=== PATIENT | female | born 1960 | race African-American/Black ===

== ENCOUNTER 2017-07-10 19:41 | Emergency (ER) | payer MEDICARE, BC | END 2017-07-10 20:05 | disposition home or self-care (01) | LOC: ER 19:41 | DX: S80.862A Insect bite (nonvenomous), left lower leg, initial encounter (principal); S80.861A Insect bite (nonvenomous), right lower leg, initial encounter; E78.00 Pure hypercholesterolemia, unspecified; I13.2 Hypertensive heart and chronic kidney disease with heart failure and with stage 5 chronic kidney disease, or end stage renal disease; E11.22 Type 2 diabetes mellitus with diabetic chronic kidney disease; N18.6 End stage renal disease; I50.9 Heart failure, unspecified; Z99.2 Dependence on renal dialysis; W57.XXXA Bitten or stung by nonvenomous insect and other nonvenomous arthropods, initial encounter; Y93.89 Activity, other specified; Y99.8 Other external cause status; Y92.89 Other specified places as the place of occurrence of the external cause | CPT/HCPCS: 99283 ==

== ENCOUNTER → 2017-08-10 | Outpatient (CLI) | payer MEDICARE ==
[2017-08-10 12:00] LABS: FERRITIN 1771 ng/mL (8-252)
[2017-08-10 23:12] LABS: HEP B SURFACE AG Negative (Negative)
[2017-08-12 14:14] LABS: HCV ULTRA QUANT PCR HCV Not Detected IU/mL (.)
== END | disposition home or self-care (01) ==
LOC: LAB 10:23
DX: L13.9 Bullous disorder, unspecified (principal); L98.8 Other specified disorders of the skin and subcutaneous tissue; R79.89 Other specified abnormal findings of blood chemistry
CPT/HCPCS: 36415; 82728; 86704; 87340; 87521

== ENCOUNTER → 2018-05-24 | Outpatient (CLI) | payer MEDICARE ==
[2017-07-10 19:47] VITALS: BP 181/81
[~2018-05-24] MED LIST: ASPI325T8 PO; CARV12.511 PO; CARV25TA2 PO; CARV6.2511 PO; FERR325T58 PO; FURO80TA3 PO; HYDR-2765 PO; HYDR-2867 PO; INSU100I17 SQ; ISOS10TA2 PO; LOSA100T14 PO; MAGN400T3 PO; MULT1TAB52 PO; SEVE800T9 PO; SULF1TAB24 PO
--- NOTE | 2018-05-24 11:37 | KCIC ---
Right upper quadrant ultrasound 05/24/2018 INDICATION: Elevated alkaline phosphatase. COMPARISON STUDY: None. FINDINGS: The visualized pancreas is unremarkable. The gallbladder wall is non thickened. No cholelithiasis is seen. Common bile duct is normal diameter 2.4 mm. The liver is unremarkable in appearance. No focal hepatic lesions are identified. The portal venous flows in the normal direction. Right kidney measures 11.4 cm in length but appears to be atrophic with significant renal cortical thinning. No gross hydronephrosis or nephrolithiasis is identified. IMPRESSION: 1. Atrophic appearance of the right kidney 2. No acute sonographic abnormality of the right upper quadrant Electronically signed by: Adonis Ervin MD (05/24/2018 11:34 AM) [id number]
== END | disposition home or self-care (01) ==
LOC: KCIC US 09:36
PROVIDERS: ATTEND Family Medicine
DX: N26.1 Atrophy of kidney (terminal) (principal)
CPT/HCPCS: 76705

== ENCOUNTER 2018-05-30 09:48 | Inpatient (IN) | payer MEDICARE ==
[~2018-05-30] VITALS: Ht 175.3 cm; Wt 88.9 kg
[~2018-05-30 09:48] MED LIST changes: -CARV25TA2 PO; -HYDR-2867 PO; -ISOS10TA2 PO; -LOSA100T14 PO
[2018-05-30 10:39] LABS: BASO % 0 % (0-3); EOS # 0.1 x10^3/uL (0.0-0.7); EOS % 1 % (0-3); HEMATOCRIT 29.4 % (36.0-47.0); HEMOGLOBIN 9.7 g/dL (12.0-15.5); LYMPH # 0.4 x10^3/uL (1.0-4.8); LYMPH % 4 % (24-48); MEAN CORPUSCULAR HEMOGLOBIN 34 pg (25-35); MEAN CORPUSCULAR HGB CONC 33 g/dL (31-37); MEAN CORPUSCULAR VOLUME 103 fL (79-100); MONO % 9 % (0-9); NEUT # 9.1 x10^3uL (1.8-7.7); NEUT % 86 % (31-73); PLATELET COUNT 101 x10^3/uL (140-400); RED BLOOD COUNT 2.85 x10^6/uL (3.50-5.40); RED CELL DISTRIBUTION WIDTH 14.8 % (11.5-14.5); WHITE BLOOD COUNT 10.6 x10^3/uL (4.0-11.0)
--- NOTE | 2018-05-30 10:50 | RAD ---
EXAM: CHEST 1 VIEW History: Cough COMPARISON: 05/02/2012 TECHNIQUE: Single portable radiograph of the chest FINDINGS: Mild cardiomegaly. Median sternotomy wires identified. There is airspace opacity identified in the right upper lobe of the lung likely infiltrates or atelectasis. Vascular stent is identified. IMPRESSION: Mild airspace opacity identified in the right upper lobe lung likely atelectasis or infiltrate. Follow-up to resolution Electronically signed by: Radu Mancera MD (05/30/2018 10:47 AM) [place] [id number]
[2018-05-30 11:44] LABS: INFLUENZA A PATIENT NEGATIVE (NEGATIVE); INFLUENZA B PATIENT NEGATIVE (NEGATIVE)
[2018-05-30 11:46] LABS: % BANDS 1 % (0-9); % LYMPHS 3 % (24-48); % MONOS 11 % (0-10); % SEGS 85 % (35-66); PLT ESTIMATE DECREASED (ADEQUATE)
--- NOTE | 2018-05-30 11:47 | PHYS DOC ---
Past Medical History Past Medical History: Arthritis, CHF, Diabetes-Type II, High Cholesterol, Hypertension, Renal Failure Additional Past Medical Histor: TRIPLE BYPASS Past Surgical History: Coronary Bypass Surgery, Tubal ligation Additional Past Surgical Histo: FISTULA, HERNIA, HEART BYPASS Alcohol Use: Occasionally Drug Use: None Adult General Chief Complaint Chief Complaint: FATIGUE HPI HPI Patient is a 57-year-old female who presents with report of being very fatigued and having generalized weakness. Patient recently had been admitted to [facility] and ultimately had been in the intensive care unit with IV pressors due to hypotension. Patient is on dialysis and states that her last full treatment was last Monday. Daughter indicates that [facility] had attempted to dialyze patient twice during her admission but patient had gone into atrial fibrillation. Patient denies any chest pain, abdominal pain, nausea, vomiting, diarrhea or other pain. Patient states that she did have fever a few days ago but does not feel febrile at this time. She does admit to a productive cough and some shortness of breath with exertion. Review of Systems Review of Systems Constitutional: Positive recent history of fever and chills [] Respiratory: Complains of cough and shortness of breath [] Cardiovascular: No additional information not addressed in HPI [] GI: Denies abdominal pain, nausea, vomiting or diarrhea [] Musculoskeletal: Denies back pain or joint pain [] Integument: Denies rash or skin lesions [] Neurologic: Denies headache, focal weakness or sensory changes [] All other systems were reviewed and found to be within normal limits, except as documented in this note. Allergies Allergies Allergies Coded Allergies Type Severity Reaction Last Updated Verified No Known Drug Allergies 06/26/14 No Physical Exam Physical Exam Constitutional: Well developed, well nourished, no acute distress, non-toxic appearance. [] HENT: Normocephalic, atraumatic, bilateral external ears normal, oropharynx dry , no oral exudates, nose normal. [] Eyes: PERRLA, EOMI, conjunctiva normal, no discharge. [] Neck: Normal range of motion, no tenderness, supple, no stridor. [] Cardiovascular: Regular rate and rhythm [] Lungs & Thorax: There are fine rhonchi noted in the lung bases to auscultation [ ] Abdomen: Bowel sounds normal, soft, no tenderness. [] Skin: Warm, dry, no erythema, no rash. [] Extremities: No tenderness, no cyanosis, no clubbing, ROM intact. [] Neurologic: Alert and oriented X 3, no focal deficits noted. [] Current Patient Data Vital Signs Vital Signs Date Time Temp Pulse Resp B/P (MAP) Pulse Ox O2 Delivery O2 Flow Rate FiO2 05/30/18 12:00 72 114/62 (79) 100 Nasal Cannula 2.0 05/30/18 09:50 98.3 18 98.3 Lab Values Laboratory Tests Test 05/30/18 10:04 05/30/18 10:45 05/30/18 11:50 05/30/18 13:10 White Blood Count 10.6 x10^3/uL (4.0-11.0) Red Blood Count 2.85 x10^6/uL (3.50-5.40) L Hemoglobin 9.7 g/dL (12.0-15.5) L Hematocrit 29.4 % (36.0-47.0) L Mean Corpuscular Volume 103 fL (79-100) H Mean Corpuscular Hemoglobin 34 pg (25-35) Mean Corpuscular Hemoglobin Concent 33 g/dL (31-37) Red Cell Distribution Width 14.8 % (11.5-14.5) H Platelet Count 101 x10^3/uL (140-400) L Neutrophils (%) (Auto) 86 % (31-73) H Lymphocytes (%) (Auto) 4 % (24-48) L Monocytes (%) (Auto) 9 % (0-9) Eosinophils (%) (Auto) 1 % (0-3) Basophils (%) (Auto) 0 % (0-3) Neutrophils # (Auto) 9.1 x10^3uL (1.8-7.7) H Lymphocytes # (Auto) 0.4 x10^3/uL (1.0-4.8) L Monocytes # (Auto) 1.0 x10^3/uL (0.0-1.1) Eosinophils # (Auto) 0.1 x10^3/uL (0.0-0.7) Basophils # (Auto) 0.0 x10^3/uL (0.0-0.2) Segmented Neutrophils % 85 % (35-66) H Band Neutrophils % 1 % (0-9) Lymphocytes % 3 % (24-48) L Monocytes % 11 % (0-10) H Platelet Estimate Decreased (ADEQUATE) Influenza Type A Antigen Negative (NEGATIVE) Influenza Type B Antigen Negative (NEGATIVE) Sodium Level 131 mmol/L (136-145) L Potassium Level 4.8 mmol/L (3.5-5.1) Chloride Level 87 mmol/L (98-107) L Carbon Dioxide Level 27 mmol/L (21-32) Anion Gap 17 (6-14) H Blood Urea Nitrogen 65 mg/dL (7-20) H Creatinine 8.5 mg/dL (0.6-1.0) H Estimated GFR (Cockcroft-Gault) 5.9 BUN/Creatinine Ratio 8 (6-20) Glucose Level 161 mg/dL (70-99) H Lactic Acid Level 1.2 mmol/L (0.4-2.0) Calcium Level 9.3 mg/dL (8.5-10.1) Total Bilirubin 0.7 mg/dL (0.2-1.0) Aspartate Amino Transferase (AST) 14 U/L (15-37) L Alanine Aminotransferase (ALT) 17 U/L (14-59) Alkaline Phosphatase 171 U/L (46-116) H Troponin I Quantitative 0.062 ng/mL (0.000-0.055) RC-Sbb-Y-Type Natriuretic Peptide > 76794 pg/mL (0-124) H Total Protein 5.8 g/dL (6.4-8.2) L Albumin 2.0 g/dL (3.4-5.0) L Albumin/Globulin Ratio 0.5 (1.0-1.7) L Urine Collection Type U cath Urine Color Maddie Urine Clarity Turbid Urine pH Urine Specific [place] Urine Protein mg/dL (NEG-TRACE) Urine Glucose (UA) mg/dL (NEG) Urine Ketones (Stick) mg/dL (NEG) Urine Blood (NEG) Urine Nitrite (NEG) Urine Bilirubin (NEG) Urine Urobilinogen Dipstick mg/dL (0.2 mg/dL) Urine Leukocyte Esterase (NEG) Urine RBC Tntc /HPF (0-2) Urine WBC >40 /HPF (0-4) Urine Squamous Epithelial Cells Mod /LPF Urine Transitional Epithelial Cells Few /LPF Urine Bacteria Few /HPF (0-FEW) Laboratory Tests 05/30/18 10:04 Laboratory Tests 05/30/18 11:50 EKG EKG [] Interpretation Time: EKG demonstrates normal sinus rhythm with rate of 77. Radiology/Procedures Radiology/Procedures [] Impressions: EXAM: CHEST 1 VIEW History: Cough COMPARISON: 05/02/2012 TECHNIQUE: Single portable radiograph of the chest FINDINGS: Mild cardiomegaly. Median sternotomy wires identified. There is airspace opacity identified in the right upper lobe of the lung likely infiltrates or atelectasis. Vascular stent is identified. IMPRESSION: Mild airspace opacity identified in the right upper lobe lung likely atelectasis or infiltrate. Follow-up to resolution Electronically signed by: Radu Mancera MD (05/30/2018 10:47 AM) [place] [id number] Course & Med Decision Making Course & Med Decision Making Pertinent Labs and Imaging studies reviewed. (See chart for details) [] Dragon Disclaimer Dragon Disclaimer This electronic medical record was generated, in whole or in part, using a voice recognition dictation system. Departure Departure Impression: Primary Impression: Right upper lobe pneumonia Additional Impression: ESRD (end stage renal disease) on dialysis Disposition: 09 ADMITTED INPATIENT Admitting Physician: Other Condition: IMPROVED Referrals: FRAN MORENO MD (PCP) Problem Qualifiers Primary Impression: Right upper lobe pneumonia Pneumonia type: due to unspecified organism Qualified Codes: J18.1 - Lobar pneumonia, unspecified organism ABBIE ARAGON Jr. DO May 30, 2018 11:47
--- NOTE | 2018-05-30 12:24 | EKG ---
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
[2018-05-30 12:38] LABS: CALCIUM 9.3 mg/dL (8.5-10.1); CREATININE 8.5 mg/dL (0.6-1.0); GFR 5.9; POTASSIUM 4.8 mmol/L (3.5-5.1)
[2018-05-30 12:52] LABS: ALBUMIN/GLOBULIN RATIO 0.5 (1.0-1.7); TOTAL BILIRUBIN 0.7 mg/dL (0.2-1.0); TOTAL PROTEIN 5.8 g/dL (6.4-8.2)
[2018-05-30 13:47] LABS: CLARITY,URINE TURBID; COLOR,URINE AMBER
[2018-05-30 13:48] LABS: SQUAMOUS EPITHELIAL CELL,UR MOD /LPF
[2018-05-30 13:49] LABS: BACTERIA,URINE FEW /HPF (0-FEW); RBC,URINE TNTC /HPF (0-2); WBC,URINE >40 /HPF (0-4)
--- NOTE | 2018-05-30 13:54 | PDOC1 ---
History and Physical Date of Admission Date of Admission DATE: 05/30/18 TIME: 13:53 Identification/Chief Complaint Chief Complaint Fatigued Source Source: Caregiver, Chart review, Patient History of Present Illness History of Present Illness 57-year-old female w/ PMHx HTN and secondary ESRD on HD at least 5 years duration who presents with report of being very fatigued and having generalized weakness. Patient recently had been admitted to [facility] and ultimately had been in the intensive care unit with IV pressors due to hypotension (on further review and call to ICU at [facility], her children took her from ICU AMA earlier today ). Patient is on dialysis and states that her last full outpatient treatment was last Monday. Daughter indicates that [facility] had attempted to dialyze patient twice during her admission but patient had gone into atrial fibrillation and became hypotensive, was transferred to ICU after on pressors, they were upset about her treatment plan, apparently, and are very demanding of ED staff and nursing floor staff after admission. Patient denies any chest pain, abdominal pain, nausea, vomiting, diarrhea or other pain. Patient states that she did have fever a few days ago but does not feel febrile at this time. She does admit to a productive cough and some shortness of breath with exertion. Negative flu test, but positive for RUL infiltrate on CXR in ED. On the floor she appears hypotensive 78/49 on the electronic blood pressure cuff. However, I took manual BP on LUE and right thigh cuff, found 110/68 and 105/62 by manual auscultation. Past Medical History Cardiovascular: HTN Pulmonary: No pertinent hx GI: No pertinent hx Heme/Onc: No pertinent hx Hepatobiliary: No pertinent hx Psych: No pertinent hx Rheumatologic: No pertinent hx Infectious disease: No pertinent hx ENT: No pertinent hx Renal/: Chronic renal failure Endocrine: No pertinent hx Dermatology: No pertinent hx Past Surgical History Past Surgical History: Other (RUE AV fistula) Family History Family History: Hypertension Family History: Parent (HTN, CAD) Social History Smoke: No ALCOHOL: none Drugs: None Current Medications Current Medications Active Scripts Active Bactrim Ds Tablet (Sulfamethoxazole/Trimethoprim) 1 Each Tablet 1 Tab PO BID Reported Novolog Flexpen (Insulin Aspart) 100 Unit/1 Ml Insuln.pen 1 Unit SQ Carvedilol 12.5 Mg Tablet 1 Tab PO BID Carvedilol 6.25 Mg Tablet 1 Tab PO BID Hydrocodone-Apap 7.5-325 (Hydrocodone Bit/Acetaminophen) 1 Each Tablet 1 Tab PO QID Renvela (Sevelamer Carbonate) 800 Mg Tablet 2 Tab PO TID Iron Supplement (Ferrous Sulfate) 325 Mg Tablet 1 Tab PO DAILY Aspirin 325 Mg Tablet 1 Tab PO DAILY Multivitamins (Multivitamin) 1 Each Tablet 1 Tab PO DAILY Furosemide 80 Mg Tablet 1 Tab PO DAILY Magnesium Oxide 400 Mg Tablet 1 Tab PO DAILY Allergies Allergies: Coded Allergies: No Known Drug Allergies (Unverified , 06/26/14) ROS General: YES: Fatigue, Malaise; No: Chills, Night Sweats, Appetite, Other PSYCHOLOGICAL ROS: No: Anxiety, Behavioral Disorder, Concentration difficultie , Decreased libido, Depression, Disorientation, Hallucinations, Hostility, Irritablity, Memory difficulties, Mood Swings, Obsessive thoughts, Physical abuse, Sexual abuse, Sleep disturbances, Suicidal ideation, Other Eyes: No Blurry vision, No Decreased vision, No Double vision, No Dry eyes, No Excessive tearing, No Eye Pain, No Itchy Eyes, No Loss of vision, No Photophobia , No Scotomata, No Uses contacts, No Uses glasses, No Other HEENT: No: Heacaches, Visual Changes, Hearing change, Nasal congestion, Nasal discharge, Oral lesions, Sinus pain, Sore Throat, Epistaxis, Sneezing, Snoring, Tinnitus, Vertigo, Vocal changes, Other ALLERGY AND IMMUNOLOGY: No: Hives, Insect Bite Sensitivity, Itchy/Watery Eyes, Nasal Congestion, Post Nasal Drip, Seasonal Allergies, Other Hematological and Lymphatic: No: Bleeding Problems, Blood Clots, Blood Transfusions, Brusing, Night Sweats, Pallor, Swollen Lymph Nodes, Other ENDOCRINE: No: Breast Changes, Galactorrhea, Hair Pattern Changes, Hot Flashes , Malaise/lethargy, Mood Swings, Palpitations, Polydipsia/polyuria, Skin Changes , Temperature Intolerance, Unexpected Weight Changes, Other Breast: No New/Changing Breast Lumps, No Nipple changes, No Nipple discharge, No Other Respiratory: YES: Cough, Shortness of breath; No: Hemoptysis, Orthopnea, Pleuritic Pain, SOB with excertion, Sputum Changes , Stridor, Tachypnea, Wheezing, Other Cardiovascular: No Chest Pain, No Palpitations, No Orthopnea, No Paroxysmal Noc. Dyspnea, No Edema, No Lt Headedness, No Other Gastrointestinal: Yes Nausea; No Vomiting, No Abdominal Pain, No Diarrhea, No Constipation, No Melena, No Hematochezia, No Other Genitourinary: No Dysuria, No Frequency, No Incontinence, No Hematuria, No Retention, No Discharge, No Urgency, No Pain, No Flank Pain, No Other, No , No , No , No , No , No , No Musculoskeletal: No Gait Disturbance, No Joint Pain, No Joint Stiffness, No Joint Swelling, No Muscle Pain, No Muscular Weakness, No Pain In:, No Swelling In:, No Other Neurological: No Behavorial Changes, No Bowel/Bladder ControlChng, No Confusion , No Dizziness, No Gait Disturbance, No Headaches, No Impaired Coord/balance, No Memory Loss, No Numbness/Tingling, No Seizures, No Speech Problems, No Tremors, No Visual Changes, No Weakness, No Other Skin: Yes Dry Skin; No Eczema, No Hair Changes, No Lumps, No Mole Changes, No Mottling, No Nail Changes, No Pruritus, No Rash, No Skin Lesion Changes, No Other, No Acne Physical Exam General: Alert, Oriented X3, Cooperative, No acute distress HEENT: Atraumatic, PERRLA, EOMI, Mucous membr. moist/pink Lungs: Other (Right sided crackles, decreased bibasilar sounds) Abdomen: Normal bowel sounds, Soft, No tenderness, No hepatosplenomegaly, No masses Rectal Exam: not examined Extremities: No clubbing, No cyanosis, No edema, Normal pulses, No tenderness/ swelling, Other (Scarring and RUE fistula with good bruit) Skin: Other (Very dry skin) Neuro: Normal gait, Normal speech, Strength at 5/5 X4 ext, Normal tone, Sensation intact, Cranial nerves 3-12 NL, Reflexes 2+ Psych/Mental Status: Mental status NL, Mood NL Vitals Vitals Vital Signs Date Time Temp Pulse Resp B/P (MAP) Pulse Ox O2 Delivery O2 Flow Rate FiO2 05/30/18 12:00 72 114/62 (79) 100 Nasal Cannula 2.0 05/30/18 09:50 98.3 18 98.3 Labs Labs Laboratory Tests Test 05/30/18 10:04 05/30/18 10:45 05/30/18 11:50 05/30/18 13:10 White Blood Count 10.6 x10^3/uL (4.0-11.0) Red Blood Count 2.85 x10^6/uL (3.50-5.40) Hemoglobin 9.7 g/dL (12.0-15.5) Hematocrit 29.4 % (36.0-47.0) Mean Corpuscular Volume 103 fL (79-100) Mean Corpuscular Hemoglobin 34 pg (25-35) Mean Corpuscular Hemoglobin Concent 33 g/dL (31-37) Red Cell Distribution Width 14.8 % (11.5-14.5) Platelet Count 101 x10^3/uL (140-400) Neutrophils (%) (Auto) 86 % (31-73) Lymphocytes (%) (Auto) 4 % (24-48) Monocytes (%) (Auto) 9 % (0-9) Eosinophils (%) (Auto) 1 % (0-3) Basophils (%) (Auto) 0 % (0-3) Neutrophils # (Auto) 9.1 x10^3uL (1.8-7.7) Lymphocytes # (Auto) 0.4 x10^3/uL (1.0-4.8) Monocytes # (Auto) 1.0 x10^3/uL (0.0-1.1) Eosinophils # (Auto) 0.1 x10^3/uL (0.0-0.7) Basophils # (Auto) 0.0 x10^3/uL (0.0-0.2) Segmented Neutrophils % 85 % (35-66) Band Neutrophils % 1 % (0-9) Lymphocytes % 3 % (24-48) Monocytes % 11 % (0-10) Platelet Estimate Decreased (ADEQUATE) Influenza Type A Antigen Negative (NEGATIVE) Influenza Type B Antigen Negative (NEGATIVE) Sodium Level 131 mmol/L (136-145) Potassium Level 4.8 mmol/L (3.5-5.1) Chloride Level 87 mmol/L (98-107) Carbon Dioxide Level 27 mmol/L (21-32) Anion Gap 17 (6-14) Blood Urea Nitrogen 65 mg/dL (7-20) Creatinine 8.5 mg/dL (0.6-1.0) Estimated GFR (Cockcroft-Gault) 5.9 BUN/Creatinine Ratio 8 (6-20) Glucose Level 161 mg/dL (70-99) Lactic Acid Level 1.2 mmol/L (0.4-2.0) Calcium Level 9.3 mg/dL (8.5-10.1) Total Bilirubin 0.7 mg/dL (0.2-1.0) Aspartate Amino Transf (AST/SGOT) 14 U/L (15-37) Alanine Aminotransferase (ALT/SGPT) 17 U/L (14-59) Alkaline Phosphatase 171 U/L (46-116) Troponin I Quantitative 0.062 ng/mL (0.000-0.055) QW-Voh-N-Type Natriuretic Peptide > 04066 pg/mL (0-124) Total Protein 5.8 g/dL (6.4-8.2) Albumin 2.0 g/dL (3.4-5.0) Albumin/Globulin Ratio 0.5 (1.0-1.7) Urine Collection Type U cath Urine Color Maddie Urine Clarity Turbid Urine pH Urine Specific [place] Urine Protein mg/dL (NEG-TRACE) Urine Glucose (UA) mg/dL (NEG) Urine Ketones (Stick) mg/dL (NEG) Urine Blood (NEG) Urine Nitrite (NEG) Urine Bilirubin (NEG) Urine Urobilinogen Dipstick mg/dL (0.2 mg/dL) Urine Leukocyte Esterase (NEG) Urine RBC Tntc /HPF (0-2) Urine WBC >40 /HPF (0-4) Urine Squamous Epithelial Cells Mod /LPF Urine Transitional Epithelial Cells Few /LPF Urine Bacteria Few /HPF (0-FEW) Laboratory Tests Test 05/30/18 10:04 05/30/18 10:45 05/30/18 11:50 05/30/18 13:10 White Blood Count 10.6 x10^3/uL (4.0-11.0) Red Blood Count 2.85 x10^6/uL (3.50-5.40) Hemoglobin 9.7 g/dL (12.0-15.5) Hematocrit 29.4 % (36.0-47.0) Mean Corpuscular Volume 103 fL (79-100) Mean Corpuscular Hemoglobin 34 pg (25-35) Mean Corpuscular Hemoglobin Concent 33 g/dL (31-37) Red Cell Distribution Width 14.8 % (11.5-14.5) Platelet Count 101 x10^3/uL (140-400) Neutrophils (%) (Auto) 86 % (31-73) Lymphocytes (%) (Auto) 4 % (24-48) Monocytes (%) (Auto) 9 % (0-9) Eosinophils (%) (Auto) 1 % (0-3) Basophils (%) (Auto) 0 % (0-3) Neutrophils # (Auto) 9.1 x10^3uL (1.8-7.7) Lymphocytes # (Auto) 0.4 x10^3/uL (1.0-4.8) Monocytes # (Auto) 1.0 x10^3/uL (0.0-1.1) Eosinophils # (Auto) 0.1 x10^3/uL (0.0-0.7) Basophils # (Auto) 0.0 x10^3/uL (0.0-0.2) Segmented Neutrophils % 85 % (35-66) Band Neutrophils % 1 % (0-9) Lymphocytes % 3 % (24-48) Monocytes % 11 % (0-10) Platelet Estimate Decreased (ADEQUATE) Influenza Type A Antigen Negative (NEGATIVE) Influenza Type B Antigen Negative (NEGATIVE) Sodium Level 131 mmol/L (136-145) Potassium Level 4.8 mmol/L (3.5-5.1) Chloride Level 87 mmol/L (98-107) Carbon Dioxide Level 27 mmol/L (21-32) Anion Gap 17 (6-14) Blood Urea Nitrogen 65 mg/dL (7-20) Creatinine 8.5 mg/dL (0.6-1.0) Estimated GFR (Cockcroft-Gault) 5.9 BUN/Creatinine Ratio 8 (6-20) Glucose Level 161 mg/dL (70-99) Lactic Acid Level 1.2 mmol/L (0.4-2.0) Calcium Level 9.3 mg/dL (8.5-10.1) Total Bilirubin 0.7 mg/dL (0.2-1.0) Aspartate Amino Transf (AST/SGOT) 14 U/L (15-37) Alanine Aminotransferase (ALT/SGPT) 17 U/L (14-59) Alkaline Phosphatase 171 U/L (46-116) Troponin I Quantitative 0.062 ng/mL (0.000-0.055) JM-Axz-U-Type Natriuretic Peptide > 39162 pg/mL (0-124) Total Protein 5.8 g/dL (6.4-8.2) Albumin 2.0 g/dL (3.4-5.0) Albumin/Globulin Ratio 0.5 (1.0-1.7) Urine Collection Type U cath Urine Color Maddie Urine Clarity Turbid Urine pH Urine Specific [place] Urine Protein mg/dL (NEG-TRACE) Urine Glucose (UA) mg/dL (NEG) Urine Ketones (Stick) mg/dL (NEG) Urine Blood (NEG) Urine Nitrite (NEG) Urine Bilirubin (NEG) Urine Urobilinogen Dipstick mg/dL (0.2 mg/dL) Urine Leukocyte Esterase (NEG) Urine RBC Tntc /HPF (0-2) Urine WBC >40 /HPF (0-4) Urine Squamous Epithelial Cells Mod /LPF Urine Transitional Epithelial Cells Few /LPF Urine Bacteria Few /HPF (0-FEW) Images Images CXR - Mild airspace opacity identified in the right upper lobe lung likely atelectasis or infiltrate. Follow-up to resolution VTE Prophylaxis Ordered VTE Prophylaxis Devices: No VTE Pharmacological Prophylaxi: Yes Assessment/Plan Assessment/Plan A/P: Cough - with RUL infiltrate, left shift, highly elevated procalcitonin and recent hospital stay will treat this as HCAP - cefepime + vanco. I will consult pulm/airport operations manager as she was literally in ICU at [facility] just hours prior to my evaluation Hypoxia - likely combination of HCAP and possible fluid overload Hypotension - On the floor she appears hypotensive 78/49 on the electronic blood pressure cuff. However, I took manual BP on LUE and right thigh cuff, found 110/68 and 105/62 by manual auscultation. I recommended manual BP to overnight nursing staff ESRD on HD - 5 year history, will consult nephrology with caveat that she had 2 poor runs, apparently, at [facility] Anemia - likely of chronic renal insufficiency. Monitor, consider transfusion if Hb < 7 HTN - will hold her meds as she is rather hypotensive Afib history - she is sinus on monitor for me. Will consult cardiology. FEN - Renal diet PPX - heparin FULL CODE Inpatient for HCAP at least 2 midnights. She may have a lower threshold for ICU transfer, but has been stable for hours with me thus far. TIANA LINDSAY MD May 30, 2018 13:54
[2018-05-30] MEDS ORDERED: VANCOMYCIN 1GM IVPB FOR OMNI 250 ML IV ONE (14:15)
[2018-05-30] MEDS ORDERED: ACETAMINOPHEN 325 MG TABLET. PO PRN ×2 (14:15→17:00)
[2018-05-30] MEDS ORDERED: PIPERACILLIN/TAZOBACTAM 2.25 GM in IV NORMAL SALINE 50ML 50 ML IV ONE (14:15)
[2018-05-30] MEDS ORDERED: VANCOMYCIN 1.5 GM in IV NORMAL SALINE 500ML BAG 500 ML IV ONE (14:30)
[2018-05-30 15:00] VITALS: BP 99/56
[2018-05-30] MEDS ORDERED: ISOS10TA2 PO (15:59)
[2018-05-30] MEDS ORDERED: LOSA100T14 PO (15:59)
[2018-05-30] MEDS ORDERED: CARV25TA2 PO (15:59)
[2018-05-30] MEDS ORDERED: HYDR-2867 PO (15:59)
[2018-05-30] MEDS ORDERED: ONDANSETRON PF 4 MG/2 ML VIAL. IV PRN (17:00)
[2018-05-30] MEDS ORDERED: LACTULOSE 20 GM/30 ML SOLUTION. PO PRN (17:00)
[2018-05-30] MEDS ORDERED: BISACODYL 10 MG SUPP.RECT. PR PRN (17:00)
[2018-05-30] MEDS: IPRATRPIUM/ALBUTEROL 0.5/2.5MG 3 ML NEBU. NEB SCH ×2 (17:08→20:32)
[2018-05-30 19:00] VITALS: BP 73/38
[2018-05-30] MEDS ORDERED: IV NORMAL SALINE 250ML 250 ML IV ONE ×2 (20:00→20:30)
[2018-05-30] MEDS: CEFEPIME HCL IV Push 1 GM VIAL. IVP SCH (20:02)
[2018-05-30] MEDS: VANCOMYCIN PER PHARMACY MC PRN (20:23)
[2018-05-30 20:28] VITALS: BP 88/49
--- NOTE | 2018-05-30 20:31 | NUR ---
Pharmacy Vancomycin Dosing Note S:Consulted to monitor and dose vancomycin started 05/30/18. O:ERIC ZAIDI is a 57 year old F with HCAP . Height: 5 feet, 9 inches Weight: 82.344720 kg [place] Body Weight: 66.20 Adjusted Body Weight: 72.52 Dosing Weight: Actual Other Antibiotics: CEFEPIME 05/30 - LABS: Last BUN: 65 Last Creatinine: 8.5 Creatinine Clearance: ESRD HD mL/min Last WBC: 10.6 Last Procalcitonin: - Tmax (past 24 hours): 98.3 Microbiology: 05/30 PENDING I/O: - Drug Levels: Last level: on at Last dose given 05/30/18 at 1546 Vancomycin Dosing: Loading Dose: x1 Dosing Weight: Actual Target Trough: 15-20 A: Based on: HD status, P: 1. Give Vancomycin 1500 mg IV One Time 2. Follow up Random level on 05/31/18 at 0600 3. Pharmacy will continue to monitor, follow and adjust therapy as needed. SEBASTIAN JERRY [facility], 05/30/182030
[2018-05-30 20:46] VITALS: BP 88/50
[2018-05-30] MEDS: SENNOSIDES/DOCUSATE 8.6/50MG TABLET. PO SCH (21:00)
[2018-05-30] MEDS: HEPARIN for SUB-Q USE 5,000 UNIT/ML VIAL. SQ SCH (21:05)
[2018-05-30] MEDS ORDERED: DEXTROSE 50% 25 GM / 50ML DISP.SYRIN. IV PRN (22:15)
[2018-05-30] MEDS: INSULIN GLARGINE 300 UNITS/3 ML INSULN.PEN. SQ SCH (22:37)
[2018-05-30 23:00] VITALS: BP 110/68
[2018-05-31 03:04] VITALS: BP 104/60
[2018-05-31] MEDS ORDERED: VANCOMYCIN RANDOM LEVEL. MC ONE (06:00)
[2018-05-31] MEDS: IPRATRPIUM/ALBUTEROL 0.5/2.5MG 3 ML NEBU. NEB SCH ×3 (07:10→19:23)
[2018-05-31 07:43] LABS: BASO # 0.1 x10^3/uL (0.0-0.2); BASO % 1 % (0-3); EOS # 0.1 x10^3/uL (0.0-0.7); EOS % 1 % (0-3); HEMATOCRIT 25.4 % (36.0-47.0); HEMOGLOBIN 8.5 g/dL (12.0-15.5); LYMPH # 0.4 x10^3/uL (1.0-4.8); LYMPH % 5 % (24-48); MEAN CORPUSCULAR HEMOGLOBIN 34 pg (25-35); MEAN CORPUSCULAR HGB CONC 34 g/dL (31-37); MEAN CORPUSCULAR VOLUME 102 fL (79-100); MONO # 0.9 x10^3/uL (0.0-1.1); MONO % 10 % (0-9); NEUT # 7.8 x10^3uL (1.8-7.7); NEUT % 84 % (31-73); PLATELET COUNT 88 x10^3/uL (140-400); RED BLOOD COUNT 2.49 x10^6/uL (3.50-5.40); RED CELL DISTRIBUTION WIDTH 14.4 % (11.5-14.5); WHITE BLOOD COUNT 9.3 x10^3/uL (4.0-11.0)
[2018-05-31] MEDS ORDERED: CARVEDILOL 12.5 MG TABLET. PO SCH (08:00)
[2018-05-31] MEDS: hydrALAZINE 10 MG TABLET PO SCH (08:01)
[2018-05-31 08:05] LABS: ALBUMIN 1.7 g/dL (3.4-5.0); CALCIUM 9.3 mg/dL (8.5-10.1); CREATININE 8.9 mg/dL (0.6-1.0); GFR 5.6; PHOSPHORUS 7.3 mg/dL (2.6-4.7); POTASSIUM 5.1 mmol/L (3.5-5.1)
[2018-05-31] MEDS: SENNOSIDES/DOCUSATE 8.6/50MG TABLET. PO SCH ×2 (08:58→20:13)
[2018-05-31] MEDS: MAGNESIUM OXIDE 400 MG TABLET PO SCH (08:58)
[2018-05-31] MEDS ORDERED: ISOSORBIDE DINITRATE 10 MG TABLET. PO SCH (09:00)
[2018-05-31] MEDS ORDERED: LOSARTAN POTASSIUM 50 MG TABLET. PO SCH (09:00)
[2018-05-31] MEDS: HEPARIN for SUB-Q USE 5,000 UNIT/ML VIAL. SQ SCH ×2 (09:10→21:05)
[2018-05-31] MEDS: INSULIN LISPRO 300 UNITS/3 ML INSULN.PEN. SQ SCH ×3 (09:10→17:00)
[2018-05-31] MEDS: VANCOMYCIN PER PHARMACY MC PRN ×2 (10:16→14:00)
[2018-05-31] MEDS ORDERED: IV NORMAL SALINE 1000ML BAG 1,000 ML IV PRN ×2 (10:36)
[2018-05-31] MEDS ORDERED: ACETAMINOPHEN 500 MG TABLET PO PRN (10:45)
[2018-05-31] MEDS ORDERED: ALBUMIN HUMAN 25% 200 ML IV PRN (10:45)
[2018-05-31] MEDS ORDERED: DIALYSIS PATIENT. MC PRN (10:45)
[2018-05-31] MEDS ORDERED: diphenhydrAMINE 50 MG/ML VIAL IV PRN ×2 (10:45)
--- NOTE | 2018-05-31 12:07 | CONS ---
DATE OF CONSULTATION: ATTENDING PHYSICIAN: Dr. Bustos. REASON FOR CONSULTATION: Pneumonia. HISTORY OF PRESENT ILLNESS: The patient is a 57-year-old who has a history of tobacco use for 25 some years. She has history of end-stage renal disease, on hemodialysis. She was brought into the hospital with complaint of shortness of breath. She said she has a cough. She has some mild colt brown sputum as well. She was apparently at [facility] and was in the ICU for hypotension. However, her son took her from ICU AMA. The patient states she has missed dialysis session as well. No headaches, no nausea, vomiting, no diarrhea. Chest x-ray was reviewed and is consistent with infiltrate involving the right upper lobe. The patient has been started on antibiotics cefepime and vancomycin. I have been asked to see her for further evaluation. PAST MEDICAL HISTORY: Significant for hypertension, history of end-stage renal disease, on hemodialysis. PAST SURGICAL HISTORY: Right upper extremity AV fistula. FAMILY HISTORY: Hypertension. SOCIAL HISTORY: Smoked for about 25 years before quitting. REVIEW OF SYSTEMS: Twelve-point system obtained. Pertinent positives discussed in my history of present illness, otherwise noncontributory. All systems that were negative were reviewed as well. MEDICATIONS: Reviewed including antibiotics. PHYSICAL EXAMINATION: VITAL SIGNS: Reviewed. She is afebrile, pulse ox is 98% on room air. HEENT: Sclerae nonicteric. NECK: Supple. LUNGS: With diminished breath sounds. CARDIOVASCULAR: Regular rate and rhythm. ABDOMEN: Soft, nontender. EXTREMITIES: With some trace edema and venous stasis. LABORATORY DATA: Reviewed. White cell count 9.3, hemoglobin 8.5 and platelets are 88. Influenza screen negative. IMPRESSION: 1. Dyspnea with acute hypoxic respiratory failure requiring oxygen on admission secondary to pneumonia and underlying chronic obstructive pulmonary disease. 2. Abnormal chest x-ray consistent with right upper lobe pneumonia. 3. End-stage renal disease, on hemodialysis. 4. 25 years of tobacco use, suspect underlying chronic obstructive pulmonary disease. RECOMMENDATIONS: 1. Continue with present antibiotics. 2. We will repeat a chest x-ray in 48-72 hours. 3. Follow clinical course. 4. Hemodialysis per Renal. 5. We will follow along with you. TITUS PEGUERO MD DR: RICARDO/ron JOB#: [id number] / [id number]
--- NOTE | 2018-05-31 12:10 | PDOC ---
PROGRESS NOTES Chief Complaint Chief Complaint sepsis, pneumonia, Cough - with RUL infiltrate, le cefepime + vanco. acute Hypoxia - HCAP and possible fluid overload, ESRD Hypotension - sepsis, dry, ESRD ESRD on HD, need UF at least, fluid balance improving Anemia - likely of chronic renal insufficiency. Monitor, consider transfusion if Hb < 7 HTN - Afib history - she is sinus on monitor for me. Will consult cardiology. 7 beat run of vtach today, consult CV History of Present Illness History of Present Illness PO intake bettter vitals improved she is more active and alert today Vitals Vitals Vital Signs Date Time Temp Pulse Resp B/P (MAP) Pulse Ox O2 Delivery O2 Flow Rate FiO2 05/31/18 11:00 97.9 74 18 94 Room Air 97.9 05/31/18 08:01 110/72 05/31/18 08:00 1.0 Physical Exam General: Alert, Oriented X3, Cooperative, No acute distress Heart: No murmurs Lungs: Other (rales, poor voulme, RUL coarse) Abdomen: Normal bowel sounds, Soft, No tenderness, No hepatosplenomegaly, No masses Extremities: No clubbing, No cyanosis, No edema, Normal pulses, No tenderness/ swelling, Other (Scarring and RUE fistula with good bruit) Skin: Other (Very dry skin) Labs LABS Laboratory Tests Test 05/30/18 13:10 05/30/18 17:18 05/30/18 20:41 05/31/18 06:25 Urine Collection Type U cath Urine Color Maddie Urine Clarity Turbid Urine pH Urine Specific [place] Urine Protein mg/dL (NEG-TRACE) Urine Glucose (UA) mg/dL (NEG) Urine Ketones (Stick) mg/dL (NEG) Urine Blood (NEG) Urine Nitrite (NEG) Urine Bilirubin (NEG) Urine Urobilinogen Dipstick mg/dL (0.2 mg/dL) Urine Leukocyte Esterase (NEG) Urine RBC Tntc /HPF (0-2) Urine WBC >40 /HPF (0-4) Urine Squamous Epithelial Cells Mod /LPF Urine Transitional Epithelial Cells Few /LPF Urine Bacteria Few /HPF (0-FEW) Glucose (Fingerstick) 188 mg/dL (70-99) 252 mg/dL (70-99) White Blood Count 9.3 x10^3/uL (4.0-11.0) Red Blood Count 2.49 x10^6/uL (3.50-5.40) Hemoglobin 8.5 g/dL (12.0-15.5) Hematocrit 25.4 % (36.0-47.0) Mean Corpuscular Volume 102 fL (79-100) Mean Corpuscular Hemoglobin 34 pg (25-35) Mean Corpuscular Hemoglobin Concent 34 g/dL (31-37) Red Cell Distribution Width 14.4 % (11.5-14.5) Platelet Count 88 x10^3/uL (140-400) Neutrophils (%) (Auto) 84 % (31-73) Lymphocytes (%) (Auto) 5 % (24-48) Monocytes (%) (Auto) 10 % (0-9) Eosinophils (%) (Auto) 1 % (0-3) Basophils (%) (Auto) 1 % (0-3) Neutrophils # (Auto) 7.8 x10^3uL (1.8-7.7) Lymphocytes # (Auto) 0.4 x10^3/uL (1.0-4.8) Monocytes # (Auto) 0.9 x10^3/uL (0.0-1.1) Eosinophils # (Auto) 0.1 x10^3/uL (0.0-0.7) Basophils # (Auto) 0.1 x10^3/uL (0.0-0.2) Sodium Level 128 mmol/L (136-145) Potassium Level 5.1 mmol/L (3.5-5.1) Chloride Level 86 mmol/L (98-107) Carbon Dioxide Level 25 mmol/L (21-32) Anion Gap 17 (6-14) Blood Urea Nitrogen 77 mg/dL (7-20) Creatinine 8.9 mg/dL (0.6-1.0) Estimated GFR (Cockcroft-Gault) 5.6 Glucose Level 220 mg/dL (70-99) Calcium Level 9.3 mg/dL (8.5-10.1) Phosphorus Level 7.3 mg/dL (2.6-4.7) Albumin 1.7 g/dL (3.4-5.0) Random Vancomycin Level 27.2 mcg/mL Test 05/31/18 08:01 05/31/18 11:36 Glucose (Fingerstick) 202 mg/dL (70-99) 232 mg/dL (70-99) Assessment and Plan Assessmemt and Plan Problems Medical Problems: (1) ESRD (end stage renal disease) on dialysis Status: Acute (2) Right upper lobe pneumonia Status: Acute Comment Review of Relevant I have reviewed the following items alivia (where applicable) has been applied. Labs Laboratory Tests Test 05/30/18 10:04 05/30/18 10:45 05/30/18 11:50 05/30/18 13:10 White Blood Count 10.6 x10^3/uL (4.0-11.0) Red Blood Count 2.85 x10^6/uL (3.50-5.40) Hemoglobin 9.7 g/dL (12.0-15.5) Hematocrit 29.4 % (36.0-47.0) Mean Corpuscular Volume 103 fL (79-100) Mean Corpuscular Hemoglobin 34 pg (25-35) Mean Corpuscular Hemoglobin Concent 33 g/dL (31-37) Red Cell Distribution Width 14.8 % (11.5-14.5) Platelet Count 101 x10^3/uL (140-400) Neutrophils (%) (Auto) 86 % (31-73) Lymphocytes (%) (Auto) 4 % (24-48) Monocytes (%) (Auto) 9 % (0-9) Eosinophils (%) (Auto) 1 % (0-3) Basophils (%) (Auto) 0 % (0-3) Neutrophils # (Auto) 9.1 x10^3uL (1.8-7.7) Lymphocytes # (Auto) 0.4 x10^3/uL (1.0-4.8) Monocytes # (Auto) 1.0 x10^3/uL (0.0-1.1) Eosinophils # (Auto) 0.1 x10^3/uL (0.0-0.7) Basophils # (Auto) 0.0 x10^3/uL (0.0-0.2) Segmented Neutrophils % 85 % (35-66) Band Neutrophils % 1 % (0-9) Lymphocytes % 3 % (24-48) Monocytes % 11 % (0-10) Platelet Estimate Decreased (ADEQUATE) Influenza Type A Antigen Negative (NEGATIVE) Influenza Type B Antigen Negative (NEGATIVE) Sodium Level 131 mmol/L (136-145) Potassium Level 4.8 mmol/L (3.5-5.1) Chloride Level 87 mmol/L (98-107) Carbon Dioxide Level 27 mmol/L (21-32) Anion Gap 17 (6-14) Blood Urea Nitrogen 65 mg/dL (7-20) Creatinine 8.5 mg/dL (0.6-1.0) Estimated GFR (Cockcroft-Gault) 5.9 BUN/Creatinine Ratio 8 (6-20) Glucose Level 161 mg/dL (70-99) Lactic Acid Level 1.2 mmol/L (0.4-2.0) Calcium Level 9.3 mg/dL (8.5-10.1) Total Bilirubin 0.7 mg/dL (0.2-1.0) Aspartate Amino Transf (AST/SGOT) 14 U/L (15-37) Alanine Aminotransferase (ALT/SGPT) 17 U/L (14-59) Alkaline Phosphatase 171 U/L (46-116) Troponin I Quantitative 0.062 ng/mL (0.000-0.055) JV-Gdy-Q-Type Natriuretic Peptide > 61137 pg/mL (0-124) Total Protein 5.8 g/dL (6.4-8.2) Albumin 2.0 g/dL (3.4-5.0) Albumin/Globulin Ratio 0.5 (1.0-1.7) Procalcitonin 121.96 ng/mL (0.00-0.10) Urine Collection Type U cath Urine Color Maddie Urine Clarity Turbid Urine pH Urine Specific [place] Urine Protein mg/dL (NEG-TRACE) Urine Glucose (UA) mg/dL (NEG) Urine Ketones (Stick) mg/dL (NEG) Urine Blood (NEG) Urine Nitrite (NEG) Urine Bilirubin (NEG) Urine Urobilinogen Dipstick mg/dL (0.2 mg/dL) Urine Leukocyte Esterase (NEG) Urine RBC Tntc /HPF (0-2) Urine WBC >40 /HPF (0-4) Urine Squamous Epithelial Cells Mod /LPF Urine Transitional Epithelial Cells Few /LPF Urine Bacteria Few /HPF (0-FEW) Test 05/30/18 17:18 05/30/18 20:41 05/31/18 06:25 05/31/18 08:01 Glucose (Fingerstick) 188 mg/dL (70-99) 252 mg/dL (70-99) 202 mg/dL (70-99) White Blood Count 9.3 x10^3/uL (4.0-11.0) Red Blood Count 2.49 x10^6/uL (3.50-5.40) Hemoglobin 8.5 g/dL (12.0-15.5) Hematocrit 25.4 % (36.0-47.0) Mean Corpuscular Volume 102 fL (79-100) Mean Corpuscular Hemoglobin 34 pg (25-35) Mean Corpuscular Hemoglobin Concent 34 g/dL (31-37) Red Cell Distribution Width 14.4 % (11.5-14.5) Platelet Count 88 x10^3/uL (140-400) Neutrophils (%) (Auto) 84 % (31-73) Lymphocytes (%) (Auto) 5 % (24-48) Monocytes (%) (Auto) 10 % (0-9) Eosinophils (%) (Auto) 1 % (0-3) Basophils (%) (Auto) 1 % (0-3) Neutrophils # (Auto) 7.8 x10^3uL (1.8-7.7) Lymphocytes # (Auto) 0.4 x10^3/uL (1.0-4.8) Monocytes # (Auto) 0.9 x10^3/uL (0.0-1.1) Eosinophils # (Auto) 0.1 x10^3/uL (0.0-0.7) Basophils # (Auto) 0.1 x10^3/uL (0.0-0.2) Sodium Level 128 mmol/L (136-145) Potassium Level 5.1 mmol/L (3.5-5.1) Chloride Level 86 mmol/L (98-107) Carbon Dioxide Level 25 mmol/L (21-32) Anion Gap 17 (6-14) Blood Urea Nitrogen 77 mg/dL (7-20) Creatinine 8.9 mg/dL (0.6-1.0) Estimated GFR (Cockcroft-Gault) 5.6 Glucose Level 220 mg/dL (70-99) Calcium Level 9.3 mg/dL (8.5-10.1) Phosphorus Level 7.3 mg/dL (2.6-4.7) Albumin 1.7 g/dL (3.4-5.0) Random Vancomycin Level 27.2 mcg/mL Test 05/31/18 11:36 Glucose (Fingerstick) 232 mg/dL (70-99) Laboratory Tests Test 05/30/18 13:10 05/30/18 17:18 05/30/18 20:41 05/31/18 06:25 Urine Collection Type U cath Urine Color Maddie Urine Clarity Turbid Urine pH Urine Specific [place] Urine Protein mg/dL (NEG-TRACE) Urine Glucose (UA) mg/dL (NEG) Urine Ketones (Stick) mg/dL (NEG) Urine Blood (NEG) Urine Nitrite (NEG) Urine Bilirubin (NEG) Urine Urobilinogen Dipstick mg/dL (0.2 mg/dL) Urine Leukocyte Esterase (NEG) Urine RBC Tntc /HPF (0-2) Urine WBC >40 /HPF (0-4) Urine Squamous Epithelial Cells Mod /LPF Urine Transitional Epithelial Cells Few /LPF Urine Bacteria Few /HPF (0-FEW) Glucose (Fingerstick) 188 mg/dL (70-99) 252 mg/dL (70-99) White Blood Count 9.3 x10^3/uL (4.0-11.0) Red Blood Count 2.49 x10^6/uL (3.50-5.40) Hemoglobin 8.5 g/dL (12.0-15.5) Hematocrit 25.4 % (36.0-47.0) Mean Corpuscular Volume 102 fL (79-100) Mean Corpuscular Hemoglobin 34 pg (25-35) Mean Corpuscular Hemoglobin Concent 34 g/dL (31-37) Red Cell Distribution Width 14.4 % (11.5-14.5) Platelet Count 88 x10^3/uL (140-400) Neutrophils (%) (Auto) 84 % (31-73) Lymphocytes (%) (Auto) 5 % (24-48) Monocytes (%) (Auto) 10 % (0-9) Eosinophils (%) (Auto) 1 % (0-3) Basophils (%) (Auto) 1 % (0-3) Neutrophils # (Auto) 7.8 x10^3uL (1.8-7.7) Lymphocytes # (Auto) 0.4 x10^3/uL (1.0-4.8) Monocytes # (Auto) 0.9 x10^3/uL (0.0-1.1) Eosinophils # (Auto) 0.1 x10^3/uL (0.0-0.7) Basophils # (Auto) 0.1 x10^3/uL (0.0-0.2) Sodium Level 128 mmol/L (136-145) Potassium Level 5.1 mmol/L (3.5-5.1) Chloride Level 86 mmol/L (98-107) Carbon Dioxide Level 25 mmol/L (21-32) Anion Gap 17 (6-14) Blood Urea Nitrogen 77 mg/dL (7-20) Creatinine 8.9 mg/dL (0.6-1.0) Estimated GFR (Cockcroft-Gault) 5.6 Glucose Level 220 mg/dL (70-99) Calcium Level 9.3 mg/dL (8.5-10.1) Phosphorus Level 7.3 mg/dL (2.6-4.7) Albumin 1.7 g/dL (3.4-5.0) Random Vancomycin Level 27.2 mcg/mL Test 05/31/18 08:01 05/31/18 11:36 Glucose (Fingerstick) 202 mg/dL (70-99) 232 mg/dL (70-99) Microbiology 05/30/18 Blood Culture - Preliminary, Resulted NO GROWTH AFTER 1 DAY Medications Current Medications Vancomycin HCl 250 ml @ 250 mls/hr 1X ONCE IV ; Start 05/30/18 at 14:15; Stop 05/30/18 at 15:14; Status UNV Piperacillin Sod/ Tazobactam Sod 2.25 gm/Sodium Chloride 50 ml @ 100 mls/hr 1X ONCE IV Last administered on 05/30/18at 14:34; Start 05/30/18 at 14:15; Stop 05/30/18 at 14:44; Status DC Acetaminophen (Tylenol) 650 mg PRN Q4HRS PRN PO FEVER; Start 05/30/18 at 14:15 ; Stop 05/30/18 at 16:54; Status DC Albuterol/ Ipratropium (Duoneb) 3 ml RTQID NEB Last administered on 05/31/18at 10:52; Start 05/30/18 at 16:00; Stop 05/31/18 at 15:59 Vancomycin HCl 1.5 gm/Sodium Chloride 500 ml @ 250 mls/hr 1X ONCE IV Last administered on 05/30/18at 15:46; Start 05/30/18 at 14:30; Stop 05/30/18 at 16:29 ; Status DC Ondansetron HCl (Zofran) 4 mg PRN Q6HRS PRN IV NAUSEA/VOMITING; Start 05/30/18 at 17:00 Acetaminophen/ Hydrocodone Bitart (Lortab 5/325) 1 tab PRN Q4HRS PRN PO MILD PAIN, 2ND CHOICE; Start 05/30/18 at 17:00 Acetaminophen (Tylenol) 650 mg PRN Q6HRS PRN PO Headaches, Temp > 101.5F; Start 05/30/18 at 17:00 Senna/Docusate Sodium (Senna Plus) 1 tab BID PO Last administered on 05/31/18at 08:58; Start 05/30/18 at 21:00 Lactulose (Lactulose) 20 gm PRN Q12HR PRN PO CONSTIPATION 1ST CHOICE; Start at 17:00 Bisacodyl (Dulcolax Supp) 10 mg PRN DAILY PRN LA CONSTIPATION; Start 05/30/18 at 17:00 Heparin Sodium (Porcine) (Heparin Sodium) 5,000 unit Q12HR SQ Last administered on 05/31/18at 09:10; Start 05/30/18 at 21:00 Isosorbide Dinitrate (Isordil) 10 mg DAILY PO ; Start 05/31/18 at 09:00; Stop at 09:00; Status DC Sevelamer Carbonate (Renvela) 2,400 mg TIDWMEALS PO ; Start 05/31/18 at 18:00 Carvedilol (Coreg) 25 mg DAILY08 PO ; Start 05/31/18 at 08:00; Stop 05/31/18 at 08:00; Status DC Hydralazine HCl (Apresoline) 10 mg DAILY PO ; Start 05/31/18 at 09:00 Losartan Potassium (Cozaar) 100 mg DAILY PO ; Start 05/31/18 at 09:00; Stop at 09:00; Status DC Magnesium Oxide (Magnesium Oxide) 400 mg DAILY PO Last administered on at 08:58; Start 05/31/18 at 09:00 Cefepime HCl (Maxipime) 1 gm Q24H IVP Last administered on 05/30/18at 20:02; Start 05/30/18 at 20:00 Vancomycin HCl (Vanco Per Pharmacy) 1 each PRN DAILY PRN MC SEE COMMENTS Last administered on 05/31/18at 10:16; Start 05/30/18 at 17:00 Sodium Chloride 250 ml @ 250 mls/hr 1X ONCE IV Last administered on at 20:00; Start 05/30/18 at 20:00; Stop 05/30/18 at 20:59; Status DC Vancomycin HCl (Vancomycin Random Level) 1 each 1X ONCE MC Last administered on 05/31/18at 06:00; Start 05/31/18 at 06:00; Stop 05/31/18 at 06:01; Status DC Sodium Chloride 250 ml @ 250 mls/hr 1X ONCE IV Last administered on at 20:30; Start 05/30/18 at 20:30; Stop 05/30/18 at 21:29; Status DC Insulin Glargine (Lantus) 5 units QHS SQ Last administered on 05/30/18at 22:37; Start 05/30/18 at 22:30 Insulin Human Lispro (HumaLOG) 0-5 UNITS TIDWMEALS SQ Last administered on 05/31at 09:10; Start 05/31/18 at 08:00 Dextrose (Dextrose 50%-Water Syringe) 12.5 gm PRN Q15MIN PRN IV SEE COMMENTS; Start 05/30/18 at 22:15 Lactobacillus Rhamnosus (Culturelle) 1 cap BID PO ; Start 05/31/18 at 21:00 Sodium Chloride 1,000 ml @ 1,000 mls/hr Q1H PRN IV hypotension; Start 05/31/18 at 10:36; Stop 05/31/18 at 16:35 Albumin Human 200 ml @ 200 mls/hr 1X PRN PRN IV Hypotension; Start 05/31/18 at 10:45; Stop 05/31/18 at 16:44 Acetaminophen (Tylenol) 500 mg 1X PRN PRN PO MILD PAIN / TEMP; Start 05/31/18 at 10:45; Stop 06/01/18 at 10:44 Diphenhydramine HCl (Benadryl) 25 mg 1X PRN PRN IV ITCHING; Start 05/31/18 at 10:45; Stop 06/01/18 at 10:44 Diphenhydramine HCl (Benadryl) 25 mg 1X PRN PRN IV ITCHING; Start 05/31/18 at 10:45; Stop 06/01/18 at 10:44 Sodium Chloride 1,000 ml @ 400 mls/hr Q2H30M PRN IV PATENCY; Start 05/31/18 at 10:36; Stop 05/31/18 at 22:35 Info (PHARMACY MONITORING -- do not chart) 1 each PRN DAILY PRN MC SEE COMMENTS ; Start 05/31/18 at 10:45 Active Scripts Active Reported Carvedilol 25 Mg Tablet 25 Mg PO DAILY Losartan Potassium 100 Mg Tablet 100 Mg PO DAILY Isosorbide Dinitrate 10 Mg Tablet 10 Mg PO DAILY Hydralazine Hcl 10 Mg Tablet 10 Mg PO DAILY Renvela (Sevelamer Carbonate) 800 Mg Tablet 3 Tab PO TID Furosemide 80 Mg Tablet 1 Tab PO DAILY Magnesium Oxide 400 Mg Tablet 1 Tab PO DAILY Vitals/I & O Vital Sign - Last 24 Hours 05/30/18 05/30/18 05/30/18 05/30/18 12:30 13:30 14:30 15:00 Temp 98.3 98.3 Pulse 72 72 70 73 Resp 18 B/P (MAP) 113/59 (77) 104/61 (75) 102/55 (71) 99/56 (70) Pulse Ox 100 100 100 97 O2 Delivery Nasal Cannula Nasal Cannula Nasal Cannula Nasal Cannula O2 Flow Rate 2.0 2.0 2.0 2.0 05/30/18 05/30/18 05/30/18 05/30/18 16:16 17:08 19:00 19:45 Temp 97.4 97.4 Pulse 71 B/P (MAP) 73/38 (50) Pulse Ox 98 98 O2 Delivery Nasal Cannula Nasal Cannula Nasal Cannula Nasal Cannula O2 Flow Rate 2.0 2.0 2.0 2.0 05/30/18 05/30/18 05/30/18 05/30/18 20:28 20:33 20:46 23:00 Pulse 71 70 72 B/P (MAP) 88/49 (62) 88/50 (63) 110/68 (82) Pulse Ox 98 90 O2 Delivery Nasal Cannula Nasal Cannula O2 Flow Rate 2.0 2.0 05/30/18 05/31/18 05/31/18 05/31/18 23:04 03:04 07:00 07:10 Temp 97.6 98.4 97.6 98.4 Pulse 20 73 72 Resp 20 16 B/P (MAP) 104/60 (75) Pulse Ox 98 99 97 99 O2 Delivery Nasal Cannula Nasal Cannula Nasal Cannula Nasal Cannula O2 Flow Rate 2.0 2.0 05/31/18 05/31/18 05/31/18 05/31/18 08:00 08:01 10:52 11:00 Temp 97.9 97.9 Pulse 74 Resp 18 B/P (MAP) 110/72 Pulse Ox 97 94 O2 Delivery Nasal Cannula Room Air Room Air O2 Flow Rate 1.0 Intake and Output 05/30/18 05/30/18 05/31/18 15:00 23:00 07:00 Output Total 0 ml Balance 0 ml FADI FRANCO MD May 31, 2018 12:10
--- NOTE | 2018-05-31 13:00 | NUR ---
Patient had a 8 run of V-tach. MD Ricky notified. New orders for cardiology consult. Will continue to monitor.
--- NOTE | 2018-05-31 13:09 | PDOC2 ---
CONSULT Date of Consult Date of Consult DATE: 05/31/18 TIME: 13:00 Reason for Consult Reason for Consult: ESRD Source Source: Caregiver, Chart review History of Present Illness Reason for Visit: 57-year-old AA female w/ HTN and secondary ESRD on HD at least 5 years duration who presents with report of being very fatigued and having generalized weakness. Patient recently had been admitted to [facility] and ultimately had been in the intensive care unit with IV pressors due to hypotension , her children took her from ICU AMA Patient is on dialysis and her last full outpatient treatment was last Monday. Daughter indicates that [facility] had attempted to dialyze patient twice during her admission but patient had gone into atrial fibrillation and became hypotensive, was transferred to ICU after on pressors, they were upset about her treatment plan, Patient denies any chest pain, abdominal pain, nausea, vomiting, diarrhea or other pain. Patient states that she did have fever a few days ago but does not feel febrile at this time. She does admit to a productive cough and some shortness of breath with exertion. Negative flu test, but positive for RUL infiltrate on CXR in ED. Past Medical History Cardiovascular: HTN Pulmonary: No pertinent hx GI: No pertinent hx Heme/Onc: No pertinent hx Hepatobiliary: No pertinent hx Psych: No pertinent hx Rheumatologic: No pertinent hx Infectious disease: No pertinent hx ENT: No pertinent hx Renal/: Chronic renal failure Endocrine: No pertinent hx Dermatology: No pertinent hx Past Surgical History Past Surgical History: Other (RUE AV fistula) Family History Family History: Hypertension Social History Social History: Parent (HTN, CAD) No ALCOHOL: none Drugs: None Current Problem List Problem List Problems Medical Problems: (1) ESRD (end stage renal disease) on dialysis Status: Acute (2) Right upper lobe pneumonia Status: Acute Current Medications Current Medications Current Medications Vancomycin HCl 250 ml @ 250 mls/hr 1X ONCE IV ; Start 05/30/18 at 14:15; Stop 05/30/18 at 15:14; Status UNV Piperacillin Sod/ Tazobactam Sod 2.25 gm/Sodium Chloride 50 ml @ 100 mls/hr 1X ONCE IV Last administered on 05/30/18at 14:34; Start 05/30/18 at 14:15; Stop 05/30/18 at 14:44; Status DC Acetaminophen (Tylenol) 650 mg PRN Q4HRS PRN PO FEVER; Start 05/30/18 at 14:15 ; Stop 05/30/18 at 16:54; Status DC Albuterol/ Ipratropium (Duoneb) 3 ml RTQID NEB Last administered on 05/31/18at 10:52; Start 05/30/18 at 16:00; Stop 05/31/18 at 15:59 Vancomycin HCl 1.5 gm/Sodium Chloride 500 ml @ 250 mls/hr 1X ONCE IV Last administered on 05/30/18at 15:46; Start 05/30/18 at 14:30; Stop 05/30/18 at 16:29 ; Status DC Ondansetron HCl (Zofran) 4 mg PRN Q6HRS PRN IV NAUSEA/VOMITING; Start 05/30/18 at 17:00 Acetaminophen/ Hydrocodone Bitart (Lortab 5/325) 1 tab PRN Q4HRS PRN PO MILD PAIN, 2ND CHOICE; Start 05/30/18 at 17:00 Acetaminophen (Tylenol) 650 mg PRN Q6HRS PRN PO Headaches, Temp > 101.5F; Start 05/30/18 at 17:00 Senna/Docusate Sodium (Senna Plus) 1 tab BID PO Last administered on 05/31/18at 08:58; Start 05/30/18 at 21:00 Lactulose (Lactulose) 20 gm PRN Q12HR PRN PO CONSTIPATION 1ST CHOICE; Start at 17:00 Bisacodyl (Dulcolax Supp) 10 mg PRN DAILY PRN [place] CONSTIPATION; Start 05/30/18 at 17:00 Heparin Sodium (Porcine) (Heparin Sodium) 5,000 unit Q12HR SQ Last administered on 05/31/18at 09:10; Start 05/30/18 at 21:00 Isosorbide Dinitrate (Isordil) 10 mg DAILY PO ; Start 05/31/18 at 09:00; Stop at 09:00; Status DC Sevelamer Carbonate (Renvela) 2,400 mg TIDWMEALS PO ; Start 05/31/18 at 18:00 Carvedilol (Coreg) 25 mg DAILY08 PO ; Start 05/31/18 at 08:00; Stop 05/31/18 at 08:00; Status DC Hydralazine HCl (Apresoline) 10 mg DAILY PO ; Start 05/31/18 at 09:00 Losartan Potassium (Cozaar) 100 mg DAILY PO ; Start 05/31/18 at 09:00; Stop at 09:00; Status DC Magnesium Oxide (Magnesium Oxide) 400 mg DAILY PO Last administered on at 08:58; Start 05/31/18 at 09:00 Cefepime HCl (Maxipime) 1 gm Q24H IVP Last administered on 05/30/18at 20:02; Start 05/30/18 at 20:00 Vancomycin HCl (Vanco Per Pharmacy) 1 each PRN DAILY PRN MC SEE COMMENTS Last administered on 05/31/18at 10:16; Start 05/30/18 at 17:00 Sodium Chloride 250 ml @ 250 mls/hr 1X ONCE IV Last administered on at 20:00; Start 05/30/18 at 20:00; Stop 05/30/18 at 20:59; Status DC Vancomycin HCl (Vancomycin Random Level) 1 each 1X ONCE MC Last administered on 05/31/18at 06:00; Start 05/31/18 at 06:00; Stop 05/31/18 at 06:01; Status DC Sodium Chloride 250 ml @ 250 mls/hr 1X ONCE IV Last administered on at 20:30; Start 05/30/18 at 20:30; Stop 05/30/18 at 21:29; Status DC Insulin Glargine (Lantus) 5 units QHS SQ Last administered on 05/30/18at 22:37; Start 05/30/18 at 22:30 Insulin Human Lispro (HumaLOG) 0-5 UNITS TIDWMEALS SQ Last administered on 05/31at 09:10; Start 05/31/18 at 08:00 Dextrose (Dextrose 50%-Water Syringe) 12.5 gm PRN Q15MIN PRN IV SEE COMMENTS; Start 05/30/18 at 22:15 Lactobacillus Rhamnosus (Culturelle) 1 cap BID PO ; Start 05/31/18 at 21:00 Sodium Chloride 1,000 ml @ 1,000 mls/hr Q1H PRN IV hypotension; Start 05/31/18 at 10:36; Stop 05/31/18 at 16:35 Albumin Human 200 ml @ 200 mls/hr 1X PRN PRN IV Hypotension; Start 05/31/18 at 10:45; Stop 05/31/18 at 16:44 Acetaminophen (Tylenol) 500 mg 1X PRN PRN PO MILD PAIN / TEMP; Start 05/31/18 at 10:45; Stop 06/01/18 at 10:44 Diphenhydramine HCl (Benadryl) 25 mg 1X PRN PRN IV ITCHING; Start 05/31/18 at 10:45; Stop 06/01/18 at 10:44 Diphenhydramine HCl (Benadryl) 25 mg 1X PRN PRN IV ITCHING; Start 05/31/18 at 10:45; Stop 06/01/18 at 10:44 Sodium Chloride 1,000 ml @ 400 mls/hr Q2H30M PRN IV PATENCY; Start 05/31/18 at 10:36; Stop 05/31/18 at 22:35 Info (PHARMACY MONITORING -- do not chart) 1 each PRN DAILY PRN MC SEE COMMENTS ; Start 05/31/18 at 10:45 Active Scripts Active Reported Carvedilol 25 Mg Tablet 25 Mg PO DAILY Losartan Potassium 100 Mg Tablet 100 Mg PO DAILY Isosorbide Dinitrate 10 Mg Tablet 10 Mg PO DAILY Hydralazine Hcl 10 Mg Tablet 10 Mg PO DAILY Renvela (Sevelamer Carbonate) 800 Mg Tablet 3 Tab PO TID Furosemide 80 Mg Tablet 1 Tab PO DAILY Magnesium Oxide 400 Mg Tablet 1 Tab PO DAILY Allergies Allergies: Coded Allergies: No Known Drug Allergies (Unverified , 06/26/14) ROS Review of System As per HPi Physical Exam Physical Exam General: No acute distress HEENT: OM moist neck Supple Lungs: Right sided crackles, decreased bibasilar sounds, Non Labored Heart- RRR Abdomen: Soft, No tenderness Skin: No rash Neuro: Grossly normal - No yun Ext- No Edema Vital Signs Vital Signs Date Time Temp Pulse Resp B/P (MAP) Pulse Ox O2 Delivery O2 Flow Rate FiO2 05/31/18 11:00 97.9 74 18 94 Room Air 97.9 05/31/18 08:01 110/72 05/31/18 08:00 1.0 Assessment & Plan ESRD - MWF As per pt and family last full Tx Last Wed Pt left AMA (with family) from [facility] ICU HD today as Ordered , 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(Home med) Labs Labs Laboratory Tests Test 05/30/18 10:04 05/30/18 10:45 05/30/18 11:50 05/30/18 13:10 White Blood Count 10.6 x10^3/uL (4.0-11.0) Red Blood Count 2.85 x10^6/uL (3.50-5.40) Hemoglobin 9.7 g/dL (12.0-15.5) Hematocrit 29.4 % (36.0-47.0) Mean Corpuscular Volume 103 fL (79-100) Mean Corpuscular Hemoglobin 34 pg (25-35) Mean Corpuscular Hemoglobin Concent 33 g/dL (31-37) Red Cell Distribution Width 14.8 % (11.5-14.5) Platelet Count 101 x10^3/uL (140-400) Neutrophils (%) (Auto) 86 % (31-73) Lymphocytes (%) (Auto) 4 % (24-48) Monocytes (%) (Auto) 9 % (0-9) Eosinophils (%) (Auto) 1 % (0-3) Basophils (%) (Auto) 0 % (0-3) Neutrophils # (Auto) 9.1 x10^3uL (1.8-7.7) Lymphocytes # (Auto) 0.4 x10^3/uL (1.0-4.8) Monocytes # (Auto) 1.0 x10^3/uL (0.0-1.1) Eosinophils # (Auto) 0.1 x10^3/uL (0.0-0.7) Basophils # (Auto) 0.0 x10^3/uL (0.0-0.2) Segmented Neutrophils % 85 % (35-66) Band Neutrophils % 1 % (0-9) Lymphocytes % 3 % (24-48) Monocytes % 11 % (0-10) Platelet Estimate Decreased (ADEQUATE) Influenza Type A Antigen Negative (NEGATIVE) Influenza Type B Antigen Negative (NEGATIVE) Sodium Level 131 mmol/L (136-145) Potassium Level 4.8 mmol/L (3.5-5.1) Chloride Level 87 mmol/L (98-107) Carbon Dioxide Level 27 mmol/L (21-32) Anion Gap 17 (6-14) Blood Urea Nitrogen 65 mg/dL (7-20) Creatinine 8.5 mg/dL (0.6-1.0) Estimated GFR (Cockcroft-Gault) 5.9 BUN/Creatinine Ratio 8 (6-20) Glucose Level 161 mg/dL (70-99) Lactic Acid Level 1.2 mmol/L (0.4-2.0) Calcium Level 9.3 mg/dL (8.5-10.1) Total Bilirubin 0.7 mg/dL (0.2-1.0) Aspartate Amino Transf (AST/SGOT) 14 U/L (15-37) Alanine Aminotransferase (ALT/SGPT) 17 U/L (14-59) Alkaline Phosphatase 171 U/L (46-116) Troponin I Quantitative 0.062 ng/mL (0.000-0.055) SL-Vos-M-Type Natriuretic Peptide > 15061 pg/mL (0-124) Total Protein 5.8 g/dL (6.4-8.2) Albumin 2.0 g/dL (3.4-5.0) Albumin/Globulin Ratio 0.5 (1.0-1.7) Procalcitonin 121.96 ng/mL (0.00-0.10) Urine Collection Type U cath Urine Color Maddie Urine Clarity Turbid Urine pH Urine Specific Blythe Urine Protein mg/dL (NEG-TRACE) Urine Glucose (UA) mg/dL (NEG) Urine Ketones (Stick) mg/dL (NEG) Urine Blood (NEG) Urine Nitrite (NEG) Urine Bilirubin (NEG) Urine Urobilinogen Dipstick mg/dL (0.2 mg/dL) Urine Leukocyte Esterase (NEG) Urine RBC Tntc /HPF (0-2) Urine WBC >40 /HPF (0-4) Urine Squamous Epithelial Cells Mod /LPF Urine Transitional Epithelial Cells Few /LPF Urine Bacteria Few /HPF (0-FEW) Test 05/30/18 17:18 05/30/18 20:41 05/31/18 06:25 05/31/18 08:01 Glucose (Fingerstick) 188 mg/dL (70-99) 252 mg/dL (70-99) 202 mg/dL (70-99) White Blood Count 9.3 x10^3/uL (4.0-11.0) Red Blood Count 2.49 x10^6/uL (3.50-5.40) Hemoglobin 8.5 g/dL (12.0-15.5) Hematocrit 25.4 % (36.0-47.0) Mean Corpuscular Volume 102 fL (79-100) Mean Corpuscular Hemoglobin 34 pg (25-35) Mean Corpuscular Hemoglobin Concent 34 g/dL (31-37) Red Cell Distribution Width 14.4 % (11.5-14.5) Platelet Count 88 x10^3/uL (140-400) Neutrophils (%) (Auto) 84 % (31-73) Lymphocytes (%) (Auto) 5 % (24-48) Monocytes (%) (Auto) 10 % (0-9) Eosinophils (%) (Auto) 1 % (0-3) Basophils (%) (Auto) 1 % (0-3) Neutrophils # (Auto) 7.8 x10^3uL (1.8-7.7) Lymphocytes # (Auto) 0.4 x10^3/uL (1.0-4.8) Monocytes # (Auto) 0.9 x10^3/uL (0.0-1.1) Eosinophils # (Auto) 0.1 x10^3/uL (0.0-0.7) Basophils # (Auto) 0.1 x10^3/uL (0.0-0.2) Sodium Level 128 mmol/L (136-145) Potassium Level 5.1 mmol/L (3.5-5.1) Chloride Level 86 mmol/L (98-107) Carbon Dioxide Level 25 mmol/L (21-32) Anion Gap 17 (6-14) Blood Urea Nitrogen 77 mg/dL (7-20) Creatinine 8.9 mg/dL (0.6-1.0) Estimated GFR (Cockcroft-Gault) 5.6 Glucose Level 220 mg/dL (70-99) Calcium Level 9.3 mg/dL (8.5-10.1) Phosphorus Level 7.3 mg/dL (2.6-4.7) Albumin 1.7 g/dL (3.4-5.0) Random Vancomycin Level 27.2 mcg/mL Test 05/31/18 11:36 Glucose (Fingerstick) 232 mg/dL (70-99) Laboratory Tests Test 05/30/18 13:10 05/30/18 17:18 05/30/18 20:41 05/31/18 06:25 Urine Collection Type U cath Urine Color Maddie Urine Clarity Turbid Urine pH Urine Specific [place]the Urine Protein mg/dL (NEG-TRACE) Urine Glucose (UA) mg/dL (NEG) Urine Ketones (Stick) mg/dL (NEG) Urine Blood (NEG) Urine Nitrite (NEG) Urine Bilirubin (NEG) Urine Urobilinogen Dipstick mg/dL (0.2 mg/dL) Urine Leukocyte Esterase (NEG) Urine RBC Tntc /HPF (0-2) Urine WBC >40 /HPF (0-4) Urine Squamous Epithelial Cells Mod /LPF Urine Transitional Epithelial Cells Few /LPF Urine Bacteria Few /HPF (0-FEW) Glucose (Fingerstick) 188 mg/dL (70-99) 252 mg/dL (70-99) White Blood Count 9.3 x10^3/uL (4.0-11.0) Red Blood Count 2.49 x10^6/uL (3.50-5.40) Hemoglobin 8.5 g/dL (12.0-15.5) Hematocrit 25.4 % (36.0-47.0) Mean Corpuscular Volume 102 fL (79-100) Mean Corpuscular Hemoglobin 34 pg (25-35) Mean Corpuscular Hemoglobin Concent 34 g/dL (31-37) Red Cell Distribution Width 14.4 % (11.5-14.5) Platelet Count 88 x10^3/uL (140-400) Neutrophils (%) (Auto) 84 % (31-73) Lymphocytes (%) (Auto) 5 % (24-48) Monocytes (%) (Auto) 10 % (0-9) Eosinophils (%) (Auto) 1 % (0-3) Basophils (%) (Auto) 1 % (0-3) Neutrophils # (Auto) 7.8 x10^3uL (1.8-7.7) Lymphocytes # (Auto) 0.4 x10^3/uL (1.0-4.8) Monocytes # (Auto) 0.9 x10^3/uL (0.0-1.1) Eosinophils # (Auto) 0.1 x10^3/uL (0.0-0.7) Basophils # (Auto) 0.1 x10^3/uL (0.0-0.2) Sodium Level 128 mmol/L (136-145) Potassium Level 5.1 mmol/L (3.5-5.1) Chloride Level 86 mmol/L (98-107) Carbon Dioxide Level 25 mmol/L (21-32) Anion Gap 17 (6-14) Blood Urea Nitrogen 77 mg/dL (7-20) Creatinine 8.9 mg/dL (0.6-1.0) Estimated GFR (Cockcroft-Gault) 5.6 Glucose Level 220 mg/dL (70-99) Calcium Level 9.3 mg/dL (8.5-10.1) Phosphorus Level 7.3 mg/dL (2.6-4.7) Albumin 1.7 g/dL (3.4-5.0) Random Vancomycin Level 27.2 mcg/mL Test 05/31/18 08:01 05/31/18 11:36 Glucose (Fingerstick) 202 mg/dL (70-99) 232 mg/dL (70-99) Review All relevant outside records, renal labs, imaging studies, telemetry/EKG's were reviewed. Images Images CxR-- FINDINGS: Mild cardiomegaly. Median sternotomy wires identified. There is airspace opacity identified in the right upper lobe of the lung likely infiltrates or atelectasis. Vascular stent is identified. IMPRESSION: Mild airspace opacity identified in the right upper lobe lung likely atelectasis or infiltrate. Follow-up to resolution DIAMOND FANG MD May 31, 2018 13:09
--- NOTE | 2018-05-31 13:31 | PDOC2 ---
CARDIAC CONSULT DATE OF CONSULT Date of Consult DATE: 05/31/18 TIME: 13:24 REASON FOR CONSULT Reason for Consult: Fun of v-tach AFIB REFERRING PHYSICIAN Referring Physician: Dr. García SOURCE Source: Chart review, Patient HISTORY OF PRESENT ILLNESS HISTORY OF PRESENT ILLNESS This is a 57 yo female, with a history of CAD s/p CABG and ESRD on HD, who initially presented at the end of last week due to generalized weakness and fatigue. Patient was diagnosed and treated for PNA and UTI. During HD, patient went into AFIB. Was treated with Amiodarone and converted back to SR. Went back into AFIB during the next hemodialysis session. Daughter felt as if they were being too aggressive with HD, causing patient to go into AFIB. Daughter felt as if they were not received appropriated care at [facility], so they left AMA yesterday and presented to our ED for further treatment. Daughter declines to be treated with Amiodarone as she felt AFIB was induced. Patient seen on HD and is presently SR. Had an episode of NSVT on tele, which prompted this consult. Patient has a history of CAD, s/p CABG about 5 years ago at [facility], and chronic systolic HF. Follows very closely with Dr. Garcia at [facility]. Echo about 6 months ago was conducted at [facility]. PAST MEDICAL HISTORY Cardiovascular: AFIB (paroysxmal (episode x2 at [facility] while on HD)), CAD, HTN, Hyperlipidemia Pulmonary: No pertinent hx CENTRAL NERVOUS SYSTEM: Periperal neuropathy GI: No pertinent hx Heme/Onc: No pertinent hx Hepatobiliary: No pertinent hx Psych: No pertinent hx Musculoskeletal: Osteoarthritis Rheumatologic: No pertinent hx Infectious disease: No pertinent hx ENT: No pertinent hx Renal/: Chronic renal failure (ESRD on HD) Endocrine: Diabetes Dermatology: No pertinent hx PAST SURGICAL HISTORY Past Surgical History: CABG, Tubal Ligation FAMILY HISTORY Family History: Diabetes, Hypertension SOCIAL HISTORY Smoke: No ALCOHOL: none Drugs: None Lives: with Family CURRENT MEDICATIONS CURRENT MEDICATIONS Current Medications Medications (Trade) Dose Ordered Sig/Rosie Route PRN Reason Start Time Stop Time Status Last Admin Dose Admin Piperacillin Sod/ Tazobactam Sod 2.25 gm/Sodium Chloride 50 ml @ 100 mls/hr 1X ONCE IV 05/30/18 14:15 05/30/18 14:44 DC 05/30/18 14:34 Albuterol/ Ipratropium (Duoneb) 3 ml RTQID NEB 05/30/18 16:00 05/31/18 15:59 05/31/18 10:52 Vancomycin HCl 1.5 gm/Sodium Chloride 500 ml @ 250 mls/hr 1X ONCE IV 05/30/18 14:30 05/30/18 16:29 DC 05/30/18 15:46 Senna/Docusate Sodium (Senna Plus) 1 tab BID PO 05/30/18 21:00 05/31/18 08:58 Heparin Sodium (Porcine) (Heparin Sodium) 5,000 unit Q12HR SQ 05/30/18 21:00 05/31/18 09:10 Magnesium Oxide (Magnesium Oxide) 400 mg DAILY PO 05/31/18 09:00 05/31/18 08:58 Cefepime HCl (Maxipime) 1 gm Q24H IVP 05/30/18 20:00 05/30/18 20:02 Vancomycin HCl (Vanco Per Pharmacy) 1 each PRN DAILY PRN MC SEE COMMENTS 05/30/18 17:00 05/31/18 10:16 Sodium Chloride 250 ml @ 250 mls/hr 1X ONCE IV 05/30/18 20:00 05/30/18 20:59 DC 05/30/18 20:00 Vancomycin HCl (Vancomycin Random Level) 1 each 1X ONCE MC 05/31/18 06:00 05/31/18 06:01 DC 05/31/18 06:00 Sodium Chloride 250 ml @ 250 mls/hr 1X ONCE IV 05/30/18 20:30 05/30/18 21:29 DC 05/30/18 20:30 Insulin Glargine (Lantus) 5 units QHS SQ 05/30/18 22:30 05/30/18 22:37 Insulin Human Lispro (HumaLOG) 0-5 UNITS TIDWMEALS SQ 05/31/18 08:00 05/31/18 09:10 ALLERGIES ALLERGIES: Coded Allergies: No Known Drug Allergies (Unverified , 06/26/14) ROS Review of System 14 point ROS conducted with pertinent positives noted above in HPI. PHYSICAL EXAM General: Alert, Oriented X3, Cooperative, No acute distress HEENT: Atraumatic, Mucous membr. moist/pink Lungs: Clear to auscultation, Normal air movement Heart: Regular rate, Normal S1, Normal S2, Other (2/6 systolic murmur ) Abdomen: Soft, Other (obese ) Extremities: No edema Skin: No significant lesion Neuro: Normal speech, Sensation intact Psych/Mental Status: Mental status NL, Mood NL MUSCULOSKELETAL: Osteoarthritic changes both hands VITALS VITALS Vital Signs Date Time Temp Pulse Resp B/P (MAP) Pulse Ox O2 Delivery O2 Flow Rate FiO2 05/31/18 11:00 97.9 74 18 94 Room Air 97.9 05/31/18 08:01 110/72 05/31/18 08:00 1.0 LABS Lab: Laboratory Tests Test 05/30/18 17:18 05/30/18 20:41 05/31/18 06:25 05/31/18 08:01 Glucose (Fingerstick) 188 mg/dL (70-99) 252 mg/dL (70-99) 202 mg/dL (70-99) White Blood Count 9.3 x10^3/uL (4.0-11.0) Red Blood Count 2.49 x10^6/uL (3.50-5.40) Hemoglobin 8.5 g/dL (12.0-15.5) Hematocrit 25.4 % (36.0-47.0) Mean Corpuscular Volume 102 fL (79-100) Mean Corpuscular Hemoglobin 34 pg (25-35) Mean Corpuscular Hemoglobin Concent 34 g/dL (31-37) Red Cell Distribution Width 14.4 % (11.5-14.5) Platelet Count 88 x10^3/uL (140-400) Neutrophils (%) (Auto) 84 % (31-73) Lymphocytes (%) (Auto) 5 % (24-48) Monocytes (%) (Auto) 10 % (0-9) Eosinophils (%) (Auto) 1 % (0-3) Basophils (%) (Auto) 1 % (0-3) Neutrophils # (Auto) 7.8 x10^3uL (1.8-7.7) Lymphocytes # (Auto) 0.4 x10^3/uL (1.0-4.8) Monocytes # (Auto) 0.9 x10^3/uL (0.0-1.1) Eosinophils # (Auto) 0.1 x10^3/uL (0.0-0.7) Basophils # (Auto) 0.1 x10^3/uL (0.0-0.2) Sodium Level 128 mmol/L (136-145) Potassium Level 5.1 mmol/L (3.5-5.1) Chloride Level 86 mmol/L (98-107) Carbon Dioxide Level 25 mmol/L (21-32) Anion Gap 17 (6-14) Blood Urea Nitrogen 77 mg/dL (7-20) Creatinine 8.9 mg/dL (0.6-1.0) Estimated GFR (Cockcroft-Gault) 5.6 Glucose Level 220 mg/dL (70-99) Calcium Level 9.3 mg/dL (8.5-10.1) Phosphorus Level 7.3 mg/dL (2.6-4.7) Albumin 1.7 g/dL (3.4-5.0) Random Vancomycin Level 27.2 mcg/mL Test 05/31/18 11:36 Glucose (Fingerstick) 232 mg/dL (70-99) ASSESSMENT/PLAN ASSESSMENT/PLAN 1. NSVT; patient had one 8-beat run of NSVT on tele 2. Acute respiratory failure secondary to PNA and AECOPD 3. ESRD on HD 4. PAFIB; had AFIB while on HD. Initially treated with Amiodarone, but daughter declined as she felt this was induced with HD. Presently maintaining SR 5. Anemia of chronic disease 6. CAD s/p CABG. Stable. CP free. Follows with Dr. Garcia 7. Chronic systolic HF; clinically compensated 7. Hypertension; low-normotensive 8. Hyperlipidemia 9. Diabetes,II Recommendations Check mg- replace as warranted Check echo to assess LV systolic function Obtain records from [facility] Add ASA for stroke prevention- monitor platelets. Monitor tele for AFIB Consider event monitor upon discharge to note arrhythmia burden- will defer to primary cardiology as per daughter's request Hold Coreg, Losartan, and Imdur for now with marginal pressures. Ongoing treatment on PNA as per PCP and pulm PANCHITO DILL APRN May 31, 2018 13:31
--- NOTE | 2018-05-31 13:43 | NUR ---
Pharmacy Vancomycin Dosing Note S:Consulted to monitor and dose vancomycin started 05/30/18. O:ERIC ZAIDI is a 57 year old F with concerns for HCAP as she left AMA from ICU as [facility] 05/30/18. Height: 5 feet, 9 inches Weight: 90.533664 kg [place] Body Weight: 66.20 Adjusted Body Weight: 76.08 Dosing Weight: Actual Other Antibiotics: CEFEPIME 05/30 - LABS: Last BUN: 77 Last Creatinine: 8.9 Creatinine Clearance: ESRD HD mL/min Last WBC: 9.3 Last Procalcitonin: - Tmax (past 24 hours): 98.4 Microbiology: 05/30 PENDING I/O: - Drug Levels: Last Random level: 27.2 on 05/31/18 at 0625 Last dose given 05/30/18 at 1546 Vancomycin Dosing: Loading Dose: x1 Dosing Weight: Actual Target Trough: 15-20 A: Based on: Random level, unknown HD schedule, renal function and severity of suspected infection P: 1. Random pre-HD level = 27.2 this AM. Post HD level estimated to be about 19-20. 2. HD completed today. Recommend to start vancomycin 500 mg IV after patient completes 1 more additional HD session. Unsure of HD schedule at this time originally [facility]. 3. Pharmacy will continue to monitor, follow and adjust therapy as needed. SAUL ARAUJO [facility], 05/31/18 [id number]
[2018-05-31 15:56] VITALS: BP 100/55
[2018-05-31] MEDS: SEVELAMER CARBONATE 800 MG TABLET. PO SCH (17:15)
[2018-05-31 19:00] VITALS: BP 108/68
[2018-05-31] MEDS: LACTOBACILLUS RHAMNOSUS GG 1 CAPSULE. PO SCH (20:13)
[2018-05-31] MEDS: CEFEPIME HCL IV Push 1 GM VIAL. IVP SCH (20:14)
[2018-05-31] MEDS ORDERED: DARBEPOETIN ALFA 60 MCG/0.3 ML DISP.SYRIN. SQ SCH (21:00)
[2018-05-31] MEDS: INSULIN GLARGINE 300 UNITS/3 ML INSULN.PEN. SQ SCH (21:05)
[2018-05-31 23:00] VITALS: BP 102/64
[2018-06-01 03:02] VITALS: BP 112/66
[2018-06-01 05:43] LABS: ALBUMIN 1.9 g/dL (3.4-5.0); CALCIUM 9.2 mg/dL (8.5-10.1); CREATININE 5.7 mg/dL (0.6-1.0); GFR 9.3; PHOSPHORUS 4.2 mg/dL (2.6-4.7); POTASSIUM 3.9 mmol/L (3.5-5.1)
[2018-06-01] MEDS: IPRATRPIUM/ALBUTEROL 0.5/2.5MG 3 ML NEBU. NEB SCH ×4 (07:06→19:22)
[2018-06-01 08:00] VITALS: BP 110/70
[2018-06-01] MEDS: INSULIN LISPRO 300 UNITS/3 ML INSULN.PEN. SQ SCH ×3 (08:43→18:04)
[2018-06-01] MEDS: ASPIRIN ENTERIC COATED 81 MG TABLET.DR. PO SCH (08:54)
[2018-06-01] MEDS: SEVELAMER CARBONATE 800 MG TABLET. PO SCH ×3 (08:54→18:07)
[2018-06-01] MEDS: LACTOBACILLUS RHAMNOSUS GG 1 CAPSULE. PO SCH ×2 (08:55→20:35)
[2018-06-01] MEDS: hydrALAZINE 10 MG TABLET PO SCH (08:55)
[2018-06-01] MEDS: SENNOSIDES/DOCUSATE 8.6/50MG TABLET. PO SCH ×2 (08:56→20:35)
[2018-06-01] MEDS: MAGNESIUM OXIDE 400 MG TABLET PO SCH (08:56)
[2018-06-01] MEDS: HEPARIN for SUB-Q USE 5,000 UNIT/ML VIAL. SQ SCH ×2 (09:25→20:41)
[2018-06-01 11:00] VITALS: BP 102/67
[2018-06-01] MEDS: POLYVINYL ALCOHOL 1.4% OPHTH SOLUTION 15ML BOTTLE. OD PRN ×2 (11:16→18:07)
[2018-06-01 11:35] VITALS: BP 120/70
--- NOTE | 2018-06-01 11:38 | PDOC ---
PULMONARY PROGRESS NOTES Subjective NO SOA, NO COUGH Vitals Vital Signs Date Time Temp Pulse Resp B/P (MAP) Pulse Ox O2 Delivery O2 Flow Rate FiO2 06/01/18 11:19 98 Room Air 06/01/18 08:00 110/70 (83) 06/01/18 07:00 99.0 79 20 99.0 05/31/18 08:00 1.0 General: Alert, No acute distress Lungs: Clear Cardiovascular: S1 Abdomen: Soft Neuro Exam: Alert Extremities: No Edema Skin: Warm Labs Laboratory Tests Test 05/30/18 11:50 05/30/18 13:10 05/30/18 17:18 05/30/18 20:41 Sodium Level 131 mmol/L (136-145) Potassium Level 4.8 mmol/L (3.5-5.1) Chloride Level 87 mmol/L (98-107) Carbon Dioxide Level 27 mmol/L (21-32) Anion Gap 17 (6-14) Blood Urea Nitrogen 65 mg/dL (7-20) Creatinine 8.5 mg/dL (0.6-1.0) Estimated GFR (Cockcroft-Gault) 5.9 BUN/Creatinine Ratio 8 (6-20) Glucose Level 161 mg/dL (70-99) Lactic Acid Level 1.2 mmol/L (0.4-2.0) Calcium Level 9.3 mg/dL (8.5-10.1) Total Bilirubin 0.7 mg/dL (0.2-1.0) Aspartate Amino Transf (AST/SGOT) 14 U/L (15-37) Alanine Aminotransferase (ALT/SGPT) 17 U/L (14-59) Alkaline Phosphatase 171 U/L (46-116) Troponin I Quantitative 0.062 ng/mL (0.000-0.055) JU-Nvi-P-Type Natriuretic Peptide > 06995 pg/mL (0-124) Total Protein 5.8 g/dL (6.4-8.2) Albumin 2.0 g/dL (3.4-5.0) Albumin/Globulin Ratio 0.5 (1.0-1.7) Procalcitonin 121.96 ng/mL (0.00-0.10) Urine Collection Type U cath Urine Color Maddie Urine Clarity Turbid Urine pH Urine Specific [place] Urine Protein mg/dL (NEG-TRACE) Urine Glucose (UA) mg/dL (NEG) Urine Ketones (Stick) mg/dL (NEG) Urine Blood (NEG) Urine Nitrite (NEG) Urine Bilirubin (NEG) Urine Urobilinogen Dipstick mg/dL (0.2 mg/dL) Urine Leukocyte Esterase (NEG) Urine RBC Tntc /HPF (0-2) Urine WBC >40 /HPF (0-4) Urine Squamous Epithelial Cells Mod /LPF Urine Transitional Epithelial Cells Few /LPF Urine Bacteria Few /HPF (0-FEW) Glucose (Fingerstick) 188 mg/dL (70-99) 252 mg/dL (70-99) Test 05/31/18 06:25 05/31/18 08:01 05/31/18 11:36 05/31/18 17:01 White Blood Count 9.3 x10^3/uL (4.0-11.0) Red Blood Count 2.49 x10^6/uL (3.50-5.40) Hemoglobin 8.5 g/dL (12.0-15.5) Hematocrit 25.4 % (36.0-47.0) Mean Corpuscular Volume 102 fL (79-100) Mean Corpuscular Hemoglobin 34 pg (25-35) Mean Corpuscular Hemoglobin Concent 34 g/dL (31-37) Red Cell Distribution Width 14.4 % (11.5-14.5) Platelet Count 88 x10^3/uL (140-400) Neutrophils (%) (Auto) 84 % (31-73) Lymphocytes (%) (Auto) 5 % (24-48) Monocytes (%) (Auto) 10 % (0-9) Eosinophils (%) (Auto) 1 % (0-3) Basophils (%) (Auto) 1 % (0-3) Neutrophils # (Auto) 7.8 x10^3uL (1.8-7.7) Lymphocytes # (Auto) 0.4 x10^3/uL (1.0-4.8) Monocytes # (Auto) 0.9 x10^3/uL (0.0-1.1) Eosinophils # (Auto) 0.1 x10^3/uL (0.0-0.7) Basophils # (Auto) 0.1 x10^3/uL (0.0-0.2) Sodium Level 128 mmol/L (136-145) Potassium Level 5.1 mmol/L (3.5-5.1) Chloride Level 86 mmol/L (98-107) Carbon Dioxide Level 25 mmol/L (21-32) Anion Gap 17 (6-14) Blood Urea Nitrogen 77 mg/dL (7-20) Creatinine 8.9 mg/dL (0.6-1.0) Estimated GFR (Cockcroft-Gault) 5.6 Glucose Level 220 mg/dL (70-99) Calcium Level 9.3 mg/dL (8.5-10.1) Phosphorus Level 7.3 mg/dL (2.6-4.7) Magnesium Level 3.1 mg/dL (1.8-2.4) Albumin 1.7 g/dL (3.4-5.0) Random Vancomycin Level 27.2 mcg/mL Glucose (Fingerstick) 202 mg/dL (70-99) 232 mg/dL (70-99) 127 mg/dL (70-99) Test 05/31/18 20:51 06/01/18 03:20 06/01/18 07:51 Glucose (Fingerstick) 242 mg/dL (70-99) 149 mg/dL (70-99) Platelet Count 110 x10^3/uL (140-400) Sodium Level 132 mmol/L (136-145) Potassium Level 3.9 mmol/L (3.5-5.1) Chloride Level 92 mmol/L (98-107) Carbon Dioxide Level 29 mmol/L (21-32) Anion Gap 11 (6-14) Blood Urea Nitrogen 40 mg/dL (7-20) Creatinine 5.7 mg/dL (0.6-1.0) Estimated GFR (Cockcroft-Gault) 9.3 Glucose Level 193 mg/dL (70-99) Calcium Level 9.2 mg/dL (8.5-10.1) Phosphorus Level 4.2 mg/dL (2.6-4.7) Albumin 1.9 g/dL (3.4-5.0) Laboratory Tests Test 05/31/18 17:01 05/31/18 20:51 06/01/18 03:20 06/01/18 07:51 Glucose (Fingerstick) 127 mg/dL (70-99) 242 mg/dL (70-99) 149 mg/dL (70-99) Platelet Count 110 x10^3/uL (140-400) Sodium Level 132 mmol/L (136-145) Potassium Level 3.9 mmol/L (3.5-5.1) Chloride Level 92 mmol/L (98-107) Carbon Dioxide Level 29 mmol/L (21-32) Anion Gap 11 (6-14) Blood Urea Nitrogen 40 mg/dL (7-20) Creatinine 5.7 mg/dL (0.6-1.0) Estimated GFR (Cockcroft-Gault) 9.3 Glucose Level 193 mg/dL (70-99) Calcium Level 9.2 mg/dL (8.5-10.1) Phosphorus Level 4.2 mg/dL (2.6-4.7) Albumin 1.9 g/dL (3.4-5.0) Medications Active Scripts Medications Dose Route/Sig Max Daily Dose Days Date Category Carvedilol 25 Mg Tablet 25 Mg PO DAILY 05/30/18 Reported Losartan Potassium 100 Mg Tablet 100 Mg PO DAILY 05/30/18 Reported Isosorbide Dinitrate 10 Mg Tablet 10 Mg PO DAILY 05/30/18 Reported Hydralazine Hcl 10 Mg Tablet 10 Mg PO DAILY 05/30/18 Reported Renvela (Sevelamer Carbonate) 800 Mg Tablet 3 Tab PO TID 06/27/14 Reported Furosemide 80 Mg Tablet 1 Tab PO DAILY 06/27/14 Reported Magnesium Oxide 400 Mg Tablet 1 Tab PO DAILY 06/27/14 Reported Impression . 1. Dyspnea with acute hypoxic respiratory failure requiring oxygen on admission secondary to pneumonia and underlying chronic obstructive pulmonary disease. 2. Abnormal chest x-ray consistent with right upper lobe pneumonia. 3. End-stage renal disease, on hemodialysis. 4. 25 years of tobacco use, suspect underlying chronic obstructive pulmonary disease. Plan . 1. Continue with present antibiotics. 2. We will repeat a chest x-ray in 48 hours. 3. Follow clinical course. 4. Hemodialysis per Renal. 5. We will follow along with you. TITUS PEGUERO MD Jun 01, 2018 11:38
[2018-06-01] MEDS ORDERED: ACETAMINOPHEN 500 MG TABLET PO PRN (14:00)
[2018-06-01] MEDS ORDERED: ALBUMIN HUMAN 25% 200 ML IV PRN (14:00)
[2018-06-01] MEDS ORDERED: IV NORMAL SALINE 1000ML BAG 1,000 ML IV PRN ×2 (14:00)
[2018-06-01] MEDS ORDERED: diphenhydrAMINE 50 MG/ML VIAL IV PRN ×2 (14:00)
[2018-06-01] MEDS ORDERED: DIALYSIS PATIENT. MC PRN (14:00)
--- NOTE | 2018-06-01 14:14 | PDOC ---
SUBJECTIVE ROS Seen on HD, No complaints OBJECTIVE Vital Signs Vital Signs Date Time Temp Pulse Resp B/P (MAP) Pulse Ox O2 Delivery O2 Flow Rate FiO2 06/01/18 11:35 120/70 (87) 06/01/18 11:19 98 Room Air 06/01/18 11:00 98.1 81 20 98.1 05/31/18 08:00 1.0 I & 0 Intake and Output 06/01/18 06:59 Intake Total 350 ml Balance 350 ml Intake Oral 350 ml # Voids 1 PHYSICAL EXAM Physical Exam General: No acute distress HEENT: OM moist neck Supple Lungs: Right sided crackles, decreased bibasilar sounds, Non Labored Heart- RRR Abdomen: Soft, No tenderness Skin: No rash Neuro: Grossly normal - No yun Ext- No Edema DIAGNOSIS/ASSESSMENT Assessment & Plan ESRD - MWF Pt left AMA (with family) from [facility] ICU seen on Dialysis, tolerating well Continue as Ordered, DW rn clinical resource Dyspnea with acute hypoxic respiratory failure requiring oxygen on admission secondary to pneumonia and underlying chronic obstructive pulmonary disease. 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) COMMENT/RELEVANT DATA Meds Current Medications Medications (Trade) Dose Ordered Sig/Rosie Start Time Stop Time Status Last Admin Dose Admin Acetaminophen (Tylenol) 500 mg 1X PRN PRN 06/01/18 14:00 06/02/18 13:59 Acetaminophen/ Hydrocodone Bitart (Lortab 5/325) 1 tab PRN Q4HRS PRN 05/30/18 17:00 Albumin Human 200 ml @ 200 mls/hr 1X PRN PRN 06/01/18 14:00 06/01/18 19:59 Albuterol/ Ipratropium (Duoneb) 3 ml RTQID 06/01/18 08:00 06/01/18 11:19 3 ML Artificial Tears (Artificial Tears) 1 drop PRN Q15MIN PRN 05/31/18 13:15 06/01/18 11:16 1 DROP Aspirin (Ecotrin) 81 mg DAILYWBKFT 06/01/18 08:00 06/01/18 08:54 81 MG Bisacodyl (Dulcolax Supp) 10 mg PRN DAILY PRN 05/30/18 17:00 Carvedilol (Coreg) 25 mg DAILY08 05/31/18 08:00 05/31/18 08:00 DC Cefepime HCl (Maxipime) 1 gm Q24H 05/30/18 20:00 05/31/18 20:14 1 GM Darbepoetin Noel (Aranesp) 60 mcg WEEKLYHS 05/31/18 21:00 05/31/18 20:14 60 MCG Dextrose (Dextrose 50%-Water Syringe) 12.5 gm PRN Q15MIN PRN 05/30/18 22:15 Diphenhydramine HCl (Benadryl) 25 mg 1X PRN PRN 06/01/18 14:00 06/02/18 13:59 Heparin Sodium (Porcine) (Heparin Sodium) 5,000 unit Q12HR 05/30/18 21:00 06/01/18 09:25 5,000 UNIT Hydralazine HCl (Apresoline) 10 mg DAILY 05/31/18 09:00 Info (PHARMACY MONITORING -- do not chart) 1 each PRN DAILY PRN 06/01/18 14:00 UNV Insulin Glargine (Lantus) 5 units QHS 05/30/18 22:30 05/31/18 21:05 5 UNITS Insulin Human Lispro (HumaLOG) 0-5 UNITS TIDWMEALS 05/31/18 08:00 06/01/18 12:09 4 UNITS Isosorbide Dinitrate (Isordil) 10 mg DAILY 05/31/18 09:00 05/31/18 09:00 DC Lactobacillus Rhamnosus (Culturelle) 1 cap BID 05/31/18 21:00 06/01/18 08:55 1 CAP Lactulose (Lactulose) 20 gm PRN Q12HR PRN 05/30/18 17:00 Losartan Potassium (Cozaar) 100 mg DAILY 05/31/18 09:00 05/31/18 09:00 DC Magnesium Oxide (Magnesium Oxide) 400 mg DAILY 05/31/18 09:00 06/01/18 08:56 400 MG Ondansetron HCl (Zofran) 4 mg PRN Q6HRS PRN 05/30/18 17:00 Piperacillin Sod/ Tazobactam Sod 2.25 gm/Sodium Chloride 50 ml @ 100 mls/hr 1X ONCE 05/30/18 14:15 05/30/18 14:44 DC 2/20/19 14:34 100 MLS/HR Senna/Docusate Sodium (Senna Plus) 1 tab BID 05/30/18 21:00 06/01/18 08:56 1 TAB Sevelamer Carbonate (Renvela) 2,400 mg TIDWMEALS 05/31/18 18:00 06/01/18 12:03 2,400 MG Sodium Chloride 1,000 ml @ 400 mls/hr Q2H30M PRN 06/01/18 14:00 06/02/18 01:59 Vancomycin HCl (Vanco Per Pharmacy) 1 each PRN DAILY PRN 05/30/18 17:00 05/31/18 14:00 1 EACH Vancomycin HCl (Vancomycin Random Level) 1 each 1X ONCE 05/31/18 06:00 05/31/18 06:01 DC 05/31/18 06:00 1 EACH Vancomycin HCl 1.5 gm/Sodium Chloride 500 ml @ 250 mls/hr 1X ONCE 05/30/18 14:30 05/30/18 16:29 DC 05/30/18 15:46 250 MLS/HR Lab Laboratory Tests Test 05/31/18 17:01 05/31/18 20:51 06/01/18 03:20 06/01/18 07:51 Glucose (Fingerstick) 127 mg/dL (70-99) 242 mg/dL (70-99) 149 mg/dL (70-99) Platelet Count 110 x10^3/uL (140-400) Sodium Level 132 mmol/L (136-145) Potassium Level 3.9 mmol/L (3.5-5.1) Chloride Level 92 mmol/L (98-107) Carbon Dioxide Level 29 mmol/L (21-32) Anion Gap 11 (6-14) Blood Urea Nitrogen 40 mg/dL (7-20) Creatinine 5.7 mg/dL (0.6-1.0) Estimated GFR (Cockcroft-Gault) 9.3 Glucose Level 193 mg/dL (70-99) Calcium Level 9.2 mg/dL (8.5-10.1) Phosphorus Level 4.2 mg/dL (2.6-4.7) Albumin 1.9 g/dL (3.4-5.0) Test 06/01/18 11:30 Glucose (Fingerstick) 256 mg/dL (70-99) Results All relevant outside records, renal labs, imaging studies, telemetry/EKG's were reviewed. DIAMOND FANG MD Jun 01, 2018 14:14
[2018-06-01] MEDS: VANCOMYCIN PER PHARMACY MC PRN (15:24)
--- NOTE | 2018-06-01 15:51 | CARD ---
MR#: [id number] Date of Study: 06/01/2018 Ordering Physician: PANCHITO DILL, Referring Physician: TIANA LINDSAY, Tech: Erika De La Vega APPROVED REPORT EXAM: Two-dimensional and M-mode echocardiogram with Doppler and color Doppler. Other Information Quality : FairHR: 81bpm INDICATION Atrial Fibrillation Super Ventricular Tachycardia RISK FACTORS Hypertension Diabetes 2D DIMENSIONS Left Atrium(2D)5.2 (1.6-4.0cm)IVSd0.9 (0.7-1.1cm) Aortic Root(2D)2.6 (2.0-3.7cm)LVDd5.2 (3.9-5.9cm) LVOT Diameter2.0 (1.8-2.4cm)PWd1.1 (0.7-1.1cm) LVDs5.2 (2.5-4.0cm)FS (%) 1.2 % SV3.6 ml Aortic Valve AoV Peak Minesh.180.2cm/sAoV VTI30.4cm AO Peak GR.13.0mmHgLVOT VTI 23.00cm AO Mean GR.9mmHg Mitral Valve MV E Pqggvjwc781.4cm/sMV E Peak Gr.82mmHg MV DECEL [id number] A Evxleoyn51.7cm/s E/A Ratio1.2 TDI Lateral E' P. V8.75cm/sMedial E' P. V6.89cm/s E/Lateral E'12.5E/Medial E'15.9 Tricuspid Valve TR P. Uoyvcips255xt/sRAP [id number] TR Peak Gr.[id number] Pulmonary Vein S1 Bwduvjfq15.7cm/sS2 Uuowwcpq20.47cm/s D2 Iabhgpta17.5cm/sPVa [id number] LEFT VENTRICLE The left ventricle is normal size. There is normal left ventricular wall thickness. Severe hypokinesi s of anteroseptal wall. The Ejection Fraction is 40-45%. Transmitral Doppler flow pattern is Grade II -pseudonormal filling dynamics. RIGHT VENTRICLE The right ventricle is normal size. There is normal right ventricular wall thickness. The right ventr icular systolic function is normal. ATRIA The left atrium is mildly dilated. The right atrium is mildly dilated. The interatrial septum is inta ct with no evidence for an atrial septal defect or patent foramen ovale as noted on 2-D or Doppler im aging. AORTIC VALVE The aortic valve is not well visualized. Doppler and Color Flow revealed no significant aortic regurg itation. There is no significant aortic valvular stenosis. MITRAL VALVE The mitral valve is calcified and displays decreased opening. There is no evidence of mitral valve pr olapse. Doppler and Color-flow revealed trace to mild mitral regurgitation. TRICUSPID VALVE The tricuspid valve is not well visualized. Doppler and Color Flow revealed mild to moderate tricuspi d regurgitation with an estimated PAP of 51 mmHg. There is no tricuspid valve stenosis. PULMONIC VALVE The pulmonic valve is not well visualized. Doppler and Color Flow revealed no pulmonic valvular regur gitation. GREAT VESSELS The aortic root is normal in size. The IVC is dilated and collapses >50% with inspiration. PERICARDIAL EFFUSION There is moderate left pleural effusion. There is no evidence of significant pericardial effusion. Critical Notification Critical Value: No <Conclusion> Severe hypokinesis of anteroseptal wall. The Ejection Fraction is 40-45%. Transmitral Doppler flow pattern is Grade II-pseudonormal filling dynamics. Trace to mild mitral regurgitation. Mild to moderate tricuspid regurgitation with an estimated PAP of 51 mmHg. There is no evidence of significant pericardial effusion. Signed by : Mir Lerma, Electronically Approved : 06/01/2018 15:50:51
--- NOTE | 2018-06-01 16:07 | PDOC ---
PROGRESS NOTES Chief Complaint Chief Complaint sepsis, pneumonia, Cough - with RUL infiltrate, le cefepime + vanco. acute Hypoxia - HCAP and possible fluid overload, ESRD Hypotension - sepsis, dry, ESRD ESRD on HD, need UF at least, fluid balance improving Anemia - likely of chronic renal insufficiency. Monitor, consider transfusion if Hb < 7 HTN - Afib history - chronic diastolic CHF History of Present Illness History of Present Illness PO intake bettter vitals improved she is more active and alert today Vitals Vitals Vital Signs Date Time Temp Pulse Resp B/P (MAP) Pulse Ox O2 Delivery O2 Flow Rate FiO2 06/01/18 11:35 120/70 (87) 06/01/18 11:19 98 Room Air 06/01/18 11:00 98.1 81 20 98.1 05/31/18 08:00 1.0 Physical Exam General: Alert, Oriented X3, Cooperative, No acute distress Heart: Regular rate, Normal S1, Normal S2, Other (2/6 systolic murmur ) Lungs: Clear Abdomen: Soft, Other (obese ) Extremities: No edema Skin: No significant lesion Labs LABS Laboratory Tests Test 05/31/18 17:01 05/31/18 20:51 06/01/18 03:20 06/01/18 07:51 Glucose (Fingerstick) 127 mg/dL (70-99) 242 mg/dL (70-99) 149 mg/dL (70-99) Platelet Count 110 x10^3/uL (140-400) Sodium Level 132 mmol/L (136-145) Potassium Level 3.9 mmol/L (3.5-5.1) Chloride Level 92 mmol/L (98-107) Carbon Dioxide Level 29 mmol/L (21-32) Anion Gap 11 (6-14) Blood Urea Nitrogen 40 mg/dL (7-20) Creatinine 5.7 mg/dL (0.6-1.0) Estimated GFR (Cockcroft-Gault) 9.3 Glucose Level 193 mg/dL (70-99) Calcium Level 9.2 mg/dL (8.5-10.1) Phosphorus Level 4.2 mg/dL (2.6-4.7) Albumin 1.9 g/dL (3.4-5.0) Test 06/01/18 11:30 Glucose (Fingerstick) 256 mg/dL (70-99) Assessment and Plan Assessmemt and Plan Problems Medical Problems: (1) ESRD (end stage renal disease) on dialysis Status: Acute (2) Right upper lobe pneumonia Status: Acute Comment Review of Relevant I have reviewed the following items alivia (where applicable) has been applied. Labs Laboratory Tests Test 05/30/18 17:18 05/30/18 20:41 05/31/18 06:25 05/31/18 08:01 Glucose (Fingerstick) 188 mg/dL (70-99) 252 mg/dL (70-99) 202 mg/dL (70-99) White Blood Count 9.3 x10^3/uL (4.0-11.0) Red Blood Count 2.49 x10^6/uL (3.50-5.40) Hemoglobin 8.5 g/dL (12.0-15.5) Hematocrit 25.4 % (36.0-47.0) Mean Corpuscular Volume 102 fL (79-100) Mean Corpuscular Hemoglobin 34 pg (25-35) Mean Corpuscular Hemoglobin Concent 34 g/dL (31-37) Red Cell Distribution Width 14.4 % (11.5-14.5) Platelet Count 88 x10^3/uL (140-400) Neutrophils (%) (Auto) 84 % (31-73) Lymphocytes (%) (Auto) 5 % (24-48) Monocytes (%) (Auto) 10 % (0-9) Eosinophils (%) (Auto) 1 % (0-3) Basophils (%) (Auto) 1 % (0-3) Neutrophils # (Auto) 7.8 x10^3uL (1.8-7.7) Lymphocytes # (Auto) 0.4 x10^3/uL (1.0-4.8) Monocytes # (Auto) 0.9 x10^3/uL (0.0-1.1) Eosinophils # (Auto) 0.1 x10^3/uL (0.0-0.7) Basophils # (Auto) 0.1 x10^3/uL (0.0-0.2) Sodium Level 128 mmol/L (136-145) Potassium Level 5.1 mmol/L (3.5-5.1) Chloride Level 86 mmol/L (98-107) Carbon Dioxide Level 25 mmol/L (21-32) Anion Gap 17 (6-14) Blood Urea Nitrogen 77 mg/dL (7-20) Creatinine 8.9 mg/dL (0.6-1.0) Estimated GFR (Cockcroft-Gault) 5.6 Glucose Level 220 mg/dL (70-99) Calcium Level 9.3 mg/dL (8.5-10.1) Phosphorus Level 7.3 mg/dL (2.6-4.7) Magnesium Level 3.1 mg/dL (1.8-2.4) Albumin 1.7 g/dL (3.4-5.0) Random Vancomycin Level 27.2 mcg/mL Test 05/31/18 11:36 05/31/18 17:01 05/31/18 20:51 06/01/18 03:20 Glucose (Fingerstick) 232 mg/dL (70-99) 127 mg/dL (70-99) 242 mg/dL (70-99) Platelet Count 110 x10^3/uL (140-400) Sodium Level 132 mmol/L (136-145) Potassium Level 3.9 mmol/L (3.5-5.1) Chloride Level 92 mmol/L (98-107) Carbon Dioxide Level 29 mmol/L (21-32) Anion Gap 11 (6-14) Blood Urea Nitrogen 40 mg/dL (7-20) Creatinine 5.7 mg/dL (0.6-1.0) Estimated GFR (Cockcroft-Gault) 9.3 Glucose Level 193 mg/dL (70-99) Calcium Level 9.2 mg/dL (8.5-10.1) Phosphorus Level 4.2 mg/dL (2.6-4.7) Albumin 1.9 g/dL (3.4-5.0) Test 06/01/18 07:51 06/01/18 11:30 Glucose (Fingerstick) 149 mg/dL (70-99) 256 mg/dL (70-99) Laboratory Tests Test 05/31/18 17:01 05/31/18 20:51 06/01/18 03:20 06/01/18 07:51 Glucose (Fingerstick) 127 mg/dL (70-99) 242 mg/dL (70-99) 149 mg/dL (70-99) Platelet Count 110 x10^3/uL (140-400) Sodium Level 132 mmol/L (136-145) Potassium Level 3.9 mmol/L (3.5-5.1) Chloride Level 92 mmol/L (98-107) Carbon Dioxide Level 29 mmol/L (21-32) Anion Gap 11 (6-14) Blood Urea Nitrogen 40 mg/dL (7-20) Creatinine 5.7 mg/dL (0.6-1.0) Estimated GFR (Cockcroft-Gault) 9.3 Glucose Level 193 mg/dL (70-99) Calcium Level 9.2 mg/dL (8.5-10.1) Phosphorus Level 4.2 mg/dL (2.6-4.7) Albumin 1.9 g/dL (3.4-5.0) Test 06/01/18 11:30 Glucose (Fingerstick) 256 mg/dL (70-99) Microbiology 05/30/18 Blood Culture - Preliminary, Resulted NO GROWTH AFTER 2 DAYS 05/30/18 - Final, Resulted 05/30/18 - Final, Resulted 05/30/18 - Final, Resulted 05/30/18 - Final, Resulted 05/30/18 Gram Stain Evaluation - Final, Resulted 05/30/18 Sputum Culture - Preliminary, Resulted 05/30/18 Sputum Result 1 - Final, Resulted 05/30/18 Sputum Result 2 - Final, Resulted Medications Current Medications Vancomycin HCl 250 ml @ 250 mls/hr 1X ONCE IV ; Start 05/30/18 at 14:15; Stop 05/30/18 at 15:14; Status UNV Piperacillin Sod/ Tazobactam Sod 2.25 gm/Sodium Chloride 50 ml @ 100 mls/hr 1X ONCE IV Last administered on 05/30/18at 14:34; Start 05/30/18 at 14:15; Stop 05/30/18 at 14:44; Status DC Acetaminophen (Tylenol) 650 mg PRN Q4HRS PRN PO FEVER; Start 05/30/18 at 14:15 ; Stop 05/30/18 at 16:54; Status DC Albuterol/ Ipratropium (Duoneb) 3 ml RTQID NEB Last administered on 05/31/18at 19:23; Start 05/30/18 at 16:00; Stop 05/31/18 at 15:59; Status DC Vancomycin HCl 1.5 gm/Sodium Chloride 500 ml @ 250 mls/hr 1X ONCE IV Last administered on 05/30/18at 15:46; Start 05/30/18 at 14:30; Stop 05/30/18 at 16:29 ; Status DC Ondansetron HCl (Zofran) 4 mg PRN Q6HRS PRN IV NAUSEA/VOMITING; Start 05/30/18 at 17:00 Acetaminophen/ Hydrocodone Bitart (Lortab 5/325) 1 tab PRN Q4HRS PRN PO MILD PAIN, 2ND CHOICE; Start 05/30/18 at 17:00 Acetaminophen (Tylenol) 650 mg PRN Q6HRS PRN PO Headaches, Temp > 101.5F; Start 05/30/18 at 17:00 Senna/Docusate Sodium (Senna Plus) 1 tab BID PO Last administered on 06/01/18at 08:56; Start 05/30/18 at 21:00 Lactulose (Lactulose) 20 gm PRN Q12HR PRN PO CONSTIPATION 1ST CHOICE; Start at 17:00 Bisacodyl (Dulcolax Supp) 10 mg PRN DAILY PRN [place] CONSTIPATION; Start 05/30/18 at 17:00 Heparin Sodium (Porcine) (Heparin Sodium) 5,000 unit Q12HR SQ Last administered on 06/01/18at 09:25; Start 05/30/18 at 21:00 Isosorbide Dinitrate (Isordil) 10 mg DAILY PO ; Start 05/31/18 at 09:00; Stop at 09:00; Status DC Sevelamer Carbonate (Renvela) 2,400 mg TIDWMEALS PO Last administered on at 12:03; Start 05/31/18 at 18:00 Carvedilol (Coreg) 25 mg DAILY08 PO ; Start 05/31/18 at 08:00; Stop 05/31/18 at 08:00; Status DC Hydralazine HCl (Apresoline) 10 mg DAILY PO ; Start 05/31/18 at 09:00 Losartan Potassium (Cozaar) 100 mg DAILY PO ; Start 05/31/18 at 09:00; Stop at 09:00; Status DC Magnesium Oxide (Magnesium Oxide) 400 mg DAILY PO Last administered on at 08:56; Start 05/31/18 at 09:00 Cefepime HCl (Maxipime) 1 gm Q24H IVP Last administered on 05/31/18at 20:14; Start 05/30/18 at 20:00 Vancomycin HCl (Vanco Per Pharmacy) 1 each PRN DAILY PRN MC SEE COMMENTS Last administered on 06/01/18at 15:24; Start 05/30/18 at 17:00 Sodium Chloride 250 ml @ 250 mls/hr 1X ONCE IV Last administered on at 20:00; Start 05/30/18 at 20:00; Stop 05/30/18 at 20:59; Status DC Vancomycin HCl (Vancomycin Random Level) 1 each 1X ONCE MC Last administered on 05/31/18at 06:00; Start 05/31/18 at 06:00; Stop 05/31/18 at 06:01; Status DC Sodium Chloride 250 ml @ 250 mls/hr 1X ONCE IV Last administered on at 20:30; Start 05/30/18 at 20:30; Stop 05/30/18 at 21:29; Status DC Insulin Glargine (Lantus) 5 units QHS SQ Last administered on 05/31/18at 21:05; Start 05/30/18 at 22:30 Insulin Human Lispro (HumaLOG) 0-5 UNITS TIDWMEALS SQ Last administered on 06/01at 12:09; Start 05/31/18 at 08:00 Dextrose (Dextrose 50%-Water Syringe) 12.5 gm PRN Q15MIN PRN IV SEE COMMENTS; Start 05/30/18 at 22:15 Lactobacillus Rhamnosus (Culturelle) 1 cap BID PO Last administered on at 08:55; Start 05/31/18 at 21:00 Sodium Chloride 1,000 ml @ 1,000 mls/hr Q1H PRN IV hypotension; Start 05/31/18 at 10:36; Stop 05/31/18 at 16:35; Status DC Albumin Human 200 ml @ 200 mls/hr 1X PRN PRN IV Hypotension; Start 05/31/18 at 10:45; Stop 05/31/18 at 16:44; Status DC Acetaminophen (Tylenol) 500 mg 1X PRN PRN PO MILD PAIN / TEMP; Start 05/31/18 at 10:45; Stop 06/01/18 at 10:44; Status DC Diphenhydramine HCl (Benadryl) 25 mg 1X PRN PRN IV ITCHING; Start 05/31/18 at 10:45; Stop 06/01/18 at 10:44; Status DC Diphenhydramine HCl (Benadryl) 25 mg 1X PRN PRN IV ITCHING; Start 05/31/18 at 10:45; Stop 06/01/18 at 10:44; Status DC Sodium Chloride 1,000 ml @ 400 mls/hr Q2H30M PRN IV PATENCY; Start 05/31/18 at 10:36; Stop 05/31/18 at 22:35; Status DC Info (PHARMACY MONITORING -- do not chart) 1 each PRN DAILY PRN MC SEE COMMENTS ; Start 05/31/18 at 10:45 Darbepoetin Noel (Aranesp) 60 mcg WEEKLYHS SQ Last administered on 05/31/18at 20 :14; Start 05/31/18 at 21:00 Artificial Tears (Artificial Tears) 1 drop PRN Q15MIN PRN OD DRY EYE Last administered on 06/01/18at 11:16; Start 05/31/18 at 13:15 Aspirin (Ecotrin) 81 mg DAILYWBKFT PO Last administered on 06/01/18at 08:54; Start 06/01/18 at 08:00 Albuterol/ Ipratropium (Duoneb) 3 ml RTQID NEB Last administered on 06/01/18at 11:19; Start 06/01/18 at 08:00 Sodium Chloride 1,000 ml @ 1,000 mls/hr Q1H PRN IV hypotension; Start 06/01/18 at 14:00; Stop 06/01/18 at 19:59 Albumin Human 200 ml @ 200 mls/hr 1X PRN PRN IV Hypotension; Start 06/01/18 at 14:00; Stop 06/01/18 at 19:59 Acetaminophen (Tylenol) 500 mg 1X PRN PRN PO MILD PAIN / TEMP; Start 06/01/18 at 14:00; Stop 06/02/18 at 13:59 Diphenhydramine HCl (Benadryl) 25 mg 1X PRN PRN IV ITCHING; Start 06/01/18 at 14:00; Stop 06/02/18 at 13:59 Diphenhydramine HCl (Benadryl) 25 mg 1X PRN PRN IV ITCHING; Start 06/01/18 at 14:00; Stop 06/02/18 at 13:59 Sodium Chloride 1,000 ml @ 400 mls/hr Q2H30M PRN IV PATENCY; Start 06/01/18 at 14:00; Stop 06/02/18 at 01:59 Info (PHARMACY MONITORING -- do not chart) 1 each PRN DAILY PRN MC SEE COMMENTS ; Start 06/01/18 at 14:00; Status UNV Vancomycin HCl 500 mg/Sodium Chloride 100 ml @ 100 mls/hr QMWF IV ; Start 06/01 at 16:00 Active Scripts Active Reported Carvedilol 25 Mg Tablet 25 Mg PO DAILY Losartan Potassium 100 Mg Tablet 100 Mg PO DAILY Isosorbide Dinitrate 10 Mg Tablet 10 Mg PO DAILY Hydralazine Hcl 10 Mg Tablet 10 Mg PO DAILY Renvela (Sevelamer Carbonate) 800 Mg Tablet 3 Tab PO TID Furosemide 80 Mg Tablet 1 Tab PO DAILY Magnesium Oxide 400 Mg Tablet 1 Tab PO DAILY Vitals/I & O Vital Sign - Last 24 Hours 05/31/18 05/31/18 05/31/18 05/31/18 16:20 19:00 19:24 19:45 B/P (MAP) 108/68 (81) O2 Delivery Room Air Room Air Room Air 05/31/18 05/31/18 06/01/18 06/01/18 23:00 23:00 03:02 07:00 Temp 98.3 98.4 99.0 98.3 98.4 99.0 Pulse 83 79 Resp 18 20 B/P (MAP) 102/64 (77) 112/66 (81) Pulse Ox 96 96 93 O2 Delivery Room Air Room Air 06/01/18 06/01/18 06/01/18 06/01/18 07:06 08:00 08:00 11:00 Temp 98.1 98.1 Pulse 81 Resp 20 B/P (MAP) 110/70 (83) 102/67 (79) Pulse Ox 96 98 O2 Delivery Room Air Room Air Room Air 06/01/18 06/01/18 11:19 11:35 B/P (MAP) 120/70 (87) Pulse Ox 98 O2 Delivery Room Air Intake and Output 05/31/18 05/31/18 06/01/18 15:00 23:00 07:00 Intake Total 250 ml 100 ml Balance 250 ml 100 ml FADI FRANCO MD Jun 01, 2018 16:07
--- NOTE | 2018-06-01 16:23 | PDOC ---
PROGRESS NOTES Subjective Subjective Patient seen and examined Objective Objective Vital Signs Date Time Temp Pulse Resp B/P (MAP) Pulse Ox O2 Delivery O2 Flow Rate FiO2 06/01/18 11:35 120/70 (87) 06/01/18 11:19 98 Room Air 06/01/18 11:00 98.1 81 20 98.1 05/31/18 08:00 1.0 Intake and Output 06/01/18 07:00 Intake Total 350 ml Balance 350 ml Intake Oral 350 ml # Voids 1 Physical Exam Abdomen: Normal bowel sounds Heart: Regular rate General: No acute distress Lungs: Other (mildly decreased breath sounds) Assessment Assessment Problems Medical Problems: (1) ESRD (end stage renal disease) on dialysis Status: Acute (2) Right upper lobe pneumonia Status: Acute 1. NSVT; patient had one 8-beat run of NSVT on tele. Stable overnight. Continue present treatment. 2. Acute respiratory failure secondary to PNA and AECOPD. Continue treatment as per the pulmonary service. 3. ESRD on HD 4. PAFIB; had AFIB while on HD. Initially treated with Amiodarone, but daughter declined as she felt this was induced with HD. Presently maintaining SR 5. Anemia of chronic disease 6. CAD s/p CABG. Stable. CP free. Follows with Dr. Garcia 7. Chronic systolic HF; clinically compensated. Continue present treatment. 7. Hypertension; controlled. 8. Hyperlipidemia 9. Diabetes,II Comment Review of Relevant I have reviewed the following items alivia (where applicable) has been applied. Labs Laboratory Tests Test 05/30/18 17:18 05/30/18 20:41 05/31/18 06:25 05/31/18 08:01 Glucose (Fingerstick) 188 mg/dL (70-99) 252 mg/dL (70-99) 202 mg/dL (70-99) White Blood Count 9.3 x10^3/uL (4.0-11.0) Red Blood Count 2.49 x10^6/uL (3.50-5.40) Hemoglobin 8.5 g/dL (12.0-15.5) Hematocrit 25.4 % (36.0-47.0) Mean Corpuscular Volume 102 fL (79-100) Mean Corpuscular Hemoglobin 34 pg (25-35) Mean Corpuscular Hemoglobin Concent 34 g/dL (31-37) Red Cell Distribution Width 14.4 % (11.5-14.5) Platelet Count 88 x10^3/uL (140-400) Neutrophils (%) (Auto) 84 % (31-73) Lymphocytes (%) (Auto) 5 % (24-48) Monocytes (%) (Auto) 10 % (0-9) Eosinophils (%) (Auto) 1 % (0-3) Basophils (%) (Auto) 1 % (0-3) Neutrophils # (Auto) 7.8 x10^3uL (1.8-7.7) Lymphocytes # (Auto) 0.4 x10^3/uL (1.0-4.8) Monocytes # (Auto) 0.9 x10^3/uL (0.0-1.1) Eosinophils # (Auto) 0.1 x10^3/uL (0.0-0.7) Basophils # (Auto) 0.1 x10^3/uL (0.0-0.2) Sodium Level 128 mmol/L (136-145) Potassium Level 5.1 mmol/L (3.5-5.1) Chloride Level 86 mmol/L (98-107) Carbon Dioxide Level 25 mmol/L (21-32) Anion Gap 17 (6-14) Blood Urea Nitrogen 77 mg/dL (7-20) Creatinine 8.9 mg/dL (0.6-1.0) Estimated GFR (Cockcroft-Gault) 5.6 Glucose Level 220 mg/dL (70-99) Calcium Level 9.3 mg/dL (8.5-10.1) Phosphorus Level 7.3 mg/dL (2.6-4.7) Magnesium Level 3.1 mg/dL (1.8-2.4) Albumin 1.7 g/dL (3.4-5.0) Random Vancomycin Level 27.2 mcg/mL Test 05/31/18 11:36 05/31/18 17:01 05/31/18 20:51 06/01/18 03:20 Glucose (Fingerstick) 232 mg/dL (70-99) 127 mg/dL (70-99) 242 mg/dL (70-99) Platelet Count 110 x10^3/uL (140-400) Sodium Level 132 mmol/L (136-145) Potassium Level 3.9 mmol/L (3.5-5.1) Chloride Level 92 mmol/L (98-107) Carbon Dioxide Level 29 mmol/L (21-32) Anion Gap 11 (6-14) Blood Urea Nitrogen 40 mg/dL (7-20) Creatinine 5.7 mg/dL (0.6-1.0) Estimated GFR (Cockcroft-Gault) 9.3 Glucose Level 193 mg/dL (70-99) Calcium Level 9.2 mg/dL (8.5-10.1) Phosphorus Level 4.2 mg/dL (2.6-4.7) Albumin 1.9 g/dL (3.4-5.0) Test 06/01/18 07:51 06/01/18 11:30 Glucose (Fingerstick) 149 mg/dL (70-99) 256 mg/dL (70-99) Laboratory Tests Test 05/31/18 17:01 05/31/18 20:51 06/01/18 03:20 06/01/18 07:51 Glucose (Fingerstick) 127 mg/dL (70-99) 242 mg/dL (70-99) 149 mg/dL (70-99) Platelet Count 110 x10^3/uL (140-400) Sodium Level 132 mmol/L (136-145) Potassium Level 3.9 mmol/L (3.5-5.1) Chloride Level 92 mmol/L (98-107) Carbon Dioxide Level 29 mmol/L (21-32) Anion Gap 11 (6-14) Blood Urea Nitrogen 40 mg/dL (7-20) Creatinine 5.7 mg/dL (0.6-1.0) Estimated GFR (Cockcroft-Gault) 9.3 Glucose Level 193 mg/dL (70-99) Calcium Level 9.2 mg/dL (8.5-10.1) Phosphorus Level 4.2 mg/dL (2.6-4.7) Albumin 1.9 g/dL (3.4-5.0) Test 06/01/18 11:30 Glucose (Fingerstick) 256 mg/dL (70-99) Microbiology 05/30/18 Blood Culture - Preliminary, Resulted NO GROWTH AFTER 2 DAYS 05/30/18 - Final, Resulted 05/30/18 - Final, Resulted 05/30/18 - Final, Resulted 05/30/18 - Final, Resulted 05/30/18 Gram Stain Evaluation - Final, Resulted 05/30/18 Sputum Culture - Preliminary, Resulted 05/30/18 Sputum Result 1 - Final, Resulted 05/30/18 Sputum Result 2 - Final, Resulted Medications Current Medications Vancomycin HCl 250 ml @ 250 mls/hr 1X ONCE IV ; Start 05/30/18 at 14:15; Stop 05/30/18 at 15:14; Status UNV Piperacillin Sod/ Tazobactam Sod 2.25 gm/Sodium Chloride 50 ml @ 100 mls/hr 1X ONCE IV Last administered on 05/30/18at 14:34; Start 05/30/18 at 14:15; Stop 05/30/18 at 14:44; Status DC Acetaminophen (Tylenol) 650 mg PRN Q4HRS PRN PO FEVER; Start 05/30/18 at 14:15 ; Stop 05/30/18 at 16:54; Status DC Albuterol/ Ipratropium (Duoneb) 3 ml RTQID NEB Last administered on 05/31/18at 19:23; Start 05/30/18 at 16:00; Stop 05/31/18 at 15:59; Status DC Vancomycin HCl 1.5 gm/Sodium Chloride 500 ml @ 250 mls/hr 1X ONCE IV Last administered on 05/30/18at 15:46; Start 05/30/18 at 14:30; Stop 05/30/18 at 16:29 ; Status DC Ondansetron HCl (Zofran) 4 mg PRN Q6HRS PRN IV NAUSEA/VOMITING; Start 05/30/18 at 17:00 Acetaminophen/ Hydrocodone Bitart (Lortab 5/325) 1 tab PRN Q4HRS PRN PO MILD PAIN, 2ND CHOICE; Start 05/30/18 at 17:00 Acetaminophen (Tylenol) 650 mg PRN Q6HRS PRN PO Headaches, Temp > 101.5F; Start 05/30/18 at 17:00 Senna/Docusate Sodium (Senna Plus) 1 tab BID PO Last administered on 06/01/18at 08:56; Start 05/30/18 at 21:00 Lactulose (Lactulose) 20 gm PRN Q12HR PRN PO CONSTIPATION 1ST CHOICE; Start at 17:00 Bisacodyl (Dulcolax Supp) 10 mg PRN DAILY PRN [place] CONSTIPATION; Start 05/30/18 at 17:00 Heparin Sodium (Porcine) (Heparin Sodium) 5,000 unit Q12HR SQ Last administered on 06/01/18at 09:25; Start 05/30/18 at 21:00 Isosorbide Dinitrate (Isordil) 10 mg DAILY PO ; Start 05/31/18 at 09:00; Stop at 09:00; Status DC Sevelamer Carbonate (Renvela) 2,400 mg TIDWMEALS PO Last administered on at 12:03; Start 05/31/18 at 18:00 Carvedilol (Coreg) 25 mg DAILY08 PO ; Start 05/31/18 at 08:00; Stop 05/31/18 at 08:00; Status DC Hydralazine HCl (Apresoline) 10 mg DAILY PO ; Start 05/31/18 at 09:00 Losartan Potassium (Cozaar) 100 mg DAILY PO ; Start 05/31/18 at 09:00; Stop at 09:00; Status DC Magnesium Oxide (Magnesium Oxide) 400 mg DAILY PO Last administered on at 08:56; Start 05/31/18 at 09:00 Cefepime HCl (Maxipime) 1 gm Q24H IVP Last administered on 05/31/18at 20:14; Start 05/30/18 at 20:00 Vancomycin HCl (Vanco Per Pharmacy) 1 each PRN DAILY PRN MC SEE COMMENTS Last administered on 06/01/18at 15:24; Start 05/30/18 at 17:00 Sodium Chloride 250 ml @ 250 mls/hr 1X ONCE IV Last administered on at 20:00; Start 05/30/18 at 20:00; Stop 05/30/18 at 20:59; Status DC Vancomycin HCl (Vancomycin Random Level) 1 each 1X ONCE MC Last administered on 05/31/18at 06:00; Start 05/31/18 at 06:00; Stop 05/31/18 at 06:01; Status DC Sodium Chloride 250 ml @ 250 mls/hr 1X ONCE IV Last administered on at 20:30; Start 05/30/18 at 20:30; Stop 05/30/18 at 21:29; Status DC Insulin Glargine (Lantus) 5 units QHS SQ Last administered on 05/31/18at 21:05; Start 05/30/18 at 22:30 Insulin Human Lispro (HumaLOG) 0-5 UNITS TIDWMEALS SQ Last administered on 06/01at 12:09; Start 05/31/18 at 08:00 Dextrose (Dextrose 50%-Water Syringe) 12.5 gm PRN Q15MIN PRN IV SEE COMMENTS; Start 05/30/18 at 22:15 Lactobacillus Rhamnosus (Culturelle) 1 cap BID PO Last administered on at 08:55; Start 05/31/18 at 21:00 Sodium Chloride 1,000 ml @ 1,000 mls/hr Q1H PRN IV hypotension; Start 05/31/18 at 10:36; Stop 05/31/18 at 16:35; Status DC Albumin Human 200 ml @ 200 mls/hr 1X PRN PRN IV Hypotension; Start 05/31/18 at 10:45; Stop 05/31/18 at 16:44; Status DC Acetaminophen (Tylenol) 500 mg 1X PRN PRN PO MILD PAIN / TEMP; Start 05/31/18 at 10:45; Stop 06/01/18 at 10:44; Status DC Diphenhydramine HCl (Benadryl) 25 mg 1X PRN PRN IV ITCHING; Start 05/31/18 at 10:45; Stop 06/01/18 at 10:44; Status DC Diphenhydramine HCl (Benadryl) 25 mg 1X PRN PRN IV ITCHING; Start 05/31/18 at 10:45; Stop 06/01/18 at 10:44; Status DC Sodium Chloride 1,000 ml @ 400 mls/hr Q2H30M PRN IV PATENCY; Start 05/31/18 at 10:36; Stop 05/31/18 at 22:35; Status DC Info (PHARMACY MONITORING -- do not chart) 1 each PRN DAILY PRN MC SEE COMMENTS ; Start 05/31/18 at 10:45 Darbepoetin Noel (Aranesp) 60 mcg WEEKLYHS SQ Last administered on 05/31/18at 20 :14; Start 05/31/18 at 21:00 Artificial Tears (Artificial Tears) 1 drop PRN Q15MIN PRN OD DRY EYE Last administered on 06/01/18at 11:16; Start 05/31/18 at 13:15 Aspirin (Ecotrin) 81 mg DAILYWBKFT PO Last administered on 06/01/18at 08:54; Start 06/01/18 at 08:00 Albuterol/ Ipratropium (Duoneb) 3 ml RTQID NEB Last administered on 06/01/18at 11:19; Start 06/01/18 at 08:00 Sodium Chloride 1,000 ml @ 1,000 mls/hr Q1H PRN IV hypotension; Start 06/01/18 at 14:00; Stop 06/01/18 at 19:59 Albumin Human 200 ml @ 200 mls/hr 1X PRN PRN IV Hypotension; Start 06/01/18 at 14:00; Stop 06/01/18 at 19:59 Acetaminophen (Tylenol) 500 mg 1X PRN PRN PO MILD PAIN / TEMP; Start 06/01/18 at 14:00; Stop 06/02/18 at 13:59 Diphenhydramine HCl (Benadryl) 25 mg 1X PRN PRN IV ITCHING; Start 06/01/18 at 14:00; Stop 06/02/18 at 13:59 Diphenhydramine HCl (Benadryl) 25 mg 1X PRN PRN IV ITCHING; Start 06/01/18 at 14:00; Stop 06/02/18 at 13:59 Sodium Chloride 1,000 ml @ 400 mls/hr Q2H30M PRN IV PATENCY; Start 06/01/18 at 14:00; Stop 06/02/18 at 01:59 Info (PHARMACY MONITORING -- do not chart) 1 each PRN DAILY PRN MC SEE COMMENTS ; Start 06/01/18 at 14:00; Status UNV Vancomycin HCl 500 mg/Sodium Chloride 100 ml @ 100 mls/hr QMWF IV ; Start 06/01 at 16:00 Active Scripts Active Reported Carvedilol 25 Mg Tablet 25 Mg PO DAILY Losartan Potassium 100 Mg Tablet 100 Mg PO DAILY Isosorbide Dinitrate 10 Mg Tablet 10 Mg PO DAILY Hydralazine Hcl 10 Mg Tablet 10 Mg PO DAILY Renvela (Sevelamer Carbonate) 800 Mg Tablet 3 Tab PO TID Furosemide 80 Mg Tablet 1 Tab PO DAILY Magnesium Oxide 400 Mg Tablet 1 Tab PO DAILY Vitals/I & O Vital Sign - Last 24 Hours 05/31/18 05/31/18 05/31/18 05/31/18 19:00 19:24 19:45 23:00 Temp 98.3 98.3 B/P (MAP) 108/68 (81) Pulse Ox 96 O2 Delivery Room Air Room Air 05/31/18 06/01/18 06/01/18 06/01/18 23:00 03:02 07:00 07:06 Temp 98.4 99.0 98.4 99.0 Pulse 83 79 Resp 18 20 B/P (MAP) 102/64 (77) 112/66 (81) Pulse Ox 96 93 96 O2 Delivery Room Air Room Air Room Air 06/01/18 06/01/18 06/01/18 06/01/18 08:00 08:00 11:00 11:19 Temp 98.1 98.1 Pulse 81 Resp 20 B/P (MAP) 110/70 (83) 102/67 (79) Pulse Ox 98 98 O2 Delivery Room Air Room Air Room Air 06/01/18 11:35 B/P (MAP) 120/70 (87) Intake and Output 05/31/18 05/31/18 06/01/18 15:00 23:00 07:00 Intake Total 250 ml 100 ml Balance 250 ml 100 ml LOREN VICENTE MD Jun 01, 2018 16:23
[2018-06-01] MEDS: VANCOMYCIN 500 MG in IV NORMAL SALINE 100ML 100 ML IV SCH (18:07)
[2018-06-01 19:00] VITALS: BP 137/68
[2018-06-01] MEDS: CEFEPIME HCL IV Push 1 GM VIAL. IVP SCH (20:36)
[2018-06-01] MEDS: INSULIN GLARGINE 300 UNITS/3 ML INSULN.PEN. SQ SCH (20:42)
[2018-06-01 23:00] VITALS: BP 114/59
[2018-06-02 03:04] VITALS: BP 103/64
[2018-06-02 04:16] LABS: ALBUMIN 1.9 g/dL (3.4-5.0); CALCIUM 9.3 mg/dL (8.5-10.1); GFR 14.1; PHOSPHORUS 3.1 mg/dL (2.6-4.7); POTASSIUM 4.1 mmol/L (3.5-5.1)
[2018-06-02 07:00] VITALS: BP 119/61
--- NOTE | 2018-06-02 07:42 | PDOC ---
PULMONARY PROGRESS NOTES Subjective sob better, has occ cough, no pain Vitals Vital Signs Date Time Temp Pulse Resp B/P (MAP) Pulse Ox O2 Delivery O2 Flow Rate FiO2 06/02/18 03:04 97.6 85 20 103/64 (77) 93 Room Air 97.6 ROS: No Nausea, No Chest Pain General: Alert, No acute distress HEENT: Other (nc at perrl ) Lungs: Crackles Cardiovascular: S1, S2 Abdomen: Soft, Non-tender Neuro Exam: Alert Extremities: No Edema Skin: Warm Labs Laboratory Tests Test 05/31/18 08:01 05/31/18 11:36 05/31/18 17:01 05/31/18 20:51 Glucose (Fingerstick) 202 mg/dL (70-99) 232 mg/dL (70-99) 127 mg/dL (70-99) 242 mg/dL (70-99) Test 06/01/18 03:20 06/01/18 07:51 06/01/18 11:30 06/01/18 18:03 Platelet Count 110 x10^3/uL (140-400) Sodium Level 132 mmol/L (136-145) Potassium Level 3.9 mmol/L (3.5-5.1) Chloride Level 92 mmol/L (98-107) Carbon Dioxide Level 29 mmol/L (21-32) Anion Gap 11 (6-14) Blood Urea Nitrogen 40 mg/dL (7-20) Creatinine 5.7 mg/dL (0.6-1.0) Estimated GFR (Cockcroft-Gault) 9.3 Glucose Level 193 mg/dL (70-99) Calcium Level 9.2 mg/dL (8.5-10.1) Phosphorus Level 4.2 mg/dL (2.6-4.7) Albumin 1.9 g/dL (3.4-5.0) Glucose (Fingerstick) 149 mg/dL (70-99) 256 mg/dL (70-99) 108 mg/dL (70-99) Test 06/01/18 20:20 06/02/18 03:25 Glucose (Fingerstick) 177 mg/dL (70-99) Sodium Level 137 mmol/L (136-145) Potassium Level 4.1 mmol/L (3.5-5.1) Chloride Level 97 mmol/L (98-107) Carbon Dioxide Level 30 mmol/L (21-32) Anion Gap 10 (6-14) Blood Urea Nitrogen 23 mg/dL (7-20) Creatinine 4.0 mg/dL (0.6-1.0) Estimated GFR (Cockcroft-Gault) 14.1 Glucose Level 199 mg/dL (70-99) Calcium Level 9.3 mg/dL (8.5-10.1) Phosphorus Level 3.1 mg/dL (2.6-4.7) Albumin 1.9 g/dL (3.4-5.0) Laboratory Tests Test 06/01/18 07:51 06/01/18 11:30 06/01/18 18:03 06/01/18 20:20 Glucose (Fingerstick) 149 mg/dL (70-99) 256 mg/dL (70-99) 108 mg/dL (70-99) 177 mg/dL (70-99) Test 06/02/18 03:25 Sodium Level 137 mmol/L (136-145) Potassium Level 4.1 mmol/L (3.5-5.1) Chloride Level 97 mmol/L (98-107) Carbon Dioxide Level 30 mmol/L (21-32) Anion Gap 10 (6-14) Blood Urea Nitrogen 23 mg/dL (7-20) Creatinine 4.0 mg/dL (0.6-1.0) Estimated GFR (Cockcroft-Gault) 14.1 Glucose Level 199 mg/dL (70-99) Calcium Level 9.3 mg/dL (8.5-10.1) Phosphorus Level 3.1 mg/dL (2.6-4.7) Albumin 1.9 g/dL (3.4-5.0) Medications Active Scripts Medications Dose Route/Sig Max Daily Dose Days Date Category Carvedilol 25 Mg Tablet 25 Mg PO DAILY 05/30/18 Reported Losartan Potassium 100 Mg Tablet 100 Mg PO DAILY 05/30/18 Reported Isosorbide Dinitrate 10 Mg Tablet 10 Mg PO DAILY 05/30/18 Reported Hydralazine Hcl 10 Mg Tablet 10 Mg PO DAILY 05/30/18 Reported Renvela (Sevelamer Carbonate) 800 Mg Tablet 3 Tab PO TID 06/27/14 Reported Furosemide 80 Mg Tablet 1 Tab PO DAILY 06/27/14 Reported Magnesium Oxide 400 Mg Tablet 1 Tab PO DAILY 06/27/14 Reported Impression . 1. Dyspnea with acute hypoxic respiratory failure requiring oxygen on admission secondary to pneumonia and underlying chronic obstructive pulmonary disease. 2. Abnormal chest x-ray consistent with right upper lobe pneumonia. 3. End-stage renal disease, on hemodialysis. 4. 25 years of tobacco use, suspect underlying chronic obstructive pulmonary disease. Plan . 1. Continue antibiotics. cont BD 2. fu chest x-ray in 48 hours. 3. Follow clinical course. 4. Hemodialysis per Renal. 5. We will follow along with you. gabby w pt DESMOND HENRY MD Jun 02, 2018 07:42
[2018-06-02] MEDS: IPRATRPIUM/ALBUTEROL 0.5/2.5MG 3 ML NEBU. NEB SCH ×4 (07:48→19:39)
[2018-06-02] MEDS: LACTOBACILLUS RHAMNOSUS GG 1 CAPSULE. PO SCH ×2 (08:27→20:54)
[2018-06-02] MEDS: MAGNESIUM OXIDE 400 MG TABLET PO SCH (08:27)
[2018-06-02] MEDS: SEVELAMER CARBONATE 800 MG TABLET. PO SCH ×3 (08:27→17:10)
[2018-06-02] MEDS: ASPIRIN ENTERIC COATED 81 MG TABLET.DR. PO SCH (08:27)
[2018-06-02] MEDS: SENNOSIDES/DOCUSATE 8.6/50MG TABLET. PO SCH ×2 (08:28→20:54)
[2018-06-02] MEDS: hydrALAZINE 10 MG TABLET PO SCH (08:29)
[2018-06-02] MEDS: POLYVINYL ALCOHOL 1.4% OPHTH SOLUTION 15ML BOTTLE. OD PRN ×3 (08:29→17:13)
[2018-06-02] MEDS: HEPARIN for SUB-Q USE 5,000 UNIT/ML VIAL. SQ SCH ×2 (08:37→20:58)
[2018-06-02] MEDS: INSULIN LISPRO 300 UNITS/3 ML INSULN.PEN. SQ SCH ×3 (08:38→17:13)
[2018-06-02 11:00] VITALS: BP 123/62
[2018-06-02] MEDS: VITAMIN B12,B9,B6 COMPLEX 1 TABLET. PO SCH (11:45)
[2018-06-02] MEDS: IRON POLYSACCHARIDE COMPLEX 150 MG CAPSULE PO SCH (11:45)
[2018-06-02 15:00] VITALS: BP 127/67
[2018-06-02] MEDS: CYCLOBENZAPRINE 10 MG TABLET. PO PRN (15:27)
--- NOTE | 2018-06-02 15:54 | PDOC ---
PROGRESS NOTES Chief Complaint Chief Complaint sepsis, pneumonia, Cough - with RUL infiltrate, le cefepime + vanco. acute Hypoxia - HCAP and possible fluid overload, ESRD Hypotension - sepsis, dry, ESRD ESRD on HD, need UF at least, fluid balance improving Anemia - likely of chronic renal insufficiency. Monitor, consider transfusion if Hb < 7 HTN - Afib history - chronic diastolic CHF History of Present Illness History of Present Illness left eye conjuctivitis, start Os cipro, cont visene str. better, cont abx PO intake bettter vitals improved she is more active and alert today Vitals Vitals Vital Signs Date Time Temp Pulse Resp B/P (MAP) Pulse Ox O2 Delivery O2 Flow Rate FiO2 06/02/18 15:22 98 Room Air 06/02/18 11:00 98.1 81 20 123/62 (82) 98.1 Physical Exam General: Alert, Cooperative, No acute distress Heart: Regular rate Lungs: Crackles Abdomen: Normal bowel sounds Extremities: No clubbing, No cyanosis, No edema Skin: No significant lesion Labs LABS Laboratory Tests Test 06/01/18 18:03 06/01/18 20:20 06/02/18 03:25 06/02/18 08:07 Glucose (Fingerstick) 108 mg/dL (70-99) 177 mg/dL (70-99) 190 mg/dL (70-99) Sodium Level 137 mmol/L (136-145) Potassium Level 4.1 mmol/L (3.5-5.1) Chloride Level 97 mmol/L (98-107) Carbon Dioxide Level 30 mmol/L (21-32) Anion Gap 10 (6-14) Blood Urea Nitrogen 23 mg/dL (7-20) Creatinine 4.0 mg/dL (0.6-1.0) Estimated GFR (Cockcroft-Gault) 14.1 Glucose Level 199 mg/dL (70-99) Calcium Level 9.3 mg/dL (8.5-10.1) Phosphorus Level 3.1 mg/dL (2.6-4.7) Albumin 1.9 g/dL (3.4-5.0) Test 06/02/18 11:38 Glucose (Fingerstick) 200 mg/dL (70-99) Assessment and Plan Assessmemt and Plan Problems Medical Problems: (1) ESRD (end stage renal disease) on dialysis Status: Acute (2) Right upper lobe pneumonia Status: Acute Comment Review of Relevant I have reviewed the following items alivia (where applicable) has been applied. Labs Laboratory Tests Test 05/31/18 17:01 05/31/18 20:51 06/01/18 03:20 06/01/18 07:51 Glucose (Fingerstick) 127 mg/dL (70-99) 242 mg/dL (70-99) 149 mg/dL (70-99) Platelet Count 110 x10^3/uL (140-400) Sodium Level 132 mmol/L (136-145) Potassium Level 3.9 mmol/L (3.5-5.1) Chloride Level 92 mmol/L (98-107) Carbon Dioxide Level 29 mmol/L (21-32) Anion Gap 11 (6-14) Blood Urea Nitrogen 40 mg/dL (7-20) Creatinine 5.7 mg/dL (0.6-1.0) Estimated GFR (Cockcroft-Gault) 9.3 Glucose Level 193 mg/dL (70-99) Calcium Level 9.2 mg/dL (8.5-10.1) Phosphorus Level 4.2 mg/dL (2.6-4.7) Albumin 1.9 g/dL (3.4-5.0) Test 06/01/18 11:30 06/01/18 18:03 06/01/18 20:20 06/02/18 03:25 Glucose (Fingerstick) 256 mg/dL (70-99) 108 mg/dL (70-99) 177 mg/dL (70-99) Sodium Level 137 mmol/L (136-145) Potassium Level 4.1 mmol/L (3.5-5.1) Chloride Level 97 mmol/L (98-107) Carbon Dioxide Level 30 mmol/L (21-32) Anion Gap 10 (6-14) Blood Urea Nitrogen 23 mg/dL (7-20) Creatinine 4.0 mg/dL (0.6-1.0) Estimated GFR (Cockcroft-Gault) 14.1 Glucose Level 199 mg/dL (70-99) Calcium Level 9.3 mg/dL (8.5-10.1) Phosphorus Level 3.1 mg/dL (2.6-4.7) Albumin 1.9 g/dL (3.4-5.0) Test 06/02/18 08:07 06/02/18 11:38 Glucose (Fingerstick) 190 mg/dL (70-99) 200 mg/dL (70-99) Laboratory Tests Test 06/01/18 18:03 06/01/18 20:20 06/02/18 03:25 06/02/18 08:07 Glucose (Fingerstick) 108 mg/dL (70-99) 177 mg/dL (70-99) 190 mg/dL (70-99) Sodium Level 137 mmol/L (136-145) Potassium Level 4.1 mmol/L (3.5-5.1) Chloride Level 97 mmol/L (98-107) Carbon Dioxide Level 30 mmol/L (21-32) Anion Gap 10 (6-14) Blood Urea Nitrogen 23 mg/dL (7-20) Creatinine 4.0 mg/dL (0.6-1.0) Estimated GFR (Cockcroft-Gault) 14.1 Glucose Level 199 mg/dL (70-99) Calcium Level 9.3 mg/dL (8.5-10.1) Phosphorus Level 3.1 mg/dL (2.6-4.7) Albumin 1.9 g/dL (3.4-5.0) Test 06/02/18 11:38 Glucose (Fingerstick) 200 mg/dL (70-99) Microbiology 05/30/18 Blood Culture - Preliminary, Resulted NO GROWTH AFTER 3 DAYS 05/30/18 - Final, Complete 05/30/18 - Final, Complete 05/30/18 - Final, Complete 05/30/18 - Final, Complete 05/30/18 Gram Stain Evaluation - Final, Complete 05/30/18 Sputum Culture - Final, Complete 05/30/18 Sputum Result 1 - Final, Complete 05/30/18 Sputum Result 2 - Final, Complete 05/30/18 Antimicrobic Susceptibility - Final, Complete Medications Current Medications Vancomycin HCl 250 ml @ 250 mls/hr 1X ONCE IV ; Start 05/30/18 at 14:15; Stop 05/30/18 at 15:14; Status UNV Piperacillin Sod/ Tazobactam Sod 2.25 gm/Sodium Chloride 50 ml @ 100 mls/hr 1X ONCE IV Last administered on 05/30/18at 14:34; Start 05/30/18 at 14:15; Stop 05/30/18 at 14:44; Status DC Acetaminophen (Tylenol) 650 mg PRN Q4HRS PRN PO FEVER; Start 05/30/18 at 14:15 ; Stop 05/30/18 at 16:54; Status DC Albuterol/ Ipratropium (Duoneb) 3 ml RTQID NEB Last administered on 05/31/18at 19:23; Start 05/30/18 at 16:00; Stop 05/31/18 at 15:59; Status DC Vancomycin HCl 1.5 gm/Sodium Chloride 500 ml @ 250 mls/hr 1X ONCE IV Last administered on 05/30/18at 15:46; Start 05/30/18 at 14:30; Stop 05/30/18 at 16:29 ; Status DC Ondansetron HCl (Zofran) 4 mg PRN Q6HRS PRN IV NAUSEA/VOMITING; Start 05/30/18 at 17:00 Acetaminophen/ Hydrocodone Bitart (Lortab 5/325) 1 tab PRN Q4HRS PRN PO MILD PAIN, 2ND CHOICE; Start 05/30/18 at 17:00 Acetaminophen (Tylenol) 650 mg PRN Q6HRS PRN PO Headaches, Temp > 101.5F; Start 05/30/18 at 17:00 Senna/Docusate Sodium (Senna Plus) 1 tab BID PO Last administered on 06/02/18at 08:28; Start 05/30/18 at 21:00 Lactulose (Lactulose) 20 gm PRN Q12HR PRN PO CONSTIPATION 1ST CHOICE; Start at 17:00 Bisacodyl (Dulcolax Supp) 10 mg PRN DAILY PRN MA CONSTIPATION; Start 05/30/18 at 17:00 Heparin Sodium (Porcine) (Heparin Sodium) 5,000 unit Q12HR SQ Last administered on 06/02/18at 08:37; Start 05/30/18 at 21:00 Isosorbide Dinitrate (Isordil) 10 mg DAILY PO ; Start 05/31/18 at 09:00; Stop at 09:00; Status DC Sevelamer Carbonate (Renvela) 2,400 mg TIDWMEALS PO Last administered on at 12:02; Start 05/31/18 at 18:00 Carvedilol (Coreg) 25 mg DAILY08 PO ; Start 05/31/18 at 08:00; Stop 05/31/18 at 08:00; Status DC Hydralazine HCl (Apresoline) 10 mg DAILY PO Last administered on 06/02/18at 08: 29; Start 05/31/18 at 09:00 Losartan Potassium (Cozaar) 100 mg DAILY PO ; Start 05/31/18 at 09:00; Stop at 09:00; Status DC Magnesium Oxide (Magnesium Oxide) 400 mg DAILY PO Last administered on at 08:27; Start 05/31/18 at 09:00 Cefepime HCl (Maxipime) 1 gm Q24H IVP Last administered on 06/01/18at 20:36; Start 05/30/18 at 20:00 Vancomycin HCl (Vanco Per Pharmacy) 1 each PRN DAILY PRN MC SEE COMMENTS Last administered on 06/01/18at 15:24; Start 05/30/18 at 17:00 Sodium Chloride 250 ml @ 250 mls/hr 1X ONCE IV Last administered on at 20:00; Start 05/30/18 at 20:00; Stop 05/30/18 at 20:59; Status DC Vancomycin HCl (Vancomycin Random Level) 1 each 1X ONCE MC Last administered on 05/31/18at 06:00; Start 05/31/18 at 06:00; Stop 05/31/18 at 06:01; Status DC Sodium Chloride 250 ml @ 250 mls/hr 1X ONCE IV Last administered on at 20:30; Start 05/30/18 at 20:30; Stop 05/30/18 at 21:29; Status DC Insulin Glargine (Lantus) 5 units QHS SQ Last administered on 06/01/18at 20:42; Start 05/30/18 at 22:30 Insulin Human Lispro (HumaLOG) 0-5 UNITS TIDWMEALS SQ Last administered on 06/02at 12:05; Start 05/31/18 at 08:00 Dextrose (Dextrose 50%-Water Syringe) 12.5 gm PRN Q15MIN PRN IV SEE COMMENTS; Start 05/30/18 at 22:15 Lactobacillus Rhamnosus (Culturelle) 1 cap BID PO Last administered on at 08:27; Start 05/31/18 at 21:00 Sodium Chloride 1,000 ml @ 1,000 mls/hr Q1H PRN IV hypotension; Start 05/31/18 at 10:36; Stop 05/31/18 at 16:35; Status DC Albumin Human 200 ml @ 200 mls/hr 1X PRN PRN IV Hypotension; Start 05/31/18 at 10:45; Stop 05/31/18 at 16:44; Status DC Acetaminophen (Tylenol) 500 mg 1X PRN PRN PO MILD PAIN / TEMP; Start 05/31/18 at 10:45; Stop 06/01/18 at 10:44; Status DC Diphenhydramine HCl (Benadryl) 25 mg 1X PRN PRN IV ITCHING; Start 05/31/18 at 10:45; Stop 06/01/18 at 10:44; Status DC Diphenhydramine HCl (Benadryl) 25 mg 1X PRN PRN IV ITCHING; Start 05/31/18 at 10:45; Stop 06/01/18 at 10:44; Status DC Sodium Chloride 1,000 ml @ 400 mls/hr Q2H30M PRN IV PATENCY; Start 05/31/18 at 10:36; Stop 05/31/18 at 22:35; Status DC Info (PHARMACY MONITORING -- do not chart) 1 each PRN DAILY PRN MC SEE COMMENTS ; Start 05/31/18 at 10:45 Darbepoetin Noel (Aranesp) 60 mcg WEEKLYHS SQ Last administered on 05/31/18at 20 :14; Start 05/31/18 at 21:00 Artificial Tears (Artificial Tears) 1 drop PRN Q15MIN PRN OD DRY EYE Last administered on 06/02/18at 11:45; Start 05/31/18 at 13:15 Aspirin (Ecotrin) 81 mg [id number] PO Last administered on 06/02/18at 08:27; Start 06/01/18 at 08:00 Albuterol/ Ipratropium (Duoneb) 3 ml RTQID NEB Last administered on 06/02/18at 15:21; Start 06/01/18 at 08:00 Sodium Chloride 1,000 ml @ 1,000 mls/hr Q1H PRN IV hypotension; Start 06/01/18 at 14:00; Stop 06/01/18 at 19:59; Status DC Albumin Human 200 ml @ 200 mls/hr 1X PRN PRN IV Hypotension; Start 06/01/18 at 14:00; Stop 06/01/18 at 19:59; Status DC Acetaminophen (Tylenol) 500 mg 1X PRN PRN PO MILD PAIN / TEMP; Start 06/01/18 at 14:00; Stop 06/02/18 at 13:59; Status DC Diphenhydramine HCl (Benadryl) 25 mg 1X PRN PRN IV ITCHING; Start 06/01/18 at 14:00; Stop 06/02/18 at 13:59; Status DC Diphenhydramine HCl (Benadryl) 25 mg 1X PRN PRN IV ITCHING; Start 06/01/18 at 14:00; Stop 06/02/18 at 13:59; Status DC Sodium Chloride 1,000 ml @ 400 mls/hr Q2H30M PRN IV PATENCY; Start 06/01/18 at 14:00; Stop 06/02/18 at 01:59; Status DC Info (PHARMACY MONITORING -- do not chart) 1 each PRN DAILY PRN MC SEE COMMENTS ; Start 06/01/18 at 14:00; Status UNV Vancomycin HCl 500 mg/Sodium Chloride 100 ml @ 100 mls/hr QMWF IV Last administered on 06/01/18at 18:07; Start 06/01/18 at 16:00 Vitamin B Complex (Folbic Tablet) 1 tab DAILY PO Last administered on at 11:45; Start 06/02/18 at 10:30 Polysaccharide Iron Complex (Niferex 150) 150 mg DAILY PO Last administered on 06/02/18at 11:45; Start 06/02/18 at 11:00 Ciprofloxacin (Ciloxan Ophth) 1 drop QID OS ; Start 06/02/18 at 16:00 Cyclobenzaprine HCl (Flexeril) 10 mg PRN Q6HRS PRN PO MUSCLE SPASMS Last administered on 06/02/18at 15:27; Start 06/02/18 at 15:15 Active Scripts Active Reported Carvedilol 25 Mg Tablet 25 Mg PO DAILY Losartan Potassium 100 Mg Tablet 100 Mg PO DAILY Isosorbide Dinitrate 10 Mg Tablet 10 Mg PO DAILY Hydralazine Hcl 10 Mg Tablet 10 Mg PO DAILY Renvela (Sevelamer Carbonate) 800 Mg Tablet 3 Tab PO TID Furosemide 80 Mg Tablet 1 Tab PO DAILY Magnesium Oxide 400 Mg Tablet 1 Tab PO DAILY Vitals/I & O Vital Sign - Last 24 Hours 06/01/18 06/01/18 06/01/18 06/01/18 19:00 19:22 20:00 23:00 Temp 97.6 98.7 97.6 98.7 Pulse 83 91 Resp 20 20 B/P (MAP) 137/68 (91) 114/59 (77) Pulse Ox 100 98 94 O2 Delivery Nasal Cannula Room Air Room Air Room Air 06/02/18 06/02/18 06/02/18 06/02/18 03:04 07:00 07:49 08:00 Temp 97.6 98.3 97.6 98.3 Pulse 85 83 Resp 20 20 B/P (MAP) 103/64 (77) 119/61 (80) Pulse Ox 93 94 93 O2 Delivery Room Air Room Air Room Air Room Air 06/02/18 06/02/18 06/02/18 06/02/18 08:29 11:00 12:47 15:22 Temp 98.1 98.1 Pulse 83 81 Resp 20 B/P (MAP) 119/61 123/62 (82) Pulse Ox 99 98 O2 Delivery Room Air Room Air Room Air Intake and Output 06/01/18 06/01/18 06/02/18 15:00 23:00 07:00 Output Total 0 ml Balance 0 ml FADI FRANCO MD Jun 02, 2018 15:54
[2018-06-02] MEDS: CIPROFLOXACIN 0.3% OPHTH SOLUTION 5ML BOTTLE. OS SCH ×2 (17:10→20:54)
[2018-06-02 19:00] VITALS: BP 131/86
[2018-06-02] MEDS: CEFEPIME HCL IV Push 1 GM VIAL. IVP SCH (19:53)
[2018-06-02] MEDS: INSULIN GLARGINE 300 UNITS/3 ML INSULN.PEN. SQ SCH (20:59)
[2018-06-02 23:00] VITALS: BP 123/73
[2018-06-03 03:00] VITALS: BP 113/57
[2018-06-03 04:52] LABS: BASO % 0 % (0-3); EOS # 0.1 x10^3/uL (0.0-0.7); EOS % 1 % (0-3); HEMATOCRIT 24.5 % (36.0-47.0); LYMPH # 0.9 x10^3/uL (1.0-4.8); LYMPH % 11 % (24-48); MEAN CORPUSCULAR HEMOGLOBIN 34 pg (25-35); MEAN CORPUSCULAR HGB CONC 33 g/dL (31-37); MEAN CORPUSCULAR VOLUME 105 fL (79-100); MONO # 0.8 x10^3/uL (0.0-1.1); MONO % 10 % (0-9); NEUT # 6.5 x10^3uL (1.8-7.7); NEUT % 78 % (31-73); PLATELET COUNT 147 x10^3/uL (140-400); RED BLOOD COUNT 2.32 x10^6/uL (3.50-5.40); WHITE BLOOD COUNT 8.3 x10^3/uL (4.0-11.0)
[2018-06-03 05:59] LABS: ALBUMIN 1.9 g/dL (3.4-5.0); ALBUMIN/GLOBULIN RATIO 0.4 (1.0-1.7); CALCIUM 9.5 mg/dL (8.5-10.1); CREATININE 5.8 mg/dL (0.6-1.0); GFR 9.2; POTASSIUM 3.7 mmol/L (3.5-5.1); TOTAL BILIRUBIN 0.5 mg/dL (0.2-1.0); TOTAL PROTEIN 6.6 g/dL (6.4-8.2)
[2018-06-03 07:00] VITALS: BP 107/86
[2018-06-03] MEDS: IPRATRPIUM/ALBUTEROL 0.5/2.5MG 3 ML NEBU. NEB SCH ×4 (07:43→19:02)
--- NOTE | 2018-06-03 07:45 | PDOC ---
PULMONARY PROGRESS NOTES Subjective sob better, has cough, has lower back pain Vitals Vital Signs Date Time Temp Pulse Resp B/P (MAP) Pulse Ox O2 Delivery O2 Flow Rate FiO2 06/03/18 03:00 98.8 85 18 113/57 (75) 92 Room Air 98.8 ROS: No Nausea, No Chest Pain General: Alert, No acute distress HEENT: Other Lungs: Other (a few end exp wheezing) Cardiovascular: S1, S2 Abdomen: Soft, Non-tender Neuro Exam: Alert Extremities: No Edema Skin: Warm Labs Laboratory Tests Test 06/01/18 07:51 06/01/18 11:30 06/01/18 18:03 06/01/18 20:20 Glucose (Fingerstick) 149 mg/dL (70-99) 256 mg/dL (70-99) 108 mg/dL (70-99) 177 mg/dL (70-99) Test 06/02/18 03:25 06/02/18 08:07 06/02/18 11:38 06/02/18 16:39 Sodium Level 137 mmol/L (136-145) Potassium Level 4.1 mmol/L (3.5-5.1) Chloride Level 97 mmol/L (98-107) Carbon Dioxide Level 30 mmol/L (21-32) Anion Gap 10 (6-14) Blood Urea Nitrogen 23 mg/dL (7-20) Creatinine 4.0 mg/dL (0.6-1.0) Estimated GFR (Cockcroft-Gault) 14.1 Glucose Level 199 mg/dL (70-99) Calcium Level 9.3 mg/dL (8.5-10.1) Phosphorus Level 3.1 mg/dL (2.6-4.7) Albumin 1.9 g/dL (3.4-5.0) Glucose (Fingerstick) 190 mg/dL (70-99) 200 mg/dL (70-99) 195 mg/dL (70-99) Test 06/02/18 20:07 06/03/18 04:10 Glucose (Fingerstick) 203 mg/dL (70-99) White Blood Count 8.3 x10^3/uL (4.0-11.0) Red Blood Count 2.32 x10^6/uL (3.50-5.40) Hemoglobin 8.0 g/dL (12.0-15.5) Hematocrit 24.5 % (36.0-47.0) Mean Corpuscular Volume 105 fL (79-100) Mean Corpuscular Hemoglobin 34 pg (25-35) Mean Corpuscular Hemoglobin Concent 33 g/dL (31-37) Red Cell Distribution Width 15.0 % (11.5-14.5) Platelet Count 147 x10^3/uL (140-400) Neutrophils (%) (Auto) 78 % (31-73) Lymphocytes (%) (Auto) 11 % (24-48) Monocytes (%) (Auto) 10 % (0-9) Eosinophils (%) (Auto) 1 % (0-3) Basophils (%) (Auto) 0 % (0-3) Neutrophils # (Auto) 6.5 x10^3uL (1.8-7.7) Lymphocytes # (Auto) 0.9 x10^3/uL (1.0-4.8) Monocytes # (Auto) 0.8 x10^3/uL (0.0-1.1) Eosinophils # (Auto) 0.1 x10^3/uL (0.0-0.7) Basophils # (Auto) 0.0 x10^3/uL (0.0-0.2) Sodium Level 136 mmol/L (136-145) Potassium Level 3.7 mmol/L (3.5-5.1) Chloride Level 96 mmol/L (98-107) Carbon Dioxide Level 29 mmol/L (21-32) Anion Gap 11 (6-14) Blood Urea Nitrogen 35 mg/dL (7-20) Creatinine 5.8 mg/dL (0.6-1.0) Estimated GFR (Cockcroft-Gault) 9.2 BUN/Creatinine Ratio 6 (6-20) Glucose Level 167 mg/dL (70-99) Calcium Level 9.5 mg/dL (8.5-10.1) Total Bilirubin 0.5 mg/dL (0.2-1.0) Aspartate Amino Transf (AST/SGOT) 12 U/L (15-37) Alanine Aminotransferase (ALT/SGPT) 16 U/L (14-59) Alkaline Phosphatase 192 U/L (46-116) Total Protein 6.6 g/dL (6.4-8.2) Albumin 1.9 g/dL (3.4-5.0) Albumin/Globulin Ratio 0.4 (1.0-1.7) Laboratory Tests Test 06/02/18 08:07 06/02/18 11:38 06/02/18 16:39 06/02/18 20:07 Glucose (Fingerstick) 190 mg/dL (70-99) 200 mg/dL (70-99) 195 mg/dL (70-99) 203 mg/dL (70-99) Test 06/03/18 04:10 White Blood Count 8.3 x10^3/uL (4.0-11.0) Red Blood Count 2.32 x10^6/uL (3.50-5.40) Hemoglobin 8.0 g/dL (12.0-15.5) Hematocrit 24.5 % (36.0-47.0) Mean Corpuscular Volume 105 fL (79-100) Mean Corpuscular Hemoglobin 34 pg (25-35) Mean Corpuscular Hemoglobin Concent 33 g/dL (31-37) Red Cell Distribution Width 15.0 % (11.5-14.5) Platelet Count 147 x10^3/uL (140-400) Neutrophils (%) (Auto) 78 % (31-73) Lymphocytes (%) (Auto) 11 % (24-48) Monocytes (%) (Auto) 10 % (0-9) Eosinophils (%) (Auto) 1 % (0-3) Basophils (%) (Auto) 0 % (0-3) Neutrophils # (Auto) 6.5 x10^3uL (1.8-7.7) Lymphocytes # (Auto) 0.9 x10^3/uL (1.0-4.8) Monocytes # (Auto) 0.8 x10^3/uL (0.0-1.1) Eosinophils # (Auto) 0.1 x10^3/uL (0.0-0.7) Basophils # (Auto) 0.0 x10^3/uL (0.0-0.2) Sodium Level 136 mmol/L (136-145) Potassium Level 3.7 mmol/L (3.5-5.1) Chloride Level 96 mmol/L (98-107) Carbon Dioxide Level 29 mmol/L (21-32) Anion Gap 11 (6-14) Blood Urea Nitrogen 35 mg/dL (7-20) Creatinine 5.8 mg/dL (0.6-1.0) Estimated GFR (Cockcroft-Gault) 9.2 BUN/Creatinine Ratio 6 (6-20) Glucose Level 167 mg/dL (70-99) Calcium Level 9.5 mg/dL (8.5-10.1) Total Bilirubin 0.5 mg/dL (0.2-1.0) Aspartate Amino Transf (AST/SGOT) 12 U/L (15-37) Alanine Aminotransferase (ALT/SGPT) 16 U/L (14-59) Alkaline Phosphatase 192 U/L (46-116) Total Protein 6.6 g/dL (6.4-8.2) Albumin 1.9 g/dL (3.4-5.0) Albumin/Globulin Ratio 0.4 (1.0-1.7) Medications Active Scripts Medications Dose Route/Sig Max Daily Dose Days Date Category Carvedilol 25 Mg Tablet 25 Mg PO DAILY 05/30/18 Reported Losartan Potassium 100 Mg Tablet 100 Mg PO DAILY 05/30/18 Reported Isosorbide Dinitrate 10 Mg Tablet 10 Mg PO DAILY 05/30/18 Reported Hydralazine Hcl 10 Mg Tablet 10 Mg PO DAILY 05/30/18 Reported Renvela (Sevelamer Carbonate) 800 Mg Tablet 3 Tab PO TID 06/27/14 Reported Furosemide 80 Mg Tablet 1 Tab PO DAILY 06/27/14 Reported Magnesium Oxide 400 Mg Tablet 1 Tab PO DAILY 06/27/14 Reported Impression . 1. Dyspnea with acute hypoxic respiratory failure requiring oxygen on admission secondary to pneumonia and underlying chronic obstructive pulmonary disease. 2. Abnormal chest x-ray consistent with right upper lobe pneumonia. 3. End-stage renal disease, on hemodialysis. 4. 25 years of tobacco use, suspect underlying chronic obstructive pulmonary disease w ae Plan . 1. Continue antibiotics. cont BD, has wheezing, will add ICS 2. fu chest x-ray today 3. Follow clinical course. 4. Hemodialysis per Renal. 5. We will follow along with you. discussed w pt DESMOND HENRY MD Jun 03, 2018 07:44
[2018-06-03] MEDS: VANCOMYCIN PER PHARMACY MC PRN (07:53)
[2018-06-03] MEDS: BUDESONIDE 0.5 MG/2 ML NEBU. NEB SCH ×2 (08:00→19:01)
[2018-06-03] MEDS: INSULIN LISPRO 300 UNITS/3 ML INSULN.PEN. SQ SCH ×3 (08:00→16:50)
[2018-06-03] MEDS: SEVELAMER CARBONATE 800 MG TABLET. PO SCH ×4 (08:00→16:47)
[2018-06-03] MEDS: IRON POLYSACCHARIDE COMPLEX 150 MG CAPSULE PO SCH (08:38)
[2018-06-03] MEDS: LACTOBACILLUS RHAMNOSUS GG 1 CAPSULE. PO SCH ×2 (08:38→20:42)
[2018-06-03] MEDS: HYDROcodone/APAP 5/325MG 1 TAB TABLET PO PRN ×2 (08:39→21:49)
[2018-06-03] MEDS: CYCLOBENZAPRINE 10 MG TABLET. PO PRN ×2 (08:39→19:18)
[2018-06-03] MEDS: CIPROFLOXACIN 0.3% OPHTH SOLUTION 5ML BOTTLE. OS SCH ×4 (08:40→20:50)
[2018-06-03] MEDS: ASPIRIN ENTERIC COATED 81 MG TABLET.DR. PO SCH (08:40)
[2018-06-03] MEDS: POLYVINYL ALCOHOL 1.4% OPHTH SOLUTION 15ML BOTTLE. OD PRN (08:40)
[2018-06-03] MEDS: MAGNESIUM OXIDE 400 MG TABLET PO SCH (08:40)
[2018-06-03] MEDS: SENNOSIDES/DOCUSATE 8.6/50MG TABLET. PO SCH ×2 (08:40→20:42)
[2018-06-03] MEDS: VITAMIN B12,B9,B6 COMPLEX 1 TABLET. PO SCH (08:44)
[2018-06-03] MEDS: HEPARIN for SUB-Q USE 5,000 UNIT/ML VIAL. SQ SCH ×2 (08:51→20:48)
[2018-06-03 11:00] VITALS: BP 133/67
[2018-06-03] MEDS: hydrALAZINE 10 MG TABLET PO SCH (12:00)
--- NOTE | 2018-06-03 14:22 | PDOC ---
PROGRESS NOTES Chief Complaint Chief Complaint sepsis, pneumonia, Cough - with RUL infiltrate, le cefepime + vanco. acute Hypoxia - HCAP and possible fluid overload, ESRD Hypotension - sepsis, dry, ESRD ESRD on HD, need UF at least, fluid balance improving Anemia - likely of chronic renal insufficiency. Monitor, consider transfusion if Hb < 7 HTN - Afib history - chronic diastolic CHF History of Present Illness History of Present Illness left eye conjuctivitis, start Os cipro, cont visene str. better, cont abx PO intake bettter vitals improved she is more active and alert today Vitals Vitals Vital Signs Date Time Temp Pulse Resp B/P (MAP) Pulse Ox O2 Delivery O2 Flow Rate FiO2 06/03/18 12:00 86 133/67 06/03/18 11:44 Room Air 06/03/18 11:00 97.9 20 97 97.9 Physical Exam General: Alert, Cooperative, No acute distress Heart: Regular rate Lungs: Other (a few end exp wheezing) Abdomen: Normal bowel sounds Extremities: No clubbing, No cyanosis, No edema Skin: No significant lesion Labs LABS Laboratory Tests Test 06/02/18 16:39 06/02/18 20:07 06/03/18 04:10 06/03/18 08:01 Glucose (Fingerstick) 195 mg/dL (70-99) 203 mg/dL (70-99) 134 mg/dL (70-99) White Blood Count 8.3 x10^3/uL (4.0-11.0) Red Blood Count 2.32 x10^6/uL (3.50-5.40) Hemoglobin 8.0 g/dL (12.0-15.5) Hematocrit 24.5 % (36.0-47.0) Mean Corpuscular Volume 105 fL (79-100) Mean Corpuscular Hemoglobin 34 pg (25-35) Mean Corpuscular Hemoglobin Concent 33 g/dL (31-37) Red Cell Distribution Width 15.0 % (11.5-14.5) Platelet Count 147 x10^3/uL (140-400) Neutrophils (%) (Auto) 78 % (31-73) Lymphocytes (%) (Auto) 11 % (24-48) Monocytes (%) (Auto) 10 % (0-9) Eosinophils (%) (Auto) 1 % (0-3) Basophils (%) (Auto) 0 % (0-3) Neutrophils # (Auto) 6.5 x10^3uL (1.8-7.7) Lymphocytes # (Auto) 0.9 x10^3/uL (1.0-4.8) Monocytes # (Auto) 0.8 x10^3/uL (0.0-1.1) Eosinophils # (Auto) 0.1 x10^3/uL (0.0-0.7) Basophils # (Auto) 0.0 x10^3/uL (0.0-0.2) Sodium Level 136 mmol/L (136-145) Potassium Level 3.7 mmol/L (3.5-5.1) Chloride Level 96 mmol/L (98-107) Carbon Dioxide Level 29 mmol/L (21-32) Anion Gap 11 (6-14) Blood Urea Nitrogen 35 mg/dL (7-20) Creatinine 5.8 mg/dL (0.6-1.0) Estimated GFR (Cockcroft-Gault) 9.2 BUN/Creatinine Ratio 6 (6-20) Glucose Level 167 mg/dL (70-99) Calcium Level 9.5 mg/dL (8.5-10.1) Total Bilirubin 0.5 mg/dL (0.2-1.0) Aspartate Amino Transf (AST/SGOT) 12 U/L (15-37) Alanine Aminotransferase (ALT/SGPT) 16 U/L (14-59) Alkaline Phosphatase 192 U/L (46-116) Total Protein 6.6 g/dL (6.4-8.2) Albumin 1.9 g/dL (3.4-5.0) Albumin/Globulin Ratio 0.4 (1.0-1.7) Test 06/03/18 11:56 Glucose (Fingerstick) 200 mg/dL (70-99) Assessment and Plan Assessmemt and Plan Problems Medical Problems: (1) ESRD (end stage renal disease) on dialysis Status: Acute (2) Right upper lobe pneumonia Status: Acute Comment Review of Relevant I have reviewed the following items alivia (where applicable) has been applied. Labs Laboratory Tests Test 06/01/18 18:03 06/01/18 20:20 06/02/18 03:25 06/02/18 08:07 Glucose (Fingerstick) 108 mg/dL (70-99) 177 mg/dL (70-99) 190 mg/dL (70-99) Sodium Level 137 mmol/L (136-145) Potassium Level 4.1 mmol/L (3.5-5.1) Chloride Level 97 mmol/L (98-107) Carbon Dioxide Level 30 mmol/L (21-32) Anion Gap 10 (6-14) Blood Urea Nitrogen 23 mg/dL (7-20) Creatinine 4.0 mg/dL (0.6-1.0) Estimated GFR (Cockcroft-Gault) 14.1 Glucose Level 199 mg/dL (70-99) Calcium Level 9.3 mg/dL (8.5-10.1) Phosphorus Level 3.1 mg/dL (2.6-4.7) Albumin 1.9 g/dL (3.4-5.0) Test 06/02/18 11:38 06/02/18 16:39 06/02/18 20:07 06/03/18 04:10 Glucose (Fingerstick) 200 mg/dL (70-99) 195 mg/dL (70-99) 203 mg/dL (70-99) White Blood Count 8.3 x10^3/uL (4.0-11.0) Red Blood Count 2.32 x10^6/uL (3.50-5.40) Hemoglobin 8.0 g/dL (12.0-15.5) Hematocrit 24.5 % (36.0-47.0) Mean Corpuscular Volume 105 fL (79-100) Mean Corpuscular Hemoglobin 34 pg (25-35) Mean Corpuscular Hemoglobin Concent 33 g/dL (31-37) Red Cell Distribution Width 15.0 % (11.5-14.5) Platelet Count 147 x10^3/uL (140-400) Neutrophils (%) (Auto) 78 % (31-73) Lymphocytes (%) (Auto) 11 % (24-48) Monocytes (%) (Auto) 10 % (0-9) Eosinophils (%) (Auto) 1 % (0-3) Basophils (%) (Auto) 0 % (0-3) Neutrophils # (Auto) 6.5 x10^3uL (1.8-7.7) Lymphocytes # (Auto) 0.9 x10^3/uL (1.0-4.8) Monocytes # (Auto) 0.8 x10^3/uL (0.0-1.1) Eosinophils # (Auto) 0.1 x10^3/uL (0.0-0.7) Basophils # (Auto) 0.0 x10^3/uL (0.0-0.2) Sodium Level 136 mmol/L (136-145) Potassium Level 3.7 mmol/L (3.5-5.1) Chloride Level 96 mmol/L (98-107) Carbon Dioxide Level 29 mmol/L (21-32) Anion Gap 11 (6-14) Blood Urea Nitrogen 35 mg/dL (7-20) Creatinine 5.8 mg/dL (0.6-1.0) Estimated GFR (Cockcroft-Gault) 9.2 BUN/Creatinine Ratio 6 (6-20) Glucose Level 167 mg/dL (70-99) Calcium Level 9.5 mg/dL (8.5-10.1) Total Bilirubin 0.5 mg/dL (0.2-1.0) Aspartate Amino Transf (AST/SGOT) 12 U/L (15-37) Alanine Aminotransferase (ALT/SGPT) 16 U/L (14-59) Alkaline Phosphatase 192 U/L (46-116) Total Protein 6.6 g/dL (6.4-8.2) Albumin 1.9 g/dL (3.4-5.0) Albumin/Globulin Ratio 0.4 (1.0-1.7) Test 06/03/18 08:01 06/03/18 11:56 Glucose (Fingerstick) 134 mg/dL (70-99) 200 mg/dL (70-99) Laboratory Tests Test 06/02/18 16:39 06/02/18 20:07 06/03/18 04:10 06/03/18 08:01 Glucose (Fingerstick) 195 mg/dL (70-99) 203 mg/dL (70-99) 134 mg/dL (70-99) White Blood Count 8.3 x10^3/uL (4.0-11.0) Red Blood Count 2.32 x10^6/uL (3.50-5.40) Hemoglobin 8.0 g/dL (12.0-15.5) Hematocrit 24.5 % (36.0-47.0) Mean Corpuscular Volume 105 fL (79-100) Mean Corpuscular Hemoglobin 34 pg (25-35) Mean Corpuscular Hemoglobin Concent 33 g/dL (31-37) Red Cell Distribution Width 15.0 % (11.5-14.5) Platelet Count 147 x10^3/uL (140-400) Neutrophils (%) (Auto) 78 % (31-73) Lymphocytes (%) (Auto) 11 % (24-48) Monocytes (%) (Auto) 10 % (0-9) Eosinophils (%) (Auto) 1 % (0-3) Basophils (%) (Auto) 0 % (0-3) Neutrophils # (Auto) 6.5 x10^3uL (1.8-7.7) Lymphocytes # (Auto) 0.9 x10^3/uL (1.0-4.8) Monocytes # (Auto) 0.8 x10^3/uL (0.0-1.1) Eosinophils # (Auto) 0.1 x10^3/uL (0.0-0.7) Basophils # (Auto) 0.0 x10^3/uL (0.0-0.2) Sodium Level 136 mmol/L (136-145) Potassium Level 3.7 mmol/L (3.5-5.1) Chloride Level 96 mmol/L (98-107) Carbon Dioxide Level 29 mmol/L (21-32) Anion Gap 11 (6-14) Blood Urea Nitrogen 35 mg/dL (7-20) Creatinine 5.8 mg/dL (0.6-1.0) Estimated GFR (Cockcroft-Gault) 9.2 BUN/Creatinine Ratio 6 (6-20) Glucose Level 167 mg/dL (70-99) Calcium Level 9.5 mg/dL (8.5-10.1) Total Bilirubin 0.5 mg/dL (0.2-1.0) Aspartate Amino Transf (AST/SGOT) 12 U/L (15-37) Alanine Aminotransferase (ALT/SGPT) 16 U/L (14-59) Alkaline Phosphatase 192 U/L (46-116) Total Protein 6.6 g/dL (6.4-8.2) Albumin 1.9 g/dL (3.4-5.0) Albumin/Globulin Ratio 0.4 (1.0-1.7) Test 06/03/18 11:56 Glucose (Fingerstick) 200 mg/dL (70-99) Microbiology 05/30/18 Blood Culture - Preliminary, Resulted NO GROWTH AFTER 4 DAYS 05/30/18 - Final, Complete 05/30/18 - Final, Complete 05/30/18 - Final, Complete 05/30/18 - Final, Complete 05/30/18 Gram Stain Evaluation - Final, Complete 05/30/18 Sputum Culture - Final, Complete 05/30/18 Sputum Result 1 - Final, Complete 05/30/18 Sputum Result 2 - Final, Complete 05/30/18 Antimicrobic Susceptibility - Final, Complete Medications Current Medications Vancomycin HCl 250 ml @ 250 mls/hr 1X ONCE IV ; Start 05/30/18 at 14:15; Stop 05/30/18 at 15:14; Status UNV Piperacillin Sod/ Tazobactam Sod 2.25 gm/Sodium Chloride 50 ml @ 100 mls/hr 1X ONCE IV Last administered on 05/30/18at 14:34; Start 05/30/18 at 14:15; Stop 05/30/18 at 14:44; Status DC Acetaminophen (Tylenol) 650 mg PRN Q4HRS PRN PO FEVER; Start 05/30/18 at 14:15 ; Stop 05/30/18 at 16:54; Status DC Albuterol/ Ipratropium (Duoneb) 3 ml RTQID NEB Last administered on 05/31/18at 19:23; Start 05/30/18 at 16:00; Stop 05/31/18 at 15:59; Status DC Vancomycin HCl 1.5 gm/Sodium Chloride 500 ml @ 250 mls/hr 1X ONCE IV Last administered on 05/30/18at 15:46; Start 05/30/18 at 14:30; Stop 05/30/18 at 16:29 ; Status DC Ondansetron HCl (Zofran) 4 mg PRN Q6HRS PRN IV NAUSEA/VOMITING; Start 05/30/18 at 17:00 Acetaminophen/ Hydrocodone Bitart (Lortab 5/325) 1 tab PRN Q4HRS PRN PO MILD PAIN, 2ND CHOICE Last administered on 06/03/18 08:39; Start 05/30/18 at 17:00 Acetaminophen (Tylenol) 650 mg PRN Q6HRS PRN PO Headaches, Temp > 101.5F; Start 05/30/18 at 17:00 Senna/Docusate Sodium (Senna Plus) 1 tab BID PO Last administered on 06/03/18 08:40; Start 05/30/18 at 21:00 Lactulose (Lactulose) 20 gm PRN Q12HR PRN PO CONSTIPATION 1ST CHOICE; Start at 17:00 Bisacodyl (Dulcolax Supp) 10 mg PRN DAILY PRN CO CONSTIPATION; Start 05/30/18 at 17:00 Heparin Sodium (Porcine) (Heparin Sodium) 5,000 unit Q12HR SQ Last administered on 06/03/18 08:51; Start 05/30/18 at 21:00 Isosorbide Dinitrate (Isordil) 10 mg DAILY PO ; Start 05/31/18 at 09:00; Stop at 09:00; Status DC Sevelamer Carbonate (Renvela) 2,400 mg TIDWMEALS PO Last administered on 11:56; Start 05/31/18 at 18:00 Carvedilol (Coreg) 25 mg DAILY08 PO ; Start 05/31/18 at 08:00; Stop 05/31/18 at 08:00; Status DC Hydralazine HCl (Apresoline) 10 mg DAILY PO Last administered on 06/03/18 12: 00; Start 05/31/18 at 09:00 Losartan Potassium (Cozaar) 100 mg DAILY PO ; Start 05/31/18 at 09:00; Stop at 09:00; Status DC Magnesium Oxide (Magnesium Oxide) 400 mg DAILY PO Last administered on 08:40; Start 05/31/18 at 09:00 Cefepime HCl (Maxipime) 1 gm Q24H IVP Last administered on 06/02/18 19:53; Start 05/30/18 at 20:00 Vancomycin HCl (Vanco Per Pharmacy) 1 each PRN DAILY PRN MC SEE COMMENTS Last administered on 06/03/18 07:53; Start 05/30/18 at 17:00 Sodium Chloride 250 ml @ 250 mls/hr 1X ONCE IV Last administered on at 20:00; Start 05/30/18 at 20:00; Stop 05/30/18 at 20:59; Status DC Vancomycin HCl (Vancomycin Random Level) 1 each 1X ONCE MC Last administered on 05/31/18at 06:00; Start 05/31/18 at 06:00; Stop 05/31/18 at 06:01; Status DC Sodium Chloride 250 ml @ 250 mls/hr 1X ONCE IV Last administered on at 20:30; Start 05/30/18 at 20:30; Stop 05/30/18 at 21:29; Status DC Insulin Glargine (Lantus) 5 units QHS SQ Last administered on 06/02/18at 20:59; Start 05/30/18 at 22:30 Insulin Human Lispro (HumaLOG) 0-5 UNITS TIDWMEALS SQ Last administered on 06/03at 11:58; Start 05/31/18 at 08:00 Dextrose (Dextrose 50%-Water Syringe) 12.5 gm PRN Q15MIN PRN IV SEE COMMENTS; Start 05/30/18 at 22:15 Lactobacillus Rhamnosus (Culturelle) 1 cap BID PO Last administered on at 08:38; Start 05/31/18 at 21:00 Sodium Chloride 1,000 ml @ 1,000 mls/hr Q1H PRN IV hypotension; Start 05/31/18 at 10:36; Stop 05/31/18 at 16:35; Status DC Albumin Human 200 ml @ 200 mls/hr 1X PRN PRN IV Hypotension; Start 05/31/18 at 10:45; Stop 05/31/18 at 16:44; Status DC Acetaminophen (Tylenol) 500 mg 1X PRN PRN PO MILD PAIN / TEMP; Start 05/31/18 at 10:45; Stop 06/01/18 at 10:44; Status DC Diphenhydramine HCl (Benadryl) 25 mg 1X PRN PRN IV ITCHING; Start 05/31/18 at 10:45; Stop 06/01/18 at 10:44; Status DC Diphenhydramine HCl (Benadryl) 25 mg 1X PRN PRN IV ITCHING; Start 05/31/18 at 10:45; Stop 06/01/18 at 10:44; Status DC Sodium Chloride 1,000 ml @ 400 mls/hr Q2H30M PRN IV PATENCY; Start 05/31/18 at 10:36; Stop 05/31/18 at 22:35; Status DC Info (PHARMACY MONITORING -- do not chart) 1 each PRN DAILY PRN MC SEE COMMENTS ; Start 05/31/18 at 10:45 Darbepoetin Noel (Aranesp) 60 mcg WEEKLYHS SQ Last administered on 05/31/18at 20 :14; Start 05/31/18 at 21:00 Artificial Tears (Artificial Tears) 1 drop PRN Q15MIN PRN OD DRY EYE Last administered on 06/03/18at 08:40; Start 05/31/18 at 13:15 Aspirin (Ecotrin) 81 mg [id number] PO Last administered on 06/03/18at 08:40; Start 06/01/18 at 08:00 Albuterol/ Ipratropium (Duoneb) 3 ml RTQID NEB Last administered on 06/03/18at 11:43; Start 06/01/18 at 08:00 Sodium Chloride 1,000 ml @ 1,000 mls/hr Q1H PRN IV hypotension; Start 06/01/18 at 14:00; Stop 06/01/18 at 19:59; Status DC Albumin Human 200 ml @ 200 mls/hr 1X PRN PRN IV Hypotension; Start 06/01/18 at 14:00; Stop 06/01/18 at 19:59; Status DC Acetaminophen (Tylenol) 500 mg 1X PRN PRN PO MILD PAIN / TEMP; Start 06/01/18 at 14:00; Stop 06/02/18 at 13:59; Status DC Diphenhydramine HCl (Benadryl) 25 mg 1X PRN PRN IV ITCHING; Start 06/01/18 at 14:00; Stop 06/02/18 at 13:59; Status DC Diphenhydramine HCl (Benadryl) 25 mg 1X PRN PRN IV ITCHING; Start 06/01/18 at 14:00; Stop 06/02/18 at 13:59; Status DC Sodium Chloride 1,000 ml @ 400 mls/hr Q2H30M PRN IV PATENCY; Start 06/01/18 at 14:00; Stop 06/02/18 at 01:59; Status DC Info (PHARMACY MONITORING -- do not chart) 1 each PRN DAILY PRN MC SEE COMMENTS ; Start 06/01/18 at 14:00; Status UNV Vancomycin HCl 500 mg/Sodium Chloride 100 ml @ 100 mls/hr QMWF IV Last administered on 06/01/18at 18:07; Start 06/01/18 at 16:00 Vitamin B Complex (Folbic Tablet) 1 tab DAILY PO Last administered on at 08:44; Start 06/02/18 at 10:30 Polysaccharide Iron Complex (Niferex 150) 150 mg DAILY PO Last administered on 06/03/18at 08:38; Start 06/02/18 at 11:00 Ciprofloxacin (Ciloxan Ophth) 1 drop QID OS Last administered on 06/03/18at 13: 08; Start 06/02/18 at 16:00 Cyclobenzaprine HCl (Flexeril) 10 mg PRN Q6HRS PRN PO MUSCLE SPASMS Last administered on 06/03/18at 08:39; Start 06/02/18 at 15:15 Budesonide (Pulmicort) 0.5 mg RTBID NEB ; Start 06/03/18 at 08:00 Active Scripts Active Reported Carvedilol 25 Mg Tablet 25 Mg PO DAILY Losartan Potassium 100 Mg Tablet 100 Mg PO DAILY Isosorbide Dinitrate 10 Mg Tablet 10 Mg PO DAILY Hydralazine Hcl 10 Mg Tablet 10 Mg PO DAILY Renvela (Sevelamer Carbonate) 800 Mg Tablet 3 Tab PO TID Furosemide 80 Mg Tablet 1 Tab PO DAILY Magnesium Oxide 400 Mg Tablet 1 Tab PO DAILY Vitals/I & O Vital Sign - Last 24 Hours 06/02/18 06/02/18 06/02/18 06/02/18 15:00 15:22 19:00 19:40 Temp 97.7 98.8 97.7 98.8 Pulse 83 81 Resp 18 18 B/P (MAP) 127/67 (87) 131/86 (101) Pulse Ox 98 98 97 O2 Delivery Room Air Room Air Room Air Room Air 06/02/18 06/02/18 06/03/18 06/03/18 20:00 23:00 03:00 07:00 Temp 98.8 98.8 98.7 98.8 98.8 98.7 Pulse 78 85 86 Resp 18 18 20 B/P (MAP) 123/73 (90) 113/57 (75) 107/86 (93) Pulse Ox 96 92 98 O2 Delivery Room Air Room Air Room Air Room Air 06/03/18 06/03/18 06/03/18 06/03/18 07:44 08:00 08:39 09:39 Pulse Ox 98 O2 Delivery Room Air Room Air Room Air Room Air 06/03/18 06/03/18 06/03/18 11:00 11:44 12:00 Temp 97.9 97.9 Pulse 86 86 Resp 20 B/P (MAP) 133/67 (89) 133/67 Pulse Ox 97 O2 Delivery Room Air Room Air Intake and Output 06/02/18 06/02/18 06/03/18 15:00 23:00 07:00 Intake Total 540 ml 360 ml 100 ml Balance 540 ml 360 ml 100 ml FADI FRANCO MD Jun 03, 2018 14:22
[2018-06-03 15:00] VITALS: BP 125/64
[2018-06-03 19:00] VITALS: BP 121/57
[2018-06-03] MEDS: INSULIN GLARGINE 300 UNITS/3 ML INSULN.PEN. SQ SCH (20:49)
[2018-06-03] MEDS: CEFEPIME HCL IV Push 1 GM VIAL. IVP SCH (21:02)
[2018-06-03 23:00] VITALS: BP 123/68
[2018-06-04] VITALS (7 sets, daily range): BP systolic 101–125; BP diastolic 55–68
[2018-06-04] MEDS: IPRATRPIUM/ALBUTEROL 0.5/2.5MG 3 ML NEBU. NEB SCH ×4 (07:11→20:38)
[2018-06-04] MEDS ORDERED: IV NORMAL SALINE 1000ML BAG 1,000 ML IV PRN ×2 (07:30)
[2018-06-04] MEDS: SEVELAMER CARBONATE 800 MG TABLET. PO SCH ×3 (07:54→16:53)
[2018-06-04] MEDS: INSULIN LISPRO 300 UNITS/3 ML INSULN.PEN. SQ SCH ×3 (08:00→16:56)
--- NOTE | 2018-06-04 08:23 | NUR ---
SW following pt for anticipated dc needs. Chart reviewed. Pt lives at home with family. PT/OT recommends home when goals met. No SW needs indicated at this time. Will continue to evaluate dc needs.
--- NOTE | 2018-06-04 08:27 | RAD ---
CHEST PA LATERAL Clinical indications: Follow-up of INFILTRATE. COMPARISON: May 30, 2018. Findings: Again seen is right upper lobe lung infiltrate. If anything, it appears slightly denser and comparison to the previous study. No acute lung infiltrate is seen on the left side. No pleural effusion or pneumothorax is seen. The heart size, pulmonary vasculature, mediastinum and both jacobo are unremarkable. Vascular stent of the right subclavian region is again evident. Impression: Slight increase in right upper lobe lung infiltrate. Electronically signed by: Audi Ugalde MD (06/04/2018 8:24 AM) [facility]
[2018-06-04] MEDS: ASPIRIN ENTERIC COATED 81 MG TABLET.DR. PO SCH (08:34)
[2018-06-04] MEDS: MAGNESIUM OXIDE 400 MG TABLET PO SCH (08:34)
[2018-06-04] MEDS: LACTOBACILLUS RHAMNOSUS GG 1 CAPSULE. PO SCH ×2 (08:34→21:56)
[2018-06-04] MEDS: IRON POLYSACCHARIDE COMPLEX 150 MG CAPSULE PO SCH (08:34)
[2018-06-04] MEDS: VITAMIN B12,B9,B6 COMPLEX 1 TABLET. PO SCH (08:34)
[2018-06-04] MEDS: SENNOSIDES/DOCUSATE 8.6/50MG TABLET. PO SCH ×2 (08:34→21:57)
[2018-06-04] MEDS: CIPROFLOXACIN 0.3% OPHTH SOLUTION 5ML BOTTLE. OS SCH ×4 (08:34→22:08)
[2018-06-04] MEDS: HEPARIN for SUB-Q USE 5,000 UNIT/ML VIAL. SQ SCH (08:40)
--- NOTE | 2018-06-04 08:45 | NUR ---
Khoa held for dialysis, patient verb. understanding POC, report to Rebekah BOWDENemail marketing manager. Patient to dialysis per bed.
[2018-06-04] MEDS: hydrALAZINE 10 MG TABLET PO SCH (09:00)
[2018-06-04] MEDS ORDERED: DIALYSIS PATIENT. MC PRN ×2 (09:45)
--- NOTE | 2018-06-04 10:33 | PDOC ---
PULMONARY PROGRESS NOTES Subjective sob better, has cough, has lower back pain Vitals Vital Signs Date Time Temp Pulse Resp B/P (MAP) Pulse Ox O2 Delivery O2 Flow Rate FiO2 06/04/18 07:11 98 Room Air 06/04/18 07:00 98.6 87 18 125/63 (83) 98.6 ROS: No Nausea, No Chest Pain General: Alert, No acute distress HEENT: Other Lungs: Other (a few end exp wheezing) Cardiovascular: S1, S2 Abdomen: Soft, Non-tender Neuro Exam: Alert Extremities: No Edema Skin: Warm Labs Laboratory Tests Test 06/02/18 11:38 06/02/18 16:39 06/02/18 20:07 06/03/18 04:10 Glucose (Fingerstick) 200 mg/dL (70-99) 195 mg/dL (70-99) 203 mg/dL (70-99) White Blood Count 8.3 x10^3/uL (4.0-11.0) Red Blood Count 2.32 x10^6/uL (3.50-5.40) Hemoglobin 8.0 g/dL (12.0-15.5) Hematocrit 24.5 % (36.0-47.0) Mean Corpuscular Volume 105 fL (79-100) Mean Corpuscular Hemoglobin 34 pg (25-35) Mean Corpuscular Hemoglobin Concent 33 g/dL (31-37) Red Cell Distribution Width 15.0 % (11.5-14.5) Platelet Count 147 x10^3/uL (140-400) Neutrophils (%) (Auto) 78 % (31-73) Lymphocytes (%) (Auto) 11 % (24-48) Monocytes (%) (Auto) 10 % (0-9) Eosinophils (%) (Auto) 1 % (0-3) Basophils (%) (Auto) 0 % (0-3) Neutrophils # (Auto) 6.5 x10^3uL (1.8-7.7) Lymphocytes # (Auto) 0.9 x10^3/uL (1.0-4.8) Monocytes # (Auto) 0.8 x10^3/uL (0.0-1.1) Eosinophils # (Auto) 0.1 x10^3/uL (0.0-0.7) Basophils # (Auto) 0.0 x10^3/uL (0.0-0.2) Sodium Level 136 mmol/L (136-145) Potassium Level 3.7 mmol/L (3.5-5.1) Chloride Level 96 mmol/L (98-107) Carbon Dioxide Level 29 mmol/L (21-32) Anion Gap 11 (6-14) Blood Urea Nitrogen 35 mg/dL (7-20) Creatinine 5.8 mg/dL (0.6-1.0) Estimated GFR (Cockcroft-Gault) 9.2 BUN/Creatinine Ratio 6 (6-20) Glucose Level 167 mg/dL (70-99) Calcium Level 9.5 mg/dL (8.5-10.1) Total Bilirubin 0.5 mg/dL (0.2-1.0) Aspartate Amino Transf (AST/SGOT) 12 U/L (15-37) Alanine Aminotransferase (ALT/SGPT) 16 U/L (14-59) Alkaline Phosphatase 192 U/L (46-116) Total Protein 6.6 g/dL (6.4-8.2) Albumin 1.9 g/dL (3.4-5.0) Albumin/Globulin Ratio 0.4 (1.0-1.7) Test 06/03/18 08:01 06/03/18 11:56 06/03/18 16:45 06/03/18 20:47 Glucose (Fingerstick) 134 mg/dL (70-99) 200 mg/dL (70-99) 227 mg/dL (70-99) 208 mg/dL (70-99) Test 06/04/18 07:54 Glucose (Fingerstick) 86 mg/dL (70-99) Laboratory Tests Test 06/03/18 11:56 06/03/18 16:45 06/03/18 20:47 06/04/18 07:54 Glucose (Fingerstick) 200 mg/dL (70-99) 227 mg/dL (70-99) 208 mg/dL (70-99) 86 mg/dL (70-99) Medications Active Scripts Medications Dose Route/Sig Max Daily Dose Days Date Category Carvedilol 25 Mg Tablet 25 Mg PO DAILY 05/30/18 Reported Losartan Potassium 100 Mg Tablet 100 Mg PO DAILY 05/30/18 Reported Isosorbide Dinitrate 10 Mg Tablet 10 Mg PO DAILY 05/30/18 Reported Hydralazine Hcl 10 Mg Tablet 10 Mg PO DAILY 05/30/18 Reported Renvela (Sevelamer Carbonate) 800 Mg Tablet 3 Tab PO TID 06/27/14 Reported Furosemide 80 Mg Tablet 1 Tab PO DAILY 06/27/14 Reported Magnesium Oxide 400 Mg Tablet 1 Tab PO DAILY 06/27/14 Reported Impression . 1. Dyspnea with acute hypoxic respiratory failure requiring oxygen on admission secondary to pneumonia and underlying chronic obstructive pulmonary disease. 2. Abnormal chest x-ray consistent with right upper lobe pneumonia. 3. End-stage renal disease, on hemodialysis. 4. 25 years of tobacco use, suspect underlying chronic obstructive pulmonary disease w ae Plan . 1. Continue antibiotics. cont BD, 2. fu chest x-ray 06/03 reviewed. Persistent RUL consolidation despite vanc/ cefepime. will get ct chest and possible Bronch if needed. 3. Follow clinical course. 4. Hemodialysis per Renal. 5. We will follow along with you. discussed w pt TITUS PEGUERO MD Jun 04, 2018 10:33
[2018-06-04] MEDS ORDERED: guaiFENesin DM 200MG/20MG 10 ML SYRUP PO PRN (10:45)
--- NOTE | 2018-06-04 11:59 | PDOC ---
PROGRESS NOTES Chief Complaint Chief Complaint sepsis, pneumonia, Cough - with RUL infiltrate, persistent Prev ex smoker acute Hypoxia - HCAP and possible fluid overload, ESRD Hypotension - sepsis, dry, ESRD ESRD on HD, need UF at least, fluid balance improving Anemia - likely of chronic renal insufficiency. Monitor, consider transfusion if Hb < 7 HTN - Afib history - chronic diastolic CHF Sub Conjunctival hemorrhage secondary to coughing, left eye? History of Present Illness History of Present Illness Seen in Dialysis, coughing some No fevers White count 8, hemoglobin 8. Creatinine 5.8 ESRD Monday Pulmonary note reviewed, ordered for CT chest depending on that might need bronch? -I have updated her regarding these plans Plan: CT chest today HD per renal Pending CT chest might need bronch Continue antibiotics Might need SNU vs HH Lives at home with fam Vitals Vitals Vital Signs Date Time Temp Pulse Resp B/P (MAP) Pulse Ox O2 Delivery O2 Flow Rate FiO2 06/04/18 08:00 Room Air 1.0 06/04/18 07:11 98 06/04/18 07:00 98.6 87 18 125/63 (83) 98.6 Physical Exam General: Alert, Cooperative, No acute distress Heart: Regular rate Lungs: Other (a few end exp wheezing) Abdomen: Normal bowel sounds Extremities: No clubbing, No cyanosis, No edema Skin: No significant lesion Labs LABS Laboratory Tests Test 06/03/18 16:45 06/03/18 20:47 06/04/18 07:54 06/04/18 11:45 Glucose (Fingerstick) 227 mg/dL (70-99) 208 mg/dL (70-99) 86 mg/dL (70-99) 85 mg/dL (70-99) Review of Systems Review of Systems cough, weak, the rest of ROS 14 point negative Assessment and Plan Assessmemt and Plan Problems Medical Problems: (1) ESRD (end stage renal disease) on dialysis Status: Acute (2) Right upper lobe pneumonia Status: Acute Comment Review of Relevant I have reviewed the following items alivia (where applicable) has been applied. Labs Laboratory Tests Test 06/02/18 16:39 06/02/18 20:07 06/03/18 04:10 06/03/18 08:01 Glucose (Fingerstick) 195 mg/dL (70-99) 203 mg/dL (70-99) 134 mg/dL (70-99) White Blood Count 8.3 x10^3/uL (4.0-11.0) Red Blood Count 2.32 x10^6/uL (3.50-5.40) Hemoglobin 8.0 g/dL (12.0-15.5) Hematocrit 24.5 % (36.0-47.0) Mean Corpuscular Volume 105 fL (79-100) Mean Corpuscular Hemoglobin 34 pg (25-35) Mean Corpuscular Hemoglobin Concent 33 g/dL (31-37) Red Cell Distribution Width 15.0 % (11.5-14.5) Platelet Count 147 x10^3/uL (140-400) Neutrophils (%) (Auto) 78 % (31-73) Lymphocytes (%) (Auto) 11 % (24-48) Monocytes (%) (Auto) 10 % (0-9) Eosinophils (%) (Auto) 1 % (0-3) Basophils (%) (Auto) 0 % (0-3) Neutrophils # (Auto) 6.5 x10^3uL (1.8-7.7) Lymphocytes # (Auto) 0.9 x10^3/uL (1.0-4.8) Monocytes # (Auto) 0.8 x10^3/uL (0.0-1.1) Eosinophils # (Auto) 0.1 x10^3/uL (0.0-0.7) Basophils # (Auto) 0.0 x10^3/uL (0.0-0.2) Sodium Level 136 mmol/L (136-145) Potassium Level 3.7 mmol/L (3.5-5.1) Chloride Level 96 mmol/L (98-107) Carbon Dioxide Level 29 mmol/L (21-32) Anion Gap 11 (6-14) Blood Urea Nitrogen 35 mg/dL (7-20) Creatinine 5.8 mg/dL (0.6-1.0) Estimated GFR (Cockcroft-Gault) 9.2 BUN/Creatinine Ratio 6 (6-20) Glucose Level 167 mg/dL (70-99) Calcium Level 9.5 mg/dL (8.5-10.1) Total Bilirubin 0.5 mg/dL (0.2-1.0) Aspartate Amino Transf (AST/SGOT) 12 U/L (15-37) Alanine Aminotransferase (ALT/SGPT) 16 U/L (14-59) Alkaline Phosphatase 192 U/L (46-116) Total Protein 6.6 g/dL (6.4-8.2) Albumin 1.9 g/dL (3.4-5.0) Albumin/Globulin Ratio 0.4 (1.0-1.7) Test 06/03/18 11:56 06/03/18 16:45 06/03/18 20:47 06/04/18 07:54 Glucose (Fingerstick) 200 mg/dL (70-99) 227 mg/dL (70-99) 208 mg/dL (70-99) 86 mg/dL (70-99) Test 06/04/18 11:45 Glucose (Fingerstick) 85 mg/dL (70-99) Laboratory Tests Test 06/03/18 16:45 06/03/18 20:47 06/04/18 07:54 06/04/18 11:45 Glucose (Fingerstick) 227 mg/dL (70-99) 208 mg/dL (70-99) 86 mg/dL (70-99) 85 mg/dL (70-99) Microbiology 05/30/18 Blood Culture - Final, Complete NO GROWTH AFTER 5 DAYS 05/30/18 - Final, Complete 05/30/18 - Final, Complete 05/30/18 - Final, Complete 05/30/18 - Final, Complete 05/30/18 Gram Stain Evaluation - Final, Complete 05/30/18 Sputum Culture - Final, Complete 05/30/18 Sputum Result 1 - Final, Complete 05/30/18 Sputum Result 2 - Final, Complete 05/30/18 Antimicrobic Susceptibility - Final, Complete Medications Current Medications Vancomycin HCl 250 ml @ 250 mls/hr 1X ONCE IV ; Start 05/30/18 at 14:15; Stop 05/30/18 at 15:14; Status UNV Piperacillin Sod/ Tazobactam Sod 2.25 gm/Sodium Chloride 50 ml @ 100 mls/hr 1X ONCE IV Last administered on 05/30/18at 14:34; Start 05/30/18 at 14:15; Stop 05/30/18 at 14:44; Status DC Acetaminophen (Tylenol) 650 mg PRN Q4HRS PRN PO FEVER; Start 05/30/18 at 14:15 ; Stop 05/30/18 at 16:54; Status DC Albuterol/ Ipratropium (Duoneb) 3 ml RTQID NEB Last administered on 05/31/18at 19:23; Start 05/30/18 at 16:00; Stop 05/31/18 at 15:59; Status DC Vancomycin HCl 1.5 gm/Sodium Chloride 500 ml @ 250 mls/hr 1X ONCE IV Last administered on 05/30/18at 15:46; Start 05/30/18 at 14:30; Stop 05/30/18 at 16:29 ; Status DC Ondansetron HCl (Zofran) 4 mg PRN Q6HRS PRN IV NAUSEA/VOMITING; Start 05/30/18 at 17:00 Acetaminophen/ Hydrocodone Bitart (Lortab 5/325) 1 tab PRN Q4HRS PRN PO MILD PAIN, 2ND CHOICE Last administered on 06/03/18at 21:49; Start 05/30/18 at 17:00 Acetaminophen (Tylenol) 650 mg PRN Q6HRS PRN PO Headaches, Temp > 101.5F; Start 05/30/18 at 17:00 Senna/Docusate Sodium (Senna Plus) 1 tab BID PO Last administered on 06/04/18at 08:34; Start 05/30/18 at 21:00 Lactulose (Lactulose) 20 gm PRN Q12HR PRN PO CONSTIPATION 1ST CHOICE; Start at 17:00 Bisacodyl (Dulcolax Supp) 10 mg PRN DAILY PRN [place] CONSTIPATION; Start 05/30/18 at 17:00 Heparin Sodium (Porcine) (Heparin Sodium) 5,000 unit Q12HR SQ Last administered on 06/04/18at 08:40; Start 05/30/18 at 21:00 Isosorbide Dinitrate (Isordil) 10 mg DAILY PO ; Start 05/31/18 at 09:00; Stop at 09:00; Status DC Sevelamer Carbonate (Renvela) 2,400 mg TIDWMEALS PO Last administered on at 07:54; Start 05/31/18 at 18:00 Carvedilol (Coreg) 25 mg DAILY08 PO ; Start 05/31/18 at 08:00; Stop 05/31/18 at 08:00; Status DC Hydralazine HCl (Apresoline) 10 mg DAILY PO Last administered on 06/03/18at 12: 00; Start 05/31/18 at 09:00 Losartan Potassium (Cozaar) 100 mg DAILY PO ; Start 05/31/18 at 09:00; Stop at 09:00; Status DC Magnesium Oxide (Magnesium Oxide) 400 mg DAILY PO Last administered on 08:34; Start 05/31/18 at 09:00 Cefepime HCl (Maxipime) 1 gm Q24H IVP Last administered on 06/03/18 21:02; Start 05/30/18 at 20:00 Vancomycin HCl (Vanco Per Pharmacy) 1 each PRN DAILY PRN MC SEE COMMENTS Last administered on 06/03/18 07:53; Start 05/30/18 at 17:00 Sodium Chloride 250 ml @ 250 mls/hr 1X ONCE IV Last administered on at 20:00; Start 05/30/18 at 20:00; Stop 05/30/18 at 20:59; Status DC Vancomycin HCl (Vancomycin Random Level) 1 each 1X ONCE MC Last administered on 05/31/18at 06:00; Start 05/31/18 at 06:00; Stop 05/31/18 at 06:01; Status DC Sodium Chloride 250 ml @ 250 mls/hr 1X ONCE IV Last administered on 20:30; Start 05/30/18 at 20:30; Stop 05/30/18 at 21:29; Status DC Insulin Glargine (Lantus) 5 units QHS SQ Last administered on 06/03/18 20:49; Start 05/30/18 at 22:30 Insulin Human Lispro (HumaLOG) 0-5 UNITS TIDWMEALS SQ Last administered on 06/03 16:50; Start 05/31/18 at 08:00 Dextrose (Dextrose 50%-Water Syringe) 12.5 gm PRN Q15MIN PRN IV SEE COMMENTS; Start 05/30/18 at 22:15 Lactobacillus Rhamnosus (Culturelle) 1 cap BID PO Last administered on at 08:34; Start 05/31/18 at 21:00 Sodium Chloride 1,000 ml @ 1,000 mls/hr Q1H PRN IV hypotension; Start 05/31/18 at 10:36; Stop 05/31/18 at 16:35; Status DC Albumin Human 200 ml @ 200 mls/hr 1X PRN PRN IV Hypotension; Start 05/31/18 at 10:45; Stop 05/31/18 at 16:44; Status DC Acetaminophen (Tylenol) 500 mg 1X PRN PRN PO MILD PAIN / TEMP; Start 05/31/18 at 10:45; Stop 06/01/18 at 10:44; Status DC Diphenhydramine HCl (Benadryl) 25 mg 1X PRN PRN IV ITCHING; Start 05/31/18 at 10:45; Stop 06/01/18 at 10:44; Status DC Diphenhydramine HCl (Benadryl) 25 mg 1X PRN PRN IV ITCHING; Start 05/31/18 at 10:45; Stop 06/01/18 at 10:44; Status DC Sodium Chloride 1,000 ml @ 400 mls/hr Q2H30M PRN IV PATENCY; Start 05/31/18 at 10:36; Stop 05/31/18 at 22:35; Status DC Info (PHARMACY MONITORING -- do not chart) 1 each PRN DAILY PRN MC SEE COMMENTS ; Start 05/31/18 at 10:45 Darbepoetin Noel (Aranesp) 60 mcg WEEKLYHS SQ Last administered on 05/31/18at 20 :14; Start 05/31/18 at 21:00 Artificial Tears (Artificial Tears) 1 drop PRN Q15MIN PRN OD DRY EYE Last administered on 06/03/18at 08:40; Start 05/31/18 at 13:15 Aspirin (Ecotrin) 81 mg [id number] PO Last administered on 06/04/18at 08:34; Start 06/01/18 at 08:00 Albuterol/ Ipratropium (Duoneb) 3 ml RTQID NEB Last administered on 06/04/18at 07:11; Start 06/01/18 at 08:00 Sodium Chloride 1,000 ml @ 1,000 mls/hr Q1H PRN IV hypotension; Start 06/01/18 at 14:00; Stop 06/01/18 at 19:59; Status DC Albumin Human 200 ml @ 200 mls/hr 1X PRN PRN IV Hypotension; Start 06/01/18 at 14:00; Stop 06/01/18 at 19:59; Status DC Acetaminophen (Tylenol) 500 mg 1X PRN PRN PO MILD PAIN / TEMP; Start 06/01/18 at 14:00; Stop 06/02/18 at 13:59; Status DC Diphenhydramine HCl (Benadryl) 25 mg 1X PRN PRN IV ITCHING; Start 06/01/18 at 14:00; Stop 06/02/18 at 13:59; Status DC Diphenhydramine HCl (Benadryl) 25 mg 1X PRN PRN IV ITCHING; Start 06/01/18 at 14:00; Stop 06/02/18 at 13:59; Status DC Sodium Chloride 1,000 ml @ 400 mls/hr Q2H30M PRN IV PATENCY; Start 06/01/18 at 14:00; Stop 06/02/18 at 01:59; Status DC Info (PHARMACY MONITORING -- do not chart) 1 each PRN DAILY PRN MC SEE COMMENTS ; Start 06/01/18 at 14:00; Status UNV Vancomycin HCl 500 mg/Sodium Chloride 100 ml @ 100 mls/hr QMWF IV Last administered on 06/01/18at 18:07; Start 06/01/18 at 16:00 Vitamin B Complex (Folbic Tablet) 1 tab DAILY PO Last administered on at 08:34; Start 06/02/18 at 10:30 Polysaccharide Iron Complex (Niferex 150) 150 mg DAILY PO Last administered on 06/04/18at 08:34; Start 06/02/18 at 11:00 Ciprofloxacin (Ciloxan Ophth) 1 drop QID OS Last administered on 06/04/18at 08: 34; Start 06/02/18 at 16:00 Cyclobenzaprine HCl (Flexeril) 10 mg PRN Q6HRS PRN PO MUSCLE SPASMS Last administered on 06/03/18at 19:18; Start 06/02/18 at 15:15 Budesonide (Pulmicort) 0.5 mg RTBID NEB Last administered on 06/03/18at 19:01; Start 06/03/18 at 08:00 Sodium Chloride 1,000 ml @ 1,000 mls/hr Q1H PRN IV hypotension; Start 06/04/18 at 07:30; Stop 06/04/18 at 15:00 Sodium Chloride 1,000 ml @ 400 mls/hr Q2H30M PRN IV PATENCY; Start 06/04/18 at 07:30; Stop 06/04/18 at 19:29 Info (PHARMACY MONITORING -- do not chart) 1 each PRN DAILY PRN MC SEE COMMENTS ; Start 06/04/18 at 09:45; Status UNV Info (PHARMACY MONITORING -- do not chart) 1 each PRN DAILY PRN MC SEE COMMENTS ; Start 06/04/18 at 09:45; Status UNV Guaifenesin (Robitussin Dm) 10 ml PRN Q6HRS PRN PO COUGH; Start 06/04/18 at 10: 45 Active Scripts Active Reported Carvedilol 25 Mg Tablet 25 Mg PO DAILY Losartan Potassium 100 Mg Tablet 100 Mg PO DAILY Isosorbide Dinitrate 10 Mg Tablet 10 Mg PO DAILY Hydralazine Hcl 10 Mg Tablet 10 Mg PO DAILY Renvela (Sevelamer Carbonate) 800 Mg Tablet 3 Tab PO TID Furosemide 80 Mg Tablet 1 Tab PO DAILY Magnesium Oxide 400 Mg Tablet 1 Tab PO DAILY Vitals/I & O Vital Sign - Last 24 Hours 06/03/18 06/03/18 06/03/18 06/03/18 12:00 15:00 15:31 19:00 Temp 98.1 98.8 98.1 98.8 Pulse 86 85 94 Resp 20 20 B/P (MAP) 133/67 125/64 (84) 121/57 (78) Pulse Ox 97 96 O2 Delivery Room Air Room Air Room Air 06/03/18 06/03/18 06/03/18 06/03/18 19:02 20:00 21:49 22:49 Resp 16 16 O2 Delivery Room Air Room Air Room Air Room Air 06/03/18 06/04/18 06/04/18 06/04/18 23:00 03:00 07:00 07:11 Temp 98.0 98.0 98.6 98.0 98.0 98.6 Pulse 80 71 87 Resp 20 20 18 B/P (MAP) 123/68 (86) 101/68 (79) 125/63 (83) Pulse Ox 98 98 96 98 O2 Delivery Room Air Room Air Room Air Room Air 06/04/18 08:00 O2 Delivery Room Air O2 Flow Rate 1.0 Intake and Output 06/03/18 06/03/18 06/04/18 15:00 23:00 07:00 Intake Total 270 ml 240 ml 70 ml Balance 270 ml 240 ml 70 ml ÁNGEL RODRÍGUEZ MD Jun 04, 2018 11:59
[2018-06-04] MEDS: BUDESONIDE 0.5 MG/2 ML NEBU. NEB SCH ×2 (12:25→20:37)
[2018-06-04] MEDS: VANCOMYCIN PER PHARMACY MC PRN (12:32)
--- NOTE | 2018-06-04 12:58 | PDOC ---
Renal-Progress Notes Subjective Notes Notes NONE History of Present Illness Hx of present illness STABLE Vitals Vitals Vital Signs Date Time Temp Pulse Resp B/P (MAP) Pulse Ox O2 Delivery O2 Flow Rate FiO2 06/04/18 08:00 Room Air 1.0 06/04/18 07:11 98 06/04/18 07:00 98.6 87 18 125/63 (83) 98.6 Weight Weight [ ] I.O. Intake and Output Intake and Output 06/04/18 07:00 Intake Total 580 ml Balance 580 ml Intake Oral 560 ml Blood Product IV Normal Saline Flush 20 ml # Voids 1 Labs Labs Laboratory Tests Test 06/03/18 16:45 06/03/18 20:47 06/04/18 07:54 06/04/18 11:45 Glucose (Fingerstick) 227 mg/dL (70-99) 208 mg/dL (70-99) 86 mg/dL (70-99) 85 mg/dL (70-99) Micro Micro Microbiology 05/30/18 Blood Culture - Final, Complete NO GROWTH AFTER 5 DAYS 05/30/18 - Final, Complete 05/30/18 - Final, Complete 05/30/18 - Final, Complete 05/30/18 - Final, Complete 05/30/18 Gram Stain Evaluation - Final, Complete 05/30/18 Sputum Culture - Final, Complete 05/30/18 Sputum Result 1 - Final, Complete 05/30/18 Sputum Result 2 - Final, Complete 05/30/18 Antimicrobic Susceptibility - Final, Complete Review of Systems Constitutional: yes: alert, oriented Ears/Nose/Throat: Yes: no symptom reported Eyes: Yes: no symptom reported Pulmonary: Yes no symptom reported Cardiovascular: Yes no symptom reported Gastrointestional: Yes: no symptom reported Genitourinary: Yes: no symptom reported Musculoskeletal: Yes: no symptom reported Skin: Yes no symptom reported Psychiatric/Neurological: Yes: no symptom reported Physical Exam General Appearance: no apparent distress Skin: warm Respiratory: bilateral CTA Heart: S1S2 Abdomen: soft, bowel sounds present Genitourinary: bladder flat Extremities: pulses present Neurology: alert Musculoskeletal: Osteoarthritis Assessment Assessment IMP ESRD ANEMIA COPD PNEUMONIA PLAN HD TODAY UF TO DW CONT DAVE WILL FOLLOW JOSEPH BECKFORD MD Jun 04, 2018 12:58
--- NOTE | 2018-06-04 16:28 | RAD ---
CT CHEST WO CONTRAST Indication: Persistent pneumonia Technique: Noncontrast CT imaging was performed of the chest, multiplanar reconstruction images submitted. One or more of the following individualized dose reduction techniques were utilized for this examination: 1. Automated exposure control 2. Adjustment of the mA and/or kV according to patient size 3. Use of iterative reconstruction technique. Comparison: None Findings: There is prominent infiltrate posteriorly of the right upper lobe also with internal areas of cavitation (area of infiltrate about 10 to 11 cm transverse by 8.8 cm AP by 8.4 cm cc). There is mild dependent right pleural effusion with adjacent mild atelectasis right lower lobe. There is no pneumothorax. There has been median sternotomy. There is coronary calcification. Heart is somewhat enlarged. Major airways are patent. There is air-fluid level of the esophagus. Thoracic aortic caliber is within normal limits. There is stent in the right subclavian region more laterally. IMPRESSION: 1. There is prominent infiltrate posteriorly of the right upper lobe with internal areas of cavitation, could be due to cavitary pneumonia including consideration of mycobacterial etiology given cavitation. However cavitary neoplastic etiology is not excluded. There is small right pleural effusion. 2. There has been median sternotomy. There is coronary calcification. Electronically signed by: Arturo Andersno MD (06/04/2018 4:26 PM) [id number]
[2018-06-04] MEDS: VANCOMYCIN 500 MG in IV NORMAL SALINE 100ML 100 ML IV SCH (16:53)
--- NOTE | 2018-06-04 16:59 | NUR ---
Vancomycin IV scanned at 1600 and started, but scan did not save. Rescanned at current time r/t.
[2018-06-04] MEDS: CEFEPIME HCL IV Push 1 GM VIAL. IVP SCH (21:56)
[2018-06-04] MEDS: HYDROcodone/APAP 5/325MG 1 TAB TABLET PO PRN (21:57)
[2018-06-04] MEDS: INSULIN GLARGINE 300 UNITS/3 ML INSULN.PEN. SQ SCH (22:07)
[2018-06-05 03:00] VITALS: BP 118/61
[2018-06-05] MEDS: BUDESONIDE 0.5 MG/2 ML NEBU. NEB SCH ×2 (06:56→20:21)
[2018-06-05] MEDS: IPRATRPIUM/ALBUTEROL 0.5/2.5MG 3 ML NEBU. NEB SCH ×4 (06:56→20:21)
[2018-06-05 07:00] VITALS: BP 123/61
[2018-06-05] MEDS: SEVELAMER CARBONATE 800 MG TABLET. PO SCH ×3 (08:00→17:39)
[2018-06-05] MEDS: ASPIRIN ENTERIC COATED 81 MG TABLET.DR. PO SCH (08:00)
[2018-06-05] MEDS: INSULIN LISPRO 300 UNITS/3 ML INSULN.PEN. SQ SCH ×3 (08:00→17:00)
[2018-06-05] MEDS: CIPROFLOXACIN 0.3% OPHTH SOLUTION 5ML BOTTLE. OS SCH ×4 (09:00→21:32)
[2018-06-05] MEDS: hydrALAZINE 10 MG TABLET PO SCH (09:00)
[2018-06-05] MEDS: IRON POLYSACCHARIDE COMPLEX 150 MG CAPSULE PO SCH (09:00)
[2018-06-05] MEDS: LACTOBACILLUS RHAMNOSUS GG 1 CAPSULE. PO SCH ×2 (09:00→21:30)
[2018-06-05] MEDS: MAGNESIUM OXIDE 400 MG TABLET PO SCH (09:00)
[2018-06-05] MEDS: VITAMIN B12,B9,B6 COMPLEX 1 TABLET. PO SCH (09:00)
[2018-06-05] MEDS: SENNOSIDES/DOCUSATE 8.6/50MG TABLET. PO SCH ×2 (09:00→21:31)
[2018-06-05] MEDS ORDERED: IV RINGERS,LACTATED 1000ML 1,000 ML IV SCH ×2 (09:06→12:59)
--- NOTE | 2018-06-05 09:09 | PDOC ---
PULMONARY PROGRESS NOTES Subjective PT NOT MORE SOA Vitals Vital Signs Date Time Temp Pulse Resp B/P (MAP) Pulse Ox O2 Delivery O2 Flow Rate FiO2 06/05/18 07:00 99.0 88 18 123/61 (81) 97 Room Air 99.0 06/04/18 22:57 1.0 ROS: No Nausea, No Chest Pain, No Abdominal Pain, No Increase Cough General: Alert, No acute distress Lungs: Crackles Cardiovascular: S1, S2 Abdomen: Soft, Non-tender Neuro Exam: Alert Extremities: No Edema Skin: Warm Labs Laboratory Tests Test 06/03/18 11:56 06/03/18 16:45 06/03/18 20:47 06/04/18 07:54 Glucose (Fingerstick) 200 mg/dL (70-99) 227 mg/dL (70-99) 208 mg/dL (70-99) 86 mg/dL (70-99) Test 06/04/18 11:45 06/04/18 16:47 06/04/18 20:50 06/05/18 08:09 Glucose (Fingerstick) 85 mg/dL (70-99) 161 mg/dL (70-99) 160 mg/dL (70-99) 79 mg/dL (70-99) Laboratory Tests Test 06/04/18 11:45 06/04/18 16:47 06/04/18 20:50 06/05/18 08:09 Glucose (Fingerstick) 85 mg/dL (70-99) 161 mg/dL (70-99) 160 mg/dL (70-99) 79 mg/dL (70-99) Medications Active Scripts Medications Dose Route/Sig Max Daily Dose Days Date Category Carvedilol 25 Mg Tablet 25 Mg PO DAILY 05/30/18 Reported Losartan Potassium 100 Mg Tablet 100 Mg PO DAILY 05/30/18 Reported Isosorbide Dinitrate 10 Mg Tablet 10 Mg PO DAILY 05/30/18 Reported Hydralazine Hcl 10 Mg Tablet 10 Mg PO DAILY 05/30/18 Reported Renvela (Sevelamer Carbonate) 800 Mg Tablet 3 Tab PO TID 06/27/14 Reported Furosemide 80 Mg Tablet 1 Tab PO DAILY 06/27/14 Reported Magnesium Oxide 400 Mg Tablet 1 Tab PO DAILY 06/27/14 Reported Impression . 1. Dyspnea with acute hypoxic respiratory failure requiring oxygen on admission secondary to pneumonia and underlying chronic obstructive pulmonary disease. 2. Abnormal chest x-ray consistent with right upper lobe pneumonia. 3. End-stage renal disease, on hemodialysis. 4. 25 years of tobacco use, suspect underlying chronic obstructive pulmonary disease w ae CT 1. There is prominent infiltrate posteriorly of the right upper lobe with internal areas of cavitation, could be due to cavitary pneumonia including consideration of mycobacterial etiology given cavitation. However cavitary neoplastic etiology is not excluded. There is small right pleural effusion. 2. There has been median sternotomy. There is coronary calcification. Plan . REVIEWED R/B/A TO BRONCH PT ACCEPTED WILL PROCEED ANTBX D/W FAMILY DALIA SCHMID MD Jun 05, 2018 09:09
[2018-06-05] MEDS ORDERED: LIDOCAINE 1% PF 2 ML VIAL. ID PRN (09:15)
[2018-06-05] MEDS ORDERED: ONDANSETRON PF 4 MG/2 ML VIAL. IV PRN (09:15)
[2018-06-05] MEDS ORDERED: PROCHLORPERAZINE 10 MG/2 ML VIAL. IV PRN (09:15)
[2018-06-05] MEDS ORDERED: fentaNYL PF VIAL 100 MCG/2 ML VIAL IV PRN ×2 (09:15)
[2018-06-05] MEDS ORDERED: MORPHINE SULFATE 4 MG/ML VIAL. IV PRN (09:15)
[2018-06-05] MEDS ORDERED: HYDROmorphone 2 MG/ML VIAL IV PRN (09:15)
--- NOTE | 2018-06-05 10:52 | PDOC ---
Infectious Disease Note Vital Sign Vital Signs Vital Signs Date Time Temp Pulse Resp B/P (MAP) Pulse Ox O2 Delivery O2 Flow Rate FiO2 06/05/18 07:00 99.0 88 18 123/61 (81) 97 Room Air 99.0 06/04/18 22:57 1.0 Labs Lab Laboratory Tests Test 06/04/18 11:45 06/04/18 16:47 06/04/18 20:50 06/05/18 08:09 Glucose (Fingerstick) 85 mg/dL (70-99) 161 mg/dL (70-99) 160 mg/dL (70-99) 79 mg/dL (70-99) Objective Assessment Pneumonia with cavitation PSA respiratory infection Fever ESRD on HD Suspected COPD Plan Plan of Care cont cefepime for now Bronch and culture pending for today supportive care ALVARO FAIR MD Jun 05, 2018 10:51
[2018-06-05 11:00] VITALS: BP 131/68
--- NOTE | 2018-06-05 12:11 | PDOC ---
PROGRESS NOTES Chief Complaint Chief Complaint sepsis, Cavitary pneumonia right lobe Prev ex smoker acute Hypoxia - HCAP and possible fluid overload, ESRD Hypotension - sepsis, dry, ESRD ESRD on HD, need UF at least, fluid balance improving Anemia - likely of chronic renal insufficiency. Monitor, consider transfusion if Hb < 7 HTN - Afib history - chronic diastolic CHF Sub Conjunctival hemorrhage secondary to coughing, left eye? History of Present Illness History of Present Illness CT chest verifies cavitary pneumonia Now ID is consulted Now planned for bronch by maria e Patient has no complaints, no fever Plan: bronch today May check a sedimentation rate in tomorrow's labs Blood sugar on the low side, watch out for hypoglycemia-she is barely on any OHA or insulin regimen ID consulted Pt updated re plans Vitals Vitals Vital Signs Date Time Temp Pulse Resp B/P (MAP) Pulse Ox O2 Delivery O2 Flow Rate FiO2 06/05/18 07:00 99.0 88 18 123/61 (81) 97 Room Air 99.0 06/04/18 22:57 1.0 Physical Exam General: Alert, Cooperative, No acute distress Heart: Regular rate, Normal S1, Normal S2 Lungs: Other (a few end exp wheezing,dullness to percussion on the right upper lobe, symmetrical chest expansion) Abdomen: Normal bowel sounds Extremities: No clubbing, No cyanosis, No edema Skin: No significant lesion Labs LABS Laboratory Tests Test 06/04/18 16:47 06/04/18 20:50 06/05/18 08:09 06/05/18 09:40 Glucose (Fingerstick) 161 mg/dL (70-99) 160 mg/dL (70-99) 79 mg/dL (70-99) Erythrocyte Sedimentation Rate > 130 (0-25) Test 06/05/18 11:01 Glucose (Fingerstick) 70 mg/dL (70-99) Review of Systems Review of Systems A 14 point ROS was completed with the following noted as positive: Other systems reviewed and negative. \CONSTITUTIONAL: No fever or chills EYES: No recent changes SKIN: No rash or itching CARDIOVASCULAR: No chest pain, syncope, palpitations, or edema RESPIRATORY: No SOB or cough GASTROINTESTINAL: No nausea, vomiting or abdominal pain NEUROLOGICAL: No headaches or weakness ENDOCRINE: No cold or heat intolerance GENITOURINARY: No urgency or frequency of urination MUSCULOSKELETAL: No back pain or joint pain LYMPHATICS: No enlarged lymph nodes PSYCHIATRIC: No anxiety or depression Assessment and Plan Assessmemt and Plan Problems Medical Problems: (1) ESRD (end stage renal disease) on dialysis Status: Acute (2) Right upper lobe pneumonia Status: Acute Comment Review of Relevant I have reviewed the following items alivia (where applicable) has been applied. Labs Laboratory Tests Test 06/03/18 16:45 06/03/18 20:47 06/04/18 07:54 06/04/18 11:45 Glucose (Fingerstick) 227 mg/dL (70-99) 208 mg/dL (70-99) 86 mg/dL (70-99) 85 mg/dL (70-99) Test 06/04/18 16:47 06/04/18 20:50 06/05/18 08:09 06/05/18 09:40 Glucose (Fingerstick) 161 mg/dL (70-99) 160 mg/dL (70-99) 79 mg/dL (70-99) Erythrocyte Sedimentation Rate > 130 (0-25) Test 06/05/18 11:01 Glucose (Fingerstick) 70 mg/dL (70-99) Laboratory Tests Test 06/04/18 16:47 06/04/18 20:50 06/05/18 08:09 06/05/18 09:40 Glucose (Fingerstick) 161 mg/dL (70-99) 160 mg/dL (70-99) 79 mg/dL (70-99) Erythrocyte Sedimentation Rate > 130 (0-25) Test 06/05/18 11:01 Glucose (Fingerstick) 70 mg/dL (70-99) Microbiology 05/30/18 Blood Culture - Final, Complete NO GROWTH AFTER 5 DAYS 05/30/18 - Final, Complete 05/30/18 - Final, Complete 05/30/18 - Final, Complete 05/30/18 - Final, Complete 05/30/18 Gram Stain Evaluation - Final, Complete 05/30/18 Sputum Culture - Final, Complete 05/30/18 Sputum Result 1 - Final, Complete 05/30/18 Sputum Result 2 - Final, Complete 05/30/18 Antimicrobic Susceptibility - Final, Complete Medications Current Medications Vancomycin HCl 250 ml @ 250 mls/hr 1X ONCE IV ; Start 05/30/18 at 14:15; Stop 05/30/18 at 15:14; Status UNV Piperacillin Sod/ Tazobactam Sod 2.25 gm/Sodium Chloride 50 ml @ 100 mls/hr 1X ONCE IV Last administered on 05/30/18at 14:34; Start 05/30/18 at 14:15; Stop 05/30/18 at 14:44; Status DC Acetaminophen (Tylenol) 650 mg PRN Q4HRS PRN PO FEVER; Start 05/30/18 at 14:15 ; Stop 05/30/18 at 16:54; Status DC Albuterol/ Ipratropium (Duoneb) 3 ml RTQID NEB Last administered on 05/31/18at 19:23; Start 05/30/18 at 16:00; Stop 05/31/18 at 15:59; Status DC Vancomycin HCl 1.5 gm/Sodium Chloride 500 ml @ 250 mls/hr 1X ONCE IV Last administered on 05/30/18at 15:46; Start 05/30/18 at 14:30; Stop 05/30/18 at 16:29 ; Status DC Ondansetron HCl (Zofran) 4 mg PRN Q6HRS PRN IV NAUSEA/VOMITING; Start 05/30/18 at 17:00 Acetaminophen/ Hydrocodone Bitart (Lortab 5/325) 1 tab PRN Q4HRS PRN PO MILD PAIN, 2ND CHOICE Last administered on 06/04/18at 21:57; Start 05/30/18 at 17:00 Acetaminophen (Tylenol) 650 mg PRN Q6HRS PRN PO Headaches, Temp > 101.5F; Start 05/30/18 at 17:00 Senna/Docusate Sodium (Senna Plus) 1 tab BID PO Last administered on 06/04/18at 21:57; Start 05/30/18 at 21:00 Lactulose (Lactulose) 20 gm PRN Q12HR PRN PO CONSTIPATION 1ST CHOICE; Start at 17:00 Bisacodyl (Dulcolax Supp) 10 mg PRN DAILY PRN UT CONSTIPATION; Start 05/30/18 at 17:00 Heparin Sodium (Porcine) (Heparin Sodium) 5,000 unit Q12HR SQ Last administered on 06/04/18at 08:40; Start 05/30/18 at 21:00; Stop 06/04/18 at 15:04 ; Status DC Isosorbide Dinitrate (Isordil) 10 mg DAILY PO ; Start 05/31/18 at 09:00; Stop at 09:00; Status DC Sevelamer Carbonate (Renvela) 2,400 mg TIDWMEALS PO Last administered on at 16:53; Start 05/31/18 at 18:00 Carvedilol (Coreg) 25 mg DAILY08 PO ; Start 05/31/18 at 08:00; Stop 05/31/18 at 08:00; Status DC Hydralazine HCl (Apresoline) 10 mg DAILY PO Last administered on 06/03/18at 12: 00; Start 05/31/18 at 09:00 Losartan Potassium (Cozaar) 100 mg DAILY PO ; Start 05/31/18 at 09:00; Stop at 09:00; Status DC Magnesium Oxide (Magnesium Oxide) 400 mg DAILY PO Last administered on at 08:34; Start 05/31/18 at 09:00 Cefepime HCl (Maxipime) 1 gm Q24H IVP Last administered on 06/04/18at 21:56; Start 05/30/18 at 20:00 Vancomycin HCl (Vanco Per Pharmacy) 1 each PRN DAILY PRN MC SEE COMMENTS Last administered on 06/04/18at 12:32; Start 05/30/18 at 17:00 Sodium Chloride 250 ml @ 250 mls/hr 1X ONCE IV Last administered on at 20:00; Start 05/30/18 at 20:00; Stop 05/30/18 at 20:59; Status DC Vancomycin HCl (Vancomycin Random Level) 1 each 1X ONCE MC Last administered on 05/31/18at 06:00; Start 05/31/18 at 06:00; Stop 05/31/18 at 06:01; Status DC Sodium Chloride 250 ml @ 250 mls/hr 1X ONCE IV Last administered on at 20:30; Start 05/30/18 at 20:30; Stop 05/30/18 at 21:29; Status DC Insulin Glargine (Lantus) 5 units QHS SQ Last administered on 06/04/18at 22:07; Start 05/30/18 at 22:30 Insulin Human Lispro (HumaLOG) 0-5 UNITS TIDWMEALS SQ Last administered on 06/04at 16:56; Start 05/31/18 at 08:00 Dextrose (Dextrose 50%-Water Syringe) 12.5 gm PRN Q15MIN PRN IV SEE COMMENTS; Start 05/30/18 at 22:15 Lactobacillus Rhamnosus (Culturelle) 1 cap BID PO Last administered on at 21:56; Start 05/31/18 at 21:00 Sodium Chloride 1,000 ml @ 1,000 mls/hr Q1H PRN IV hypotension; Start 05/31/18 at 10:36; Stop 05/31/18 at 16:35; Status DC Albumin Human 200 ml @ 200 mls/hr 1X PRN PRN IV Hypotension; Start 05/31/18 at 10:45; Stop 05/31/18 at 16:44; Status DC Acetaminophen (Tylenol) 500 mg 1X PRN PRN PO MILD PAIN / TEMP; Start 05/31/18 at 10:45; Stop 06/01/18 at 10:44; Status DC Diphenhydramine HCl (Benadryl) 25 mg 1X PRN PRN IV ITCHING; Start 05/31/18 at 10:45; Stop 06/01/18 at 10:44; Status DC Diphenhydramine HCl (Benadryl) 25 mg 1X PRN PRN IV ITCHING; Start 05/31/18 at 10:45; Stop 06/01/18 at 10:44; Status DC Sodium Chloride 1,000 ml @ 400 mls/hr Q2H30M PRN IV PATENCY; Start 05/31/18 at 10:36; Stop 05/31/18 at 22:35; Status DC Info (PHARMACY MONITORING -- do not chart) 1 each PRN DAILY PRN MC SEE COMMENTS ; Start 05/31/18 at 10:45 Darbepoetin Noel (Aranesp) 60 mcg WEEKLYHS SQ Last administered on 05/31/18at 20 :14; Start 05/31/18 at 21:00 Artificial Tears (Artificial Tears) 1 drop PRN Q15MIN PRN OD DRY EYE Last administered on 06/03/18at 08:40; Start 05/31/18 at 13:15 Aspirin (Ecotrin) 81 mg DAILYWBKFT PO Last administered on 06/04/18 08:34; Start 06/01/18 at 08:00 Albuterol/ Ipratropium (Duoneb) 3 ml RTQID NEB Last administered on 06/05/18at 06:56; Start 06/01/18 at 08:00 Sodium Chloride 1,000 ml @ 1,000 mls/hr Q1H PRN IV hypotension; Start 06/01/18 at 14:00; Stop 06/01/18 at 19:59; Status DC Albumin Human 200 ml @ 200 mls/hr 1X PRN PRN IV Hypotension; Start 06/01/18 at 14:00; Stop 06/01/18 at 19:59; Status DC Acetaminophen (Tylenol) 500 mg 1X PRN PRN PO MILD PAIN / TEMP; Start 06/01/18 at 14:00; Stop 06/02/18 at 13:59; Status DC Diphenhydramine HCl (Benadryl) 25 mg 1X PRN PRN IV ITCHING; Start 06/01/18 at 14:00; Stop 06/02/18 at 13:59; Status DC Diphenhydramine HCl (Benadryl) 25 mg 1X PRN PRN IV ITCHING; Start 06/01/18 at 14:00; Stop 06/02/18 at 13:59; Status DC Sodium Chloride 1,000 ml @ 400 mls/hr Q2H30M PRN IV PATENCY; Start 06/01/18 at 14:00; Stop 06/02/18 at 01:59; Status DC Info (PHARMACY MONITORING -- do not chart) 1 each PRN DAILY PRN MC SEE COMMENTS ; Start 06/01/18 at 14:00; Status UNV Vancomycin HCl 500 mg/Sodium Chloride 100 ml @ 100 mls/hr QMWF IV Last administered on 06/04/18at 16:53; Start 06/01/18 at 16:00 Vitamin B Complex (Folbic Tablet) 1 tab DAILY PO Last administered on 08:34; Start 06/02/18 at 10:30 Polysaccharide Iron Complex (Niferex 150) 150 mg DAILY PO Last administered on 06/04/18 08:34; Start 06/02/18 at 11:00 Ciprofloxacin (Ciloxan Ophth) 1 drop QID OS Last administered on 06/04/18at 22: 08; Start 06/02/18 at 16:00 Cyclobenzaprine HCl (Flexeril) 10 mg PRN Q6HRS PRN PO MUSCLE SPASMS Last administered on 06/03/18at 19:18; Start 06/02/18 at 15:15 Budesonide (Pulmicort) 0.5 mg RTBID NEB Last administered on 06/05/18at 06:56; Start 06/03/18 at 08:00 Sodium Chloride 1,000 ml @ 1,000 mls/hr Q1H PRN IV hypotension; Start 06/04/18 at 07:30; Stop 06/04/18 at 15:00; Status DC Sodium Chloride 1,000 ml @ 400 mls/hr Q2H30M PRN IV PATENCY; Start 06/04/18 at 07:30; Stop 06/04/18 at 19:29; Status DC Info (PHARMACY MONITORING -- do not chart) 1 each PRN DAILY PRN MC SEE COMMENTS ; Start 06/04/18 at 09:45; Status UNV Info (PHARMACY MONITORING -- do not chart) 1 each PRN DAILY PRN MC SEE COMMENTS ; Start 06/04/18 at 09:45; Status UNV Guaifenesin (Robitussin Dm) 10 ml PRN Q6HRS PRN PO COUGH; Start 06/04/18 at 10: 45 Ondansetron HCl (Zofran) 4 mg PRN Q6HRS PRN IV NAUSEA/VOMITING; Start 06/05/18 at 09:15; Stop 06/06/18 at 09:14 Fentanyl Citrate (Fentanyl 2ml Vial) 25 mcg PRN Q5MIN PRN IV MILD PAIN; Start 06/05/18 at 09:15; Stop 06/06/18 at 09:14 Fentanyl Citrate (Fentanyl 2ml Vial) 50 mcg PRN Q5MIN PRN IV MODERATE TO SEVERE PAIN; Start 06/05/18 at 09:15; Stop 06/06/18 at 09:14 Morphine Sulfate (Morphine Sulfate) 1 mg PRN Q10MIN PRN IV SEVERE PAIN; Start 06/05/18 at 09:15; Stop 06/06/18 at 09:14 Ringer's Solution 1,000 ml @ 30 mls/hr Q24H IV ; Start 06/05/18 at 09:06; Stop 06/05/18 at 21:05 Lidocaine HCl (Xylocaine-Mpf 1% 2ml Vial) 2 ml 1X PRN PRN ID IV START; Start at 09:15; Stop 06/06/18 at 09:14 Hydromorphone HCl (Dilaudid) 0.5 mg PRN Q10MIN PRN IV SEV PAIN, Second choice; Start 06/05/18 at 09:15; Stop 06/06/18 at 09:14 Prochlorperazine Edisylate (Compazine) 5 mg PACU PRN PRN IV NAUSEA, MRX1; Start 06/05/18 at 09:15; Stop 06/06/18 at 09:14 Active Scripts Active Reported Carvedilol 25 Mg Tablet 25 Mg PO DAILY Losartan Potassium 100 Mg Tablet 100 Mg PO DAILY Isosorbide Dinitrate 10 Mg Tablet 10 Mg PO DAILY Hydralazine Hcl 10 Mg Tablet 10 Mg PO DAILY Renvela (Sevelamer Carbonate) 800 Mg Tablet 3 Tab PO TID Furosemide 80 Mg Tablet 1 Tab PO DAILY Magnesium Oxide 400 Mg Tablet 1 Tab PO DAILY Vitals/I & O Vital Sign - Last 24 Hours 06/04/18 06/04/18 06/04/18 06/04/18 12:24 15:00 15:43 17:48 Temp 99.6 99.4 99.6 99.4 Pulse 88 84 Resp 17 B/P (MAP) 115/57 (76) 124/68 (86) Pulse Ox 96 96 O2 Delivery Room Air Room Air Room Air Room Air O2 Flow Rate 1.0 06/04/18 06/04/18 06/04/18 06/04/18 19:00 20:00 20:38 21:57 Temp 99.7 99.7 Pulse 78 Resp 18 18 B/P (MAP) 114/59 (77) Pulse Ox 94 95 95 O2 Delivery Room Air Room Air Room Air Room Air 06/04/18 06/04/18 06/05/18 06/05/18 22:57 22:58 03:00 06:57 Temp 99.4 98.8 99.4 98.8 Pulse 74 75 Resp 18 18 18 B/P (MAP) 107/55 (72) 118/61 (80) Pulse Ox 94 94 96 95 O2 Delivery Room Air Room Air Room Air Room Air O2 Flow Rate 1.0 06/05/18 07:00 Temp 99.0 99.0 Pulse 88 Resp 18 B/P (MAP) 123/61 (81) Pulse Ox 97 O2 Delivery Room Air Intake and Output 06/04/18 06/04/18 06/05/18 14:59 22:59 06:59 Intake Total 340 ml 280 ml Output Total 0 ml Balance 340 ml 280 ml 0 ml ÁNGEL RODRÍGUEZ MD Jun 05, 2018 12:11
[2018-06-05] MEDS ORDERED: EPINEPHrine 1 MG/ML VIAL INJ PRN (12:15)
[2018-06-05] MEDS ORDERED: LIDOCAINE 2% VISCOUS 100 ML BOTTLE. MM PRN (12:15)
[2018-06-05] MEDS ORDERED: LIDOCAINE 1% Multi-Dose 20 ML VIAL. INJ PRN (12:15)
[2018-06-05] MEDS ORDERED: LIDOCAINE 4% TOPICAL 50 ML SOLUTION. MM PRN (12:15)
[2018-06-05] MEDS ORDERED: LIDOCAINE 4% TOPICAL 50 ML SOLUTION. ONE (12:32)
[2018-06-05] MEDS ORDERED: LIDOCAINE 1% Multi-Dose 20 ML VIAL. ONE (12:32)
[2018-06-05] MEDS ORDERED: EPINEPHrine 1 MG/ML VIAL ONE (12:32)
[2018-06-05] MEDS ORDERED: LIDOCAINE 2% VISCOUS 100 ML BOTTLE. ONE (12:32)
[2018-06-05] MEDS ORDERED: PROPOFOL 20 ML IV ONE (12:41)
[2018-06-05] MEDS ORDERED: IV NORMAL SALINE 1000ML BAG 1,000 ML IV SCH (12:45)
[2018-06-05] MEDS: VANCOMYCIN PER PHARMACY MC PRN (12:51)
--- NOTE | 2018-06-05 13:20 | NUR ---
PATIENT ARRIVED ON THE UNIT, FAMILY MEMBERS AT THE BEDSIDE, ASSESSMENT COMPLETED, PATIENT DENIES PAIN /DISCOMFORT AT THIS TIME, HAS AN OCCASSIONAL MOIST COUGH, PER REPORT AND PATIENTS' FAMILY PATIENT SHOULD BE ABLE TO CONSUME A DIET AT 1430, WILL MONITOR.
--- NOTE | 2018-06-05 14:43 | PDOC ---
Renal-Progress Notes Subjective Notes Notes BETTER History of Present Illness Hx of present illness STABLE Vitals Vitals Vital Signs Date Time Temp Pulse Resp B/P (MAP) Pulse Ox O2 Delivery O2 Flow Rate FiO2 06/05/18 14:34 Room Air 4.0 06/05/18 13:48 98.7 94 18 156/70 96 98.7 Weight Weight [ ] I.O. Intake and Output Intake and Output 06/05/18 06:59 Intake Total 620 ml Output Total 0 ml Balance 620 ml Intake Oral 520 ml IV Total 100 ml Output Urine Total 0 ml # Voids 1 Labs Labs Laboratory Tests Test 06/04/18 16:47 06/04/18 20:50 06/05/18 08:09 06/05/18 09:40 Glucose (Fingerstick) 161 mg/dL (70-99) 160 mg/dL (70-99) 79 mg/dL (70-99) Erythrocyte Sedimentation Rate > 130 (0-25) Test 06/05/18 11:01 06/05/18 13:58 Glucose (Fingerstick) 70 mg/dL (70-99) 69 mg/dL (70-99) Micro Micro Microbiology 05/30/18 Blood Culture - Final, Complete NO GROWTH AFTER 5 DAYS 05/30/18 - Final, Complete 05/30/18 - Final, Complete 05/30/18 - Final, Complete 05/30/18 - Final, Complete 05/30/18 Gram Stain Evaluation - Final, Complete 05/30/18 Sputum Culture - Final, Complete 05/30/18 Sputum Result 1 - Final, Complete 05/30/18 Sputum Result 2 - Final, Complete 05/30/18 Antimicrobic Susceptibility - Final, Complete Review of Systems Constitutional: yes: alert, oriented Ears/Nose/Throat: Yes: no symptom reported Eyes: Yes: no symptom reported Pulmonary: Yes no symptom reported Cardiovascular: Yes no symptom reported Gastrointestional: Yes: no symptom reported Genitourinary: Yes: no symptom reported Musculoskeletal: Yes: no symptom reported Skin: Yes no symptom reported Psychiatric/Neurological: Yes: no symptom reported Physical Exam General Appearance: no apparent distress Skin: warm Respiratory: bilateral CTA Heart: S1S2 Abdomen: soft, bowel sounds present Genitourinary: bladder flat Extremities: pulses present Neurology: alert Musculoskeletal: Osteoarthritis Assessment Assessment IMP ESRD ANEMIA COPD PNEUMONIA PLAN HD TOMORROW CONT DAVE WILL FOLLOW JOSEPH BECKFORD MD Jun 05, 2018 14:42
--- NOTE | 2018-06-05 14:45 | NUR ---
Pt transferred to non tele unit. Report given to KAL [place]amo. Family notified. Pt belongings to new room w/ family.
[2018-06-05 15:00] VITALS: BP 122/67
--- NOTE | 2018-06-05 18:03 | PDOC4 ---
PROCEDURE Procedure BRONCH BAL RUL NO ENDO LESION NO PURULENT MATERIAL WILL AWAIT RESULT SO BAL THANKS DALIA SCHMID MD Jun 05, 2018 18:03
--- NOTE | 2018-06-05 18:42 | RESP ---
DATE OF SERVICE: 06/05/2018 ATTENDING PHYSICIAN: Dr. Bustos. PROCEDURE: Bronchoscopy. INDICATIONS: Abnormal CT chest revealing a right upper lobe cavitary lesion. Risks, benefits, and alternatives reviewed with the patient. She consented. DESCRIPTION OF PROCEDURE: A timeout was performed prior to sedation. Vital signs and O2 saturation were maintained within normal limits throughout the procedure. The bronchoscope was passed through the right naris. The vocal cords were identified moving bilaterally without any dysfunction. The vocal cords were then anesthetized with a total 5 mL of 4% lidocaine. The bronchoscope was passed through the vocal cords into the proximal trachea. Proximal trachea was normal. The distal trachea was likewise normal. The right and left segments and subsegments were all visualized. There was no endobronchial lesion. The scope was wedged into the right upper lobe segment and a bronchoalveolar lavage was performed, the return was clear. FINDINGS: 1. Normal vocal cords. 2. No endobronchial lesion. 3. No purulent material. PLAN: We will await the BAL results. The patient tolerated the procedure well with no immediate complications. DALIA SCHMID MD DR: SANDRA/ron JOB#: [id number] / [id number]
[2018-06-05 19:00] VITALS: BP 137/71
[2018-06-05] MEDS: HYDROcodone/APAP 5/325MG 1 TAB TABLET PO PRN (21:30)
[2018-06-05] MEDS: CEFEPIME HCL IV Push 1 GM VIAL. IVP SCH (21:32)
[2018-06-05] MEDS: INSULIN GLARGINE 300 UNITS/3 ML INSULN.PEN. SQ SCH (21:43)
[2018-06-05 23:00] VITALS: BP 118/62
--- NOTE | 2018-06-05 23:13 | CONS ---
DATE OF CONSULTATION: 06/05/2018 REQUESTING PHYSICIAN: Dr. Smith. REASON FOR CONSULTATION: Pseudomonas cavitary pneumonia. HISTORY OF PRESENT ILLNESS: This is a 57-year-old -[place] female with history of end-stage renal disease who originally came in with not feeling well, no energy, some shortness of breath, cough that has been going on for about 10 days or so or a week before she came in. Evidently, she had been to [facility] where she had hypotension in the ICU, but her kids took her out as AMA. The patient was found to be hypotensive here and the patient was supported, had respiratory distress or hypoxia. The patient eventually was found to have pseudomonas in the sputum as well as cavitation with upper lobe infiltrate in the CT. The patient is supposed to go for bronchoscopy. The patient is receiving cefepime and vancomycin other than her usual regular medication. The patient is sitting in chair. She denies any night sweats other than one night when she came in, but not ongoing before then. The patient denied any weight loss. Denied any cough for a long period of time. She has had some nausea, vomiting when she came in, but now much better. PAST MEDICAL HISTORY: Positive for end-stage renal disease, on hemodialysis; suspected COPD, has long history of smoking; hypertension; right upper extremity fistula; hyperlipidemia; coronary artery disease with stenting done; coronary artery bypass grafting done; congestive heart failure; arthritis; diabetes. SOCIAL HISTORY: Positive for marijuana use. She does not smoke anymore and not much alcohol use, very occasional. ALLERGIES: No known drug allergies. CURRENT MEDICATIONS: Reviewed. REVIEW OF SYSTEMS: As per HPI. All other systems reviewed and are negative. PHYSICAL EXAMINATION: GENERAL: Alert, oriented female, not in any distress. VITAL SIGNS: Stable with a T-max 99.7. HEENT: NAD. NECK: Supple, no JVP, no lymphadenopathy. LUNGS: Clear. HEART: S1, S2 regular. ABDOMEN: Benign. EXTREMITIES: No edema or cyanosis. SKIN: Unremarkable. NEUROLOGIC: The patient is neurologically alert, awake and appropriate. No focal neurologic deficit. LABORATORY DATA: White count is 8.3, hemoglobin 8.0, platelets are 147,000. BUN and creatinine is 35 and 5.8. Her influenza screen was negative. Her sputum culture is pansensitive pseudomonas. Blood culture is negative. CT of the chest had shown prominent infiltrate posteriorly of the right upper lobe with internal areas of cavitation. IMPRESSION: 1. Upper lobe pneumonia with cavitation. 2. Pseudomonas pneumonia. Pseudomonas can cause cavitation, although other etiology needs to be ruled out from bronchoscopy. 3. Hypertension. 4. End-stage renal disease, on hemodialysis. 5. Low grade fever. 6. Hypoxic respiratory failure. 7. Hypotension, which has improved. 8. Diabetes. 9. Marijuana use that also can give her pseudomonas. RECOMMENDATIONS: Continue cefepime for the time being. We will wait for the bronchoscopy and results from bronchoscopy to decide if any other etiologic agent that we need to worry about. Thank you very much, Dr. Smith, for giving me the opportunity to participate in this patient's care. ALVARO FAIR MD DR: CHANTEL/nts JOB#: [id number] / [id number]
[2018-06-06 03:00] VITALS: BP 129/67
--- NOTE | 2018-06-06 04:00 | CONS ---
DATE OF CONSULTATION: 06/05/2018 ATTENDING PHYSICIAN: Dr. Bustos. DICTATION ENDS HERE. DALIA SCHMID MD DR: SANDRA/ron JOB#: [id number] / [id number]
[2018-06-06] MEDS: BUDESONIDE 0.5 MG/2 ML NEBU. NEB SCH (07:01)
[2018-06-06] MEDS: IPRATRPIUM/ALBUTEROL 0.5/2.5MG 3 ML NEBU. NEB SCH ×3 (07:01→14:44)
[2018-06-06 07:15] VITALS: BP 124/63
[2018-06-06] MEDS: INSULIN LISPRO 300 UNITS/3 ML INSULN.PEN. SQ SCH ×3 (08:00→17:18)
[2018-06-06] MEDS: ASPIRIN ENTERIC COATED 81 MG TABLET.DR. PO SCH (08:00)
[2018-06-06] MEDS: SEVELAMER CARBONATE 800 MG TABLET. PO SCH ×3 (08:00→17:14)
[2018-06-06] MEDS: CIPROFLOXACIN 0.3% OPHTH SOLUTION 5ML BOTTLE. OS SCH ×3 (08:52→16:52)
[2018-06-06] MEDS: VITAMIN B12,B9,B6 COMPLEX 1 TABLET. PO SCH (08:53)
[2018-06-06] MEDS: LACTOBACILLUS RHAMNOSUS GG 1 CAPSULE. PO SCH (08:53)
[2018-06-06] MEDS: MAGNESIUM OXIDE 400 MG TABLET PO SCH (08:53)
[2018-06-06] MEDS: IRON POLYSACCHARIDE COMPLEX 150 MG CAPSULE PO SCH (08:53)
[2018-06-06] MEDS: hydrALAZINE 10 MG TABLET PO SCH (08:53)
[2018-06-06] MEDS: SENNOSIDES/DOCUSATE 8.6/50MG TABLET. PO SCH (08:53)
[2018-06-06] MEDS ORDERED: IV NORMAL SALINE 1000ML BAG 1,000 ML IV PRN ×2 (09:37)
[2018-06-06] MEDS ORDERED: DIALYSIS PATIENT. MC PRN (09:45)
--- NOTE | 2018-06-06 09:49 | PDOC ---
PULMONARY PROGRESS NOTES Subjective PT NOT MORE SOA Vitals Vital Signs Date Time Temp Pulse Resp B/P (MAP) Pulse Ox O2 Delivery O2 Flow Rate FiO2 06/06/18 07:15 98.8 87 20 124/63 (83) 97 Room Air 98.8 06/06/18 06:50 2.0 ROS: No Nausea, No Chest Pain, No Abdominal Pain, No Increase Cough General: Alert, No acute distress Lungs: Crackles Cardiovascular: S1, S2 Abdomen: Soft, Non-tender Neuro Exam: Alert Extremities: No Edema Skin: Warm Labs Laboratory Tests Test 06/04/18 11:45 06/04/18 16:47 06/04/18 20:50 06/05/18 08:09 Glucose (Fingerstick) 85 mg/dL (70-99) 161 mg/dL (70-99) 160 mg/dL (70-99) 79 mg/dL (70-99) Test 06/05/18 09:40 06/05/18 11:01 06/05/18 13:58 06/05/18 15:41 Erythrocyte Sedimentation Rate > 130 (0-25) Glucose (Fingerstick) 70 mg/dL (70-99) 69 mg/dL (70-99) 60 mg/dL (70-99) Test 06/05/18 16:54 06/05/18 21:18 Glucose (Fingerstick) 106 mg/dL (70-99) 157 mg/dL (70-99) Laboratory Tests Test 06/05/18 11:01 06/05/18 13:58 06/05/18 15:41 06/05/18 16:54 Glucose (Fingerstick) 70 mg/dL (70-99) 69 mg/dL (70-99) 60 mg/dL (70-99) 106 mg/dL (70-99) Test 06/05/18 21:18 Glucose (Fingerstick) 157 mg/dL (70-99) Medications Active Scripts Medications Dose Route/Sig Max Daily Dose Days Date Category Carvedilol 25 Mg Tablet 25 Mg PO DAILY 05/30/18 Reported Losartan Potassium 100 Mg Tablet 100 Mg PO DAILY 05/30/18 Reported Isosorbide Dinitrate 10 Mg Tablet 10 Mg PO DAILY 05/30/18 Reported Hydralazine Hcl 10 Mg Tablet 10 Mg PO DAILY 05/30/18 Reported Renvela (Sevelamer Carbonate) 800 Mg Tablet 3 Tab PO TID 06/27/14 Reported Furosemide 80 Mg Tablet 1 Tab PO DAILY 06/27/14 Reported Magnesium Oxide 400 Mg Tablet 1 Tab PO DAILY 06/27/14 Reported Impression . 1. Dyspnea with acute hypoxic respiratory failure requiring oxygen on admission secondary to pneumonia and underlying chronic obstructive pulmonary disease. S/ P BRONCH NO ENDO LESION 2. Abnormal chest x-ray consistent with right upper lobe pneumonia. 3. End-stage renal disease, on hemodialysis. 4. 25 years of tobacco use, suspect underlying chronic obstructive pulmonary disease w ae CT 1. There is prominent infiltrate posteriorly of the right upper lobe with internal areas of cavitation, could be due to cavitary pneumonia including consideration of mycobacterial etiology given cavitation. However cavitary neoplastic etiology is not excluded. There is small right pleural effusion. 2. There has been median sternotomy. There is coronary calcification. Plan . SO FAR CULTURES NEGATIVE FROM BAL CYTOLOGY PENDING D/C HOME RX FOR CIPRO D/W DR FAIR FOLLOW UP WITH DR PEGUERO 2-4 WEEKS DALIA SCHMID MD Jun 06, 2018 09:49
--- NOTE | 2018-06-06 10:28 | PDOC ---
Infectious Disease Note Subjective Subjective pt is feeling better ROS ROS no n/v/d/sob Vital Sign Vital Signs Vital Signs Date Time Temp Pulse Resp B/P (MAP) Pulse Ox O2 Delivery O2 Flow Rate FiO2 06/06/18 07:15 98.8 87 20 124/63 (83) 97 Room Air 98.8 06/06/18 06:50 2.0 Physical Exam PHYSICAL EXAM GENERAL: Alert, oriented female, not in any distress. VITAL SIGNS: Stable with a T-max 99.7. HEENT: NAD. NECK: Supple, no JVP, no lymphadenopathy. LUNGS: Clear. HEART: S1, S2 regular. ABDOMEN: Benign. EXTREMITIES: No edema or cyanosis. SKIN: Unremarkable. NEUROLOGIC: The patient is neurologically alert, awake and appropriate. No focal neurologic deficit. Labs Lab Laboratory Tests Test 06/05/18 11:01 06/05/18 13:58 06/05/18 15:41 06/05/18 16:54 Glucose (Fingerstick) 70 mg/dL (70-99) 69 mg/dL (70-99) 60 mg/dL (70-99) 106 mg/dL (70-99) Test 06/05/18 21:18 Glucose (Fingerstick) 157 mg/dL (70-99) Objective Assessment Pneumonia with cavitation PSA respiratory infection Fever ESRD on HD Suspected COPD Plan Plan of Care cont cefepime for now Bronch and culture pending supportive care ALVARO FAIR MD Jun 06, 2018 10:28
[2018-06-06] MEDS: HYDROcodone/APAP 5/325MG 1 TAB TABLET PO PRN (14:01)
--- NOTE | 2018-06-06 14:25 | NUR ---
SW following. Discussed with RN, pt is from home with son. Waiting on cultures from pt's bronch yesterday (06/05/18). Pt has dialysis MWF. SW will continue to follow.
[2018-06-06 15:00] VITALS: BP 142/59
[2018-06-06] MEDS: VANCOMYCIN 500 MG in IV NORMAL SALINE 100ML 100 ML IV SCH (16:00)
[2018-06-06] MEDS: VANCOMYCIN PER PHARMACY MC PRN (16:53)
--- NOTE | 2018-06-06 18:01 | NUR ---
Patient discharged, home self care. Patient understands discharge instructions and the need to follow up with Dr. Hopper in [address] Galo in 10 days. Patient understands new prescriptions. Patient alert and stable upon discharge. IV line discontinued. All belongings with patient. Patient accompanied by son and Saritha ABDIA to car.
--- NOTE | 2018-06-06 19:47 | DS ---
DATE OF DISCHARGE: 06/06/2018 DISCHARGE DIAGNOSES: 1. Cavitary pneumonia, status post bronchoscopy, right upper lobe. 2. End-stage renal disease on dialysis Monday, Monday and Monday. 3. Anemia with ESRD. 4. Hypertension, controlled. BRIEF HOSPITAL COURSE: The patient was admitted because of right upper lobe pneumonia, was not getting better. CAT scan was done, which showed cavitary pneumonia. Bronchoscopy was done, which revealed some mucus and was able to get some sample sent to the lab. The patient is nontoxic appearing, no fevers, no white count. Co-manage with Pulmonary and ID. She will go home with Анна b.i.elise and Rx has been written on chart. She will continue her dialysis Monday, Monday and Monday as outpatient as scheduled. No PT needs. Discharge summary less than 30 minutes. Do not resuscitate. CONSULTS PERFORMED: Pulmonary/ID, Renal. PROCEDURES PERFORMED: Bronchoscopy on 06/05/2018 and dialysis Monday, Monday and Monday. ÁNGEL RODRÍGUEZ MD DR: /nts JOB#: [id number] / [id number]
--- NOTE | 2018-06-07 00:35 | PN ---
DATE: 06/06/2018 SUBJECTIVE: She has no complaints. I am seeing her in dialysis. Bronchoscopy was done yesterday, which showed mucus stuff, but of course the rest was sent to the lab and the path is still pending. We are treating for cavitary pneumonia and she also has ESRD, chronic, on dialysis on Monday, Monday and Monday. OBJECTIVE: GENERAL: Awake, alert, oriented x 3, not in acute distress. HEENT: Unremarkable. LUNGS: Decreased breath sounds. No crackles, rhonchi or wheezing. HEART: Normal rate and rhythm. No murmurs, rubs or gallops. ABDOMEN: Soft, nontender and normoactive bowel sounds. GENITALIA: Appropriate for age. EXTREMITIES: Negative edema. Pulses full and equal. No pallor or cyanosis of nailbeds. ASSESSMENT AND PLAN: 1. Cavitary pneumonia. ID and Pulmonary on board. Status post bronchoscopy on 06/05/2018, results pending. 2. End-stage renal disease, on dialysis Monday, Monday and Monday. 3. Anemia of end-stage renal disease. 4. Moderate PCM. 5. Hypertension, controlled. PLAN: Continue dialysis, continue IV antibiotics. Follow cultures, follow up bronchoscopy results. Seemingly no PT needs, will see for formal PT, OT evaluation. ÁNGEL RODRÍGUEZ MD DR: /nts JOB#: [id number] / [id number]
--- NOTE | 2018-06-08 12:09 | PATHOLOGY ---
Note [facility] Accession Number: [id number] TESTS RESULT FLAG UNITS REF RANGE LAB Clinician Provided Cytology Information No. of containers..01 Other (Miscellaneous) Source: RUL BAL DIAGNOSIS: RUL BAL NEGATIVE FOR MALIGNANT CELLS. FOCALLY REACTIVE BRONCHIAL EPITHELIAL CELLS, PULMONARY MACROPHAGES, AND INFLAMMATORY CELLS PRESENT. THE CASE IS ALSO EXAMINED BY DR. BALLESTEROS, CYTOPATHOLOGIST, WHO CONCURS WITH THE DIAGNOSIS. Signed out by: Nathaniel Durham MD, Pathologist NPI- [id number] Performed by: Mundo Chen, Landscape Laborer ([facility]) Gross description: 01 8ML, RED, CLOUDY /LCS FLAG LEGEND: L-Low Normal,H-High Normal,LL-Alert Low,HH-Alert High <-Panic Low,>-Panic High,A-Abnormal,AA-Critical Abnormal Performed at: [facility] [address] [facility] [address] [place] [address] Arthur Staley MD, [address] [facility] [address] [place] [address] Nathaniel Durham MD, Specimen Comment: A courtesy copy of this report has been sent to Specimen Comment: [phone]. Specimen Comment: Report sent to Specimen Comment: A duplicate report has been generated due to demographic updates. Performed at: [address] [place], [place] [address] [address] [facility] [address], [place], [place] [id number] MD Arthur Staley MD Phone: [phone]
[2018-08-30] MEDS ORDERED: DIPH25CA58 PO (09:19)
[2018-08-30] MEDS ORDERED: ASPI-630 PO (09:19)
[2018-08-30] MEDS ORDERED: HYDR-2763 PO (09:19)
[2018-08-30] MEDS ORDERED: FOLI0.8T30 PO (09:19)
== END 2018-06-06 18:03 | disposition home or self-care (01) | DRG 177 ==
LOC: ER 09:48 → 5 NORTH 14:07 → 5 SOUTH 06-05 14:09
PROVIDERS: ADMIT Internal Medicine; ATTEND Internal Medicine
PROC: 5A1D70Z Performance of Urinary Filtration, Intermittent, Less than 6 Hours Per Day (ICD-10-PCS; principal; 2018-05-31)
PROC: 5A1D70Z Performance of Urinary Filtration, Intermittent, Less than 6 Hours Per Day (ICD-10-PCS; 2018-06-01)
PROC: 5A1D70Z Performance of Urinary Filtration, Intermittent, Less than 6 Hours Per Day (ICD-10-PCS; 2018-06-04)
PROC: 0B9C8ZX Drainage of Right Upper Lung Lobe, Via Natural or Artificial Opening Endoscopic, Diagnostic (ICD-10-PCS; 2018-06-05)
PROC: 5A1D70Z Performance of Urinary Filtration, Intermittent, Less than 6 Hours Per Day (ICD-10-PCS; 2018-06-06)
DX: J15.6 Pneumonia due to other Gram-negative bacteria (principal); N18.6 End stage renal disease; J96.01 Acute respiratory failure with hypoxia; J44.1 Chronic obstructive pulmonary disease with (acute) exacerbation; I47.2 Ventricular tachycardia; I13.2 Hypertensive heart and chronic kidney disease with heart failure and with stage 5 chronic kidney disease, or end stage renal disease; J44.0 Chronic obstructive pulmonary disease with (acute) lower respiratory infection; N39.0 Urinary tract infection, site not specified; E87.1 Hypo-osmolality and hyponatremia; I50.42 Chronic combined systolic (congestive) and diastolic (congestive) heart failure; E44.0 Moderate protein-calorie malnutrition; J15.1 Pneumonia due to Pseudomonas; Z66 Do not resuscitate; I48.0 Paroxysmal atrial fibrillation; E11.22 Type 2 diabetes mellitus with diabetic chronic kidney disease; I25.10 Atherosclerotic heart disease of native coronary artery without angina pectoris; E78.5 Hyperlipidemia, unspecified; M19.90 Unspecified osteoarthritis, unspecified site; E78.00 Pure hypercholesterolemia, unspecified; D63.1 Anemia in chronic kidney disease; F12.90 Cannabis use, unspecified, uncomplicated; Z68.28 Body mass index [BMI] 28.0-28.9, adult; Z95.1 Presence of aortocoronary bypass graft; Z99.2 Dependence on renal dialysis; Z87.891 Personal history of nicotine dependence; Z88.8 Allergy status to other drugs, medicaments and biological substances; Z83.3 Family history of diabetes mellitus; Z82.49 Family history of ischemic heart disease and other diseases of the circulatory system
CPT/HCPCS: 31622; 36415; 71045; 71046; 71250; 80053; 80069; 80202; 81001; 82962; 83605; 83735; 83880; 84145; 84484; 85007; 85025; 85049; 85651; 87015; 87040; 87070; 87102; 87116; 87186; 87205; 87804; 88112; 93005; 93306; 94640; 94760; 96365; J0692; J0881; J1644; J1815; J2543; J2704; J3370; J7030; J7040; J7050; J7620; J7626; 97116; 97530; 97535; 99285-25

== ENCOUNTER → 2018-06-14 | Outpatient (CLI) | payer MEDICARE ==
[2018-06-06 15:00] VITALS: BP 142/59
[~2018-06-14] MED LIST changes: +ALBU2.5V8 INH; +ASPI-630 PO; +ATOR10TA60 PO; +CARV25TA2 PO; +DIPH25CA58 PO; +DOCU100C28 PO; +DOXA4TAB2 PO; +FERR325T72 PO; +FOLI0.8T30 PO; +GABA300C18 PO; +HYDR-2763 PO; +HYDR-2867 PO; +ISOS10TA2 PO; +LEVO500T59 PO; +LORA10TA3 PO; +LOSA100T14 PO; +UMEC1DIS IH
== END | disposition home or self-care (01) ==
LOC: LAB 11:17
PROVIDERS: ATTEND Nurse Practitioner Adult Health
DX: I13.2 Hypertensive heart and chronic kidney disease with heart failure and with stage 5 chronic kidney disease, or end stage renal disease (principal); E11.22 Type 2 diabetes mellitus with diabetic chronic kidney disease; I50.42 Chronic combined systolic (congestive) and diastolic (congestive) heart failure; N18.6 End stage renal disease
CPT/HCPCS: 36415; 85018

== ENCOUNTER 2018-07-14 12:27 | Inpatient (IN) | payer MEDICARE ==
[~2018-07-14] VITALS: Ht 175.3 cm; Wt 85.7 kg
[~2018-07-14 12:27] MED LIST changes: -ALBU2.5V8 INH; -ASPI-630 PO; -ATOR10TA60 PO; -DIPH25CA58 PO; -DOCU100C28 PO; -DOXA4TAB2 PO; -FERR325T72 PO; -FOLI0.8T30 PO; -GABA300C18 PO; -HYDR-2763 PO; -LEVO500T59 PO; -LORA10TA3 PO; -UMEC1DIS IH
--- NOTE | 2018-07-14 13:51 | PHYS DOC ---
Past Medical History Past Medical History: Arthritis, CHF, Diabetes-Type II, High Cholesterol, Hypertension, Renal Failure Additional Past Medical Histor: TRIPLE BYPASS Past Surgical History: Coronary Bypass Surgery, Tubal ligation Additional Past Surgical Histo: FISTULA, HERNIA, HEART BYPASS Additional Information: Quit 2012. Alcohol Use: Rarely Drug Use: Marijuana Social History Narrative: Last smoked 2days ago. Adult General Chief Complaint Chief Complaint: SHORTNESS OF BREATH HPI HPI Patient is a 58 year old female who presents with complaint of shortness of breath. She states this SOB began 3 weeks and is relatively unchanging. She states she came in today because her son is concerned that she is less active and more fatigued because of the SOB. She reports that she was in the hospital last month for cavitary PNA, and was treated with PO antibiotics at home. She states that she usually sleeps with 2 pillows but requires 3 recently. She reports that she is able to recover her SOB with resting 5-10 mins but can be fatigued and weak for the rest of the day. She does not know if she has gained any weight. She is ESRD with CHF and a-fib and is on dialysis three days a week. She denies CP/f/c/n/v. She denies abdominal pain/symptoms. She does not take inhalers, supplemental O2 or cpap at home. [] All Review of Systems Review of Systems Constitutional: Denies fever or chills [] Eyes: Denies change in visual acuity, redness, or eye pain [] HENT: Denies nasal congestion or sore throat [] Respiratory: Denies cough. Reports shortness of breath [] Cardiovascular: Hx of afib, cabg x 3[] GI: Denies abdominal pain, nausea, vomiting, bloody stools or diarrhea [] : Denies dysuria or hematuria [] Musculoskeletal: Denies back pain or joint pain [] Integument: Denies rash or skin lesions [] Neurologic: Denies headache, focal weakness or sensory changes [] Endocrine: Denies polyuria or polydipsia [] All other systems were reviewed and found to be within normal limits, except as documented in this note. Current Medications Current Medications Current Medications Medications (Trade) Dose Ordered Sig/Rosie Start Time Stop Time Status Last Admin Dose Admin Albuterol/ Ipratropium (Duoneb) 3 ml 1X ONCE 07/14/18 14:00 07/14/18 14:01 DC 07/14/18 13:49 3 ML Levofloxacin/ Dextrose 100 ml @ 100 mls/hr Q48H 07/14/18 16:00 Levofloxacin/ Dextrose (Levaquin Per Pharmacy) 1 each PRN DAILY PRN 07/14/18 16:00 see med list Allergies Allergies Allergies Coded Allergies Type Severity Reaction Last Updated Verified azithromycin Allergy Intermediate Anxiety 06/05/18 Yes Physical Exam Physical Exam Constitutional: Well developed, well nourished, no acute distress, non-toxic appearance. [] HENT: Normocephalic, atraumatic, bilateral external ears normal, oropharynx moist, no oral exudates, nose normal. [] Eyes: PERRLA, EOMI, conjunctiva normal, no discharge. [] Neck: Normal range of motion, no tenderness, supple, no stridor. [] Cardiovascular:Heart rate regular rhythm, 3/6 systolic murmur with radiation to R-carotid[] Lungs & Thorax: R-upper lobe inspiratory wheezes, L-lobe clear to auscultation [] Abdomen: Bowel sounds normal, soft, no tenderness, no masses, no pulsatile masses. [] Skin: Warm, dry, no erythema, no rash. [] Back: No tenderness, no CVA tenderness. [] Extremities: No tenderness, no cyanosis, no clubbing, ROM intact, no edema. [] Neurologic: Alert and oriented X 3, normal motor function, normal sensory function, no focal deficits noted. [] Psychologic: Affect normal, judgement normal, mood normal. [] Current Patient Data Vital Signs Vital Signs Date Time Temp Pulse Resp B/P (MAP) Pulse Ox O2 Delivery O2 Flow Rate FiO2 07/14/18 14:05 76 18 132/79 (96) 100 Room Air 07/14/18 12:54 97.8 97.8 Lab Values Laboratory Tests Test 07/14/18 14:25 White Blood Count 3.5 x10^3/uL (4.0-11.0) L Red Blood Count 2.78 x10^6/uL (3.50-5.40) L Hemoglobin 9.5 g/dL (12.0-15.5) L Hematocrit 29.1 % (36.0-47.0) L Mean Corpuscular Volume 105 fL (79-100) H Mean Corpuscular Hemoglobin 34 pg (25-35) Mean Corpuscular Hemoglobin Concent 33 g/dL (31-37) Red Cell Distribution Width 15.9 % (11.5-14.5) H Platelet Count 137 x10^3/uL (140-400) L Neutrophils (%) (Auto) 56 % (31-73) Lymphocytes (%) (Auto) 24 % (24-48) Monocytes (%) (Auto) 12 % (0-9) H Eosinophils (%) (Auto) 7 % (0-3) H Basophils (%) (Auto) 1 % (0-3) Neutrophils # (Auto) 2.0 x10^3uL (1.8-7.7) Lymphocytes # (Auto) 0.8 x10^3/uL (1.0-4.8) L Monocytes # (Auto) 0.4 x10^3/uL (0.0-1.1) Eosinophils # (Auto) 0.2 x10^3/uL (0.0-0.7) Basophils # (Auto) 0.0 x10^3/uL (0.0-0.2) Prothrombin Time 14.1 SEC (11.7-14.0) H Prothrombin Time INR 1.1 (0.8-1.1) D-Dimer (Daly) 1.10 ug/mlFEU (0.00-0.50) H Sodium Level 141 mmol/L (136-145) Potassium Level 4.0 mmol/L (3.5-5.1) Chloride Level 104 mmol/L (98-107) Carbon Dioxide Level 20 mmol/L (21-32) L Anion Gap 17 (6-14) H Blood Urea Nitrogen 13 mg/dL (7-20) Creatinine 5.4 mg/dL (0.6-1.0) H Estimated GFR (Cockcroft-Gault) 9.9 BUN/Creatinine Ratio 2 (6-20) L Glucose Level 154 mg/dL (70-99) H Calcium Level 9.7 mg/dL (8.5-10.1) Total Bilirubin 0.4 mg/dL (0.2-1.0) Aspartate Amino Transferase (AST) 14 U/L (15-37) L Alanine Aminotransferase (ALT) 17 U/L (14-59) Alkaline Phosphatase 227 U/L (46-116) H Troponin I Quantitative < 0.017 ng/mL (0.000-0.055) DQ-Tqt-H-Type Natriuretic Peptide > 23483 pg/mL (0-124) H Total Protein 7.1 g/dL (6.4-8.2) Albumin 3.3 g/dL (3.4-5.0) L Albumin/Globulin Ratio 0.9 (1.0-1.7) L Laboratory Tests 07/14/18 14:25 Laboratory Tests 07/14/18 14:25 EKG EKG []EKG shows a normal sinus rhythm and LVH pattern overall similar to June 26, 2014 no obvious STEMI was seen Radiology/Procedures Radiology/Procedures PROCEDURE: PORTABLE CHEST 1V AP view of the chest. Comparison: Chest radiograph dated 06/03/2018, CT chest dated 06/04/2018. Indication: Shortness of air Findings: Normal lung volume. Significant improvement in the right upper lung zone opacities, although some patchy opacities do persist. New right basilar opacities. Unchanged pulmonary vascular indistinctness. Small right pleural effusion. No pneumothorax. Unchanged cardiomegaly. The great vessels of the thorax are unchanged. Prior median sternotomy. No acute osseous abnormality. Redemonstration of right subclavian vascular stent with unchanged apparent kinking or stent fracture in the lateral third. IMPRESSION: 1. Significant improvement in the right upper lung zone opacities, although some patchy opacities do persist. 2. New right basilar opacities may be secondary to atelectasis given the development of a small right pleural effusion. 3. Unchanged cardiomegaly.[] Course & Med Decision Making Course & Med Decision Making Pertinent Labs and Imaging studies reviewed. (See chart for details) 58 YO F HX ESRD HD MWF , RECENT ADMIT FOR PNA, CAD S/P CABG, presents with SOA on exertion for three weeks with history of cavitary PNA, ESRD, CHF and CABG x3. Pt denies f/c/n/v and says that she otherwise feels ok. Given history of recent PNA will get CXR to assess lung status of infection and possible PE. Given cardiac history, cannot rule out cardiac etiology for cause of SOA. [] DDIMER ELEV, V/Q PENDING EXERTIONAL DYSPNEA, UNCLEAR LAST STRESS TEST. CXR POSSIBLE NEW PNA. LEVAQUIN GIVEN (BASED ON PRIOR SPUTUM CULTURE) SAT NORMAL IN ER BUT DOES LOOK MILDLY DYSPNEIC AND TACHYPNEIC COULD BE ALL FLUID OVERLOAD BUT GIVEN RECNET HX AND HOW SHE LOOKS I PREFER TO ADMIT HER FOR ABX AND FURTHER EVAL. D/W SHEILA AT 345 PM, ADMIT FOR POSSIBLE PNA, PULM CONSULT, V/Q PENDING AT THIS TIME. Dragon Disclaimer Dragon Disclaimer This electronic medical record was generated, in whole or in part, using a voice recognition dictation system. Departure Departure Impression: Primary Impression: Pneumonia Disposition: 09 ADMITTED INPATIENT Admitting Physician: Ousmane Canada Condition: STABLE Referrals: FRAN MORENO MD (PCP) VINNIE SUAREZ MD Jul 14, 2018 13:51
[2018-07-14] MEDS ORDERED: IPRATRPIUM/ALBUTEROL 0.5/2.5MG 3 ML NEBU. NEB ONE (14:00)
--- NOTE | 2018-07-14 14:10 | RAD ---
AP view of the chest. Comparison: Chest radiograph dated 06/03/2018, CT chest dated 06/04/2018. Indication: Shortness of air Findings: Normal lung volume. Significant improvement in the right upper lung zone opacities, although some patchy opacities do persist. New right basilar opacities. Unchanged pulmonary vascular indistinctness. Small right pleural effusion. No pneumothorax. Unchanged cardiomegaly. The great vessels of the thorax are unchanged. Prior median sternotomy. No acute osseous abnormality. Redemonstration of right subclavian vascular stent with unchanged apparent kinking or stent fracture in the lateral third. IMPRESSION: 1. Significant improvement in the right upper lung zone opacities, although some patchy opacities do persist. 2. New right basilar opacities may be secondary to atelectasis given the development of a small right pleural effusion. 3. Unchanged cardiomegaly. Electronically signed by: Gume Rosario MD (07/14/2018 2:07 PM) [facility]
[2018-07-14 14:37] LABS: BASO % 1 % (0-3); EOS # 0.2 x10^3/uL (0.0-0.7); EOS % 7 % (0-3); HEMATOCRIT 29.1 % (36.0-47.0); HEMOGLOBIN 9.5 g/dL (12.0-15.5); LYMPH # 0.8 x10^3/uL (1.0-4.8); LYMPH % 24 % (24-48); MEAN CORPUSCULAR HEMOGLOBIN 34 pg (25-35); MEAN CORPUSCULAR HGB CONC 33 g/dL (31-37); MEAN CORPUSCULAR VOLUME 105 fL (79-100); MONO # 0.4 x10^3/uL (0.0-1.1); MONO % 12 % (0-9); NEUT % 56 % (31-73); PLATELET COUNT 137 x10^3/uL (140-400); RED BLOOD COUNT 2.78 x10^6/uL (3.50-5.40); RED CELL DISTRIBUTION WIDTH 15.9 % (11.5-14.5); WHITE BLOOD COUNT 3.5 x10^3/uL (4.0-11.0)
[2018-07-14 14:44] LABS: PROTHROMBIN TIME PATIENT 14.1 SEC (11.7-14.0)
[2018-07-14 14:51] LABS: CALCIUM 9.7 mg/dL (8.5-10.1); CREATININE 5.4 mg/dL (0.6-1.0); GFR 9.9
[2018-07-14 14:56] LABS: ALBUMIN 3.3 g/dL (3.4-5.0); ALBUMIN/GLOBULIN RATIO 0.9 (1.0-1.7); TOTAL BILIRUBIN 0.4 mg/dL (0.2-1.0); TOTAL PROTEIN 7.1 g/dL (6.4-8.2)
--- NOTE | 2018-07-14 15:11 | EKG ---
[facility] [address] [place] [address] Test Date: 2018-07-14 Test Time: 14:00:52 Pat Name: ERIC ZAIDI Department: Room: Gender: F Drawing Tender: : 1960 Requested By: VINNIE SUAREZ Order Number: [id number] Reading MD: Measurements Intervals Aurora Rate: 73 P: 63 ND: 180 QRS: 39 QRSD: 76 T: 131 QT: 402 QTc: 447 Interpretive Statements SINUS RHYTHM ATRIAL PREMATURE COMPLEX(ES) QRS(T) CONTOUR ABNORMALITY CONSISTENT WITH ANTERIOR INFARCT AGE UNDETERMINED CONSIDER INFERIOR MYOCARDIAL DAMAGE ST & T ABNORMALITY, CONSIDER LATERAL ISCHEMIA OR LEFT VENTRICULAR STRAIN ABNORMAL ECG RI6.01 No previous ECG available for comparison
[2018-07-14] MEDS ORDERED: levOFLOXacin PER PHARMACY. MC PRN (16:00)
[2018-07-14 17:07] VITALS: BP 165/86
--- NOTE | 2018-07-14 17:50 | NUR ---
Patient Ricarda Terrell 58, F admitted due to SOA and Pneumonia. She's transferred from ER to [address] [place] [address] at 1645. She's awake, alert, oriented x 4, denies any pain. Patient is oriented to the unit, call light within reach. Dr. Dread huff, new orders received.
--- NOTE | 2018-07-14 18:13 | RAD ---
VQ Scan: Clinical History: Elevated d-dimer, dyspnea. Technique: 12.5 mCi of xenon-133 was administered as an aerosol and spot views were obtained on a gamma camera for a Nuclear Medicine ventilation examination. 5.5 mCi of Tc 99m MAA was administered intravenously and spot views were obtained on the gamma camera for a Nuclear Medicine perfusion examination. Static images were reviewed as a V/Q scan in order to exclude pulmonary embolism. Findings: There is retention of radiotracer identified in the bilateral lungs on the ventilation washout phase images. Perfusion images demonstrates small segmental and nonsegmental perfusion defects identified in the lateral left lung. IMPRESSION: 1. Intermediate probability for pulmonary embolism. Recommend follow-up CT angiogram chest. If CT angiogram chest cannot be performed , recommend ultrasound bilateral lower extremity venous duplex. 2. Retention of ventilation radiotracer identified in the bilateral lungs on the washout phase images likely due to airway disease. Electronically signed by: Radu Mancera MD (07/14/2018 6:11 PM) [facility]
[2018-07-14] MEDS ORDERED: PIP/TAZO PER PHARMACY MC PRN (18:45)
[2018-07-14] MEDS ORDERED: LORA10TA3 PO (19:11)
[2018-07-14 19:20] VITALS: BP 140/71
[2018-07-14] MEDS: PIPERACILLIN/TAZOBACTAM 2.25 GM in IV NORMAL SALINE 50ML 50 ML IV SCH (21:00)
[2018-07-14] MEDS: GABAPENTIN 300 MG CAPSULE. PO SCH (21:00)
[2018-07-14] MEDS: ISOSORBIDE DINITRATE 10 MG TABLET. PO SCH (21:00)
[2018-07-14] MEDS: ATORVASTATIN CALCIUM 10 MG TABLET. PO SCH (21:00)
[2018-07-14] MEDS: IPRATRPIUM/ALBUTEROL 0.5/2.5MG 3 ML NEBU. NEB SCH (21:30)
[2018-07-14] MEDS ORDERED: HEPARIN for IV BOLUS 10,000 UNIT/10 ML VIAL. IV PRN ×2 (21:30)
[2018-07-14] MEDS ORDERED: HEPARIN 25,000UTS/500ML PREMIX 500 ML IV PRN (21:30)
[2018-07-14] MEDS ORDERED: HEPARIN for SUB-Q USE 5,000 UNIT/ML VIAL. SQ SCH (22:00)
[2018-07-14] MEDS: HYDROcodone/APAP 7.5/325MG 1 TAB TABLET PO PRN (22:08)
[2018-07-14] MEDS: LOSARTAN POTASSIUM 50 MG TABLET. PO SCH (22:26)
[2018-07-14 23:16] VITALS: BP 154/81
[2018-07-15 03:41] VITALS: BP 152/80
[2018-07-15] MEDS: PIPERACILLIN/TAZOBACTAM 2.25 GM in IV NORMAL SALINE 50ML 50 ML IV SCH ×3 (05:38→21:48)
[2018-07-15 06:12] LABS: BASO % 1 % (0-3); EOS # 0.2 x10^3/uL (0.0-0.7); EOS % 7 % (0-3); HEMATOCRIT 28.4 % (36.0-47.0); HEMOGLOBIN 9.2 g/dL (12.0-15.5); LYMPH % 29 % (24-48); MEAN CORPUSCULAR HEMOGLOBIN 34 pg (25-35); MEAN CORPUSCULAR HGB CONC 32 g/dL (31-37); MEAN CORPUSCULAR VOLUME 105 fL (79-100); MONO # 0.4 x10^3/uL (0.0-1.1); MONO % 11 % (0-9); NEUT # 1.7 x10^3uL (1.8-7.7); NEUT % 52 % (31-73); PLATELET COUNT 116 x10^3/uL (140-400); RED CELL DISTRIBUTION WIDTH 15.7 % (11.5-14.5); WHITE BLOOD COUNT 3.3 x10^3/uL (4.0-11.0)
[2018-07-15 06:35] LABS: CALCIUM 9.3 mg/dL (8.5-10.1); CREATININE 6.8 mg/dL (0.6-1.0); GFR 7.6; POTASSIUM 3.9 mmol/L (3.5-5.1)
[2018-07-15 07:00] VITALS: BP 146/89
[2018-07-15] MEDS: IPRATRPIUM/ALBUTEROL 0.5/2.5MG 3 ML NEBU. NEB SCH ×4 (07:46→19:33)
[2018-07-15] MEDS ORDERED: ASPIRIN 325 MG TABLET PO SCH (08:00)
[2018-07-15] MEDS: FERROUS SULFATE 325 MG TABLET. PO SCH (08:00)
[2018-07-15] MEDS: SEVELAMER CARBONATE 800 MG TABLET. PO SCH ×3 (08:26→17:16)
[2018-07-15] MEDS: ASPIRIN 325 MG TABLET PO SCH (08:28)
[2018-07-15] MEDS: FUROSEMIDE 80 MG TABLET. PO SCH (08:28)
[2018-07-15] MEDS: MAGNESIUM OXIDE 400 MG TABLET PO SCH (08:28)
[2018-07-15] MEDS: hydrALAZINE 10 MG TABLET PO SCH (08:30)
[2018-07-15] MEDS: ISOSORBIDE DINITRATE 10 MG TABLET. PO SCH ×2 (08:30→21:00)
[2018-07-15] MEDS: CARVEDILOL 12.5 MG TABLET. PO SCH (08:31)
[2018-07-15] MEDS: DOXAZOSIN MESYLATE 4 MG TABLET. PO SCH (09:00)
[2018-07-15] MEDS: GABAPENTIN 300 MG CAPSULE. PO SCH ×2 (09:00→21:00)
[2018-07-15] MEDS ORDERED: LOSARTAN POTASSIUM 50 MG TABLET. PO SCH (09:00)
[2018-07-15] MEDS: CETIRIZINE HCL 10 MG TABLET. PO SCH (10:00)
[2018-07-15 10:41] VITALS: BP 156/84
--- NOTE | 2018-07-15 10:51 | HP ---
ADMIT DATE: 07/14/2018 CHIEF COMPLAINT: Shortness of breath. HISTORY OF PRESENT ILLNESS AND HOSPITAL COURSE: This patient is a 58-year-old female who has end-stage renal disease, on dialysis. States that she has been having intermittent shortness of breath, worsening with walking or doing housework for the last three weeks. This did not improve and she was prompted by her son to seek medical attention and came to the Emergency Room for further evaluation. During Emergency Room evaluation, the patient was stable, but did have chest x-ray consistent with a new right basilar lung opacity, possible pneumonia. Due to the patient's high risk factors, she was admitted for further evaluation. V/Q scan was also done through the Emergency Room, which showed intermediate probability of pulmonary embolus. CTA was scheduled and the patient was anticoagulated prior to CTA. The patient was recently hospitalized in 05/2018 for cavitary pneumonia described in the right upper lobe with negative AFB stains. The patient has had negative bronchoscopy during that hospitalization. Again due to severity of illness and the patient's high risk factors, she was admitted for IV antibiotics, anticoagulation, pulmonary consultation. During early hospitalization, the patient had runs of V-tach and Cardiology was also consulted. The patient is on chronic dialysis; therefore, Nephrology will be consulted for ongoing dialysis needs. PAST MEDICAL HISTORY: Significant for: 1. End-stage renal disease, on dialysis. 2. Type 2 diabetes. 3. Pancytopenia. 4. Hyperlipidemia. 5. Hypertension. 6. Chronic congestive heart failure, systolic and diastolic in nature. 7. Moderate pulmonary hypertension with pulmonary pressure of 51 on last admission. 8. Hypertension. 9. Coronary artery disease, status post coronary artery bypass graft and stents. 10. Osteoarthritis. 11. Psoriatic arthritis. 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 PAST SURGICAL HISTORY: Significant for hernia repair, coronary artery bypass graft x 3, fistula placement for dialysis, bilateral tubal ligation and hand tendon surgery. FAMILY HISTORY: Significant for mother who with complications of diabetes and aneurysm. Father who with stroke and cirrhosis of the liver. She has a son who has high blood pressure and type 2 diabetes. SOCIAL HISTORY: The patient does not smoke. She does not use alcohol. She is and lives with her son. She is on hemodialysis three times a week, Monday, Monday, Monday. ALLERGIES: THE PATIENT EXHIBITS DIZZINESS WHEN TAKING AZITHROMYCIN. REVIEW OF SYSTEMS: The patient has improved since pneumonia in May, but does have ongoing intermittent shortness of breath for the last three weeks. She denies any significant cough at this time, fever, chest pains, nausea, vomiting, diarrhea. The patient does not make urine. PHYSICAL EXAMINATION: GENERAL: This is a well-nourished, moderately obese, female, in no apparent distress on my exam. She is alert and oriented. HEENT: Revealed poor dentition. NECK: Supple. CARDIAC: Regular rate and rhythm with a grade 3/6 systolic ejection murmur. LUNGS: Clear anteriorly. ABDOMEN: Soft, nontender, without masses. EXTREMITIES: 2+ pulses with AV fistula noted in right arm. She had no edema. NEUROLOGIC: Intact. ASSESSMENT: 1. Shortness of breath with activity. 2. Intermediate probability of pulmonary embolus. 3. New right lower lobe pneumonia. 4. Pancytopenia. 5. Pulmonary hypertension. 6. End-stage renal disease, on dialysis. 7. Type 2 diabetes. 8. Acute on chronic combined systolic, diastolic congestive heart failure. PLAN: To proceed with pulmonary consultation. Cardiology consultation and Nephrology consultation. Obtain CTA to confirm possible pulmonary embolus, proceed with IV antibiotics, anticoagulate until CTA can be done, proceed with PT and OT modalities and follow the patient's clinical courses. MAINOR SOSA MD DR: RANJIT/ron JOB#: [id number] / [id number]
--- NOTE | 2018-07-15 11:31 | RAD ---
Exam: VENOUS LOWER EXT BILATERAL Indication: PE Technique: Color-flow and pulsed wave duplex ultrasound with compression of venous structures of the bilateral lower extremities. Comparison: None Available. Findings: Duplex ultrasound with compression of the deep venous structures of the bilateral lower extremities from the common femoral vein through the popliteal vein is negative for DVT. The visualized greater saphenous veins are patent. The posterior tibial and peroneal veins are segmentally visualized and patent where seen. Normal venous waveforms and augmentation are noted throughout. Impression: No evidence for DVT in the bilateral lower extremities. Electronically signed by: Gume Rosario MD (07/15/2018 11:28 AM) [facility]
[2018-07-15] MEDS ORDERED: IOHEXOL 350 MG/ML 100 ML VIAL. IV ONE ×2 (11:45→15:15)
[2018-07-15] MEDS ORDERED: ANTI-COAG MONITOR BY PHARMACY. MC PRN (12:00)
[2018-07-15] MEDS ORDERED: CONTRAST GIVEN. MC PRN ×2 (12:00→15:15)
--- NOTE | 2018-07-15 12:20 | NUR ---
Patient underwent CTA of the chest this morning, came back to the unit at 1200.
--- NOTE | 2018-07-15 12:54 | CONS ---
DATE OF CONSULTATION: ATTENDING PHYSICIAN: Dr. Canada. REASON FOR CONSULTATION: Dyspnea. HISTORY OF PRESENT ILLNESS: The patient is a 58-year-old female who has history of end-stage renal disease, underlying COPD. She was hospitalized in May and was treated for cavitary right upper lobe pneumonia and cultures came back positive for Pseudomonas, which was pansensitive and was appropriately treated. She was brought into the hospital with 2-3 weeks of shortness of breath. She did not have any chest pain, did not have any cough, fever or chills. No weight loss. Her V/Q scan was performed, which was reviewed by me, and it was read as indeterminate probability for pulmonary embolism. Her venous Dopplers of the lower extremities were negative. The patient just went for CT angiogram, which is not read yet, but I have reviewed with the radiologist. I do not see any obvious central pulmonary emboli or any segmental pulmonary emboli. There was a questionable artifact versus subsegmental tiny emboli reported by radiology in the lower lobes, although I was not impressed by the finding. The patient states she feels better. She was having wheezing as well on arrival. The patient was started on bronchodilators. She also was placed on Zosyn and heparin per protocol for PE. PAST MEDICAL HISTORY: Significant for end-stage renal disease, history of cavitary pneumonia involving the right upper lobe and pseudomonas was isolated. It was pansensitive. History of hyperlipidemia, hypertension, history of COPD, history of chronic systolic and diastolic heart failure, history of hypertension, osteoarthritis, psoriatic arthritis and pseudoporphyria. PAST SURGICAL HISTORY: Hernia repair, coronary artery bypass graft x 3, tubal ligation, tendon surgery. SOCIAL HISTORY: Smoked for about 35 years before quitting 6 years ago. REVIEW OF SYSTEMS: Twelve-point system obtained. Pertinent positives discussed in my history of present illness, otherwise noncontributory. All systems that were negative were reviewed as well. PHYSICAL EXAMINATION: VITAL SIGNS: Reviewed, they are stable. Pulse ox 100% on room air, afebrile. HEENT: Sclerae nonicteric. NECK: Supple. LUNGS: Diminished breath sounds posteriorly. No wheezing. CARDIOVASCULAR: Regular rate and rhythm. ABDOMEN: Soft. EXTREMITIES: With no pitting edema. LABORATORY DATA: Reviewed. White cell count 3.5, hemoglobin of 9.8 and platelets are 137. BUN is 20 and a creatinine of 6.8. Her proBNP was greater than 35,000. IMPRESSION: 1. Dyspnea for the last 2 weeks, likely related to combination of acute on chronic systolic heart failure with increasing right effusion/underlying chronic obstructive pulmonary disease,clinically less likely PE. Clinically better within 24 hours. 2. Abnormal V/Q scan, which showed indeterminate probability for pulmonary embolism. Her venous Dopplers are negative. Her CT angiogram was reviewed by me. It has not been officially reported. It shows no central or segmental pulmonary emboli. Clinically, my suspicion for any thromboembolic disease is low. We will wait for official report. 3. History of abnormal echo with an EF of 40-45% and grade 2 diastolic dysfunction. This is from 05/2018. 4. Abnormal ct chest with organized right upper lobe effusion, RLL small effusion/ atelectasis, resolution of previous large cavitary pneumonia RUL. RECOMMENDATIONS: 1. P.r.n. oxygen. 2. Continue present Lasix, however, she does not make much urine. 3. Hemodialysis with ultrafiltration. 4. Bronchodilators. 5. We will wait for the official report of CT chest and may consider stopping the heparin. 6. Empiric antibiotic for now. We will obtain procalcitonin level. 7. May consider right thoracentesis. 8. Cardiology follow up regarding CMP 9. Discussed with RN. TITUS PEGUERO MD DR: RICARDO/ron JOB#: [id number] / [id number] YURI
--- NOTE | 2018-07-15 12:57 | RAD ---
CT CHEST WITH CONTRAST, PULMONARY ANGIOGRAM History: SOB, R/O PE. NM DONE
IV OMNI 350 80 MLS. PT WILL GO ON DIALYSIS TOMORROW Comparison: CT chest dated 06/04/2018, VQ scan and chest radiograph dated 07/14/2018. Technique: Helical CT of the chest was performed after the administration of 80 cc of Isovue 370 intravenous contrast according to PE protocol. Sagittal and coronal MIP reconstructions were obtained. Findings: Pulmonary arteries are adequately opacified. No central, lobar, or segmental pulmonary embolism. Limited evaluation of the more distal pulmonary arterial system due to suboptimal contrast opacification and admixture with noniodinated contrast. There are punctate filling defects seen within the bilateral lower lobe subsegmental pulmonary arteries (for instance on the right on image 93, series 3 and on the left on image 94). Mild pulmonary trunk enlargement measuring 3.4 cm, not significantly changed from prior. The thyroid is symmetric. There is no axillary, mediastinal, or hilar adenopathy. Mild atherosclerosis of the thoracic aorta and its branches. Unchanged mild cardiomegaly. CABG. Reflux of contrast into the IVC. Coronary artery calcifications. There is no pericardial effusion. Redemonstration of vascular stent extending superior to the right axillary region. Interval significant improvement in the right upper lobe cavitary consolidation. Some consolidation does persist along the major fissure in the right upper lobe. Some surrounding groundglass opacities are seen. Left pulmonary linear opacities likely related to atelectasis or scarring. Small right pleural effusion with resultant relaxation atelectasis. There appears to be an element of loculated effusion in the right apex. There is no pneumothorax. Mild right lower lobe peribronchial thickening. The visualized upper abdomen is unremarkable. No acute osseous abnormality. Prior median sternotomy. Mild multilevel degenerative changes of the visualized spine. IMPRESSION: 1. No central, lobar, or segmental pulmonary embolism. 2. Limited evaluation of the more distal pulmonary arterial system due to suboptimal contrast opacification and admixture with noniodinated contrast. There are punctate filling defects seen within the bilateral lower lobe subsegmental pulmonary arteries. Although it is possible that these relate to tiny pulmonary emboli, this is thought to more likely be artifactual. The fact that patient has a negative duplex Doppler DVT study is also reassuring. 3. Mild pulmonary trunk enlargement which can be seen with pulmonary hypertension, although this is not significantly changed from prior. 4. Unchanged cardiomegaly. Reflux of contrast into the IVC which can be seen with right heart failure. 5. Interval significant improvement in the right upper lobe cavitary consolidation. Some consolidation does persist along the major fissure in the right upper lobe. This may relate to some residual infection, although there is likely an element of atelectasis. 6. Small right pleural effusion with resultant relaxation atelectasis. There is also a small loculated right apical effusion. The findings were reported to Dr. Hopper at 07/15/2018 12:20 PM. FOR INTERNAL CODING PURPOSES RESULT CODE: (C) Electronically signed by: Gume Rosario MD (07/15/2018 12:54 PM) [facility]
[2018-07-15 14:30] VITALS: BP 128/69
--- NOTE | 2018-07-15 14:34 | PDOC2 ---
CONSULT Date of Consult Date of Consult DATE: 07/15/18 TIME: 14:26 Reason for Consult Reason for Consult: Shortness of breath, heart failure Referring Physician Referring Physician: Dr. Canada Identification/Chief Complaint Chief Complaint Shortness of breath Source Source: Chart review, Patient History of Present Illness Reason for Visit: The patient is a 58-year-old female who was evaluated and admitted in the emergency room with chief complaint of increasing shortness of breath and fatigue over the past 2 weeks. She has an extensive medical history including recently treated pneumonia last month. Her chest x-ray showed a new right basilar opacity. VQ scan was of intermediate probability for pulmonary emboli and the patient has been anticoagulated awaiting a CT scan today. She denies any typical chest pain although she does have a history of bypass surgery as wall as having end-stage renal disease on hemodialysis. Her most recent echo was from 06/01/18 that showed an ejection fraction of 40-45% with anterior septal hypokinesis, mild tricuspid regurgitation and a pulmonary artery pressure of 51 mmHg. She has been treated overnight and reports feeling mildly better today. Past Medical History Cardiovascular: AFIB, CAD, HTN, Hyperlipidemia Pulmonary: No pertinent hx CENTRAL NERVOUS SYSTEM: Periperal neuropathy GI: No pertinent hx Heme/Onc: No pertinent hx Hepatobiliary: No pertinent hx Psych: No pertinent hx Musculoskeletal: Osteoarthritis Rheumatologic: No pertinent hx Infectious disease: No pertinent hx Renal/: Chronic renal failure Endocrine: Diabetes Past Surgical History Past Surgical History: CABG, Hernia Repair, Tubal Ligation, Other Family History Family History: Diabetes, Hypertension, Other (CVA) Social History Social History: Parent ALCOHOL: rare Drugs: None Lives: with Family Current Problem List Problem List Problems Medical Problems: (1) Pneumonia Status: Acute Current Medications Current Medications Current Medications Albuterol/ Ipratropium (Duoneb) 3 ml 1X ONCE NEB Last administered on at 13:49; Start 07/14/18 at 14:00; Stop 07/14/18 at 14:01; Status DC Levofloxacin/ Dextrose (Levaquin Per Pharmacy) 1 each PRN DAILY PRN MC SEE COMMENTS; Start 07/14/18 at 16:00 Levofloxacin/ Dextrose 100 ml @ 100 mls/hr Q48H IV Last administered on at 16:28; Start 07/14/18 at 16:00 Albuterol/ Ipratropium (Duoneb) 3 ml RTQID NEB Last administered on 07/15/18at 11 :37; Start 07/14/18 at 20:00 Heparin Sodium (Porcine) (Heparin Sodium) 5,000 unit Q8HRS SQ ; Start 07/14/18 at 22:00; Stop 07/14/18 at 22:02; Status DC Piperacillin Sod/ Tazobactam Sod (Zosyn Per Pharmacy) 1 each PRN DAILY PRN MC SEE COMMENTS; Start 07/14/18 at 18:45 Piperacillin Sod/ Tazobactam Sod 2.25 gm/Sodium Chloride 50 ml @ 100 mls/hr Q8HRS IV Last administered on 07/15/18at 05:38; Start 07/14/18 at 20:00 Acetaminophen/ Hydrocodone Bitart (Lortab 7.5/325) 1 tab PRN Q6HRS PRN PO PAIN Last administered on 07/14/18at 22:08; Start 07/14/18 at 19:00 Atorvastatin Calcium (Lipitor) 10 mg QHS PO ; Start 07/14/18 at 21:00 Aspirin (Fela Aspirin) 325 mg DAILYWBKFT PO Last administered on 07/15/18 08: 28; Start 07/15/18 at 08:00 Furosemide (Lasix) 80 mg DAILY PO Last administered on 07/15/18 08:28; Start at 09:00 Isosorbide Dinitrate (Isordil) 10 mg BID PO Last administered on 07/15/18 08:30 ; Start 07/14/18 at 21:00 Sevelamer Carbonate (Renvela) 1,600 mg TIDWMEALS PO Last administered on at 12:23; Start 07/15/18 at 08:00 Carvedilol (Coreg) 25 mg DAILY PO Last administered on 07/15/18 08:31; Start at 09:00 Hydralazine HCl (Apresoline) 10 mg DAILY PO Last administered on 07/15/18 08:30 ; Start 07/15/18 at 09:00 Losartan Potassium (Cozaar) 100 mg DAILY PO ; Start 07/15/18 at 09:00; Stop at 09:00; Status DC Magnesium Oxide (Magnesium Oxide) 400 mg DAILY PO Last administered on at 08:28; Start 07/15/18 at 09:00 Gabapentin (Neurontin) 600 mg BID PO ; Start 07/14/18 at 21:00 Doxazosin Mesylate (Cardura) 4 mg DAILY PO ; Start 07/15/18 at 09:00 Aspirin (Fela Aspirin) 325 mg DAILYWBKFT PO ; Start 07/15/18 at 08:00; Status UNV Ferrous Sulfate (Feosol) 325 mg DAILYWBKFT PO ; Start 07/15/18 at 08:00 Heparin Sodium/ Dextrose 500 ml @ 0 mls/hr CONT PRN IV SEE I/O RECORD Last administered on 07/14/18at 22:16; Start 07/14/18 at 21:30 Heparin Sodium (Porcine) (Heparin Sodium) 2,500 unit PRN Q6HRS PRN IV FOR UFH LEVEL LESS THAN 0.2; Start 07/14/18 at 21:30 Heparin Sodium (Porcine) (Heparin Sodium) 1,250 unit PRN Q6HRS PRN IV FOR UFH LEVEL 0.2 - 0.29; Start 07/14/18 at 21:30 Losartan Potassium (Cozaar) 100 mg HS PO Last administered on 07/14/18at 22:26; Start 07/14/18 at 22:15 Cetirizine HCl (ZyrTEC) 10 mg DAILY PO ; Start 07/15/18 at 10:00 Iohexol (Omnipaque 350 Mg/ml) 80 ml 1X ONCE IV ; Start 07/15/18 at 11:45; Stop 07/15/18 at 11:46; Status DC Info (CONTRAST GIVEN -- Rx MONITORING) 1 each PRN DAILY PRN MC SEE COMMENTS; Start 07/15/18 at 12:00; Stop 07/17/18 at 11:59 Info (Anti-Coagulation Monitoring By Pharmacy) 1 each PRN DAILY PRN MC SEE COMMENTS Last administered on 07/15/18at 11:49; Start 07/15/18 at 12:00 Lactobacillus Rhamnosus (Culturelle) 1 cap BID PO ; Start 07/15/18 at 21:00 Active Scripts Active Reported Loratadine 10 Mg Tablet 1 Tab PO DAILY Carvedilol 25 Mg Tablet 25 Mg PO DAILY Losartan Potassium 100 Mg Tablet 100 Mg PO HS Isosorbide Dinitrate 10 Mg Tablet 10 Mg PO DAILY Hydralazine Hcl 10 Mg Tablet 10 Mg PO DAILY Renvela (Sevelamer Carbonate) 800 Mg Tablet 3 Tab PO TID Furosemide 80 Mg Tablet 1 Tab PO DAILY Magnesium Oxide 400 Mg Tablet 1 Tab PO DAILY Allergies Allergies: Coded Allergies: azithromycin (Verified Allergy, Intermediate, Anxiety, 06/05/18) hallucinations ROS General: YES: Fatigue Respiratory: YES: Shortness of breath, SOB with excertion Physical Exam General: mild distress HEENT: Atraumatic Lungs: Other (his breath sounds) Heart: Regular rate Abdomen: Normal bowel sounds Vitals VITALS Vital Signs Date Time Temp Pulse Resp B/P (MAP) Pulse Ox O2 Delivery O2 Flow Rate FiO2 07/15/18 11:38 Room Air 07/15/18 10:41 98.3 83 19 156/84 (108) 100 98.3 Labs Labs Laboratory Tests Test 07/14/18 14:25 07/14/18 15:25 07/14/18 22:00 07/15/18 05:05 White Blood Count 3.5 x10^3/uL (4.0-11.0) 3.3 x10^3/uL (4.0-11.0) Red Blood Count 2.78 x10^6/uL (3.50-5.40) 2.70 x10^6/uL (3.50-5.40) Hemoglobin 9.5 g/dL (12.0-15.5) 9.2 g/dL (12.0-15.5) Hematocrit 29.1 % (36.0-47.0) 28.4 % (36.0-47.0) Mean Corpuscular Volume 105 fL (79-100) 105 fL (79-100) Mean Corpuscular Hemoglobin 34 pg (25-35) 34 pg (25-35) Mean Corpuscular Hemoglobin Concent 33 g/dL (31-37) 32 g/dL (31-37) Red Cell Distribution Width 15.9 % (11.5-14.5) 15.7 % (11.5-14.5) Platelet Count 137 x10^3/uL (140-400) 116 x10^3/uL (140-400) Neutrophils (%) (Auto) 56 % (31-73) 52 % (31-73) Lymphocytes (%) (Auto) 24 % (24-48) 29 % (24-48) Monocytes (%) (Auto) 12 % (0-9) 11 % (0-9) Eosinophils (%) (Auto) 7 % (0-3) 7 % (0-3) Basophils (%) (Auto) 1 % (0-3) 1 % (0-3) Neutrophils # (Auto) 2.0 x10^3uL (1.8-7.7) 1.7 x10^3uL (1.8-7.7) Lymphocytes # (Auto) 0.8 x10^3/uL (1.0-4.8) 1.0 x10^3/uL (1.0-4.8) Monocytes # (Auto) 0.4 x10^3/uL (0.0-1.1) 0.4 x10^3/uL (0.0-1.1) Eosinophils # (Auto) 0.2 x10^3/uL (0.0-0.7) 0.2 x10^3/uL (0.0-0.7) Basophils # (Auto) 0.0 x10^3/uL (0.0-0.2) 0.0 x10^3/uL (0.0-0.2) Prothrombin Time 14.1 SEC (11.7-14.0) Prothromb Time International Ratio 1.1 (0.8-1.1) D-Dimer (Daly) 1.10 ug/mlFEU (0.00-0.50) Sodium Level 141 mmol/L (136-145) 138 mmol/L (136-145) Potassium Level 4.0 mmol/L (3.5-5.1) 3.9 mmol/L (3.5-5.1) Chloride Level 104 mmol/L (98-107) 102 mmol/L (98-107) Carbon Dioxide Level 20 mmol/L (21-32) 19 mmol/L (21-32) Anion Gap 17 (6-14) 17 (6-14) Blood Urea Nitrogen 13 mg/dL (7-20) 20 mg/dL (7-20) Creatinine 5.4 mg/dL (0.6-1.0) 6.8 mg/dL (0.6-1.0) Estimated GFR (Cockcroft-Gault) 9.9 7.6 BUN/Creatinine Ratio 2 (6-20) Glucose Level 154 mg/dL (70-99) 166 mg/dL (70-99) Calcium Level 9.7 mg/dL (8.5-10.1) 9.3 mg/dL (8.5-10.1) Total Bilirubin 0.4 mg/dL (0.2-1.0) Aspartate Amino Transf (AST/SGOT) 14 U/L (15-37) Alanine Aminotransferase (ALT/SGPT) 17 U/L (14-59) Alkaline Phosphatase 227 U/L (46-116) Troponin I Quantitative < 0.017 ng/mL (0.000-0.055) 0.017 ng/mL (0.000-0.055) QF-Sdl-C-Type Natriuretic Peptide > 39917 pg/mL (0-124) Total Protein 7.1 g/dL (6.4-8.2) Albumin 3.3 g/dL (3.4-5.0) Albumin/Globulin Ratio 0.9 (1.0-1.7) Lactic Acid Level 1.3 mmol/L (0.4-2.0) Heparin Anti-Xa Act, Unfractionated 0.41 IU/mL (0.30-0.70) Procalcitonin 0.62 ng/mL (0.00-0.10) Test 07/15/18 10:15 Heparin Anti-Xa Act, Unfractionated 0.61 IU/mL (0.30-0.70) Laboratory Tests Test 07/14/18 15:25 07/14/18 22:00 07/15/18 05:05 07/15/18 10:15 Lactic Acid Level 1.3 mmol/L (0.4-2.0) Troponin I Quantitative 0.017 ng/mL (0.000-0.055) White Blood Count 3.3 x10^3/uL (4.0-11.0) Red Blood Count 2.70 x10^6/uL (3.50-5.40) Hemoglobin 9.2 g/dL (12.0-15.5) Hematocrit 28.4 % (36.0-47.0) Mean Corpuscular Volume 105 fL (79-100) Mean Corpuscular Hemoglobin 34 pg (25-35) Mean Corpuscular Hemoglobin Concent 32 g/dL (31-37) Red Cell Distribution Width 15.7 % (11.5-14.5) Platelet Count 116 x10^3/uL (140-400) Neutrophils (%) (Auto) 52 % (31-73) Lymphocytes (%) (Auto) 29 % (24-48) Monocytes (%) (Auto) 11 % (0-9) Eosinophils (%) (Auto) 7 % (0-3) Basophils (%) (Auto) 1 % (0-3) Neutrophils # (Auto) 1.7 x10^3uL (1.8-7.7) Lymphocytes # (Auto) 1.0 x10^3/uL (1.0-4.8) Monocytes # (Auto) 0.4 x10^3/uL (0.0-1.1) Eosinophils # (Auto) 0.2 x10^3/uL (0.0-0.7) Basophils # (Auto) 0.0 x10^3/uL (0.0-0.2) Heparin Anti-Xa Act, Unfractionated 0.41 IU/mL (0.30-0.70) 0.61 IU/mL (0.30-0.70) Sodium Level 138 mmol/L (136-145) Potassium Level 3.9 mmol/L (3.5-5.1) Chloride Level 102 mmol/L (98-107) Carbon Dioxide Level 19 mmol/L (21-32) Anion Gap 17 (6-14) Blood Urea Nitrogen 20 mg/dL (7-20) Creatinine 6.8 mg/dL (0.6-1.0) Estimated GFR (Cockcroft-Gault) 7.6 Glucose Level 166 mg/dL (70-99) Calcium Level 9.3 mg/dL (8.5-10.1) Procalcitonin 0.62 ng/mL (0.00-0.10) Images Images Chest x-ray with a new right basilar opacity. VQ scan, Intermediate probability of a PE Assessment/Plan Assessment/Plan 1. Increasing shortness of breath. Multifactorial including pneumonia, underlying pulmonary disease and heart failure. The patient is being evaluated and treated by the pulmonary service. She has had a previous recent pulmonary workup. 2. Acute on chronic probable mixed heart failure. Echocardiogram from approximately a year ago shows an ejection fraction of 40-45%. Will continue treatments. We'll recheck an echocardiogram. 3. History of bypass surgery. Patient denies chest pain. No evidence of an acute event. We'll continue as above. 4. Paroxysmal atrial fibrillation. We'll continue present medications and monitor. 5. End-stage renal disease. Hemodialysis as per the renal service. 6. Hypertension. Reasonably well controlled on present medications. We'll monitor. 7. Hyperlipidemia. Continue present treatment. 8. Diabetes mellitus. As per the primary service. Thank you for allowing us to participate in the care of your patient. LOREN VICENTE MD Jul 15, 2018 14:34
--- NOTE | 2018-07-15 14:55 | PDOC2 ---
CONSULT Date of Consult Date of Consult DATE: 07/15/18 TIME: 14:47 Reason for Consult Reason for Consult: ESRD Source Source: Chart review, Patient History of Present Illness Reason for Visit: Patient is a 58 year old AAF female ESRD who presented to ER with complaint of shortness of breath. She states this SOB began 3 weeks and is relatively unchanging. She states she came in because her son is concerned that she is less active and more fatigued because of the SOB. She reports that she was in the hospital last month for cavitary PNA, and was treated with PO antibiotics at home. She states that she usually sleeps with 2 pillows but requires 3 recently. She reports that she is able to recover her SOB with resting 5-10 mins but can be fatigued and weak for the rest of the day. She does not know if she has gained any weight. Has a Dx of CHF and a-fib She denies CP/f/c/n/v. She denies abdominal pain/ symptoms. She does not take supplemental O2 or cpap at home No RRF Past Medical History Cardiovascular: AFIB, CAD, HTN, Hyperlipidemia Pulmonary: No pertinent hx CENTRAL NERVOUS SYSTEM: Periperal neuropathy GI: No pertinent hx Heme/Onc: No pertinent hx Hepatobiliary: No pertinent hx Psych: No pertinent hx Musculoskeletal: Osteoarthritis Rheumatologic: No pertinent hx Infectious disease: No pertinent hx Renal/: Chronic renal failure Endocrine: Diabetes Past Surgical History Past Surgical History: CABG, Hernia Repair, Tubal Ligation, Other Family History Family History: Diabetes, Hypertension, Other (CVA) Social History Social History: Parent ALCOHOL: rare Drugs: None Lives: with Family Current Problem List Problem List Problems Medical Problems: (1) Pneumonia Status: Acute Current Medications Current Medications Current Medications Albuterol/ Ipratropium (Duoneb) 3 ml 1X ONCE NEB Last administered on at 13:49; Start 07/14/18 at 14:00; Stop 07/14/18 at 14:01; Status DC Levofloxacin/ Dextrose (Levaquin Per Pharmacy) 1 each PRN DAILY PRN MC SEE COMMENTS; Start 07/14/18 at 16:00 Levofloxacin/ Dextrose 100 ml @ 100 mls/hr Q48H IV Last administered on at 16:28; Start 07/14/18 at 16:00 Albuterol/ Ipratropium (Duoneb) 3 ml RTQID NEB Last administered on 07/15/18at 11 :37; Start 07/14/18 at 20:00 Heparin Sodium (Porcine) (Heparin Sodium) 5,000 unit Q8HRS SQ ; Start 07/14/18 at 22:00; Stop 07/14/18 at 22:02; Status DC Piperacillin Sod/ Tazobactam Sod (Zosyn Per Pharmacy) 1 each PRN DAILY PRN MC SEE COMMENTS; Start 07/14/18 at 18:45 Piperacillin Sod/ Tazobactam Sod 2.25 gm/Sodium Chloride 50 ml @ 100 mls/hr Q8HRS IV Last administered on 07/15/18at 14:33; Start 07/14/18 at 20:00 Acetaminophen/ Hydrocodone Bitart (Lortab 7.5/325) 1 tab PRN Q6HRS PRN PO PAIN Last administered on 07/14/18 22:08; Start 07/14/18 at 19:00 Atorvastatin Calcium (Lipitor) 10 mg QHS PO ; Start 07/14/18 at 21:00 Aspirin (Fela Aspirin) 325 mg DAILYWBKFT PO Last administered on 07/15/18 08: 28; Start 07/15/18 at 08:00 Furosemide (Lasix) 80 mg DAILY PO Last administered on 07/15/18 08:28; Start at 09:00 Isosorbide Dinitrate (Isordil) 10 mg BID PO Last administered on 07/15/18 08:30 ; Start 07/14/18 at 21:00 Sevelamer Carbonate (Renvela) 1,600 mg TIDWMEALS PO Last administered on at 12:23; Start 07/15/18 at 08:00 Carvedilol (Coreg) 25 mg DAILY PO Last administered on 07/15/18 08:31; Start at 09:00 Hydralazine HCl (Apresoline) 10 mg DAILY PO Last administered on 07/15/18 08:30 ; Start 07/15/18 at 09:00 Losartan Potassium (Cozaar) 100 mg DAILY PO ; Start 07/15/18 at 09:00; Stop at 09:00; Status DC Magnesium Oxide (Magnesium Oxide) 400 mg DAILY PO Last administered on at 08:28; Start 07/15/18 at 09:00 Gabapentin (Neurontin) 600 mg BID PO ; Start 07/14/18 at 21:00 Doxazosin Mesylate (Cardura) 4 mg DAILY PO ; Start 07/15/18 at 09:00 Aspirin (Fela Aspirin) 325 mg DAILYWBKFT PO ; Start 07/15/18 at 08:00; Status UNV Ferrous Sulfate (Feosol) 325 mg DAILYWBKFT PO ; Start 07/15/18 at 08:00 Heparin Sodium/ Dextrose 500 ml @ 0 mls/hr CONT PRN IV SEE I/O RECORD Last administered on 07/14/18at 22:16; Start 07/14/18 at 21:30 Heparin Sodium (Porcine) (Heparin Sodium) 2,500 unit PRN Q6HRS PRN IV FOR UFH LEVEL LESS THAN 0.2; Start 07/14/18 at 21:30 Heparin Sodium (Porcine) (Heparin Sodium) 1,250 unit PRN Q6HRS PRN IV FOR UFH LEVEL 0.2 - 0.29; Start 07/14/18 at 21:30 Losartan Potassium (Cozaar) 100 mg HS PO Last administered on 07/14/18at 22:26; Start 07/14/18 at 22:15 Cetirizine HCl (ZyrTEC) 10 mg DAILY PO ; Start 07/15/18 at 10:00 Iohexol (Omnipaque 350 Mg/ml) 80 ml 1X ONCE IV ; Start 07/15/18 at 11:45; Stop 07/15/18 at 11:46; Status DC Info (CONTRAST GIVEN -- Rx MONITORING) 1 each PRN DAILY PRN MC SEE COMMENTS; Start 07/15/18 at 12:00; Stop 07/17/18 at 11:59 Info (Anti-Coagulation Monitoring By Pharmacy) 1 each PRN DAILY PRN MC SEE COMMENTS Last administered on 07/15/18at 11:49; Start 07/15/18 at 12:00 Lactobacillus Rhamnosus (Culturelle) 1 cap BID PO ; Start 07/15/18 at 21:00 Active Scripts Active Reported Loratadine 10 Mg Tablet 1 Tab PO DAILY Carvedilol 25 Mg Tablet 25 Mg PO DAILY Losartan Potassium 100 Mg Tablet 100 Mg PO HS Isosorbide Dinitrate 10 Mg Tablet 10 Mg PO DAILY Hydralazine Hcl 10 Mg Tablet 10 Mg PO DAILY Renvela (Sevelamer Carbonate) 800 Mg Tablet 3 Tab PO TID Furosemide 80 Mg Tablet 1 Tab PO DAILY Magnesium Oxide 400 Mg Tablet 1 Tab PO DAILY Allergies Allergies: Coded Allergies: azithromycin (Verified Allergy, Intermediate, Anxiety, 06/05/18) hallucinations ROS Review of System As per HPI Physical Exam Physical Exam GENERAL: NAD , sitting up in recliner HEENT: OM moist NECK: Supple. CARDIAC: Regular rate and rhythm with a grade 3/6 systolic ejection murmur. LUNGS: Clear anteriorly. ABDOMEN: Soft, nontender, EXTREMITIES: AV fistula noted in right arm. no edema. NEUROLOGIC: Intact SKIN No rash No Cosby Vital Signs Vital Signs Date Time Temp Pulse Resp B/P (MAP) Pulse Ox O2 Delivery O2 Flow Rate FiO2 07/15/18 14:30 98.3 76 17 128/69 (88) 100 Room Air 98.3 Assessment & Plan ESRD - On HD for 6 years- Dr. chandra No RRF , last HD on Monday Currently no indication for HD today Anemia- Hgb stable Shortness of breath with activity. Intermediate probability of pulmonary embolus. New right lower lobe pneumonia. Pancytopenia. Pulmonary hypertension. Type 2 diabetes. Chronic combined systolic, diastolic congestive heart failure. Compensated Labs Labs Laboratory Tests Test 07/14/18 14:25 07/14/18 15:25 07/14/18 22:00 07/15/18 05:05 White Blood Count 3.5 x10^3/uL (4.0-11.0) 3.3 x10^3/uL (4.0-11.0) Red Blood Count 2.78 x10^6/uL (3.50-5.40) 2.70 x10^6/uL (3.50-5.40) Hemoglobin 9.5 g/dL (12.0-15.5) 9.2 g/dL (12.0-15.5) Hematocrit 29.1 % (36.0-47.0) 28.4 % (36.0-47.0) Mean Corpuscular Volume 105 fL (79-100) 105 fL (79-100) Mean Corpuscular Hemoglobin 34 pg (25-35) 34 pg (25-35) Mean Corpuscular Hemoglobin Concent 33 g/dL (31-37) 32 g/dL (31-37) Red Cell Distribution Width 15.9 % (11.5-14.5) 15.7 % (11.5-14.5) Platelet Count 137 x10^3/uL (140-400) 116 x10^3/uL (140-400) Neutrophils (%) (Auto) 56 % (31-73) 52 % (31-73) Lymphocytes (%) (Auto) 24 % (24-48) 29 % (24-48) Monocytes (%) (Auto) 12 % (0-9) 11 % (0-9) Eosinophils (%) (Auto) 7 % (0-3) 7 % (0-3) Basophils (%) (Auto) 1 % (0-3) 1 % (0-3) Neutrophils # (Auto) 2.0 x10^3uL (1.8-7.7) 1.7 x10^3uL (1.8-7.7) Lymphocytes # (Auto) 0.8 x10^3/uL (1.0-4.8) 1.0 x10^3/uL (1.0-4.8) Monocytes # (Auto) 0.4 x10^3/uL (0.0-1.1) 0.4 x10^3/uL (0.0-1.1) Eosinophils # (Auto) 0.2 x10^3/uL (0.0-0.7) 0.2 x10^3/uL (0.0-0.7) Basophils # (Auto) 0.0 x10^3/uL (0.0-0.2) 0.0 x10^3/uL (0.0-0.2) Prothrombin Time 14.1 SEC (11.7-14.0) Prothromb Time International Ratio 1.1 (0.8-1.1) D-Dimer (Daly) 1.10 ug/mlFEU (0.00-0.50) Sodium Level 141 mmol/L (136-145) 138 mmol/L (136-145) Potassium Level 4.0 mmol/L (3.5-5.1) 3.9 mmol/L (3.5-5.1) Chloride Level 104 mmol/L (98-107) 102 mmol/L (98-107) Carbon Dioxide Level 20 mmol/L (21-32) 19 mmol/L (21-32) Anion Gap 17 (6-14) 17 (6-14) Blood Urea Nitrogen 13 mg/dL (7-20) 20 mg/dL (7-20) Creatinine 5.4 mg/dL (0.6-1.0) 6.8 mg/dL (0.6-1.0) Estimated GFR (Cockcroft-Gault) 9.9 7.6 BUN/Creatinine Ratio 2 (6-20) Glucose Level 154 mg/dL (70-99) 166 mg/dL (70-99) Calcium Level 9.7 mg/dL (8.5-10.1) 9.3 mg/dL (8.5-10.1) Total Bilirubin 0.4 mg/dL (0.2-1.0) Aspartate Amino Transf (AST/SGOT) 14 U/L (15-37) Alanine Aminotransferase (ALT/SGPT) 17 U/L (14-59) Alkaline Phosphatase 227 U/L (46-116) Troponin I Quantitative < 0.017 ng/mL (0.000-0.055) 0.017 ng/mL (0.000-0.055) OM-Cwn-T-Type Natriuretic Peptide > 43561 pg/mL (0-124) Total Protein 7.1 g/dL (6.4-8.2) Albumin 3.3 g/dL (3.4-5.0) Albumin/Globulin Ratio 0.9 (1.0-1.7) Lactic Acid Level 1.3 mmol/L (0.4-2.0) Heparin Anti-Xa Act, Unfractionated 0.41 IU/mL (0.30-0.70) Procalcitonin 0.62 ng/mL (0.00-0.10) Test 07/15/18 10:15 Heparin Anti-Xa Act, Unfractionated 0.61 IU/mL (0.30-0.70) Laboratory Tests Test 07/14/18 15:25 07/14/18 22:00 07/15/18 05:05 07/15/18 10:15 Lactic Acid Level 1.3 mmol/L (0.4-2.0) Troponin I Quantitative 0.017 ng/mL (0.000-0.055) White Blood Count 3.3 x10^3/uL (4.0-11.0) Red Blood Count 2.70 x10^6/uL (3.50-5.40) Hemoglobin 9.2 g/dL (12.0-15.5) Hematocrit 28.4 % (36.0-47.0) Mean Corpuscular Volume 105 fL (79-100) Mean Corpuscular Hemoglobin 34 pg (25-35) Mean Corpuscular Hemoglobin Concent 32 g/dL (31-37) Red Cell Distribution Width 15.7 % (11.5-14.5) Platelet Count 116 x10^3/uL (140-400) Neutrophils (%) (Auto) 52 % (31-73) Lymphocytes (%) (Auto) 29 % (24-48) Monocytes (%) (Auto) 11 % (0-9) Eosinophils (%) (Auto) 7 % (0-3) Basophils (%) (Auto) 1 % (0-3) Neutrophils # (Auto) 1.7 x10^3uL (1.8-7.7) Lymphocytes # (Auto) 1.0 x10^3/uL (1.0-4.8) Monocytes # (Auto) 0.4 x10^3/uL (0.0-1.1) Eosinophils # (Auto) 0.2 x10^3/uL (0.0-0.7) Basophils # (Auto) 0.0 x10^3/uL (0.0-0.2) Heparin Anti-Xa Act, Unfractionated 0.41 IU/mL (0.30-0.70) 0.61 IU/mL (0.30-0.70) Sodium Level 138 mmol/L (136-145) Potassium Level 3.9 mmol/L (3.5-5.1) Chloride Level 102 mmol/L (98-107) Carbon Dioxide Level 19 mmol/L (21-32) Anion Gap 17 (6-14) Blood Urea Nitrogen 20 mg/dL (7-20) Creatinine 6.8 mg/dL (0.6-1.0) Estimated GFR (Cockcroft-Gault) 7.6 Glucose Level 166 mg/dL (70-99) Calcium Level 9.3 mg/dL (8.5-10.1) Procalcitonin 0.62 ng/mL (0.00-0.10) Review All relevant outside records, renal labs, imaging studies, telemetry/EKG's were reviewed. Images Images LE US- No evidence for DVT in the bilateral lower extremities. CTA- 1. No central, lobar, or segmental pulmonary embolism. 2. Limited evaluation of the more distal pulmonary arterial system due to suboptimal contrast opacification and admixture with noniodinated contrast. There are punctate filling defects seen within the bilateral lower lobe subsegmental pulmonary arteries. Although it is possible that these relate to tiny pulmonary emboli, this is thought to more likely be artifactual. The fact that patient has a negative duplex Doppler DVT study is also reassuring. 3. Mild pulmonary trunk enlargement which can be seen with pulmonary hypertension, although this is not significantly changed from prior. 4. Unchanged cardiomegaly. Reflux of contrast into the IVC which can be seen with right heart failure. 5. Interval significant improvement in the right upper lobe cavitary consolidation. Some consolidation does persist along the major fissure in the right upper lobe. This may relate to some residual infection, although there is likely an element of atelectasis. 6. Small right pleural effusion with resultant relaxation atelectasis. There is also a small loculated right apical effusion. DIAMOND FANG MD Jul 15, 2018 14:55
--- NOTE | 2018-07-15 17:49 | NUR ---
Paged Dr. Hopper at [phone], updated of CTA results. This nurse was instructed to discontinue heparin drip.
[2018-07-15 19:10] VITALS: BP 143/72
[2018-07-15] MEDS: ATORVASTATIN CALCIUM 10 MG TABLET. PO SCH (21:00)
[2018-07-15] MEDS: LACTOBACILLUS RHAMNOSUS GG 1 CAPSULE. PO SCH (21:39)
[2018-07-15] MEDS: HYDROcodone/APAP 7.5/325MG 1 TAB TABLET PO PRN (21:39)
[2018-07-15] MEDS: LOSARTAN POTASSIUM 50 MG TABLET. PO SCH (21:41)
[2018-07-15 23:39] VITALS: BP 150/80
[2018-07-16 02:59] VITALS: BP 144/80
[2018-07-16] MEDS: PIPERACILLIN/TAZOBACTAM 2.25 GM in IV NORMAL SALINE 50ML 50 ML IV SCH ×3 (06:14→21:55)
[2018-07-16 07:00] VITALS: BP 154/82
[2018-07-16] MEDS: IPRATRPIUM/ALBUTEROL 0.5/2.5MG 3 ML NEBU. NEB SCH ×4 (07:33→21:26)
[2018-07-16] MEDS: SEVELAMER CARBONATE 800 MG TABLET. PO SCH ×3 (08:00→17:13)
[2018-07-16] MEDS: FERROUS SULFATE 325 MG TABLET. PO SCH (08:00)
--- NOTE | 2018-07-16 08:19 | PDOC3 ---
Discharge Summary Date of Admission: Jul 14, 2018 Date of Discharge: Jul 16, 2018 Follow-Up: Other (1-[address] Moreno, 2 weeks with pulmonary) Admitting Diagnosis comment: Shortness of breath FINAL DIAGNOSIS Shortness of breath with activity, PNA, COPD, Pancytopenia, Pulmonary HTN, ESRD , DM2, Acute on chronic combined systolic and diastolic CHF Brief Hospital Course Pt is a 58yo AAF admitted with shortness of breath 1. Shortness of breath with activity- this has improved since admission. Pt states that it is intermittent at home, though, and she has not figured out specific causes or things that make her symptoms worse. She is willing to go home with an inhaler 2. Elevated D-dimer- intermediate risk V/Q scan. CT Chest showing decreased likelihood of PE 3. New right lower lobe pneumonia- pt currently on Zosyn and Levaquin. Appreciate abx recommendations from pulmonary. Pt planning on following up with pulmonary outpatient 4. COPD- pt willing to go home with albuterol; she would like to hold off on any additional inhalers at this time 5. Pancytopenia. 6. Pulmonary hypertension. 7. End-stage renal disease, on dialysis. 8. Type 2 diabetes- BS moderately controlled. 9. Acute on chronic combined systolic, diastolic congestive heart failure- pt currently receiving Lasix 80mg 10. CAD- pt on isosorbide dinitrate 11. HTN- pt continued on Doxazosin 4mg, Hydralazine 10mg, Carvedilol 25mg qday , Losartan 100mg and above medications 12. HLD- pt continued on Atorvastatin 10mg 13. VTach- Cardiology following Discharge Medications Current Medications Albuterol/ Ipratropium (Duoneb) 3 ml 1X ONCE NEB Last administered on at 13:49; Start 07/14/18 at 14:00; Stop 07/14/18 at 14:01; Status DC Levofloxacin/ Dextrose (Levaquin Per Pharmacy) 1 each PRN DAILY PRN MC SEE COMMENTS; Start 07/14/18 at 16:00 Levofloxacin/ Dextrose 100 ml @ 100 mls/hr Q48H IV Last administered on at 16:28; Start 07/14/18 at 16:00 Albuterol/ Ipratropium (Duoneb) 3 ml RTQID NEB Last administered on 07/16/18at 07 :33; Start 07/14/18 at 20:00 Heparin Sodium (Porcine) (Heparin Sodium) 5,000 unit Q8HRS SQ ; Start 07/14/18 at 22:00; Stop 07/14/18 at 22:02; Status DC Piperacillin Sod/ Tazobactam Sod (Zosyn Per Pharmacy) 1 each PRN DAILY PRN MC SEE COMMENTS; Start 07/14/18 at 18:45 Piperacillin Sod/ Tazobactam Sod 2.25 gm/Sodium Chloride 50 ml @ 100 mls/hr Q8HRS IV Last administered on 07/16/18 06:14; Start 07/14/18 at 20:00 Acetaminophen/ Hydrocodone Bitart (Lortab 7.5/325) 1 tab PRN Q6HRS PRN PO PAIN Last administered on 07/15/18at 21:39; Start 07/14/18 at 19:00 Atorvastatin Calcium (Lipitor) 10 mg QHS PO ; Start 07/14/18 at 21:00 Aspirin (Fela Aspirin) 325 mg DAILYWBKFT PO Last administered on 07/15/18at 08: 28; Start 07/15/18 at 08:00 Furosemide (Lasix) 80 mg DAILY PO Last administered on 07/15/18 08:28; Start at 09:00 Isosorbide Dinitrate (Isordil) 10 mg BID PO Last administered on 07/15/18 08:30 ; Start 07/14/18 at 21:00; Stop 07/16/18 at 07:48; Status DC Sevelamer Carbonate (Renvela) 1,600 mg TIDWMEALS PO Last administered on at 17:16; Start 07/15/18 at 08:00 Carvedilol (Coreg) 25 mg DAILY PO Last administered on 07/15/18 08:31; Start at 09:00 Hydralazine HCl (Apresoline) 10 mg DAILY PO Last administered on 07/15/18 08:30 ; Start 07/15/18 at 09:00 Losartan Potassium (Cozaar) 100 mg DAILY PO ; Start 07/15/18 at 09:00; Stop at 09:00; Status DC Magnesium Oxide (Magnesium Oxide) 400 mg DAILY PO Last administered on at 08:28; Start 07/15/18 at 09:00 Gabapentin (Neurontin) 600 mg BID PO ; Start 07/14/18 at 21:00 Doxazosin Mesylate (Cardura) 4 mg DAILY PO ; Start 07/15/18 at 09:00 Aspirin (Fela Aspirin) 325 mg DAILYWBKFT PO ; Start 07/15/18 at 08:00; Status UNV Ferrous Sulfate (Feosol) 325 mg DAILYWBKFT PO ; Start 07/15/18 at 08:00 Heparin Sodium/ Dextrose 500 ml @ 0 mls/hr CONT PRN IV SEE I/O RECORD Last administered on 07/14/18at 22:16; Start 07/14/18 at 21:30; Stop 07/15/18 at 17:00; Status DC Heparin Sodium (Porcine) (Heparin Sodium) 2,500 unit PRN Q6HRS PRN IV FOR UFH LEVEL LESS THAN 0.2; Start 07/14/18 at 21:30; Stop 07/15/18 at 17:00; Status DC Heparin Sodium (Porcine) (Heparin Sodium) 1,250 unit PRN Q6HRS PRN IV FOR UFH LEVEL 0.2 - 0.29; Start 07/14/18 at 21:30; Stop 07/15/18 at 17:00; Status DC Losartan Potassium (Cozaar) 100 mg HS PO Last administered on 07/15/18at 21:41; Start 07/14/18 at 22:15 Cetirizine HCl (ZyrTEC) 10 mg DAILY PO ; Start 07/15/18 at 10:00 Iohexol (Omnipaque 350 Mg/ml) 80 ml 1X ONCE IV ; Start 07/15/18 at 11:45; Stop 07/15/18 at 11:46; Status DC Info (CONTRAST GIVEN -- Rx MONITORING) 1 each PRN DAILY PRN MC SEE COMMENTS; Start 07/15/18 at 12:00; Stop 07/17/18 at 11:59 Info (Anti-Coagulation Monitoring By Pharmacy) 1 each PRN DAILY PRN MC SEE COMMENTS Last administered on 07/15/18at 11:49; Start 07/15/18 at 12:00 Lactobacillus Rhamnosus (Culturelle) 1 cap BID PO Last administered on at 21:39; Start 07/15/18 at 21:00 Iohexol (Omnipaque 350 Mg/ml) 80 ml 1X ONCE IV Last administered on 07/15/18at 15:13; Start 07/15/18 at 15:15; Stop 07/15/18 at 15:16; Status DC Info (CONTRAST GIVEN -- Rx MONITORING) 1 each PRN DAILY PRN MC SEE COMMENTS; Start 07/15/18 at 15:15; Stop 07/17/18 at 15:14 Isosorbide Dinitrate (Isordil) 10 mg DAILY PO ; Start 07/16/18 at 09:00 Active Scripts Active Reported Loratadine 10 Mg Tablet 1 Tab PO DAILY Carvedilol 25 Mg Tablet 25 Mg PO DAILY Losartan Potassium 100 Mg Tablet 100 Mg PO HS Isosorbide Dinitrate 10 Mg Tablet 10 Mg PO DAILY Hydralazine Hcl 10 Mg Tablet 10 Mg PO DAILY Renvela (Sevelamer Carbonate) 800 Mg Tablet 3 Tab PO TID Furosemide 80 Mg Tablet 1 Tab PO DAILY Magnesium Oxide 400 Mg Tablet 1 Tab PO DAILY Vital Signs Vital Signs Date Time Temp Pulse Resp B/P (MAP) Pulse Ox O2 Delivery O2 Flow Rate FiO2 07/16/18 07:34 97 Room Air 07/16/18 07:00 98.2 79 18 154/82 (106) 98.2 Labs Laboratory Tests Test 07/14/18 14:25 07/14/18 15:25 07/14/18 22:00 07/15/18 05:05 White Blood Count 3.5 x10^3/uL (4.0-11.0) 3.3 x10^3/uL (4.0-11.0) Red Blood Count 2.78 x10^6/uL (3.50-5.40) 2.70 x10^6/uL (3.50-5.40) Hemoglobin 9.5 g/dL (12.0-15.5) 9.2 g/dL (12.0-15.5) Hematocrit 29.1 % (36.0-47.0) 28.4 % (36.0-47.0) Mean Corpuscular Volume 105 fL (79-100) 105 fL (79-100) Mean Corpuscular Hemoglobin 34 pg (25-35) 34 pg (25-35) Mean Corpuscular Hemoglobin Concent 33 g/dL (31-37) 32 g/dL (31-37) Red Cell Distribution Width 15.9 % (11.5-14.5) 15.7 % (11.5-14.5) Platelet Count 137 x10^3/uL (140-400) 116 x10^3/uL (140-400) Neutrophils (%) (Auto) 56 % (31-73) 52 % (31-73) Lymphocytes (%) (Auto) 24 % (24-48) 29 % (24-48) Monocytes (%) (Auto) 12 % (0-9) 11 % (0-9) Eosinophils (%) (Auto) 7 % (0-3) 7 % (0-3) Basophils (%) (Auto) 1 % (0-3) 1 % (0-3) Neutrophils # (Auto) 2.0 x10^3uL (1.8-7.7) 1.7 x10^3uL (1.8-7.7) Lymphocytes # (Auto) 0.8 x10^3/uL (1.0-4.8) 1.0 x10^3/uL (1.0-4.8) Monocytes # (Auto) 0.4 x10^3/uL (0.0-1.1) 0.4 x10^3/uL (0.0-1.1) Eosinophils # (Auto) 0.2 x10^3/uL (0.0-0.7) 0.2 x10^3/uL (0.0-0.7) Basophils # (Auto) 0.0 x10^3/uL (0.0-0.2) 0.0 x10^3/uL (0.0-0.2) Prothrombin Time 14.1 SEC (11.7-14.0) Prothromb Time International Ratio 1.1 (0.8-1.1) D-Dimer (Daly) 1.10 ug/mlFEU (0.00-0.50) Sodium Level 141 mmol/L (136-145) 138 mmol/L (136-145) Potassium Level 4.0 mmol/L (3.5-5.1) 3.9 mmol/L (3.5-5.1) Chloride Level 104 mmol/L (98-107) 102 mmol/L (98-107) Carbon Dioxide Level 20 mmol/L (21-32) 19 mmol/L (21-32) Anion Gap 17 (6-14) 17 (6-14) Blood Urea Nitrogen 13 mg/dL (7-20) 20 mg/dL (7-20) Creatinine 5.4 mg/dL (0.6-1.0) 6.8 mg/dL (0.6-1.0) Estimated GFR (Cockcroft-Gault) 9.9 7.6 BUN/Creatinine Ratio 2 (6-20) Glucose Level 154 mg/dL (70-99) 166 mg/dL (70-99) Calcium Level 9.7 mg/dL (8.5-10.1) 9.3 mg/dL (8.5-10.1) Total Bilirubin 0.4 mg/dL (0.2-1.0) Aspartate Amino Transf (AST/SGOT) 14 U/L (15-37) Alanine Aminotransferase (ALT/SGPT) 17 U/L (14-59) Alkaline Phosphatase 227 U/L (46-116) Troponin I Quantitative < 0.017 ng/mL (0.000-0.055) 0.017 ng/mL (0.000-0.055) WC-Lqg-Q-Type Natriuretic Peptide > 43593 pg/mL (0-124) Total Protein 7.1 g/dL (6.4-8.2) Albumin 3.3 g/dL (3.4-5.0) Albumin/Globulin Ratio 0.9 (1.0-1.7) Lactic Acid Level 1.3 mmol/L (0.4-2.0) Heparin Anti-Xa Act, Unfractionated 0.41 IU/mL (0.30-0.70) Procalcitonin 0.62 ng/mL (0.00-0.10) Test 07/15/18 10:15 Heparin Anti-Xa Act, Unfractionated 0.61 IU/mL (0.30-0.70) Laboratory Tests Test 07/15/18 10:15 Heparin Anti-Xa Act, Unfractionated 0.61 IU/mL (0.30-0.70) Allergies Allergies Coded Allergies Type Severity Reaction Last Updated Verified azithromycin Allergy Intermediate Anxiety 2/26/19 Yes Disposition/Orders: D/C to Home FRAN MORENO MD Jul 16, 2018 08:19
[2018-07-16] MEDS: GABAPENTIN 300 MG CAPSULE. PO SCH ×2 (09:00→21:00)
[2018-07-16] MEDS: CETIRIZINE HCL 10 MG TABLET. PO SCH (09:00)
[2018-07-16] MEDS: DOXAZOSIN MESYLATE 4 MG TABLET. PO SCH (09:00)
[2018-07-16] MEDS ORDERED: IV NORMAL SALINE 1000ML BAG 1,000 ML IV PRN ×2 (09:07)
[2018-07-16] MEDS ORDERED: LIDOCAINE 1% PF 2 ML VIAL. ID ONE (09:15)
[2018-07-16] MEDS ORDERED: DIALYSIS PATIENT. MC PRN ×2 (09:15)
--- NOTE | 2018-07-16 10:07 | PDOC ---
SUBJECTIVE ROS seen on HD, no complaints OBJECTIVE Vital Signs Vital Signs Date Time Temp Pulse Resp B/P (MAP) Pulse Ox O2 Delivery O2 Flow Rate FiO2 07/16/18 07:34 97 Room Air 07/16/18 07:00 98.2 79 18 154/82 (106) 98.2 I & 0 Intake and Output 07/16/18 07:00 Intake Total 1420 ml Balance 1420 ml Intake Oral 1420 ml PHYSICAL EXAM Physical Exam GENERAL: NAD , HEENT: OM moist NECK: Supple. CARDIAC: Regular rate and rhythm with a grade 3/6 systolic ejection murmur. LUNGS: Clear anteriorly. ABDOMEN: Soft, nontender, EXTREMITIES: AV fistula noted in right arm. no edema. NEUROLOGIC: Intact SKIN No rash No Cosby DIAGNOSIS/ASSESSMENT Assessment & Plan ESRD - On HD for 6 years- Dr. 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 Intermediate probability of pulmonary embolus. New right lower lobe pneumonia. Pancytopenia. Pulmonary hypertension. Type 2 diabetes. Chronic combined systolic, diastolic congestive heart failure. Compensated COMMENT/RELEVANT DATA Meds Current Medications Medications (Trade) Dose Ordered Sig/Rosie Start Time Stop Time Status Last Admin Dose Admin Acetaminophen/ Hydrocodone Bitart (Lortab 7.5/325) 1 tab PRN Q6HRS PRN 07/14/18 19:00 07/15/18 21:39 1 TAB Albuterol/ Ipratropium (Duoneb) 3 ml RTQID 07/14/18 20:00 07/16/18 07:33 3 ML Aspirin (Fela Aspirin) 325 mg DAILYWBKFT 07/15/18 08:00 UNV Atorvastatin Calcium (Lipitor) 10 mg QHS 07/14/18 21:00 Carvedilol (Coreg) 25 mg DAILY 07/15/18 09:00 07/15/18 08:31 25 MG Cetirizine HCl (ZyrTEC) 10 mg DAILY 07/15/18 10:00 Doxazosin Mesylate (Cardura) 4 mg DAILY 07/15/18 09:00 Ferrous Sulfate (Feosol) 325 mg DAILYWBKFT 07/15/18 08:00 Furosemide (Lasix) 80 mg DAILY 07/15/18 09:00 07/15/18 08:28 80 MG Gabapentin (Neurontin) 600 mg BID 07/14/18 21:00 Heparin Sodium (Porcine) (Heparin Sodium) 1,250 unit PRN Q6HRS PRN 07/14/18 21:30 07/15/18 17:00 DC Heparin Sodium/ Dextrose 500 ml @ 0 mls/hr CONT PRN 07/14/18 21:30 07/15/18 17:00 DC 07/14/18 22:16 26.8 MLS/HR Hydralazine HCl (Apresoline) 10 mg DAILY 07/15/18 09:00 07/15/18 08:30 10 MG Info (Anti-Coagulation Monitoring By Pharmacy) 1 each PRN DAILY PRN 07/15/18 12:00 07/15/18 11:49 1 EACH Info (CONTRAST GIVEN -- Rx MONITORING) 1 each PRN DAILY PRN 07/15/18 15:15 07/17/18 15:14 Info (PHARMACY MONITORING -- do not chart) 1 each PRN DAILY PRN 07/16/18 09:15 Iohexol (Omnipaque 350 Mg/ml) 80 ml 1X ONCE 07/15/18 15:15 07/15/18 15:16 DC 07/15/18 15:13 80 ML Isosorbide Dinitrate (Isordil) 10 mg DAILY 07/16/18 09:00 Lactobacillus Rhamnosus (Culturelle) 1 cap BID 07/15/18 21:00 07/15/18 21:39 1 CAP Levofloxacin/ Dextrose 100 ml @ 100 mls/hr Q48H 07/14/18 16:00 07/14/18 16:28 100 MLS/HR Levofloxacin/ Dextrose (Levaquin Per Pharmacy) 1 each PRN DAILY PRN 07/14/18 16:00 Lidocaine HCl (Xylocaine-Mpf 1% 2ml Vial) 2 ml 1X ONCE 07/16/18 09:15 07/16/18 09:16 DC Losartan Potassium (Cozaar) 100 mg HS 07/14/18 22:15 07/15/18 21:41 100 MG Magnesium Oxide (Magnesium Oxide) 400 mg DAILY 07/15/18 09:00 07/15/18 08:28 400 MG Piperacillin Sod/ Tazobactam Sod (Zosyn Per Pharmacy) 1 each PRN DAILY PRN 07/14/18 18:45 Piperacillin Sod/ Tazobactam Sod 2.25 gm/Sodium Chloride 50 ml @ 100 mls/hr Q8HRS 07/14/18 20:00 07/16/18 06:14 100 MLS/HR Sevelamer Carbonate (Renvela) 1,600 mg TIDWMEALS 07/15/18 08:00 07/15/18 17:16 1,600 MG Sodium Chloride 1,000 ml @ 400 mls/hr Q2H30M PRN 07/16/18 09:07 07/16/18 21:06 Lab Laboratory Tests Test 07/15/18 10:15 Heparin Anti-Xa Act, Unfractionated 0.61 IU/mL (0.30-0.70) Results All relevant outside records, renal labs, imaging studies, telemetry/EKG's were reviewed. DIAMOND FANG MD Jul 16, 2018 10:07
--- NOTE | 2018-07-16 10:24 | PDOC ---
CARDIO Progress Notes Date and Time Date of Service 07/16/18 Time of Evaluation 1040 Subjective Subjective: No Chest Pain, No Palpitations, No Dizziness, Other (SOA improved) Vitals Vitals Vital Signs Date Time Temp Pulse Resp B/P (MAP) Pulse Ox O2 Delivery O2 Flow Rate FiO2 07/16/18 07:34 97 Room Air 07/16/18 07:00 98.2 79 18 154/82 (106) 98.2 Weight Weight [ ] Input and Output Intake and Output Intake and Output 07/16/18 06:59 Intake Total 1420 ml Balance 1420 ml Intake Oral 1420 ml Laboratory Labs Laboratory Tests Test 07/16/18 10:00 Heparin Anti-Xa Act, Unfractionated < 0.10 IU/mL (0.30-0.70) Microbiology Micro Microbiology 07/14/18 Blood Culture - Preliminary, Resulted NO GROWTH AFTER 1 DAY Physical Exam HEENT: Neck Supple W Full Motion Chest: Symmetric LUNGS: Clear to Auscultation Heart: S1S2, RRR Abdomen: Soft N/T Extremities: No Edema Neurology: alert, oriented, follow commands Assessment Assessment 1. Acute respiratory failure secondary to a/c HF and AECOPD 2. Acute on chronic diastolic HF; Echo with LVEF 55% 3. CAD s/p remote CABG. Stable. CP free 4. PAFIB; presently maintaining SR 5. ESRD on HD; 6. Hypertension; relative control 6. Hyperlipidemia; statin 7. DM, II; as per PCP Recommendations Fluid off-loading via HD as per nephrology Secondary prevention measures Supportive care. PANCHITO DILL APRN Jul 16, 2018 10:24
--- NOTE | 2018-07-16 13:00 | NUR ---
SW following pt for anticipated dc needs. Chart reviewed and discussed with RN. Pt lives at home with family and has HD on MWF. Pt might dc home today after seen by Cardiology and completing HD. No SW needs noted at this time.
[2018-07-16] MEDS: ISOSORBIDE DINITRATE 10 MG TABLET. PO SCH (13:10)
[2018-07-16] MEDS: ASPIRIN 325 MG TABLET PO SCH (13:10)
[2018-07-16] MEDS: hydrALAZINE 10 MG TABLET PO SCH (13:11)
[2018-07-16] MEDS: CARVEDILOL 12.5 MG TABLET. PO SCH (13:12)
[2018-07-16] MEDS: MAGNESIUM OXIDE 400 MG TABLET PO SCH (13:12)
[2018-07-16] MEDS: LACTOBACILLUS RHAMNOSUS GG 1 CAPSULE. PO SCH ×2 (13:12→21:54)
[2018-07-16] MEDS: FUROSEMIDE 80 MG TABLET. PO SCH (13:12)
--- NOTE | 2018-07-16 14:09 | PDOC ---
PULMONARY PROGRESS NOTES Subjective no soa Vitals Vital Signs Date Time Temp Pulse Resp B/P (MAP) Pulse Ox O2 Delivery O2 Flow Rate FiO2 07/16/18 13:12 79 154/82 07/16/18 08:00 Room Air 07/16/18 07:34 97 07/16/18 07:00 98.2 18 98.2 General: Alert, No acute distress Lungs: Clear Cardiovascular: S1, S2 Abdomen: Soft, Non-tender Extremities: No Edema Skin: Warm Labs Laboratory Tests Test 07/14/18 14:25 07/14/18 15:25 07/14/18 22:00 07/15/18 05:05 White Blood Count 3.5 x10^3/uL (4.0-11.0) 3.3 x10^3/uL (4.0-11.0) Red Blood Count 2.78 x10^6/uL (3.50-5.40) 2.70 x10^6/uL (3.50-5.40) Hemoglobin 9.5 g/dL (12.0-15.5) 9.2 g/dL (12.0-15.5) Hematocrit 29.1 % (36.0-47.0) 28.4 % (36.0-47.0) Mean Corpuscular Volume 105 fL (79-100) 105 fL (79-100) Mean Corpuscular Hemoglobin 34 pg (25-35) 34 pg (25-35) Mean Corpuscular Hemoglobin Concent 33 g/dL (31-37) 32 g/dL (31-37) Red Cell Distribution Width 15.9 % (11.5-14.5) 15.7 % (11.5-14.5) Platelet Count 137 x10^3/uL (140-400) 116 x10^3/uL (140-400) Neutrophils (%) (Auto) 56 % (31-73) 52 % (31-73) Lymphocytes (%) (Auto) 24 % (24-48) 29 % (24-48) Monocytes (%) (Auto) 12 % (0-9) 11 % (0-9) Eosinophils (%) (Auto) 7 % (0-3) 7 % (0-3) Basophils (%) (Auto) 1 % (0-3) 1 % (0-3) Neutrophils # (Auto) 2.0 x10^3uL (1.8-7.7) 1.7 x10^3uL (1.8-7.7) Lymphocytes # (Auto) 0.8 x10^3/uL (1.0-4.8) 1.0 x10^3/uL (1.0-4.8) Monocytes # (Auto) 0.4 x10^3/uL (0.0-1.1) 0.4 x10^3/uL (0.0-1.1) Eosinophils # (Auto) 0.2 x10^3/uL (0.0-0.7) 0.2 x10^3/uL (0.0-0.7) Basophils # (Auto) 0.0 x10^3/uL (0.0-0.2) 0.0 x10^3/uL (0.0-0.2) Prothrombin Time 14.1 SEC (11.7-14.0) Prothromb Time International Ratio 1.1 (0.8-1.1) D-Dimer (Daly) 1.10 ug/mlFEU (0.00-0.50) Sodium Level 141 mmol/L (136-145) 138 mmol/L (136-145) Potassium Level 4.0 mmol/L (3.5-5.1) 3.9 mmol/L (3.5-5.1) Chloride Level 104 mmol/L (98-107) 102 mmol/L (98-107) Carbon Dioxide Level 20 mmol/L (21-32) 19 mmol/L (21-32) Anion Gap 17 (6-14) 17 (6-14) Blood Urea Nitrogen 13 mg/dL (7-20) 20 mg/dL (7-20) Creatinine 5.4 mg/dL (0.6-1.0) 6.8 mg/dL (0.6-1.0) Estimated GFR (Cockcroft-Gault) 9.9 7.6 BUN/Creatinine Ratio 2 (6-20) Glucose Level 154 mg/dL (70-99) 166 mg/dL (70-99) Calcium Level 9.7 mg/dL (8.5-10.1) 9.3 mg/dL (8.5-10.1) Total Bilirubin 0.4 mg/dL (0.2-1.0) Aspartate Amino Transf (AST/SGOT) 14 U/L (15-37) Alanine Aminotransferase (ALT/SGPT) 17 U/L (14-59) Alkaline Phosphatase 227 U/L (46-116) Troponin I Quantitative < 0.017 ng/mL (0.000-0.055) 0.017 ng/mL (0.000-0.055) OV-Jjx-O-Type Natriuretic Peptide > 89253 pg/mL (0-124) Total Protein 7.1 g/dL (6.4-8.2) Albumin 3.3 g/dL (3.4-5.0) Albumin/Globulin Ratio 0.9 (1.0-1.7) Lactic Acid Level 1.3 mmol/L (0.4-2.0) Heparin Anti-Xa Act, Unfractionated 0.41 IU/mL (0.30-0.70) Procalcitonin 0.62 ng/mL (0.00-0.10) Test 07/15/18 10:15 07/16/18 10:00 Heparin Anti-Xa Act, Unfractionated 0.61 IU/mL (0.30-0.70) < 0.10 IU/mL (0.30-0.70) Laboratory Tests Test 07/16/18 10:00 Heparin Anti-Xa Act, Unfractionated < 0.10 IU/mL (0.30-0.70) Medications Active Scripts Medications Dose Route/Sig Max Daily Dose Days Date Category Loratadine 10 Mg Tablet 1 Tab PO DAILY 07/14/18 Reported Carvedilol 25 Mg Tablet 25 Mg PO DAILY 05/30/18 Reported Losartan Potassium 100 Mg Tablet 100 Mg PO HS 05/30/18 Reported Isosorbide Dinitrate 10 Mg Tablet 10 Mg PO DAILY 05/30/18 Reported Hydralazine Hcl 10 Mg Tablet 10 Mg PO DAILY 05/30/18 Reported Renvela (Sevelamer Carbonate) 800 Mg Tablet 3 Tab PO TID 06/27/14 Reported Furosemide 80 Mg Tablet 1 Tab PO DAILY 06/27/14 Reported Magnesium Oxide 400 Mg Tablet 1 Tab PO DAILY 06/27/14 Reported Impression . 1. Dyspnea for the last 2 weeks, likely related to combination of acute on chronic systolic heart failure with increasing right effusion/underlying chronic obstructive pulmonary disease,clinically less likely PE. Clinically better within 24 hours. 2. Abnormal V/Q scan, which showed indeterminate probability for pulmonary embolism. Her venous Dopplers are negative. Her CT angiogram was reviewed by me. Not convinced that she has any pulmonary emboli. 3. History of abnormal echo with an EF of 40-45% and grade 2 diastolic dysfunction. This is from 05/2018. 4. Abnormal ct chest with organized right upper lobe effusion, RLL small effusion/ atelectasis, resolution of previous large cavitary pneumonia RUL. Plan . 1. P.r.n. oxygen. 2. Continue present Lasix, however, she does not make much urine. 3. Hemodialysis with ultrafiltration. 4. Bronchodilators. 6. Empiric antibiotic for now. procalcitonin level 0.6 7. d/w patient the option of diagnostic right consider . She will think about it. 8. Cardiology follow up regarding CMP 9. Discussed with RN. and TITUS VERAS MD Jul 16, 2018 14:09
[2018-07-16 14:22] VITALS: BP 114/58
--- NOTE | 2018-07-16 16:09 | CARD ---
MR#: [id number] Date of Study: 07/16/2018 Ordering Physician: LOREN VICENTE, Referring Physician: MAINOR SOSA, Tech: Erika De La Vega APPROVED REPORT EXAM: Two-dimensional and M-mode echocardiogram with Doppler and color Doppler. Other Information Quality : AverageHR: 78bpm INDICATION Congestive Heart Failure RISK FACTORS Hypertension Diabetes Previous smoker 2D DIMENSIONS Left Atrium(2D)4.1 (1.6-4.0cm)IVSd1.3 (0.7-1.1cm) Aortic Root(2D)2.8 (2.0-3.7cm)LVDd4.8 (3.9-5.9cm) PWd1.4 (0.7-1.1cm)LVDs3.8 (2.5-4.0cm) FS (%) 21.4 %SV46.4 ml LVEF(%)43.4 (>50%) Mitral Valve MV E Djvgnsvt929.1cm/sMV E Peak Gr.103mmHg MV DECEL [id number] A Jxpxtuhm90.4cm/s E/A Ratio1.6 TDI Lateral E' P. V5.60cm/sMedial E' P. V6.69cm/s E/Lateral E'27.0E/Medial E'22.6 Tricuspid Valve TR P. Tloawgoh770yo/sRAP [id number] TR Peak Gr.[id number] LEFT VENTRICLE The left ventricle is normal size. There is moderate concentric left ventricular hypertrophy. The lef t ventricular systolic function is normal and the ejection fraction is within normal range. The Eject ion Fraction is >55%. There is hypokinesis in the mid to distal apical wall. Transmitral Doppler flow pattern is Grade II-pseudonormal filling dynamics. RIGHT VENTRICLE The right ventricle is mildly dilated. There is normal right ventricular wall thickness. The right ve ntricular systolic function is normal. ATRIA The left atrium is borderline dilated. The right atrium size is normal. Doppler and color-flow analys is was performed on the atria septum. No obvious right to left shunting AORTIC VALVE The aortic valve is not well visualized. Doppler and Color Flow revealed trace aortic regurgitation. There is no significant aortic valvular stenosis. MITRAL VALVE The mitral valve is thickened but opens well. There is no evidence of mitral valve prolapse. There is no mitral valve stenosis. Doppler and Color-flow revealed trace to mild mitral regurgitation. TRICUSPID VALVE Doppler and Color Flow revealed severe tricuspid regurgitation with an estimated PAP of 49 mmHg. Ther e is moderate pulmonary hypertension. There is no tricuspid valve stenosis. PULMONIC VALVE The pulmonic valve is not well visualized. Doppler and color-flow analysis was performed. GREAT VESSELS The aortic root is normal in size. The IVC is dilated and collapses >50% with inspiration. PERICARDIAL EFFUSION There is no evidence of significant pericardial effusion. Critical Notification Critical Value: No <Conclusion> The left ventricular systolic function is normal and the ejection fraction is within normal range. Th e Ejection Fraction is >55%. There is hypokinesis in the mid to distal apical wall. Doppler and Color Flow revealed severe tricuspid regurgitation with an estimated PAP of 49 mmHg. Ther e is moderate pulmonary hypertension. Limited echo only. Signed by : Emile La, Electronically Approved : 07/16/2018 16:09:05
[2018-07-16 19:30] VITALS: BP 150/77
[2018-07-16] MEDS ORDERED: DOCU100C28 PO (19:33)
--- NOTE | 2018-07-16 19:35 | NUR ---
Spoke with Dr. La. Patients echo results were abnormal. Notified Dr. Ying. Patient recommended to stay another night to talk to cardiology about echo results tomorrow. Patient agreeable to stay.
[2018-07-16] MEDS ORDERED: DOCUSATE SODIUM 100 MG CAPSULE. PO PRN (19:45)
[2018-07-16] MEDS: ATORVASTATIN CALCIUM 10 MG TABLET. PO SCH (21:00)
[2018-07-16] MEDS: LOSARTAN POTASSIUM 50 MG TABLET. PO SCH (21:55)
[2018-07-16] MEDS: HYDROcodone/APAP 7.5/325MG 1 TAB TABLET PO PRN (22:06)
[2018-07-16 23:06] VITALS: BP 136/69
[2018-07-17 03:29] VITALS: BP 131/71
[2018-07-17] MEDS: PIPERACILLIN/TAZOBACTAM 2.25 GM in IV NORMAL SALINE 50ML 50 ML IV SCH ×2 (05:54→14:29)
--- NOTE | 2018-07-17 06:53 | PDOC ---
SUBJECTIVE Subjective Pt had been hoping to go home yesterday. ECHO had not been performed yet, and came back with severe tricuspid regurgitation and moderate pulmonary HTN. She is hoping to be able to go home today. Discussed that we would wait for pt to see all consultants first OBJECTIVE Vital Signs Vital Signs Date Time Temp Pulse Resp B/P (MAP) Pulse Ox O2 Delivery O2 Flow Rate FiO2 07/17/18 03:29 98.5 79 18 131/71 (91) 98 Room Air 98.5 07/16/18 23:06 98.6 81 20 136/69 (91) 98 Room Air 98.6 07/16/18 23:06 98 Room Air 07/16/18 22:06 100 Room Air 07/16/18 21:55 82 150/77 07/16/18 21:26 100 Room Air 07/16/18 20:14 Room Air 07/16/18 19:30 98.1 82 20 150/77 (101) 98 Room Air 98.1 07/16/18 15:16 99 Room Air 07/16/18 14:22 98.2 85 18 114/58 (76) 96 Room Air 98.2 07/16/18 13:12 79 154/82 07/16/18 13:11 79 154/82 07/16/18 13:10 79 154/82 07/16/18 08:00 Room Air 07/16/18 07:34 97 Room Air 07/16/18 07:00 98.2 79 18 154/82 (106) 100 Room Air 98.2 I & O Intake and Output 07/17/18 07:00 Intake Total 1710 ml Balance 1710 ml Intake Oral 1710 ml # Voids 1 PHYSICAL EXAM Physical Exam GEN: NAD, AOx3 HEENT: MMM, EOMI, no scleral icterus/injection Cardiac: RRR, no harsh M/R/G Lungs: CTAB, regular breathing rate and effort Abd: soft, non distended, NTTP Ext: no erythema/edema LE bilaterally ASSESSMENT/PLAN Assessment/Plan Pt is a 58yo AAF admitted with shortness of breath 1. Shortness of breath with activity- this has improved since admission. ECHO shows severe tricuspid regurgitation and moderate pulmonary HTN, both Cardiology and pulmonary are following 2. Elevated D-dimer- intermediate risk V/Q scan. CT Chest showing decreased likelihood of PE 3. New right lower lobe pneumonia- pt currently on Zosyn and Levaquin. Appreciate abx recommendations from pulmonary. Pt planning on following up with pulmonary outpatient 4. COPD- pt willing to go home on new medications 5. Pancytopenia. 6. Pulmonary hypertension. 7. End-stage renal disease, on dialysis. 8. Type 2 diabetes- BS moderately controlled. 9. Acute on chronic combined systolic, diastolic congestive heart failure- pt currently receiving Lasix 80mg 10. CAD- pt on isosorbide dinitrate 11. HTN- pt continued on Doxazosin 4mg, Hydralazine 10mg, Carvedilol 25mg qday , Losartan 100mg and above medications 12. HLD- pt continued on Atorvastatin 10mg 13. VTach- Cardiology following COMMENT Lab Laboratory Tests Test 07/16/18 10:00 Heparin Anti-Xa Act, Unfractionated < 0.10 IU/mL (0.30-0.70) FRAN MORENO MD Jul 17, 2018 06:53
[2018-07-17 07:00] VITALS: BP 146/75
[2018-07-17] MEDS: FERROUS SULFATE 325 MG TABLET. PO SCH ×2 (08:00→08:12)
[2018-07-17] MEDS: SEVELAMER CARBONATE 800 MG TABLET. PO SCH ×3 (08:12→17:00)
[2018-07-17] MEDS: FUROSEMIDE 80 MG TABLET. PO SCH (08:12)
[2018-07-17] MEDS: ASPIRIN 325 MG TABLET PO SCH (08:13)
[2018-07-17] MEDS: CARVEDILOL 12.5 MG TABLET. PO SCH (08:14)
[2018-07-17] MEDS: ISOSORBIDE DINITRATE 10 MG TABLET. PO SCH (08:14)
[2018-07-17] MEDS: MAGNESIUM OXIDE 400 MG TABLET PO SCH (08:15)
[2018-07-17] MEDS: hydrALAZINE 10 MG TABLET PO SCH (08:15)
[2018-07-17] MEDS: LACTOBACILLUS RHAMNOSUS GG 1 CAPSULE. PO SCH (08:16)
[2018-07-17] MEDS: DOXAZOSIN MESYLATE 4 MG TABLET. PO SCH (08:18)
[2018-07-17] MEDS: GABAPENTIN 300 MG CAPSULE. PO SCH (08:18)
[2018-07-17] MEDS: CETIRIZINE HCL 10 MG TABLET. PO SCH (08:18)
[2018-07-17] MEDS: IPRATRPIUM/ALBUTEROL 0.5/2.5MG 3 ML NEBU. NEB SCH ×3 (08:29→16:47)
--- NOTE | 2018-07-17 08:36 | PDOC ---
PULMONARY PROGRESS NOTES Subjective no soa Vitals Vital Signs Date Time Temp Pulse Resp B/P (MAP) Pulse Ox O2 Delivery O2 Flow Rate FiO2 07/17/18 08:29 100 Room Air 07/17/18 08:15 78 146/75 07/17/18 07:00 98.4 18 98.4 General: Alert, No acute distress Lungs: Clear Cardiovascular: S1, S2 Abdomen: Soft, Non-tender Extremities: No Edema Skin: Warm Labs Laboratory Tests Test 07/15/18 10:15 07/16/18 10:00 Heparin Anti-Xa Act, Unfractionated 0.61 IU/mL (0.30-0.70) < 0.10 IU/mL (0.30-0.70) Laboratory Tests Test 07/16/18 10:00 Heparin Anti-Xa Act, Unfractionated < 0.10 IU/mL (0.30-0.70) Medications Active Scripts Medications Dose Route/Sig Max Daily Dose Days Date Category Loratadine 10 Mg Tablet 1 Tab PO DAILY 07/14/18 Reported Carvedilol 25 Mg Tablet 25 Mg PO DAILY 05/30/18 Reported Losartan Potassium 100 Mg Tablet 100 Mg PO HS 05/30/18 Reported Isosorbide Dinitrate 10 Mg Tablet 10 Mg PO DAILY 05/30/18 Reported Hydralazine Hcl 10 Mg Tablet 10 Mg PO DAILY 05/30/18 Reported Renvela (Sevelamer Carbonate) 800 Mg Tablet 3 Tab PO TID 06/27/14 Reported Furosemide 80 Mg Tablet 1 Tab PO DAILY 06/27/14 Reported Magnesium Oxide 400 Mg Tablet 1 Tab PO DAILY 06/27/14 Reported Impression . 1. Dyspnea for the last 2 weeks, likely related to combination of acute on chronic systolic heart failure with increasing right effusion/underlying chronic obstructive pulmonary disease,clinically less likely PE. Clinically better within 24 hours. 2. Abnormal V/Q scan, which showed indeterminate probability for pulmonary embolism. Her venous Dopplers are negative. Her CT angiogram was reviewed by me. Not convinced that she has any pulmonary emboli. 3. History of abnormal echo with an EF of 40-45% and grade 2 diastolic dysfunction. This is from 05/2018. 4. Abnormal ct chest with organized right upper lobe effusion, RLL small effusion/ atelectasis, resolution of previous large cavitary pneumonia RUL. Plan . 1. P.r.n. oxygen. 2. Continue present Lasix, however, she does not make much urine. 3. Hemodialysis with ultrafiltration. 4. Bronchodilators. 6. Empiric antibiotic for now. procalcitonin level 0.6 7. d/w patient the option of diagnostic right consider . She will think about it. 8. Cardiology follow up regarding CMP 9. Discussed with RN. and DALIA SNOW MD Jul 17, 2018 08:36
[2018-07-17 10:41] VITALS: BP 135/74
[2018-07-17 14:36] VITALS: BP 119/77
--- NOTE | 2018-07-17 14:39 | PDOC ---
CARDIO Progress Notes Date and Time Date of Service 07/17/2018 Time of Evaluation 1430 Subjective Subjective: No Chest Pain, No shortness of breath, No Palpitations Vitals Vitals Vital Signs Date Time Temp Pulse Resp B/P (MAP) Pulse Ox O2 Delivery O2 Flow Rate FiO2 07/17/18 10:41 97.9 74 18 135/74 (94) 99 Room Air 97.9 Weight Weight [ ] Input and Output Intake and Output Intake and Output 07/17/18 07:00 Intake Total 1710 ml Balance 1710 ml Intake Oral 1710 ml # Voids 1 Microbiology Micro Microbiology 07/14/18 Blood Culture - Preliminary, Resulted NO GROWTH AFTER 2 DAYS Physical Exam HEENT: Neck Supple W Full Motion Chest: Symmetric LUNGS: Other (diminisehd bases) Heart: S1S2, RRR (SR) Abdomen: Soft N/T Extremities: No Calf Tenderness Neurology: alert, oriented, follow commands Assessment Assessment 1. Acute respiratory failure secondary to a/c CHF and AECOPD: compensated 2. Acute on chronic diastolic HF; Echo better with LVEF 55% 3. CAD s/p remote CABG. Stable. CP free 4. PAFIB; possibly an isolated event. presently maintaining SR 5. ESRD on HD; 6. Hypertension; controlled 7. DM2/HLP Recommendations Fluid off-loading via HD as per nephrology Secondary prevention measures Continue coreg, ASA for stroke prevention. Recommend for outpt stress test and event monitor to ascertain AFIB burden for further treatment. Pt reported that this was an isolated event during HD. will defer above to Dr. Garcia her outpt blueprint machine operator. MIRTHA SIMON APRN Jul 17, 2018 14:39
--- NOTE | 2018-07-17 15:24 | NUR ---
Per Dr. Ying's note, touched base with cardiology, nephrology, and pulmonology. All are ok with patient being discharged. Isis recommends following up with her own merchant patroller, and possibly wearing a heart monitor as patient says she has no history of Afib. I left message with Dr. Ying's produce assistant to let her know everyone has signed off.
--- NOTE | 2018-07-17 15:27 | PDOC ---
SUBJECTIVE ROS no complaints OBJECTIVE Vital Signs Vital Signs Date Time Temp Pulse Resp B/P (MAP) Pulse Ox O2 Delivery O2 Flow Rate FiO2 07/17/18 14:36 98.6 75 17 119/77 (91) 99 Room Air 98.6 I & 0 Intake and Output 07/17/18 07:00 Intake Total 1710 ml Balance 1710 ml Intake Oral 1710 ml # Voids 1 PHYSICAL EXAM Physical Exam GENERAL: NAD , HEENT: OM moist NECK: Supple. CARDIAC: Regular rate and rhythm with a grade 3/6 systolic ejection murmur. LUNGS: Clear anteriorly. ABDOMEN: Soft, nontender, EXTREMITIES: AV fistula noted in right arm. no edema. NEUROLOGIC: Intact SKIN No rash No Cosby DIAGNOSIS/ASSESSMENT Assessment & Plan ESRD - On HD for 6 years- Dr. chandra No RRF , Currently no indication for HD today Anemia- Hgb stable Shortness of breath with activity. Intermediate probability of pulmonary embolus. New right lower lobe pneumonia. Pancytopenia. Pulmonary hypertension. Type 2 diabetes. Chronic combined systolic, diastolic congestive heart failure. Compensated COMMENT/RELEVANT DATA Meds Current Medications Medications (Trade) Dose Ordered Sig/Rosie Start Time Stop Time Status Last Admin Dose Admin Acetaminophen/ Hydrocodone Bitart (Lortab 7.5/325) 1 tab PRN Q6HRS PRN 07/14/18 19:00 07/16/18 22:06 1 TAB Albuterol/ Ipratropium (Duoneb) 3 ml RTQID 07/14/18 20:00 07/17/18 08:29 3 ML Aspirin (Fela Aspirin) 325 mg [id number] 07/15/18 08:00 UNV Atorvastatin Calcium (Lipitor) 10 mg QHS 07/14/18 21:00 Carvedilol (Coreg) 25 mg DAILY 07/15/18 09:00 07/17/18 08:14 25 MG Cetirizine HCl (ZyrTEC) 10 mg DAILY 07/15/18 10:00 Docusate Sodium (Colace) 100 mg PRN BID PRN 07/16/18 19:45 07/16/18 20:02 100 MG Doxazosin Mesylate (Cardura) 4 mg DAILY 07/15/18 09:00 Ferrous Sulfate (Feosol) 325 mg DAILYWBKFT 07/15/18 08:00 Furosemide (Lasix) 80 mg DAILY 07/15/18 09:00 07/17/18 08:12 80 MG Gabapentin (Neurontin) 600 mg BID 07/14/18 21:00 Heparin Sodium (Porcine) (Heparin Sodium) 1,250 unit PRN Q6HRS PRN 07/14/18 21:30 07/15/18 17:00 DC Heparin Sodium/ Dextrose 500 ml @ 0 mls/hr CONT PRN 07/14/18 21:30 07/15/18 17:00 DC 07/14/18 22:16 26.8 MLS/HR Hydralazine HCl (Apresoline) 10 mg DAILY 07/15/18 09:00 07/17/18 08:15 10 MG Info (Anti-Coagulation Monitoring By Pharmacy) 1 each PRN DAILY PRN 07/15/18 12:00 07/16/18 14:44 DC 07/15/18 11:49 1 EACH Info (CONTRAST GIVEN -- Rx MONITORING) 1 each PRN DAILY PRN 07/15/18 15:15 07/17/18 15:14 DC Info (PHARMACY MONITORING -- do not chart) 1 each PRN DAILY PRN 07/16/18 09:15 Iohexol (Omnipaque 350 Mg/ml) 80 ml 1X ONCE 07/15/18 15:15 07/15/18 15:16 DC 07/15/18 15:13 80 ML Isosorbide Dinitrate (Isordil) 10 mg DAILY 07/16/18 09:00 07/17/18 08:14 10 MG Lactobacillus Rhamnosus (Culturelle) 1 cap BID 07/15/18 21:00 07/17/18 08:16 1 CAP Levofloxacin/ Dextrose 100 ml @ 100 mls/hr Q48H 07/14/18 16:00 07/16/18 17:13 100 MLS/HR Levofloxacin/ Dextrose (Levaquin Per Pharmacy) 1 each PRN DAILY PRN 07/14/18 16:00 Lidocaine HCl (Xylocaine-Mpf 1% 2ml Vial) 2 ml 1X ONCE 07/16/18 09:15 07/16/18 09:16 DC Losartan Potassium (Cozaar) 100 mg HS 07/14/18 22:15 07/16/18 21:55 100 MG Magnesium Oxide (Magnesium Oxide) 400 mg DAILY 07/15/18 09:00 07/17/18 08:15 400 MG Piperacillin Sod/ Tazobactam Sod (Zosyn Per Pharmacy) 1 each PRN DAILY PRN 07/14/18 18:45 Piperacillin Sod/ Tazobactam Sod 2.25 gm/Sodium Chloride 50 ml @ 100 mls/hr Q8HRS 07/14/18 20:00 07/17/18 14:29 100 MLS/HR Sevelamer Carbonate (Renvela) 1,600 mg TIDWMEALS 07/15/18 08:00 07/17/18 12:27 1,600 MG Sodium Chloride 1,000 ml @ 400 mls/hr Q2H30M PRN 07/16/18 09:07 07/16/18 21:06 DC Results All relevant outside records, renal labs, imaging studies, telemetry/EKG's were reviewed. DIAMOND FANG MD Jul 17, 2018 15:27
[2018-07-17] MEDS ORDERED: GABA300C18 PO (17:01)
[2018-07-17] MEDS ORDERED: UMEC1DIS IH (17:01)
[2018-07-17] MEDS ORDERED: LEVO500T59 PO (17:01)
[2018-07-17] MEDS ORDERED: ALBU2.5V8 INH (17:01)
[2018-07-17] MEDS ORDERED: FERR325T72 PO (17:01)
[2018-07-17] MEDS ORDERED: ATOR10TA60 PO (17:01)
[2018-07-17] MEDS ORDERED: DOXA4TAB2 PO (17:01)
[2018-08-30] MEDS ORDERED: HYDR-2763 PO (09:19)
[2018-08-30] MEDS ORDERED: ASPI-630 PO (09:19)
[2018-08-30] MEDS ORDERED: FOLI0.8T30 PO (09:19)
[2018-08-30] MEDS ORDERED: DIPH25CA58 PO (09:19)
== END 2018-07-17 18:00 | disposition home or self-care (01) | DRG 177 ==
LOC: ER 12:27 → 6 SOUTH 15:50
PROVIDERS: ADMIT Family Medicine; ATTEND Family Medicine
PROC: 5A1D70Z Performance of Urinary Filtration, Intermittent, Less than 6 Hours Per Day (ICD-10-PCS; principal; 2018-07-16)
DX: J15.6 Pneumonia due to other Gram-negative bacteria (principal); I50.43 Acute on chronic combined systolic (congestive) and diastolic (congestive) heart failure; N18.6 End stage renal disease; J96.00 Acute respiratory failure, unspecified whether with hypoxia or hypercapnia; I13.2 Hypertensive heart and chronic kidney disease with heart failure and with stage 5 chronic kidney disease, or end stage renal disease; J44.0 Chronic obstructive pulmonary disease with (acute) lower respiratory infection; J44.1 Chronic obstructive pulmonary disease with (acute) exacerbation; I47.2 Ventricular tachycardia; D61.818 Other pancytopenia; E11.22 Type 2 diabetes mellitus with diabetic chronic kidney disease; I27.20 Pulmonary hypertension, unspecified; L40.50 Arthropathic psoriasis, unspecified; I07.1 Rheumatic tricuspid insufficiency; E11.42 Type 2 diabetes mellitus with diabetic polyneuropathy; I48.0 Paroxysmal atrial fibrillation; M19.90 Unspecified osteoarthritis, unspecified site; E78.00 Pure hypercholesterolemia, unspecified; E78.5 Hyperlipidemia, unspecified; I25.10 Atherosclerotic heart disease of native coronary artery without angina pectoris; D64.9 Anemia, unspecified; F12.90 Cannabis use, unspecified, uncomplicated; Z95.1 Presence of aortocoronary bypass graft; Z98.51 Tubal ligation status; Z99.2 Dependence on renal dialysis; Z88.1 Allergy status to other antibiotic agents; Z83.3 Family history of diabetes mellitus; Z82.3 Family history of stroke; Z82.49 Family history of ischemic heart disease and other diseases of the circulatory system; Z87.01 Personal history of pneumonia (recurrent)
CPT/HCPCS: 36415; 71045; 71275; 78582; 80048; 80053; 83605; 83880; 84145; 84484; 85025; 85379; 85520; 85610; 87040; 93005; 93308; 93970; 94640; 94760; 96374; A9540; A9558; J1956; J2543; J7620; Q9967; 99285-25

== ENCOUNTER → 2018-08-02 | Outpatient (CLI) | payer MEDICARE ==
[2018-07-17 14:36] VITALS: BP 119/77
[~2018-08-02] MED LIST changes: +ALBU2.5V8 INH; +ASPI-630 PO; +ATOR10TA60 PO; +DIPH25CA58 PO; +DOCU100C28 PO; +DOXA4TAB2 PO; +FERR325T72 PO; +FOLI0.8T30 PO; +GABA300C18 PO; +HYDR-2763 PO; +LEVO500T59 PO; +LORA10TA3 PO; +UMEC1DIS IH
--- NOTE | 2018-08-02 17:40 | RAD ---
CHEST PA LATERAL Clinical indications: PNEUMONIA follow-up study. COMPARISON: July 14, 2018. Findings: Persistent right upper lobe lung infiltrate is seen which is unchanged. Small right-sided pleural effusion is again evident with associated mild right lung base atelectasis. This is stable. Minimal atelectasis is seen within the lateral left midlung zone. No lung consolidation or pleural effusion is seen on the left side. No pneumothorax is evident. The heart size is enlarged but stable. Sternotomy is again evident. The mediastinum and pulmonary vasculature and both jacobo are unchanged. IMPRESSION: Unchanged right upper lobe lung infiltrate and small right-sided pleural effusion. Electronically signed by: Audi Ugalde MD (08/02/2018 5:37 PM) [facility]
== END | disposition home or self-care (01) ==
LOC: RAD 11:10
PROVIDERS: ATTEND Internal Medicine Pulmonary Disease
DX: J18.9 Pneumonia, unspecified organism (principal); J98.11 Atelectasis; I51.7 Cardiomegaly; Z87.891 Personal history of nicotine dependence
CPT/HCPCS: 71046

== ENCOUNTER → 2018-10-30 | Outpatient (CLI) | payer MEDICARE ==
[2018-10-27 14:19] VITALS: BP 138/73
[~2018-10-30] MED LIST changes: +ACET325T9 PO; +ACET500T33 PO; +ASPI81TA59 PO; +ISOS20TA4 PO; +MULT-735 PO; +TRIA15CR3 TP
--- NOTE | 2018-10-30 15:22 | RAD ---
EXAM: CT Chest without IV contrast CLINICAL HISTORY: Lung mass, follow-up COMPARISON: CT chest 07/15/18 06/04/2018 TECHNIQUE: CT of the chest without intravenous contrast. Axial, coronal and sagittal reformatted images were generated. ---PQRS compliance statement - One or more of the following individualized dose reduction techniques were utilized for this study: 1. Automated exposure control 2. Adjustment of the mA and/or kV according to patient size 3. Use of iterative reconstruction technique--- FINDINGS: Lack of intravenous contrast limits evaluation of solid organs, vasculature, and lymph nodes. Chest: Heart is moderately enlarged. Coronary artery calcifications are seen. No pericardial effusion. Changes of CABG are seen. Ectasia of the ascending aorta measuring up to 3.8 cm. Small to moderate right pleural effusion. No left pleural effusion. No pneumothorax. Linear opacities in the lower lobes, upper lobe and middle likely scarring/atelectasis. In the region of the cavitary right upper lobe lung mass seen on prior examinations is now essentially resolved with residual bandlike scarring. No mediastinal or hilar lymphadenopathy. Compared to prior examination, there are now enlarged left axillary lymph nodes measuring 0.9 to 1.2 cm in short axis. Nodularity is seen along the left retroareolar region. Right subclavian stent is partially profiled. Visualized Upper abdomen: Kidneys are atrophic. Dense atherosclerotic calcifications of aorta and main branches. Upper abdomen is otherwise grossly unremarkable. Bones: Osseous structures are unremarkable. IMPRESSION: 1. Essential resolution of the right upper lobe cavitary lesion with residual bandlike opacity, likely scarring. 2. There is now enlargement of several left axillary lymph nodes, new compared to prior CT 07/15/2018. Left retroareolar breast nodularity. Recommend evaluation of the left breast with mammography and ultrasound as clinically indicated to exclude underlying breast mass. Electronically signed by: Davidson Whitehead MD (10/30/2018 3:19 PM) [facility]
== END | disposition home or self-care (01) ==
LOC: CT 12:18
PROVIDERS: ATTEND Internal Medicine Critical Care Medicine
DX: J90 Pleural effusion, not elsewhere classified (principal); I77.810 Thoracic aortic ectasia; I70.0 Atherosclerosis of aorta; R91.8 Other nonspecific abnormal finding of lung field; R59.0 Localized enlarged lymph nodes; I51.7 Cardiomegaly; I25.10 Atherosclerotic heart disease of native coronary artery without angina pectoris; N26.1 Atrophy of kidney (terminal)
CPT/HCPCS: 71250

== ENCOUNTER 2018-11-02 18:50 | Observation (INO) | payer MEDICARE ==
[~2018-11-02] VITALS: Ht 175.3 cm; Wt 82.6 kg
[2018-11-02] MEDS ORDERED: HYDROmorphone 2 MG/ML VIAL IV ONE (20:00)
[2018-11-02 20:03] LABS: BASO % 1 % (0-3); EOS # 0.2 x10^3/uL (0.0-0.7); EOS % 6 % (0-3); HEMATOCRIT 33.3 % (36.0-47.0); HEMOGLOBIN 10.9 g/dL (12.0-15.5); LYMPH # 0.7 x10^3/uL (1.0-4.8); LYMPH % 22 % (24-48); MEAN CORPUSCULAR HEMOGLOBIN 34 pg (25-35); MEAN CORPUSCULAR HGB CONC 33 g/dL (31-37); MEAN CORPUSCULAR VOLUME 102 fL (79-100); MONO # 0.5 x10^3/uL (0.0-1.1); MONO % 15 % (0-9); NEUT # 1.7 x10^3/uL (1.8-7.7); NEUT % 57 % (31-73); PLATELET COUNT 117 x10^3/uL (140-400); RED BLOOD COUNT 3.26 x10^6/uL (3.50-5.40); RED CELL DISTRIBUTION WIDTH 15.9 % (11.5-14.5); WHITE BLOOD COUNT 3.1 x10^3/uL (4.0-11.0)
[2018-11-02 20:11] LABS: CALCIUM 8.7 mg/dL (8.5-10.1); CREATININE 3.9 mg/dL (0.6-1.0); GFR 14.4; POTASSIUM 4.4 mmol/L (3.5-5.1)
--- NOTE | 2018-11-02 20:13 | PHYS DOC ---
Past Medical History Past Medical History: Arthritis, CHF, Diabetes-Type II, High Cholesterol, Hypertension, Renal Failure Additional Past Medical Histor: TRIPLE BYPASS Past Surgical History: Coronary Bypass Surgery, Tubal ligation Additional Past Surgical Histo: FISTULA, HERNIA, HEART BYPASS Alcohol Use: None Drug Use: Marijuana Adult General Chief Complaint Chief Complaint: MECHANICAL FALL HPI HPI Patient is a 58-year-old female who presents after falling and injuring both knees and right elbow. Patient states that she had tripped over the curb, causing the fall. She rates her pain to be a 9 out of 10.[] Review of Systems Review of Systems Constitutional: Denies fever or chills [] Respiratory: Denies cough or shortness of breath [] Cardiovascular: No additional information not addressed in HPI [] GI: Denies abdominal pain, nausea, vomiting, bloody stools or diarrhea [] Musculoskeletal: Positive bilateral knee, right forearm and elbow pain [] Integument: Numerous skin tears[] Neurologic: Denies headache, focal weakness or sensory changes [] All other systems were reviewed and found to be within normal limits, except as documented in this note. Current Medications Current Medications Current Medications Medications (Trade) Dose Ordered Sig/Rosie Start Time Stop Time Status Last Admin Dose Admin Hydromorphone HCl (Dilaudid) 0.5 mg 1X ONCE 11/02/18 20:00 11/02/18 20:01 DC 11/02/18 20:11 0.5 MG Allergies Allergies Allergies Coded Allergies Type Severity Reaction Last Updated Verified azithromycin Adverse Reaction Intermediate Anxiety, HALLUCINATIONS 11/02/18 Yes Physical Exam Physical Exam Constitutional: Well developed, well nourished, no acute distress, non-toxic appearance. [] HENT: Normocephalic, atraumatic, bilateral external ears normal, oropharynx moist, no oral exudates, nose normal. [] Eyes: PERRLA, EOMI, conjunctiva normal, no discharge. [] Neck: Normal range of motion, no tenderness, supple, no stridor. [] Cardiovascular:Heart rate regular rhythm, no murmur [] Lungs & Thorax: Bilateral breath sounds clear to auscultation [] Abdomen: Bowel sounds normal, soft, no tenderness. [] Skin: There are numerous skin tears noted to both knees as well as right shoulder, elbow and forearm. [] Extremities: Skin tears as noted above. There is a moderate size hematoma noted to the proximal lateral forearm, distal to AV fistula. [] Neurologic: Alert and oriented X 3, no focal deficits noted. [] Current Patient Data Vital Signs Vital Signs Date Time Temp Pulse Resp B/P (MAP) Pulse Ox O2 Delivery O2 Flow Rate FiO2 11/02/18 21:00 80 100 11/02/18 20:11 Room Air 11/02/18 18:50 98.0 22 172/100 (124) 98.0 Lab Values Laboratory Tests Test 11/02/18 19:55 White Blood Count 3.1 x10^3/uL (4.0-11.0) L Red Blood Count 3.26 x10^6/uL (3.50-5.40) L Hemoglobin 10.9 g/dL (12.0-15.5) L Hematocrit 33.3 % (36.0-47.0) L Mean Corpuscular Volume 102 fL (79-100) H Mean Corpuscular Hemoglobin 34 pg (25-35) Mean Corpuscular Hemoglobin Concent 33 g/dL (31-37) Red Cell Distribution Width 15.9 % (11.5-14.5) H Platelet Count 117 x10^3/uL (140-400) L Neutrophils (%) (Auto) 57 % (31-73) Lymphocytes (%) (Auto) 22 % (24-48) L Monocytes (%) (Auto) 15 % (0-9) H Eosinophils (%) (Auto) 6 % (0-3) H Basophils (%) (Auto) 1 % (0-3) Neutrophils # (Auto) 1.7 x10^3/uL (1.8-7.7) L Lymphocytes # (Auto) 0.7 x10^3/uL (1.0-4.8) L Monocytes # (Auto) 0.5 x10^3/uL (0.0-1.1) Eosinophils # (Auto) 0.2 x10^3/uL (0.0-0.7) Basophils # (Auto) 0.0 x10^3/uL (0.0-0.2) Sodium Level 140 mmol/L (136-145) Potassium Level 4.4 mmol/L (3.5-5.1) Chloride Level 104 mmol/L (98-107) Carbon Dioxide Level 24 mmol/L (21-32) Anion Gap 12 (6-14) Blood Urea Nitrogen 12 mg/dL (7-20) Creatinine 3.9 mg/dL (0.6-1.0) H Estimated GFR (Cockcroft-Gault) 14.4 BUN/Creatinine Ratio 3 (6-20) L Glucose Level 199 mg/dL (70-99) H Calcium Level 8.7 mg/dL (8.5-10.1) Total Bilirubin 0.4 mg/dL (0.2-1.0) Aspartate Amino Transferase (AST) 17 U/L (15-37) Alanine Aminotransferase (ALT) 22 U/L (14-59) Alkaline Phosphatase 220 U/L (46-116) H Total Protein 6.8 g/dL (6.4-8.2) Albumin 3.1 g/dL (3.4-5.0) L Albumin/Globulin Ratio 0.8 (1.0-1.7) L Laboratory Tests 11/02/18 19:55 Laboratory Tests 11/02/18 19:55 EKG EKG [] Radiology/Procedures Radiology/Procedures [] Impressions: PROCEDURE: EXT NON VASC RIGHT INDICATION: Status post fall with swelling near AV fistula. COMPARISON: None. FINDINGS: Focused ultrasound images were obtained of the soft tissues of the right forearm. The patient has a fistula in the antecubital space. Within the soft tissues of the forearm posteriorly there is a 69 x 13 mm hypoechoic region identified. Laterally there is a 43 x 14 mm hypoechoic region. IMPRESSION: 1. Large mixed echogenicity but predominantly hypoechoic region within the soft tissues of the forearm. Most common causes would include a soft tissue hematoma. Electronically signed by: Jaquan Pepper MD (11/02/2018 8:09 PM) [facility] Course & Med Decision Making Course & Med Decision Making Pertinent Labs and Imaging studies reviewed. (See chart for details) [] Dragon Disclaimer Dragon Disclaimer This electronic medical record was generated, in whole or in part, using a voice recognition dictation system. Departure Departure Impression: Primary Impression: Traumatic hematoma of right forearm Additional Impressions: Skin tear ESRD (end stage renal disease) on dialysis Disposition: ADMITTED INPATIENT Admitting Physician: Meme Fontanez Condition: IMPROVED Referrals: FRAN MORENO MD (PCP) Problem Qualifiers Primary Impression: Traumatic hematoma of right forearm Encounter type: initial encounter Qualified Codes: S50.11XA - Contusion of right forearm, initial encounter ABBIE ARAGON Jr. DO Nov 02, 2018 20:13
[2018-11-02 20:17] LABS: ALBUMIN 3.1 g/dL (3.4-5.0); ALBUMIN/GLOBULIN RATIO 0.8 (1.0-1.7); TOTAL BILIRUBIN 0.4 mg/dL (0.2-1.0); TOTAL PROTEIN 6.8 g/dL (6.4-8.2)
[2018-11-02] MEDS ORDERED: ONDANSETRON PF 4 MG/2 ML VIAL. IV PRN (21:30)
[2018-11-02 23:30] VITALS: BP 149/77
[2018-11-03] MEDS: MORPHINE SULFATE 2 MG/ML VIAL. IV PRN ×3 (00:39→10:33)
[2018-11-03 03:51] VITALS: BP 140/71
[2018-11-03 04:47] LABS: BASO % 1 % (0-3); EOS # 0.2 x10^3/uL (0.0-0.7); EOS % 5 % (0-3); HEMATOCRIT 29.9 % (36.0-47.0); HEMOGLOBIN 9.6 g/dL (12.0-15.5); LYMPH # 0.6 x10^3/uL (1.0-4.8); LYMPH % 17 % (24-48); MEAN CORPUSCULAR HEMOGLOBIN 33 pg (25-35); MEAN CORPUSCULAR HGB CONC 32 g/dL (31-37); MEAN CORPUSCULAR VOLUME 102 fL (79-100); MONO # 0.6 x10^3/uL (0.0-1.1); MONO % 16 % (0-9); NEUT # 2.3 x10^3/uL (1.8-7.7); NEUT % 63 % (31-73); PLATELET COUNT 118 x10^3/uL (140-400); RED BLOOD COUNT 2.92 x10^6/uL (3.50-5.40); WHITE BLOOD COUNT 3.7 x10^3/uL (4.0-11.0)
[2018-11-03 05:50] LABS: CALCIUM 8.7 mg/dL (8.5-10.1); CREATININE 4.8 mg/dL (0.6-1.0); GFR 11.4; POTASSIUM 4.8 mmol/L (3.5-5.1)
[2018-11-03 07:00] VITALS: BP 137/78
--- NOTE | 2018-11-03 08:16 | RAD ---
Right forearm 2 views. HISTORY: Fall, large hematoma distal to the AV fistula 2 views were taken of the right forearm. There is severe arthritis at the wrist with loss of the joint space at the radiocarpal joint and fusion of some of the carpal bones. Is no acute fracture. There is no acute forearm fracture. There is soft tissue swelling. IMPRESSION: 1. No acute forearm fracture. 2. Severe arthritis right wrist. Electronically signed by: Alek Medina MD (11/03/2018 8:13 AM) [facility]
--- NOTE | 2018-11-03 08:17 | RAD ---
Right elbow 3 views. HISTORY: Fall, large hematoma distal to the AV fistula 3 views were taken of the right elbow. There is mild arthritis. Fat pads at the elbow are not displaced. An acute fracture is not identified. There are changes from surgery in the arm and a stent in a vein in the proximal arm. IMPRESSION: 1. Arthritis right elbow. 2. No acute fracture. Electronically signed by: Alek Medina MD (11/03/2018 8:14 AM) [facility]
--- NOTE | 2018-11-03 08:27 | RAD ---
Bilateral knees 3 views each. HISTORY: Fall Left knee 3 views the left knee show mild arthritis with mild joint space narrowing. There is no acute fracture. There is irregularity and calcifications just above the patella possible calcific tendinitis at the quadriceps insertion. Right knee 3 views the right knee show joint space narrowing consistent with arthritis. There is no fracture or joint effusion. There is vascular calcification. IMPRESSION: 1. Osteoarthritis right knee. 2. Osteoarthritis left knee. 3. Probable calcification tendinitis near the insertion of the quadriceps tendon on the left. Electronically signed by: Alek Medina MD (11/03/2018 8:24 AM) [facility]
[2018-11-03 11:00] VITALS: BP 140/83
[2018-11-03] MEDS ORDERED: HYDROcodone/APAP 7.5/325MG 1 TAB TABLET PO PRN (12:30)
[2018-11-03] MEDS ORDERED: ACETAMINOPHEN 325 MG TABLET. PO PRN (12:30)
--- NOTE | 2018-11-03 12:49 | PDOC ---
PROGRESS NOTES Subjective Subjective Patient reports some soreness from fall yesterday, no other concerns. Objective Objective Vital Signs Date Time Temp Pulse Resp B/P (MAP) Pulse Ox O2 Delivery O2 Flow Rate FiO2 11/03/18 11:17 99 Room Air 11/03/18 11:00 98.6 79 12 140/83 (102) 98.6 Intake and Output 11/03/18 07:00 Intake Total 380 ml Balance 380 ml Intake Oral 380 ml Physical Exam Abdomen: Normal bowel sounds, Soft, No tenderness Heart: Regular rate Extremities: No edema General: Alert, Oriented X3, No acute distress Lungs: Clear to auscultation Skin: Other (widespread macular rash, large hematoma R forearm, skin tears on extremeties with dressings in place) Assessment Assessment Problems Medical Problems: (1) ESRD (end stage renal disease) on dialysis Status: Acute (2) Skin tear Status: Acute (3) Traumatic hematoma of right forearm Status: Acute Plan Plan of Care 1. Hematoma and skin tears from fall - patient was admitted for overnight observation due to large hematoma close to AV shunt. Has been stable overnight. Hematoma does not communicate with her shunt. Home today, advised to keep skin tears covered. 2. ESRD - stable, continue dialysis as scheduled. 3. DM2 - diet controlled. 4. HTN - continue her usual medications for this. 5. pancytopenia - chronic, stable on lab. 6. porphyria - stable, sees Dermatology, continue topical tx with Bactroban. 7. OA multiple joints - continue [place] prn. Comment Review of Relevant I have reviewed the following items alivia (where applicable) has been applied. Labs Laboratory Tests Test 11/02/18 19:55 11/03/18 03:10 11/03/18 08:04 11/03/18 11:41 White Blood Count 3.1 x10^3/uL (4.0-11.0) 3.7 x10^3/uL (4.0-11.0) Red Blood Count 3.26 x10^6/uL (3.50-5.40) 2.92 x10^6/uL (3.50-5.40) Hemoglobin 10.9 g/dL (12.0-15.5) 9.6 g/dL (12.0-15.5) Hematocrit 33.3 % (36.0-47.0) 29.9 % (36.0-47.0) Mean Corpuscular Volume 102 fL (79-100) 102 fL (79-100) Mean Corpuscular Hemoglobin 34 pg (25-35) 33 pg (25-35) Mean Corpuscular Hemoglobin Concent 33 g/dL (31-37) 32 g/dL (31-37) Red Cell Distribution Width 15.9 % (11.5-14.5) 16.0 % (11.5-14.5) Platelet Count 117 x10^3/uL (140-400) 118 x10^3/uL (140-400) Neutrophils (%) (Auto) 57 % (31-73) 63 % (31-73) Lymphocytes (%) (Auto) 22 % (24-48) 17 % (24-48) Monocytes (%) (Auto) 15 % (0-9) 16 % (0-9) Eosinophils (%) (Auto) 6 % (0-3) 5 % (0-3) Basophils (%) (Auto) 1 % (0-3) 1 % (0-3) Neutrophils # (Auto) 1.7 x10^3/uL (1.8-7.7) 2.3 x10^3/uL (1.8-7.7) Lymphocytes # (Auto) 0.7 x10^3/uL (1.0-4.8) 0.6 x10^3/uL (1.0-4.8) Monocytes # (Auto) 0.5 x10^3/uL (0.0-1.1) 0.6 x10^3/uL (0.0-1.1) Eosinophils # (Auto) 0.2 x10^3/uL (0.0-0.7) 0.2 x10^3/uL (0.0-0.7) Basophils # (Auto) 0.0 x10^3/uL (0.0-0.2) 0.0 x10^3/uL (0.0-0.2) Sodium Level 140 mmol/L (136-145) 140 mmol/L (136-145) Potassium Level 4.4 mmol/L (3.5-5.1) 4.8 mmol/L (3.5-5.1) Chloride Level 104 mmol/L (98-107) 106 mmol/L (98-107) Carbon Dioxide Level 24 mmol/L (21-32) 21 mmol/L (21-32) Anion Gap 12 (6-14) 13 (6-14) Blood Urea Nitrogen 12 mg/dL (7-20) 15 mg/dL (7-20) Creatinine 3.9 mg/dL (0.6-1.0) 4.8 mg/dL (0.6-1.0) Estimated GFR (Cockcroft-Gault) 14.4 11.4 BUN/Creatinine Ratio 3 (6-20) Glucose Level 199 mg/dL (70-99) 89 mg/dL (70-99) Calcium Level 8.7 mg/dL (8.5-10.1) 8.7 mg/dL (8.5-10.1) Total Bilirubin 0.4 mg/dL (0.2-1.0) Aspartate Amino Transf (AST/SGOT) 17 U/L (15-37) Alanine Aminotransferase (ALT/SGPT) 22 U/L (14-59) Alkaline Phosphatase 220 U/L (46-116) Total Protein 6.8 g/dL (6.4-8.2) Albumin 3.1 g/dL (3.4-5.0) Albumin/Globulin Ratio 0.8 (1.0-1.7) Glucose (Fingerstick) 86 mg/dL (70-99) 131 mg/dL (70-99) Laboratory Tests Test 11/02/18 19:55 11/03/18 03:10 11/03/18 08:04 11/03/18 11:41 White Blood Count 3.1 x10^3/uL (4.0-11.0) 3.7 x10^3/uL (4.0-11.0) Red Blood Count 3.26 x10^6/uL (3.50-5.40) 2.92 x10^6/uL (3.50-5.40) Hemoglobin 10.9 g/dL (12.0-15.5) 9.6 g/dL (12.0-15.5) Hematocrit 33.3 % (36.0-47.0) 29.9 % (36.0-47.0) Mean Corpuscular Volume 102 fL (79-100) 102 fL (79-100) Mean Corpuscular Hemoglobin 34 pg (25-35) 33 pg (25-35) Mean Corpuscular Hemoglobin Concent 33 g/dL (31-37) 32 g/dL (31-37) Red Cell Distribution Width 15.9 % (11.5-14.5) 16.0 % (11.5-14.5) Platelet Count 117 x10^3/uL (140-400) 118 x10^3/uL (140-400) Neutrophils (%) (Auto) 57 % (31-73) 63 % (31-73) Lymphocytes (%) (Auto) 22 % (24-48) 17 % (24-48) Monocytes (%) (Auto) 15 % (0-9) 16 % (0-9) Eosinophils (%) (Auto) 6 % (0-3) 5 % (0-3) Basophils (%) (Auto) 1 % (0-3) 1 % (0-3) Neutrophils # (Auto) 1.7 x10^3/uL (1.8-7.7) 2.3 x10^3/uL (1.8-7.7) Lymphocytes # (Auto) 0.7 x10^3/uL (1.0-4.8) 0.6 x10^3/uL (1.0-4.8) Monocytes # (Auto) 0.5 x10^3/uL (0.0-1.1) 0.6 x10^3/uL (0.0-1.1) Eosinophils # (Auto) 0.2 x10^3/uL (0.0-0.7) 0.2 x10^3/uL (0.0-0.7) Basophils # (Auto) 0.0 x10^3/uL (0.0-0.2) 0.0 x10^3/uL (0.0-0.2) Sodium Level 140 mmol/L (136-145) 140 mmol/L (136-145) Potassium Level 4.4 mmol/L (3.5-5.1) 4.8 mmol/L (3.5-5.1) Chloride Level 104 mmol/L (98-107) 106 mmol/L (98-107) Carbon Dioxide Level 24 mmol/L (21-32) 21 mmol/L (21-32) Anion Gap 12 (6-14) 13 (6-14) Blood Urea Nitrogen 12 mg/dL (7-20) 15 mg/dL (7-20) Creatinine 3.9 mg/dL (0.6-1.0) 4.8 mg/dL (0.6-1.0) Estimated GFR (Cockcroft-Gault) 14.4 11.4 BUN/Creatinine Ratio 3 (6-20) Glucose Level 199 mg/dL (70-99) 89 mg/dL (70-99) Calcium Level 8.7 mg/dL (8.5-10.1) 8.7 mg/dL (8.5-10.1) Total Bilirubin 0.4 mg/dL (0.2-1.0) Aspartate Amino Transf (AST/SGOT) 17 U/L (15-37) Alanine Aminotransferase (ALT/SGPT) 22 U/L (14-59) Alkaline Phosphatase 220 U/L (46-116) Total Protein 6.8 g/dL (6.4-8.2) Albumin 3.1 g/dL (3.4-5.0) Albumin/Globulin Ratio 0.8 (1.0-1.7) Glucose (Fingerstick) 86 mg/dL (70-99) 131 mg/dL (70-99) Medications Current Medications Hydromorphone HCl (Dilaudid) 0.5 mg 1X ONCE IV Last administered on 11/02/18at 20:11; Start 11/02/18 at 20:00; Stop 11/02/18 at 20:01; Status DC Ondansetron HCl (Zofran) 4 mg PRN Q8HRS PRN IV NAUSEA/VOMITING; Start 11/02/18 at 21:30; Stop 11/03/18 at 21:29 Morphine Sulfate (Morphine Sulfate) 2 mg PRN Q2HR PRN IV PAIN Last administered on 11/03/18at 10:33; Start 11/02/18 at 21:30; Stop 11/03/18 at 12:42; Status DC Acetaminophen (Tylenol) 325 mg PRN Q4HRS PRN PO MILD PAIN 1-3; Start 11/03/18 at 12:30 Aspirin (Children'S Aspirin) 162 mg DAILY PO ; Start 11/03/18 at 13:00 Carvedilol (Coreg) 12.5 mg BIDWMEALS PO ; Start 11/03/18 at 17:00 Ferrous Sulfate (Feosol) 325 mg DAILYWBKFT PO ; Start 11/03/18 at 13:00 Vitamin B Complex/ Vitamin C (Catie-Renee) 1 tab DAILY PO ; Start 11/03/18 at 13:00 Furosemide (Lasix) 80 mg DAILY PO ; Start 11/03/18 at 13:00 Acetaminophen/ Hydrocodone Bitart (Lortab 7.5/325) 1 tab PRN Q6HRS PRN PO MODERATE PAIN, SEVERE PAIN; Start 11/03/18 at 12:30 Sevelamer Carbonate (Renvela) 2,400 mg TIDWMEALS PO ; Start 11/03/18 at 13:00 Triamcinolone Acetonide (Kenalog 0.1%) 1 lewis BID TP ; Start 11/03/18 at 21:00 Hydralazine HCl (Apresoline) 10 mg TID PO ; Start 11/03/18 at 14:00 Isosorbide Dinitrate (Isordil) 20 mg TID PO ; Start 11/03/18 at 14:00 Losartan Potassium (Cozaar) 100 mg QHS PO ; Start 11/03/18 at 21:00 Non-Formulary Medication (Umeclidinium Brm/Vilanterol Tr (Anoro Ellipta 62.5-25 Mcg Inh)) 1 each DAILY IH ; Start 11/04/18 at 09:00; Status UNV Active Scripts Active Triamcinolone Acetonide 0.1% Cream (Triamcinolone Acetonide) 15 Gm Cream..g. 1 Lewis TP BID 14 Days Feosol (Ferrous Sulfate) 325 Mg Tablet 325 Mg PO DAILYWBKFT 30 Days Anoro Ellipta 62.5-25 Mcg Inh (Umeclidinium Brm/Vilanterol Tr) 1 Each Disk.w.dev 1 Each IH DAILY 30 Days Proair Hfa (Albuterol Sulfate) 8.5 Gm Hfa.aer.ad 1 Puff INH PRN Q6HRS PRN 30 Days Reported Hydrocodone-Apap 7.5-325 (Hydrocodone Bit/Acetaminophen) 1 Tab Tablet 1 Tab PO PRN Q6HRS PRN Children's Aspirin (Aspirin) 81 Mg Tab.chew 162 Mg PO DAILY Losartan Potassium 100 Mg Tablet 100 Mg PO HS Hydralazine Hcl 10 Mg Tablet 1 Tab PO TID HOLD ON DIALYSIS DAYS Isosorbide Dinitrate 20 Mg Tablet 20 Mg PO TID HOLD ON DIALYSIS DAYS Benadryl (Diphenhydramine Hcl) 25 Mg Capsule 25 Mg PO PRN PRN Carvedilol (Carvedilol) 12.5 Mg Tablet 12.5 Mg PO BIDWMEALS Tylenol (Acetaminophen) 325 Mg Tablet 1 Tab PO PRN Q4HRS PRN Renal Vitamin Tablet (Folic Acid/Vit Bcomp,C) 0.8 Mg Tablet 0.8 Mg PO DAILY Renvela (Sevelamer Carbonate) 800 Mg Tablet 3 Tab PO TID Furosemide 80 Mg Tablet 1 Tab PO DAILY Vitals/I & O Vital Sign - Last 24 Hours 11/02/18 11/02/18 11/02/18 11/02/18 18:50 19:30 20:00 20:11 Temp 98.0 98.0 Pulse 94 86 85 Resp 22 B/P (MAP) 172/100 (124) Pulse Ox 99 100 100 O2 Delivery Room Air Room Air 11/02/18 11/02/18 11/02/18 11/02/18 20:30 21:00 21:30 23:00 Pulse 81 80 81 Pulse Ox 100 100 100 O2 Delivery Room Air 11/02/18 11/03/18 11/03/18 11/03/18 23:30 03:51 07:00 08:07 Temp 97.2 97.6 97.7 97.2 97.6 97.7 Pulse 81 79 56 Resp 16 20 12 B/P (MAP) 149/77 (101) 140/71 (94) 137/78 (97) Pulse Ox 99 97 98 O2 Delivery Room Air Room Air Room Air Room Air 11/03/18 11/03/18 11/03/18 10:33 11:00 11:17 Temp 98.6 98.6 Pulse 79 Resp 12 B/P (MAP) 140/83 (102) Pulse Ox 99 99 99 O2 Delivery Room Air Room Air Room Air Intake and Output 11/02/18 11/02/18 11/03/18 15:00 23:00 07:00 Intake Total 380 ml Balance 380 ml NEIL MCKEE MD Nov 03, 2018 12:49
[2018-11-03] MEDS ORDERED: ASPIRIN CHEWABLE 81 MG TABLET. PO SCH (13:00)
[2018-11-03] MEDS ORDERED: FOLIC/VIT B COMP W-C (RENAL) TABLET. PO SCH (13:00)
[2018-11-03] MEDS ORDERED: FUROSEMIDE 80 MG TABLET. PO SCH (13:00)
[2018-11-03] MEDS ORDERED: SEVELAMER CARBONATE 800 MG TABLET. PO SCH (13:00)
[2018-11-03] MEDS ORDERED: FERROUS SULFATE 325 MG TABLET. PO SCH (13:00)
[2018-11-03 13:03] VITALS: BP 140/83
--- NOTE | 2018-11-03 13:07 | SSS ---
ADMIT DATE: 11/03/2018 23-HOUR SUMMARY CHIEF COMPLAINT: Mechanical fall. HISTORY OF PRESENT ILLNESS: The patient is a 58-year-old female who presented to the Emergency Room with the above complaint. She reported that she tripped over a curb on the day of admission and fell on her knees and right arm. She did not strike her head and there was no syncope. Evaluation in the Emergency Room showed her to have multiple skin tears on her extremities. She was noted to have a moderate-sized hematoma on the right forearm, which was close to her AV fistula and she was admitted for observation. PAST MEDICAL HISTORY: End-stage renal disease, on dialysis; diabetes mellitus type 2, diet controlled; hypertension; hyperlipidemia; chronic pancytopenia; pulmonary hypertension; coronary artery disease, status post coronary artery bypass graft; porphyria cutanea tarda; osteoarthritis; psoriasis. PAST SURGICAL HISTORY: Hernia repair, CABG x 3, AV fistula placement, bilateral tubal ligation, tendon repair. ALLERGIES: THE PATIENT IS ALLERGIC TO AZITHROMYCIN. HOME MEDICATIONS: Tylenol p.r.n., albuterol inhaler p.r.n., aspirin 81 mg daily, carvedilol 12.5 mg b.i.d., Benadryl p.r.n., iron 325 mg daily, renal vitamin 1 daily, furosemide 80 mg daily, hydralazine 10 mg t.i.d., [place] p.r.n., isosorbide dinitrate 20 mg t.i.d., losartan 100 mg daily, Renvela 800 mg 3 tabs t.i.d. a.c., Anoro inhaler 1 puff daily. FAMILY HISTORY: Noncontributory. SOCIAL HISTORY: The patient does not smoke cigarettes. She is disabled. She lives with her son. She does not drink alcohol to excess. REVIEW OF SYSTEMS: The patient denies fever or chills. She denies cough or shortness of breath. She denies chest pain or palpitations. She denies abdominal pain, nausea or vomiting. She denies missing any dialysis treatments recently. PHYSICAL EXAMINATION: GENERAL: The patient is alert and oriented x 3, resting comfortably in bed in no acute distress. HEENT: PERRL. EOMI. Sclerae clear. Oropharynx: Mucous membranes moist. NECK: Supple, without lymphadenopathy. CHEST: Clear to auscultation. CARDIOVASCULAR: Regular rhythm without murmur. ABDOMEN: Soft, nontender, normoactive bowel sounds are present. EXTREMITIES: Bilateral lower extremities are without edema. SKIN: There is a moderately sized soft hematoma on the patient's right forearm. Her AV shunt is palpable on her right upper arm. She has multiple skin tears on her extremities, which are covered with dressings. She has a widespread macular rash with some bullous lesions present. HOSPITAL COURSE: The patient was observed overnight and has had stable vital signs. She has no significant complaints other than some chronic pain and will be discharged to home today. She is advised to keep her skin tears covered until they are healed. FINAL DIAGNOSES: 1. Traumatic hematoma of the right forearm. 2. Mechanical fall. 3. End-stage renal disease, on dialysis. 4. Diabetes mellitus type 2. 5. Hypertension. 6. Pancytopenia. 7. Porphyria. 8. Osteoarthritis, multiple joints. DISCHARGE MEDICATIONS: Remain the same as at admission. FOLLOWUP: With Dr. Ying as needed. Followup for dialysis as scheduled. NEIL MCKEE MD DR: VINNY/ron JOB#: [id number] / [id number] YURI
[2018-11-03] MEDS ORDERED: hydrALAZINE 10 MG TABLET PO SCH (14:00)
[2018-11-03] MEDS ORDERED: ISOSORBIDE DINITRATE 10 MG TABLET. PO SCH (14:00)
--- NOTE | 2018-11-03 14:13 | NUR ---
Discharge Note: ERIC ZAIDI Discharge instructions and discharge home medications reviewed with Patient and a copy given. All questions have been answered and understanding verbalized. The following instructions and handouts were given: follow up instructions Discontinued lines and drains: 22 gauge left AC, tip intact. patient tolerated well. Patient discharged to home with self care via family.
[2018-11-03] MEDS ORDERED: IPRATRPIUM/ALBUTEROL 0.5/2.5MG 3 ML NEBU. NEB SCH (16:00)
[2018-11-03] MEDS ORDERED: CARVEDILOL 12.5 MG TABLET. PO SCH (17:00)
[2018-11-03] MEDS ORDERED: TRIAMCINOLONE ACETONIDE 0.1% TOPICAL CREAM 15GM TUBE. TP SCH (21:00)
[2018-11-03] MEDS ORDERED: LOSARTAN POTASSIUM 50 MG TABLET. PO SCH (21:00)
[2018-11-04] MEDS ORDERED: NON FORMULARY ITEM (Umeclidinium Brm/Vilanterol Tr (Anoro Ellipta 62.5-25 Mcg Inh) 1 EACH) IH SCH (09:00)
--- NOTE | 2018-11-05 06:49 | EKG ---
[facility] [address] [place] [address] Test Date: 2018-11-02 Test Time: 19:03:54 Pat Name: ERIC ZAIDI Department: Room: 656 1 Gender: F Pencils [employer]her: : 1960 Requested By: NEIL MCKEE Order Number: [id number] Reading MD: Measurements Intervals [place] Rate: 88 P: 61 TN: 170 QRS: 56 QRSD: 80 T: -178 QT: 382 QTc: 465 Interpretive Statements SINUS RHYTHM QRS(T) CONTOUR ABNORMALITY CONSISTENT WITH ANTEROSEPTAL INFARCT PROBABLY OLD ST & T ABNORMALITY, CONSIDER LATERAL ISCHEMIA OR LEFT VENTRICULAR STRAIN INFERIOR ISCHEMIA OR LEFT VENTRICULAR STRAIN ABNORMAL ECG No previous ECG available for comparison
== END 2018-11-03 13:50 | disposition home or self-care (01) ==
LOC: ER 18:50 → 6 SOUTH 21:22
PROVIDERS: ADMIT Family Medicine; ATTEND Family Medicine
DX: S50.11XA Contusion of right forearm, initial encounter (principal); M19.90 Unspecified osteoarthritis, unspecified site; E11.9 Type 2 diabetes mellitus without complications; E78.00 Pure hypercholesterolemia, unspecified; I13.2 Hypertensive heart and chronic kidney disease with heart failure and with stage 5 chronic kidney disease, or end stage renal disease; I50.9 Heart failure, unspecified; W10.1XXA Fall (on)(from) sidewalk curb, initial encounter; F12.90 Cannabis use, unspecified, uncomplicated; E11.22 Type 2 diabetes mellitus with diabetic chronic kidney disease; N18.6 End stage renal disease; E78.5 Hyperlipidemia, unspecified; Z99.2 Dependence on renal dialysis; Z95.1 Presence of aortocoronary bypass graft; M15.9 Polyosteoarthritis, unspecified; G89.29 Other chronic pain; E80.20 Unspecified porphyria; I27.20 Pulmonary hypertension, unspecified; I25.10 Atherosclerotic heart disease of native coronary artery without angina pectoris; D61.818 Other pancytopenia; Y93.89 Activity, other specified; Y92.89 Other specified places as the place of occurrence of the external cause; Y99.8 Other external cause status
CPT/HCPCS: 36415; 73080; 73090; 73562; 76881; 80048; 80053; 82962; 85025; 93005; 96374; 96375; 96376; 99284; G0378; J1170; J2270; G0379

== ENCOUNTER → 2018-11-08 | Outpatient (CLI) | payer MEDICARE ==
[2018-11-03 13:03] VITALS: BP 140/83
[2018-11-08 16:38] LABS: HEMATOCRIT 28.2 % (36.0-47.0); HEMOGLOBIN 9.4 g/dL (12.0-15.5)
== END | disposition home or self-care (01) ==
LOC: SPEC 16:25
PROVIDERS: ATTEND Internal Medicine Nephrology
DX: I13.2 Hypertensive heart and chronic kidney disease with heart failure and with stage 5 chronic kidney disease, or end stage renal disease (principal); I48.91 Unspecified atrial fibrillation; I50.9 Heart failure, unspecified; N18.6 End stage renal disease
CPT/HCPCS: 36415; 85014; 85018

== ENCOUNTER → 2019-01-29 | Outpatient (CLI) | payer MEDICARE ==
[~2019-01-29] MED LIST changes: -MAGN400T3 PO; +MAGN400T5 PO
--- NOTE | 2019-01-29 19:34 | RAD ---
DATE: 01/29/2019 EXAM: MAMMO NIK SCREENING BILATERAL HISTORY: Routine screening. This is the baseline. COMPARISON: None This study was interpreted with the benefit of Computerized Aided Detection (CAD). Breast Density: SCATTERED The breast parenchyma shows scattered fibroglandular densities. Breast parenchyma level B. FINDINGS: Small bilateral axillary and upper breast level masses are smoothly marginated with no aggressive features. No suspicious calcific lesion or distortion. No suspicious dominant mass. IMPRESSION: Benign appearing findings BI-RADS CATEGORY: 2 BENIGN FINDING(S) RECOMMENDED FOLLOW-UP: 12M 12 MONTH FOLLOW-UP PQRS compliance statement: Patient information was entered into a reminder system with a target due date for the next mammogram. Mammography is a sensitive method for finding small breast cancers, but it does not detect them all and is not a substitute for careful clinical examination. A negative mammogram does not negate a clinically suspicious finding and should not result in delay in biopsying a clinically suspicious abnormality. "Our facility is accredited by the [employer] Mammography Program."
== END | disposition home or self-care (01) ==
LOC: MAMMO 14:04
PROVIDERS: ATTEND Family Medicine
DX: Z12.31 Encounter for screening mammogram for malignant neoplasm of breast (principal); N63.20 Unspecified lump in the left breast, unspecified quadrant; N63.10 Unspecified lump in the right breast, unspecified quadrant
CPT/HCPCS: 77063; 77067

== ENCOUNTER 2019-02-22 18:50 | Inpatient (IN) | payer MEDICARE ==
[~2019-02-22] VITALS: Ht 162.6 cm; Wt 82.6 kg
--- NOTE | 2019-02-22 19:35 | PHYS DOC ---
Past Medical History Past Medical History: Arthritis, CHF, Diabetes-Type II, High Cholesterol, Hypertension, Renal Failure Additional Past Medical Histor: TRIPLE BYPASS Past Surgical History: Coronary Bypass Surgery, Tubal ligation Additional Past Surgical Histo: FISTULA, HERNIA, HEART BYPASS Alcohol Use: None Drug Use: Marijuana Adult General Chief Complaint Chief Complaint: SHORTNESS OF BREATH HPI HPI Patient is a 58 year old female with history of CAD, congestive heart failure, end-stage renal disease on dialysis and asthma who presents with persistent shortness of breath and wheezing 10 days. Patient uses her albuterol treatment and reports only temporary relief lasting less than 20 minutes. She has used her inhaler multiple times today. Patient completed dialysis earlier this afternoon. States her symptoms were not improved despite completing entire session. Patient denies change in her dry or wet weight. Denies fever, chills. Reports nonproductive cough. No chest pain but does report chest tightness. Patient has chronic peripheral edema. No nausea vomiting or sweats. No abdominal pain. No other acute symptoms or complaints.[] Review of Systems Review of Systems Constitutional: Denies fever or chills [] Eyes: Denies change in visual acuity, redness, or eye pain [] HENT: Denies nasal congestion or sore throat [] Respiratory: Denies cough or shortness of breath [] Cardiovascular: No additional information not addressed in HPI [] GI: Denies abdominal pain, nausea, vomiting, bloody stools or diarrhea [] : Denies dysuria or hematuria [] Musculoskeletal: Denies back pain or joint pain [] Integument: Denies rash or skin lesions [] Neurologic: Denies headache, focal weakness or sensory changes [] Endocrine: Denies polyuria or polydipsia [] All other systems were reviewed and found to be within normal limits, except as documented in this note. Current Medications Current Medications Current Medications Medications (Trade) Dose Ordered Sig/Rosie Start Time Stop Time Status Last Admin Dose Admin Albuterol/ Ipratropium (Duoneb) 3 ml 1X ONCE 02/22/19 20:00 02/22/19 20:01 DC 02/22/19 20:53 3 ML Info (CONTRAST GIVEN -- Rx MONITORING) 1 each PRN DAILY PRN 02/22/19 21:45 02/24/19 21:44 Iohexol (Omnipaque 350 Mg/ml) 100 ml STK-MED ONCE 02/22/19 21:35 02/22/19 21:35 DC Methylprednisolone Sodium Succinate (SOLU-Medrol 125MG VIAL) 125 mg 1X ONCE 02/22/19 20:00 02/22/19 20:01 DC 02/22/19 19:37 125 MG Allergies Allergies Allergies Coded Allergies Type Severity Reaction Last Updated Verified azithromycin Adverse Reaction Intermediate Anxiety, HALLUCINATIONS 11/02/18 Yes Physical Exam Physical Exam Constitutional: Well developed, well nourished, no acute distress, non-toxic appearance. [] HENT: Normocephalic, atraumatic, bilateral external ears normal, oropharynx moist, no oral exudates, nose normal. [] Eyes: PERRLA, EOMI, conjunctiva normal, no discharge. [] Neck: Normal range of motion, no tenderness, supple. [] Cardiovascular:Heart rate regular rhythm, no murmur [] Lungs & Thorax: Patient's nonlabored, severely diminished breath sounds bilaterally, with tight wheezes with rhonchi[] Abdomen: Bowel sounds normal, soft, no tenderness. [] Skin: Warm, dry, no erythema, no rash. [] Back: No tenderness. [] Extremities: Extremities, plus peripheral edema, negative Homans signs.. [] Neurologic: Alert and oriented X 3, normal motor function, normal sensory function, no focal deficits noted. [] Psychologic: Affect normal, judgement normal, mood normal. [] Current Patient Data Vital Signs Vital Signs Date Time Temp Pulse Resp B/P (MAP) Pulse Ox O2 Delivery O2 Flow Rate FiO2 02/22/19 20:55 98 Room Air 02/22/19 19:25 98.0 82 20 187/88 (121) 98.0 Lab Values Laboratory Tests Test 02/22/19 19:30 White Blood Count 2.6 x10^3/uL (4.0-11.0) L Red Blood Count 3.50 x10^6/uL (3.50-5.40) Hemoglobin 11.8 g/dL (12.0-15.5) L Hematocrit 35.5 % (36.0-47.0) L Mean Corpuscular Volume 102 fL (79-100) H Mean Corpuscular Hemoglobin 34 pg (25-35) Mean Corpuscular Hemoglobin Concent 33 g/dL (31-37) Red Cell Distribution Width 13.4 % (11.5-14.5) Platelet Count 111 x10^3/uL (140-400) L Neutrophils (%) (Auto) 59 % (31-73) Lymphocytes (%) (Auto) 23 % (24-48) L Monocytes (%) (Auto) 12 % (0-9) H Eosinophils (%) (Auto) 5 % (0-3) H Basophils (%) (Auto) 1 % (0-3) Neutrophils # (Auto) 1.6 x10^3/uL (1.8-7.7) L Lymphocytes # (Auto) 0.6 x10^3/uL (1.0-4.8) L Monocytes # (Auto) 0.3 x10^3/uL (0.0-1.1) Eosinophils # (Auto) 0.1 x10^3/uL (0.0-0.7) Basophils # (Auto) 0.0 x10^3/uL (0.0-0.2) D-Dimer (Daly) 0.99 ug/mlFEU (0.00-0.50) H Sodium Level 142 mmol/L (136-145) Potassium Level 3.4 mmol/L (3.5-5.1) L Chloride Level 105 mmol/L (98-107) Carbon Dioxide Level 28 mmol/L (21-32) Anion Gap 9 (6-14) Blood Urea Nitrogen 12 mg/dL (7-20) Creatinine 3.4 mg/dL (0.6-1.0) H Estimated GFR (Cockcroft-Gault) 16.9 BUN/Creatinine Ratio 4 (6-20) L Glucose Level 101 mg/dL (70-99) H Lactic Acid Level 1.0 mmol/L (0.4-2.0) Calcium Level 8.5 mg/dL (8.5-10.1) Total Bilirubin 0.3 mg/dL (0.2-1.0) Aspartate Amino Transferase (AST) 26 U/L (15-37) Alanine Aminotransferase (ALT) 22 U/L (14-59) Alkaline Phosphatase 253 U/L (46-116) H Troponin I Quantitative < 0.017 ng/mL (0.000-0.055) KA-Mdr-W-Type Natriuretic Peptide > 43805 pg/mL (0-124) H Total Protein 6.6 g/dL (6.4-8.2) Albumin 2.8 g/dL (3.4-5.0) L Albumin/Globulin Ratio 0.7 (1.0-1.7) L Laboratory Tests 02/22/19 19:30 Laboratory Tests 02/22/19 19:30 EKG EKG [EKG: reviewed] Radiology/Procedures Radiology/Procedures [Chest x-ray: Small right pleural effusion with adjacent airspace disease per radiologist.] Course & Med Decision Making Course & Med Decision Making Pertinent Labs and Imaging studies reviewed. (See chart for details) [Some improvement with DuoNeb and steroids. D-dimer positive. CT angio ordered to cynthia out PE. Will admit to the hospital service for further evaluation and treatment] Dragon Disclaimer Dragon Disclaimer This electronic medical record was generated, in whole or in part, using a voice recognition dictation system. Departure Departure Impression: Primary Impression: Dyspnea Additional Impressions: Acute asthma exacerbation End stage chronic kidney disease Disposition: ADMITTED INPATIENT Condition: IMPROVED Problem Qualifiers NAN DELGADO DO Feb 22, 2019 19:35
[2019-02-22 19:43] LABS: BASO % 1 % (0-3); EOS # 0.1 x10^3/uL (0.0-0.7); EOS % 5 % (0-3); HEMATOCRIT 35.5 % (36.0-47.0); HEMOGLOBIN 11.8 g/dL (12.0-15.5); LYMPH # 0.6 x10^3/uL (1.0-4.8); LYMPH % 23 % (24-48); MEAN CORPUSCULAR HEMOGLOBIN 34 pg (25-35); MEAN CORPUSCULAR HGB CONC 33 g/dL (31-37); MEAN CORPUSCULAR VOLUME 102 fL (79-100); MONO # 0.3 x10^3/uL (0.0-1.1); MONO % 12 % (0-9); NEUT # 1.6 x10^3/uL (1.8-7.7); NEUT % 59 % (31-73); PLATELET COUNT 111 x10^3/uL (140-400); RED CELL DISTRIBUTION WIDTH 13.4 % (11.5-14.5); WHITE BLOOD COUNT 2.6 x10^3/uL (4.0-11.0)
[2019-02-22 19:52] LABS: CALCIUM 8.5 mg/dL (8.5-10.1); CREATININE 3.4 mg/dL (0.6-1.0); GFR 16.9; POTASSIUM 3.4 mmol/L (3.5-5.1)
[2019-02-22 19:58] LABS: ALBUMIN 2.8 g/dL (3.4-5.0); ALBUMIN/GLOBULIN RATIO 0.7 (1.0-1.7); TOTAL BILIRUBIN 0.3 mg/dL (0.2-1.0); TOTAL PROTEIN 6.6 g/dL (6.4-8.2)
[2019-02-22] MEDS ORDERED: IPRATRPIUM/ALBUTEROL 0.5/2.5MG 3 ML NEBU. NEB ONE (20:00)
[2019-02-22] MEDS ORDERED: methylPREDNISolone SOD SUCC PF 125 MG/2 ML VIAL. IV ONE (20:00)
--- NOTE | 2019-02-22 20:42 | RAD ---
Exam: Chest one view INDICATION: Shortness of breath TECHNIQUE: Frontal view of the chest Comparisons: 10/26/2018 FINDINGS: Sternotomy wires are noted. Heart is enlarged. Pulmonary vessels are within normal limits. Small right-sided pleural effusion is noted. There is hazy opacity at the right lung base. Remaining lungs are clear. IMPRESSION: Small right sided pleural effusion with adjacent airspace disease, likely atelectasis. Electronically signed by: Mercedez Turner MD (02/22/2019 8:40 PM) [facility]
[2019-02-22] MEDS ORDERED: IOHEXOL 350 MG/ML 100 ML VIAL. ONE (21:35)
[2019-02-22] MEDS ORDERED: CONTRAST GIVEN. MC PRN (21:45)
[2019-02-22] MEDS ORDERED: IOHEXOL 350 MG/ML 100 ML VIAL. IV ONE ×2 (21:45)
--- NOTE | 2019-02-22 22:20 | RAD ---
Exam: CT of chest with contrast INDICATION: Shortness of breath TECHNIQUE: Sequential axial images through the chest obtained following the administration of 100 mL of Omni 350 IV contrast. Sagittal and coronal reformatted images were reconstructed from the axial data and reviewed. 3-D reformatted images were reconstructed from the axial data and reviewed. Comparisons: Chest x-ray same day FINDINGS: Visualized portions of the thyroid are unremarkable. No enlarged mediastinal lymph nodes are identified. Heart is enlarged. No pericardial effusion. There is reflux of contrast into the IVC and hepatic veins. Moderate trivessel coronary artery calcifications are noted. Thoracic aorta has a normal course and caliber. Pulmonary artery is enlarged measuring 3.7 cm in diameter at the main pulmonary artery. There is a venous stent noted in the right upper extremity. No pulmonary embolus identified within the main, lobar or segmental pulmonary arteries. Airways are patent. Mild bronchial wall thickening noted in the lower lobes particularly in the right lower lobe. No consolidation or pneumothorax. There is a moderate right-sided pleural effusion with adjacent atelectasis. Fluid is seen tracking within the right major fissure. Additionally, there is fluid in the medial pleural space at the upper mediastinum. 4 mm nodule right upper lobe series 3 image 45 Spleen is enlarged measuring at least 14 cm in length. Sternotomy wires are noted. No suspicious osseous lesions or acute fractures. IMPRESSION: 1. No pulmonary embolus identified within the main, lobar or segmental pulmonary arteries. 2. Cardiomegaly with reflux of contrast the IVC and hepatic veins, likely related to some degree of heart failure. 3. Moderate right-sided pleural effusion with adjacent atelectasis. 4. Pulmonary artery is enlarged. Correlate for pulmonary arterial hypertension. 5. A 4 mm nodule in the right upper lobe. In a low-risk patient no further follow-up imaging is recommended. In a high-risk patient and optional one-year follow-up CT can BE performed. 6. Splenomegaly Exposure: One or more of the following in the visualized dose reduction techniques were utilized for this examination: 1. Automated exposure control 2. Adjustment of the MA and/or KV according to patient size 3. Use of iterative of reconstructive technique Electronically signed by: Mercedez Turner MD (02/22/2019 10:17 PM) [facility]
[2019-02-23 00:01] VITALS: BP 172/93
[2019-02-23] MEDS ORDERED: hydrALAZINE 20 MG/ML VIAL. IVP PRN (03:00)
[2019-02-23] MEDS ORDERED: diphenhydrAMINE HCL 25 MG CAPSULE PO PRN (03:00)
[2019-02-23] MEDS ORDERED: ACETAMINOPHEN 325 MG TABLET. PO PRN (03:00)
[2019-02-23] MEDS ORDERED: ALBUTEROL SULFATE 2.5 MG/3 ML NEBU. NEB PRN (03:00)
[2019-02-23] MEDS ORDERED: BENZONATATE 100 MG CAPSULE. PO PRN (03:00)
[2019-02-23] MEDS: HYDROcodone/APAP 7.5/325MG 1 TAB TABLET PO PRN ×4 (03:32→08:36)
[2019-02-23 03:38] VITALS: BP 171/81
[2019-02-23 05:31] LABS: BASO % 0 % (0-3); EOS % 0 % (0-3); HEMATOCRIT 33.8 % (36.0-47.0); HEMOGLOBIN 11.3 g/dL (12.0-15.5); LYMPH # 0.3 x10^3/uL (1.0-4.8); LYMPH % 8 % (24-48); MEAN CORPUSCULAR HEMOGLOBIN 35 pg (25-35); MEAN CORPUSCULAR HGB CONC 34 g/dL (31-37); MEAN CORPUSCULAR VOLUME 103 fL (79-100); MONO # 0.1 x10^3/uL (0.0-1.1); MONO % 3 % (0-9); NEUT # 3.5 x10^3/uL (1.8-7.7); NEUT % 89 % (31-73); PLATELET COUNT 98 x10^3/uL (140-400); RED BLOOD COUNT 3.29 x10^6/uL (3.50-5.40); RED CELL DISTRIBUTION WIDTH 13.5 % (11.5-14.5); WHITE BLOOD COUNT 3.9 x10^3/uL (4.0-11.0)
[2019-02-23 06:07] LABS: ALBUMIN 2.6 g/dL (3.4-5.0); ALBUMIN/GLOBULIN RATIO 0.7 (1.0-1.7); CALCIUM 8.7 mg/dL (8.5-10.1); CREATININE 4.8 mg/dL (0.6-1.0); GFR 11.4; POTASSIUM 3.9 mmol/L (3.5-5.1); TOTAL BILIRUBIN 0.4 mg/dL (0.2-1.0); TOTAL PROTEIN 6.3 g/dL (6.4-8.2)
[2019-02-23 07:00] VITALS: BP 164/78
[2019-02-23 07:13] LABS: % BANDS 1 % (0-9); % LYMPHS 9 % (24-48); % MONOS 2 % (0-10); % SEGS 88 % (35-66)
[2019-02-23 07:14] LABS: PLT ESTIMATE DECREASED (ADEQUATE)
[2019-02-23 07:15] LABS: OVALOCYTES FEW
[2019-02-23] MEDS: IPRATRPIUM/ALBUTEROL 0.5/2.5MG 3 ML NEBU. NEB SCH ×4 (08:00→20:11)
[2019-02-23] MEDS: SEVELAMER CARBONATE 800 MG TABLET. PO SCH ×3 (08:26→17:38)
[2019-02-23] MEDS: ASPIRIN CHEWABLE 81 MG TABLET. PO SCH (08:26)
[2019-02-23] MEDS: FOLIC/VIT B COMP W-C (RENAL) TABLET. PO SCH (08:27)
[2019-02-23] MEDS: ISOSORBIDE DINITRATE 10 MG TABLET. PO SCH ×2 (08:27→20:56)
[2019-02-23] MEDS: FUROSEMIDE 80 MG TABLET. PO SCH (08:27)
[2019-02-23] MEDS: CARVEDILOL 12.5 MG TABLET. PO SCH ×2 (08:27→17:38)
[2019-02-23] MEDS: hydrALAZINE 10 MG TABLET PO SCH ×2 (08:28→20:56)
[2019-02-23] MEDS: TRIAMCINOLONE ACETONIDE 0.1% TOPICAL CREAM 15GM TUBE. TP SCH ×2 (08:29→20:57)
[2019-02-23] MEDS ORDERED: NON FORMULARY ITEM (Umeclidinium Brm/Vilanterol Tr (Anoro Ellipta 62.5-25 Mcg Inh) 1 EACH) IH SCH (09:00)
[2019-02-23] MEDS: BUDESONIDE 0.5 MG/2 ML NEBU. NEB SCH ×2 (09:01→20:10)
[2019-02-23] MEDS: ALBUTEROL SULFATE 2.5 MG/3 ML NEBU. NEB SCH ×4 (09:02→20:00)
--- NOTE | 2019-02-23 09:28 | PDOC1 ---
History and Physical Date of Admission Date of Admission DATE: 02/23/19 TIME: 09:28 Identification/Chief Complaint Chief Complaint seen in er , 58 year old female with history of CAD, congestive heart failure, end-stage renal disease on dialysis and asthma who presents with persistent shortness of breath and wheezing 10 days. Patient uses her albuterol treatment and reports only temporary relief lasting less than 20 minutes. She has used her inhaler multiple times 02/22 . Patient completed dialysis 02/22 States her symptoms were not improved despite completing entire session. Patient denies change in her dry or wet weight. Denies fever, chills Past Medical History Past Medical History Past Medical History Past Medical History Past Medical History: Arthritis, CHF, Diabetes-Type II, High Cholesterol, Hypertension, Renal Failure Additional Past Medical Histor: TRIPLE BYPASS Past Surgical History: Coronary Bypass Surgery, Tubal ligation Additional Past Surgical Histo: FISTULA, HERNIA, HEART BYPASS Alcohol Use: None Drug Use: Marijuana FHX OBESITY Cardiovascular: AFIB, CAD, HTN, Hyperlipidemia Pulmonary: No pertinent hx CENTRAL NERVOUS SYSTEM: Periperal neuropathy GI: No pertinent hx Heme/Onc: No pertinent hx Hepatobiliary: No pertinent hx Psych: No pertinent hx Musculoskeletal: Osteoarthritis Rheumatologic: No pertinent hx Infectious disease: No pertinent hx Renal/: Chronic renal failure Endocrine: Diabetes Past Surgical History Past Surgical History: CABG, Tubal Ligation Family History Family History: Diabetes, Hypertension Family History: Parent Social History Smoke: No ALCOHOL: none Drugs: None Current Problem List Problem List Problems Medical Problems: (1) Acute asthma exacerbation Status: Acute (2) Dyspnea Status: Acute (3) End stage chronic kidney disease Status: Acute Current Medications Current Medications Current Medications Methylprednisolone Sodium Succinate (SOLU-Medrol 125MG VIAL) 125 mg 1X ONCE IV Last administered on 02/22/19at 19:37; Start 02/22/19 at 20:00; Stop 02/22/19 at 20:01; Status DC Albuterol/ Ipratropium (Duoneb) 3 ml 1X ONCE NEB Last administered on 02/22/19at 20:53; Start 02/22/19 at 20:00; Stop 02/22/19 at 20:01; Status DC Iohexol (Omnipaque 350 Mg/ml) 100 ml 1X ONCE IV Last administered on 02/22/19at 21:50; Start 02/22/19 at 21:45; Stop 02/22/19 at 21:46; Status DC Iohexol (Omnipaque 350 Mg/ml) 100 ml 1X ONCE IV ; Start 02/22/19 at 21:45; Stop 02/22/19 at 21:46; Status DC Info (CONTRAST GIVEN -- Rx MONITORING) 1 each PRN DAILY PRN MC SEE COMMENTS; Start 02/22/19 at 21:45; Stop 02/24/19 at 21:44 Iohexol (Omnipaque 350 Mg/ml) 100 ml STK-MED ONCE .ROUTE ; Start 02/22/19 at 21:35; Stop 02/22/19 at 21:35; Status DC Albuterol/ Ipratropium (Duoneb) 3 ml RTQID NEB ; Start 02/23/19 at 08:00; Stop 02/24/19 at 07:59 Albuterol Sulfate (Ventolin Neb Soln) 2.5 mg PRN Q4HRS PRN NEB SHORTNESS OF BREATH Last administered on 02/23/19at 03:38; Start 02/23/19 at 03:00 Hydralazine HCl (Apresoline Inj) 10 mg PRN Q4HRS PRN IVP ELEVATED BP, SEE COMMENTS Last administered on 02/23/19at 03:33; Start 02/23/19 at 03:00 Benzonatate (Tessalon Perle) 100 mg PRN TID PRN PO COUGH Last administered on 02/23/19at 03:32; Start 02/23/19 at 03:00 Acetaminophen (Tylenol) 325 mg PRN Q4HRS PRN PO PAIN; Start 02/23/19 at 03:00 Aspirin (Children'S Aspirin) 162 mg DAILYWBKFT PO Last administered on 02/23/19at 08:26; Start 02/23/19 at 08:00 Carvedilol (Coreg) 12.5 mg BIDWMEALS PO Last administered on 02/23/19at 08:27; Start 02/23/19 at 08:00 Diphenhydramine HCl (Benadryl) 25 mg PRN Q6HRS PRN PO ALLERGIES; Start 02/23/19 at 03:00 Vitamin B Complex/ Vitamin C (Catie-Renee) 1 tab DAILY PO Last administered on 02/23/19at 08:27; Start 02/23/19 at 09:00 Furosemide (Lasix) 80 mg DAILY PO Last administered on 02/23/19 08:27; Start 02/23/19 at 09:00 Hydralazine HCl (Apresoline) 10 mg BID PO Last administered on 02/23/19 08:28; Start 02/23/19 at 09:00 Acetaminophen/ Hydrocodone Bitart (Lortab 7.5/325) 1 tab PRN Q6HRS PRN PO PAIN Last administered on 02/23/19 08:36; Start 02/23/19 at 03:00 Sevelamer Carbonate (Renvela) 2,400 mg TIDWMEALS PO Last administered on 02/23/19 08:26; Start 02/23/19 at 08:00 Triamcinolone Acetonide (Kenalog 0.1%) 1 lewis BID TP Last administered on 02/23/19 08:29; Start 02/23/19 at 09:00 Isosorbide Dinitrate (Isordil) 20 mg BID PO Last administered on 02/23/19 08:27; Start 02/23/19 at 09:00 Losartan Potassium (Cozaar) 100 mg HS PO ; Start 02/23/19 at 21:00 Non-Formulary Medication (Umeclidinium Brm/Vilanterol Tr (Anoro Ellipta 62.5-25 Mcg Inh)) 1 each DAILY IH ; Start 02/23/19 at 09:00; Status UNV Budesonide (Pulmicort) 0.5 mg RTBID NEB Last administered on 02/23/19 09:01; Start 02/23/19 at 08:00 Albuterol Sulfate (Ventolin Neb Soln) 2.5 mg RTQID NEB Last administered on 02/23/19 09:02; Start 02/23/19 at 08:00 Active Scripts Active Triamcinolone Acetonide 0.1% Cream (Triamcinolone Acetonide) 15 Gm Cream..g. 1 Lewis TP BID 14 Days Anoro Ellipta 62.5-25 Mcg Inh (Umeclidinium Brm/Vilanterol Tr) 1 Each Disk.w.dev 1 Each IH DAILY 30 Days Proair Hfa (Albuterol Sulfate) 8.5 Gm Hfa.aer.ad 1 Puff INH PRN Q6HRS PRN 30 Days Reported Hydrocodone-Apap 7.5-325 (Hydrocodone Bit/Acetaminophen) 1 Tab Tablet 1 Tab PO PRN Q6HRS PRN Children's Aspirin (Aspirin) 81 Mg Tab.chew 162 Mg PO DAILY Losartan Potassium 100 Mg Tablet 100 Mg PO HS Hydralazine Hcl 10 Mg Tablet 10 Mg PO BID Isosorbide Dinitrate 20 Mg Tablet 20 Mg PO BID Benadryl (Diphenhydramine Hcl) 25 Mg Capsule 25 Mg PO PRN PRN Carvedilol (Carvedilol) 12.5 Mg Tablet 12.5 Mg PO BIDWMEALS Tylenol (Acetaminophen) 325 Mg Tablet 1 Tab PO PRN Q4HRS PRN Renal Vitamin Tablet (Folic Acid/Vit Bcomp,C) 0.8 Mg Tablet 0.8 Mg PO DAILY Renvela (Sevelamer Carbonate) 800 Mg Tablet 3 Tab PO TID Furosemide 80 Mg Tablet 1 Tab PO DAILY Allergies Allergies: Coded Allergies: azithromycin (Verified Adverse Reaction, Intermediate, Anxiety, HALLUCINATIONS, 11/02/18) ROS Review of System Review of Systems Review of Systems Constitutional: Denies fever or chills [] Eyes: Denies change in visual acuity, redness, or eye pain [] HENT: Denies nasal congestion or sore throat [] Respiratory: Denies cough or shortness of breath [] Cardiovascular: No additional information not addressed in HPI [] GI: Denies abdominal pain, nausea, vomiting, bloody stools or diarrhea [] : Denies dysuria or hematuria [] Musculoskeletal: Denies back pain or joint pain [] Integument: Denies rash or skin lesions [] Neurologic: Denies headache, focal weakness or sensory changes [] Endocrine: Denies polyuria or polydipsia [] 14 pt systems were reviewed and found to be within normal limits, except as doc umented General: YES: Fatigue Respiratory: YES: Shortness of breath, SOB with excertion Physical Exam Physical Exam Physical Exam Physical Exam Constitutional: Well developed, well nourished, no acute distress, non-toxic appearance. [] HENT: Normocephalic, atraumatic, bilateral external ears normal, oropharynx moist, no oral exudates, nose normal. [] Eyes: PERRLA, EOMI, conjunctiva normal, no discharge. [] Neck: Normal range of motion, no tenderness, supple. [] Cardiovascular:Heart rate regular rhythm, no murmur [] Lungs & Thorax: severely diminished breath sounds bilaterally, with tight wheezes with rhonchi[] Abdomen: Bowel sounds normal, soft, no tenderness. [] Skin: Warm, dry, no erythema, no rash. [] Back: No tenderness. [] Extremities: Extremities, plus peripheral edema, negative Homans signs.. [] Neurologic: Alert and oriented X 3, normal motor function, normal sensory function, no focal deficits noted. [] Psychologic: Affect normal, judgment normal, mood normal. [] General: Alert, Oriented X3, Cooperative Heart: no thrills Breasts: Not examined Abdomen: Normal bowel sounds, Soft Rectal Exam: not examined PELVIC: Examination not indicated Extremities: No cyanosis Neuro: Normal speech, Cranial nerves 3-12 NL Psych/Mental Status: Mental status NL, Mood NL Vitals Vitals Vital Signs Date Time Temp Pulse Resp B/P (MAP) Pulse Ox O2 Delivery O2 Flow Rate FiO2 02/23/19 09:03 98 Room Air 02/23/19 08:28 88 164/78 02/23/19 07:00 97.6 16 97.6 Labs Labs Laboratory Tests Test 02/22/19 19:30 02/23/19 05:10 02/23/19 07:33 White Blood Count 2.6 x10^3/uL (4.0-11.0) 3.9 x10^3/uL (4.0-11.0) Red Blood Count 3.50 x10^6/uL (3.50-5.40) 3.29 x10^6/uL (3.50-5.40) Hemoglobin 11.8 g/dL (12.0-15.5) 11.3 g/dL (12.0-15.5) Hematocrit 35.5 % (36.0-47.0) 33.8 % (36.0-47.0) Mean Corpuscular Volume 102 fL (79-100) 103 fL (79-100) Mean Corpuscular Hemoglobin 34 pg (25-35) 35 pg (25-35) Mean Corpuscular Hemoglobin Concent 33 g/dL (31-37) 34 g/dL (31-37) Red Cell Distribution Width 13.4 % (11.5-14.5) 13.5 % (11.5-14.5) Platelet Count 111 x10^3/uL (140-400) 98 x10^3/uL (140-400) Neutrophils (%) (Auto) 59 % (31-73) 89 % (31-73) Lymphocytes (%) (Auto) 23 % (24-48) 8 % (24-48) Monocytes (%) (Auto) 12 % (0-9) 3 % (0-9) Eosinophils (%) (Auto) 5 % (0-3) 0 % (0-3) Basophils (%) (Auto) 1 % (0-3) 0 % (0-3) Neutrophils # (Auto) 1.6 x10^3/uL (1.8-7.7) 3.5 x10^3/uL (1.8-7.7) Lymphocytes # (Auto) 0.6 x10^3/uL (1.0-4.8) 0.3 x10^3/uL (1.0-4.8) Monocytes # (Auto) 0.3 x10^3/uL (0.0-1.1) 0.1 x10^3/uL (0.0-1.1) Eosinophils # (Auto) 0.1 x10^3/uL (0.0-0.7) 0.0 x10^3/uL (0.0-0.7) Basophils # (Auto) 0.0 x10^3/uL (0.0-0.2) 0.0 x10^3/uL (0.0-0.2) D-Dimer (Daly) 0.99 ug/mlFEU (0.00-0.50) Sodium Level 142 mmol/L (136-145) 135 mmol/L (136-145) Potassium Level 3.4 mmol/L (3.5-5.1) 3.9 mmol/L (3.5-5.1) Chloride Level 105 mmol/L (98-107) 100 mmol/L (98-107) Carbon Dioxide Level 28 mmol/L (21-32) 21 mmol/L (21-32) Anion Gap 9 (6-14) 14 (6-14) Blood Urea Nitrogen 12 mg/dL (7-20) 21 mg/dL (7-20) Creatinine 3.4 mg/dL (0.6-1.0) 4.8 mg/dL (0.6-1.0) Estimated GFR (Cockcroft-Gault) 16.9 11.4 BUN/Creatinine Ratio 4 (6-20) 4 (6-20) Glucose Level 101 mg/dL (70-99) 362 mg/dL (70-99) Lactic Acid Level 1.0 mmol/L (0.4-2.0) Calcium Level 8.5 mg/dL (8.5-10.1) 8.7 mg/dL (8.5-10.1) Total Bilirubin 0.3 mg/dL (0.2-1.0) 0.4 mg/dL (0.2-1.0) Aspartate Amino Transf (AST/SGOT) 26 U/L (15-37) 25 U/L (15-37) Alanine Aminotransferase (ALT/SGPT) 22 U/L (14-59) 25 U/L (14-59) Alkaline Phosphatase 253 U/L (46-116) 240 U/L (46-116) Troponin I Quantitative < 0.017 ng/mL (0.000-0.055) HR-Ajt-G-Type Natriuretic Peptide > 21150 pg/mL (0-124) Total Protein 6.6 g/dL (6.4-8.2) 6.3 g/dL (6.4-8.2) Albumin 2.8 g/dL (3.4-5.0) 2.6 g/dL (3.4-5.0) Albumin/Globulin Ratio 0.7 (1.0-1.7) 0.7 (1.0-1.7) Segmented Neutrophils % 88 % (35-66) Band Neutrophils % 1 % (0-9) Lymphocytes % 9 % (24-48) Monocytes % 2 % (0-10) Platelet Estimate Decreased (ADEQUATE) Large Platelets Few Ovalocytes Few Glucose (Fingerstick) 267 mg/dL (70-99) Laboratory Tests Test 02/22/19 19:30 02/23/19 05:10 02/23/19 07:33 White Blood Count 2.6 x10^3/uL (4.0-11.0) 3.9 x10^3/uL (4.0-11.0) Red Blood Count 3.50 x10^6/uL (3.50-5.40) 3.29 x10^6/uL (3.50-5.40) Hemoglobin 11.8 g/dL (12.0-15.5) 11.3 g/dL (12.0-15.5) Hematocrit 35.5 % (36.0-47.0) 33.8 % (36.0-47.0) Mean Corpuscular Volume 102 fL (79-100) 103 fL (79-100) Mean Corpuscular Hemoglobin 34 pg (25-35) 35 pg (25-35) Mean Corpuscular Hemoglobin Concent 33 g/dL (31-37) 34 g/dL (31-37) Red Cell Distribution Width 13.4 % (11.5-14.5) 13.5 % (11.5-14.5) Platelet Count 111 x10^3/uL (140-400) 98 x10^3/uL (140-400) Neutrophils (%) (Auto) 59 % (31-73) 89 % (31-73) Lymphocytes (%) (Auto) 23 % (24-48) 8 % (24-48) Monocytes (%) (Auto) 12 % (0-9) 3 % (0-9) Eosinophils (%) (Auto) 5 % (0-3) 0 % (0-3) Basophils (%) (Auto) 1 % (0-3) 0 % (0-3) Neutrophils # (Auto) 1.6 x10^3/uL (1.8-7.7) 3.5 x10^3/uL (1.8-7.7) Lymphocytes # (Auto) 0.6 x10^3/uL (1.0-4.8) 0.3 x10^3/uL (1.0-4.8) Monocytes # (Auto) 0.3 x10^3/uL (0.0-1.1) 0.1 x10^3/uL (0.0-1.1) Eosinophils # (Auto) 0.1 x10^3/uL (0.0-0.7) 0.0 x10^3/uL (0.0-0.7) Basophils # (Auto) 0.0 x10^3/uL (0.0-0.2) 0.0 x10^3/uL (0.0-0.2) D-Dimer (Daly) 0.99 ug/mlFEU (0.00-0.50) Sodium Level 142 mmol/L (136-145) 135 mmol/L (136-145) Potassium Level 3.4 mmol/L (3.5-5.1) 3.9 mmol/L (3.5-5.1) Chloride Level 105 mmol/L (98-107) 100 mmol/L (98-107) Carbon Dioxide Level 28 mmol/L (21-32) 21 mmol/L (21-32) Anion Gap 9 (6-14) 14 (6-14) Blood Urea Nitrogen 12 mg/dL (7-20) 21 mg/dL (7-20) Creatinine 3.4 mg/dL (0.6-1.0) 4.8 mg/dL (0.6-1.0) Estimated GFR (Cockcroft-Gault) 16.9 11.4 BUN/Creatinine Ratio 4 (6-20) 4 (6-20) Glucose Level 101 mg/dL (70-99) 362 mg/dL (70-99) Lactic Acid Level 1.0 mmol/L (0.4-2.0) Calcium Level 8.5 mg/dL (8.5-10.1) 8.7 mg/dL (8.5-10.1) Total Bilirubin 0.3 mg/dL (0.2-1.0) 0.4 mg/dL (0.2-1.0) Aspartate Amino Transf (AST/SGOT) 26 U/L (15-37) 25 U/L (15-37) Alanine Aminotransferase (ALT/SGPT) 22 U/L (14-59) 25 U/L (14-59) Alkaline Phosphatase 253 U/L (46-116) 240 U/L (46-116) Troponin I Quantitative < 0.017 ng/mL (0.000-0.055) UR-Hcn-V-Type Natriuretic Peptide > 66867 pg/mL (0-124) Total Protein 6.6 g/dL (6.4-8.2) 6.3 g/dL (6.4-8.2) Albumin 2.8 g/dL (3.4-5.0) 2.6 g/dL (3.4-5.0) Albumin/Globulin Ratio 0.7 (1.0-1.7) 0.7 (1.0-1.7) Segmented Neutrophils % 88 % (35-66) Band Neutrophils % 1 % (0-9) Lymphocytes % 9 % (24-48) Monocytes % 2 % (0-10) Platelet Estimate Decreased (ADEQUATE) Large Platelets Few Ovalocytes Few Glucose (Fingerstick) 267 mg/dL (70-99) Images Images RIGHT VENTRICLE The right ventricle is mildly dilated. There is normal right ventricular wall thickness. Systolic function is mildly reduced. ATRIA The left atrium is mild to moderately dilated. The right atrium is mild to moderately dilated. The interatrial septum is intact with no evidence for an atrial septal defect or patent foramen ovale as noted on 2-D or Doppler imaging. AORTIC VALVE The aortic valve is probably trileaflet. Doppler and Color Flow revealed no significant aortic regurgitation. There is no significant aortic valvular stenosis. There is no aortic valvular vegetation. MITRAL VALVE Mitral annular calcification is mild to moderate. There is no evidence of mitral valve prolapse. There is mild mitral valve stenosis. Calculated mitral valve area is 2.4 cm2 with maximum pressure gradient of 14 mmHg and mean pressure gradient of 5 mmHg. Doppler and Color-flow revealed mild mitral regurgitation. TRICUSPID VALVE The tricuspid valve is normal in structure and function. Doppler and Color Flow revealed severe tricuspid regurgitation. There is severe pulmonary hypertension. The PA pressure was estimated at 77 mmHg. There is no tricuspid valve prolapse or vegetation. There is no tricuspid valve stenosis. PULMONIC VALVE The pulmonic valve is not well visualized. GREAT VESSELS The aortic root is normal in size. The ascending aorta is normal in size. The IVC is dilated and collapses <50% with inspiration. PERICARDIAL EFFUSION There is no evidence of significant pericardial effusion. Critical Notification Critical Value: No <Conclusion> The Left Ventricle is borderline dilated. The ejection fraction is moderately to severely impaired. The Ejection Fraction is 25-30%. There is global hypokinesis of the left ventricle. Paradoxic septum consistent with possible right ventricle pressure overload. There is no significant aortic valvular stenosis. Doppler and Color Flow revealed no significant aortic regurgitation. There is mild mitral valve stenosis. Calculated mitral valve area is 2.4 cm2 with maximum pressure gradient of 14 mmHg and mean pressure gradient of 5 mmHg. Doppler and Color-flow revealed mild mitral regurgitation. Doppler and Color Flow revealed severe tricuspid regurgitation. There is severe pulmonary hypertension. The PA pressure was estimated at 77 mmHg. Signed by : Loren Murphy MD Electronically Approved : 10/26/2018 10:18:04 DICTATED and SIGNED BY: LOREN MURPHY MD DATE: 10/26/18 1018 TECHNIQUE: Sequential axial images through the chest obtained following the administration of 100 mL of Omni 350 IV contrast. Sagittal and coronal reformatted images were reconstructed from the axial data and reviewed. 3-D reformatted images were reconstructed from the axial data and reviewed. Comparisons: Chest x-ray same day FINDINGS: Visualized portions of the thyroid are unremarkable. No enlarged mediastinal lymph nodes are identified. Heart is enlarged. No pericardial effusion. There is reflux of contrast into the IVC and hepatic veins. Moderate trivessel coronary artery calcifications are noted. Thoracic aorta has a normal course and caliber. Pulmonary artery is enlarged measuring 3.7 cm in diameter at the main pulmonary artery. There is a venous stent noted in the right upper extremity. No pulmonary embolus identified within the main, lobar or segmental pulmonary arteries. Airways are patent. Mild bronchial wall thickening noted in the lower lobes particularly in the right lower lobe. No consolidation or pneumothorax. There is a moderate right-sided pleural effusion with adjacent atelectasis. Fluid is seen tracking within the right major fissure. Additionally, there is fluid in the medial pleural space at the upper mediastinum. 4 mm nodule right upper lobe series 3 image 45 Spleen is enlarged measuring at least 14 cm in length. Sternotomy wires are noted. No suspicious osseous lesions or acute fractures. IMPRESSION: 1. No pulmonary embolus identified within the main, lobar or segmental pulmonary arteries. 2. Cardiomegaly with reflux of contrast the IVC and hepatic veins, likely related to some degree of heart failure. 3. Moderate right-sided pleural effusion with adjacent atelectasis. 4. Pulmonary artery is enlarged. Correlate for pulmonary arterial hypertension. 5. A 4 mm nodule in the right upper lobe. In a low-risk patient no further follow-up imaging is recommended. In a high-risk patient and optional one-year follow-up CT can BE performed. 6. Splenomegaly Exposure: One or more of the following in the visualized dose reduction techniques were utilized for this examination: 1. Automated exposure control 2. Adjustment of the MA and/or KV according to patient size 3. Use of iterative of reconstructive technique Electronically signed by: Mercedez Bolivar MD (02/22/2019 10:17 PM) [facility] DICTATED and SIGNED BY: MERCEDEZ BOLIVAR MD DATE: 02/22/19 3149 VTE Prophylaxis Ordered VTE Prophylaxis Devices: No VTE Pharmacological Prophylaxi: Yes Assessment/Plan Assessment/Plan Impression: Dyspnea no pulmonary embolus identified within the main, lobar or segmental pulmonary arteries. ACUTE ON CHRONIC COMBINED CHF echocardiogram in October of thisyear. Ejection fraction was 20-25%. the Ejection Fraction is 25-30%. severe tricuspid regurgitation. severe pulmonary hypertension.PA pressure was estimated at 77 mmHg. morbid obesity Acute asthma exacerbation acute exac of copd End stage chronic kidney disease ADMITTED TELE BED PULM CONSULT NEPHROLOGY CONSULT CARDIOLOGY CONSULT DVT PROPHYLAXIS, SQ HEPARIN 72 min pt exam, chart review, > 50% of time spent with exam, chart review, pt care coordination MARICEL LUCAS MD Feb 23, 2019 09:28
--- NOTE | 2019-02-23 10:24 | PDOC ---
Provider Note Provider Note [id number] dyspnea acute sys diastolic chf abnl cxr ICS, BD DESMOND HENRY MD Feb 23, 2019 10:24
--- NOTE | 2019-02-23 10:36 | CONS ---
DATE OF CONSULTATION: 02/23/2019 I was asked to see this 58-year-old lady for acute respiratory failure, wheezing. HISTORY OF PRESENT ILLNESS: She does have history of [id number] smoking, stopped smoking 6 years ago. She has not been diagnosed with COPD, but has been diagnosed with asthma. She has not had pulmonary function test. She remembers sometime this year, she had bronchoscopy by Dr. Barron due to pneumonia, but I do not see any record of it in [facility]. She has systolic and diastolic CHF. Her last echocardiogram in October of this year. Ejection fraction was 20-25%. She is on dialysis for end-stage renal disease. She has had increased shortness of breath and wheezing for the past 10 days. She denies chest pain. She has occasional cough. She denies fever or chills. PAST MEDICAL HISTORY: Asthma; CHF, systolic and diastolic; diabetes mellitus; hypertension; end-stage renal disease. ALLERGIES: AZITHROMYCIN. MEDICATIONS: Currently, she is on Cozaar, Isordil, Apresoline, Lasix, DuoNeb, Pulmicort, Coreg, aspirin. SOCIAL HISTORY: History of [id number] smoking, stopped smoking 6 years ago. FAMILY HISTORY: There is no history of lung disease. REVIEW OF SYSTEMS: As mentioned as above, other systems otherwise negative. PHYSICAL EXAMINATION: GENERAL: Overweight lady. VITAL SIGNS: Her O2 saturation is 96%, respiratory rate 16, heart rate 88, blood pressure 164/78, temperature 97.6. HEENT: Normocephalic, atraumatic. Pupils equal, round, reactive to light. There is shallow oropharynx. She has poor dentition. Nose is clear. NECK: Positive JVD. No lymphadenopathy. CARDIOVASCULAR: Regular rate and rhythm. PMI is nondisplaced. CHEST: Inspection is normal. LUNGS: There are bibasilar crackles, dullness at the right base, a few end-expiratory wheezing. ABDOMEN: Soft. Bowel sounds are good. There is no mass. EXTREMITIES: There is trace edema. LYMPHATICS: There is no lymphadenopathy. NEUROLOGIC: Alert and oriented. SKIN: Chronic changes. LABORATORY DATA: I reviewed the following lab data: Chest x-ray shows right effusion with infiltrate/atelectasis. CT angiogram did not show pulmonary embolism, showed cardiomegaly, moderate right pleural effusion, 4 mm nodule in right upper lobe. WBC 3.9, hemoglobin 11.3, platelet 98. Sodium 135, potassium 3.9, chloride 100, CO2 of 21, glucose 362, BUN 21, creatinine 4.8. BNP more than 35,000. Troponin less than 0.01. Lactic acid 1. IMPRESSION: 1. Dyspnea secondary to acute diastolic/systolic congestive heart failure, acute exacerbation of asthma/chronic obstructive pulmonary disease, no pulmonary embolism. 2. Abnormal chest x-ray and CT of the chest. 3. Acute exacerbation of asthma/chronic obstructive pulmonary disease. 4. Acute diastolic/systolic congestive heart failure. 5. End-stage renal disease, on hemodialysis. 6. Hypertension. 7. Diabetes mellitus. PLAN AND RECOMMENDATIONS: 1. Titrate FiO2 to keep O2 saturation 92%. 2. Bronchodilator. 3. Inhaled corticosteroid. 4. Would need aggressive hemodialysis for CHF. She also has right pleural effusion. Her CT done in October also did show pleural effusion. She may require thoracentesis. 5. Continue not smoking. 6. Pulmonary function test as outpatient. 7. I do recommend Cardiology consultation if not done. 8. She has splenomegaly. Defer workup to primary. 9. She has a small lung nodule. She would require a repeat CT of the chest in 1 year. She has history of [id number] smoking. 10. The findings and recommendations were discussed with the patient. She understood and agreed to proceed with the plan. I have answered all of her questions. Thank you very much for allowing me to participate in care of this very nice lady. DESMOND HENRY M.D. : WILLIE/ron JOB#: [id number] / [id number]
[2019-02-23 11:00] VITALS: BP 147/68
[2019-02-23] MEDS ORDERED: IV NORMAL SALINE 1000ML BAG 1,000 ML IV PRN ×2 (13:07)
--- NOTE | 2019-02-23 13:12 | CONS ---
DATE OF CONSULTATION: 02/23/2019 NEPHROLOGY CONSULTATION REASON FOR CONSULTATION: End-stage renal disease. HISTORY OF PRESENT ILLNESS: A 58-year-old female with history of diabetes mellitus, hypertension, end-stage renal disease. She is hemodialysis dependent on Monday, Monday, and Monday. The patient did attend her dialysis treatment on the day prior to this consultation. She states that she has had some increased shortness of breath. She has a [id number]-[id number] smoking history, discontinued 6 years prior to this evaluation. She does have known COPD/asthma. On evaluation, she was found to have wheezes and being treated for acute exacerbation of asthma. She likely has some component of cardiomyopathy as well. Likely having difficulty with "cardiac asthma." PAST MEDICAL HISTORY: Diabetes mellitus; hypertension; end-stage renal disease, hemodialysis dependent on Monday, Monday, Monday; congestive cardiomyopathy with left ventricular ejection fraction of 20% to 25% in 10/2018. COPD/asthma, anemia, chronic kidney disease, secondary hyperparathyroidism with evidence of renal disease, porphyria. FAMILY HISTORY: Noncontributory. SOCIAL HISTORY: The patient resides independently, discontinued smoking 6 years ago, [id number] prior to that time. REVIEW OF SYSTEMS: No headache, sinus problem, nasal drainage, epistaxis, change in vision or hearing. No difficulty swallowing. No fever, chills, sputum production or hemoptysis. She has had shortness of breath, dyspnea on exertion. No abdominal pain. No nausea, vomiting, or diarrhea. No seizures or malignancies. She has history of porphyria. PHYSICAL EXAMINATION: GENERAL APPEARANCE: The patient is awake, conversant. HEENT: Clear. NECK: No increased JVD. No thyromegaly, mass, or adenopathy. LUNGS: Decreased breath sounds at bases. CARDIAC: Without S3 or rub. ABDOMEN: Soft, nontender, no bruits. EXTREMITIES: 1+ lower extremity edema. NEUROLOGIC: Nonfocal, nonlocalized. PSYCHIATRIC: Good attention to detail, appropriate affect. LABORATORY DATA: White count 3.9, hemoglobin 11.3, hematocrit 33.8, platelets are 98. Sodium 135, potassium 3.9, chloride 100, CO2 21, BUN 21, creatinine 4.8, GFR is 11.4, albumin 2.6. IMPRESSION: 1. End-stage renal disease secondary to diabetic nephropathy -- hemodialysis dependent, Monday, Monday, Monday. 2. Dyspnea -- multifactorial including known congestive cardiomyopathy with left ventricular ejection fraction 25% to 30%. Also, has history of chronic obstructive pulmonary disease/asthma. RECOMMENDATIONS: 1. Agree with treatment of COPD/asthma per pulmonary. 2. Proceed with dialysis today for extra treatment. We will also move towards challenging in dry weight with plans for reestablishing lower dry weight. 3. Chronic kidney disease well controlled. MAINOR GREGORY MD DR: CASANDRA/ron JOB#: [id number] / [id number]
[2019-02-23] MEDS ORDERED: diphenhydrAMINE 50 MG/ML VIAL IV PRN ×2 (13:15)
[2019-02-23] MEDS ORDERED: DIALYSIS PATIENT. MC PRN ×2 (13:15)
[2019-02-23] MEDS: HEPARIN for SUB-Q USE 5,000 UNIT/ML VIAL. SQ SCH ×2 (14:00→21:05)
[2019-02-23 19:42] VITALS: BP 156/78
[2019-02-23] MEDS: LOSARTAN POTASSIUM 50 MG TABLET. PO SCH (20:56)
[2019-02-23 23:27] VITALS: BP 156/78
[2019-02-24 03:17] VITALS: BP 145/79
[2019-02-24] MEDS: HEPARIN for SUB-Q USE 5,000 UNIT/ML VIAL. SQ SCH ×3 (05:59→21:06)
[2019-02-24 07:30] VITALS: BP 155/83
[2019-02-24] MEDS: BUDESONIDE 0.5 MG/2 ML NEBU. NEB SCH ×2 (08:25→21:11)
[2019-02-24] MEDS: ALBUTEROL SULFATE 2.5 MG/3 ML NEBU. NEB SCH ×4 (08:26→21:11)
[2019-02-24] MEDS: FUROSEMIDE 80 MG TABLET. PO SCH (08:49)
[2019-02-24] MEDS: ASPIRIN CHEWABLE 81 MG TABLET. PO SCH (08:49)
[2019-02-24] MEDS: SEVELAMER CARBONATE 800 MG TABLET. PO SCH ×4 (08:49→17:26)
[2019-02-24] MEDS: FOLIC/VIT B COMP W-C (RENAL) TABLET. PO SCH (08:49)
[2019-02-24] MEDS: hydrALAZINE 10 MG TABLET PO SCH ×2 (08:51→21:00)
[2019-02-24] MEDS: CARVEDILOL 12.5 MG TABLET. PO SCH ×2 (08:52→17:26)
[2019-02-24] MEDS: ISOSORBIDE DINITRATE 10 MG TABLET. PO SCH ×2 (08:52→21:00)
[2019-02-24] MEDS: TRIAMCINOLONE ACETONIDE 0.1% TOPICAL CREAM 15GM TUBE. TP SCH ×2 (08:57→21:00)
[2019-02-24] MEDS: HYDROcodone/APAP 7.5/325MG 1 TAB TABLET PO PRN (09:01)
--- NOTE | 2019-02-24 10:14 | PDOC ---
PROGRESS NOTES History of Present Illness History of Present Illness VTE Prophylaxis Ordered VTE Prophylaxis Devices: No VTE Pharmacological Prophylaxi: Yes Assessment/Plan Assessment/Plan Impression: Dyspnea no pulmonary embolus identified within the main, lobar or segmental pulmonary arteries. ACUTE ON CHRONIC COMBINED CHF echocardiogram in October of thisyear. Ejection fraction was 20-25%. the Ejection Fraction is 25-30%. severe tricuspid regurgitation. severe pulmonary hypertension.PA pressure was estimated at 77 mmHg. morbid obesity Acute asthma exacerbation acute exac of copd End stage chronic kidney disease ADMITTED TELE BED PULM CONSULT NEPHROLOGY CONSULT CARDIOLOGY CONSULT DVT PROPHYLAXIS, SQ HEPARIN 42 min pt exam, chart review, > 50% of time spent with exam, chart review, pt care coordination Vitals Vitals Vital Signs Date Time Temp Pulse Resp B/P (MAP) Pulse Ox O2 Delivery O2 Flow Rate FiO2 02/24/19 09:01 19 98 Room Air 02/24/19 08:52 107 155/83 02/24/19 07:30 98.4 98.4 Physical Exam General: Alert, Oriented X3, Cooperative, mild distress Heart: Regular rate Lungs: Crackles Abdomen: Normal bowel sounds, Soft, No tenderness Extremities: No cyanosis Labs LABS INDICATION: Shortness of breath TECHNIQUE: Sequential axial images through the chest obtained following the administration of 100 mL of Omni 350 IV contrast. Sagittal and coronal reformatted images were reconstructed from the axial data and reviewed. 3-D reformatted images were reconstructed from the axial data and reviewed. Comparisons: Chest x-ray same day FINDINGS: Visualized portions of the thyroid are unremarkable. No enlarged mediastinal lymph nodes are identified. Heart is enlarged. No pericardial effusion. There is reflux of contrast into the IVC and hepatic veins. Moderate trivessel coronary artery calcifications are noted. Thoracic aorta has a normal course and caliber. Pulmonary artery is enlarged measuring 3.7 cm in diameter at the main pulmonary artery. There is a venous stent noted in the right upper extremity. No pulmonary embolus identified within the main, lobar or segmental pulmonary arteries. Airways are patent. Mild bronchial wall thickening noted in the lower lobes particularly in the right lower lobe. No consolidation or pneumothorax. There is a moderate right-sided pleural effusion with adjacent atelectasis. Fluid is seen tracking within the right major fissure. Additionally, there is fluid in the medial pleural space at the upper mediastinum. 4 mm nodule right upper lobe series 3 image 45 Spleen is enlarged measuring at least 14 cm in length. Sternotomy wires are noted. No suspicious osseous lesions or acute fractures. IMPRESSION: 1. No pulmonary embolus identified within the main, lobar or segmental pulmonary arteries. 2. Cardiomegaly with reflux of contrast the IVC and hepatic veins, likely related to some degree of heart failure. 3. Moderate right-sided pleural effusion with adjacent atelectasis. 4. Pulmonary artery is enlarged. Correlate for pulmonary arterial hypertension. 5. A 4 mm nodule in the right upper lobe. In a low-risk patient no further follow-up imaging is recommended. In a high-risk patient and optional one-year follow-up CT can BE performed. 6. Splenomegaly Exposure: One or more of the following in the visualized dose reduction techniques were utilized for this examination: 1. Automated exposure control 2. Adjustment of the MA and/or KV according to patient size 3. Use of iterative of reconstructive technique Electronically signed by: Mercedez Turner MD (02/22/2019 10:17 PM) [facility] SPEC #: [id number] CARLIN: 02/22/19 STATUS: RES REQ #: [id number] RECD: 02/22/[address] [facility] [address]: NAN DELGADO DO SOURCE: BLOOD ENTR: 02/22/[address] [facility] [address]: NOAH: ORDERED: BCULT Procedure Result BLOOD CULTURE Preliminary NO GROWTH AFTER 1 DAY Laboratory Tests Test 02/23/19 11:56 02/23/19 20:38 02/24/19 07:38 Glucose (Fingerstick) 206 mg/dL (70-99) 193 mg/dL (70-99) 105 mg/dL (70-99) Assessment and Plan Assessmemt and Plan Problems Medical Problems: (1) Acute asthma exacerbation Status: Acute (2) Dyspnea Status: Acute (3) End stage chronic kidney disease Status: Acute Comment Review of Relevant I have reviewed the following items alivia (where applicable) has been applied. Labs Laboratory Tests Test 02/22/19 19:30 02/23/19 05:10 02/23/19 07:33 02/23/19 11:56 White Blood Count 2.6 x10^3/uL (4.0-11.0) 3.9 x10^3/uL (4.0-11.0) Red Blood Count 3.50 x10^6/uL (3.50-5.40) 3.29 x10^6/uL (3.50-5.40) Hemoglobin 11.8 g/dL (12.0-15.5) 11.3 g/dL (12.0-15.5) Hematocrit 35.5 % (36.0-47.0) 33.8 % (36.0-47.0) Mean Corpuscular Volume 102 fL (79-100) 103 fL (79-100) Mean Corpuscular Hemoglobin 34 pg (25-35) 35 pg (25-35) Mean Corpuscular Hemoglobin Concent 33 g/dL (31-37) 34 g/dL (31-37) Red Cell Distribution Width 13.4 % (11.5-14.5) 13.5 % (11.5-14.5) Platelet Count 111 x10^3/uL (140-400) 98 x10^3/uL (140-400) Neutrophils (%) (Auto) 59 % (31-73) 89 % (31-73) Lymphocytes (%) (Auto) 23 % (24-48) 8 % (24-48) Monocytes (%) (Auto) 12 % (0-9) 3 % (0-9) Eosinophils (%) (Auto) 5 % (0-3) 0 % (0-3) Basophils (%) (Auto) 1 % (0-3) 0 % (0-3) Neutrophils # (Auto) 1.6 x10^3/uL (1.8-7.7) 3.5 x10^3/uL (1.8-7.7) Lymphocytes # (Auto) 0.6 x10^3/uL (1.0-4.8) 0.3 x10^3/uL (1.0-4.8) Monocytes # (Auto) 0.3 x10^3/uL (0.0-1.1) 0.1 x10^3/uL (0.0-1.1) Eosinophils # (Auto) 0.1 x10^3/uL (0.0-0.7) 0.0 x10^3/uL (0.0-0.7) Basophils # (Auto) 0.0 x10^3/uL (0.0-0.2) 0.0 x10^3/uL (0.0-0.2) D-Dimer (Daly) 0.99 ug/mlFEU (0.00-0.50) Sodium Level 142 mmol/L (136-145) 135 mmol/L (136-145) Potassium Level 3.4 mmol/L (3.5-5.1) 3.9 mmol/L (3.5-5.1) Chloride Level 105 mmol/L (98-107) 100 mmol/L (98-107) Carbon Dioxide Level 28 mmol/L (21-32) 21 mmol/L (21-32) Anion Gap 9 (6-14) 14 (6-14) Blood Urea Nitrogen 12 mg/dL (7-20) 21 mg/dL (7-20) Creatinine 3.4 mg/dL (0.6-1.0) 4.8 mg/dL (0.6-1.0) Estimated GFR (Cockcroft-Gault) 16.9 11.4 BUN/Creatinine Ratio 4 (6-20) 4 (6-20) Glucose Level 101 mg/dL (70-99) 362 mg/dL (70-99) Lactic Acid Level 1.0 mmol/L (0.4-2.0) Calcium Level 8.5 mg/dL (8.5-10.1) 8.7 mg/dL (8.5-10.1) Total Bilirubin 0.3 mg/dL (0.2-1.0) 0.4 mg/dL (0.2-1.0) Aspartate Amino Transf (AST/SGOT) 26 U/L (15-37) 25 U/L (15-37) Alanine Aminotransferase (ALT/SGPT) 22 U/L (14-59) 25 U/L (14-59) Alkaline Phosphatase 253 U/L (46-116) 240 U/L (46-116) Troponin I Quantitative < 0.017 ng/mL (0.000-0.055) QW-Wpw-N-Type Natriuretic Peptide > 48900 pg/mL (0-124) Total Protein 6.6 g/dL (6.4-8.2) 6.3 g/dL (6.4-8.2) Albumin 2.8 g/dL (3.4-5.0) 2.6 g/dL (3.4-5.0) Albumin/Globulin Ratio 0.7 (1.0-1.7) 0.7 (1.0-1.7) Segmented Neutrophils % 88 % (35-66) Band Neutrophils % 1 % (0-9) Lymphocytes % 9 % (24-48) Monocytes % 2 % (0-10) Platelet Estimate Decreased (ADEQUATE) Large Platelets Few Ovalocytes Few Glucose (Fingerstick) 267 mg/dL (70-99) 206 mg/dL (70-99) Test 02/23/19 20:38 02/24/19 07:38 Glucose (Fingerstick) 193 mg/dL (70-99) 105 mg/dL (70-99) Laboratory Tests Test 02/23/19 11:56 02/23/19 20:38 02/24/19 07:38 Glucose (Fingerstick) 206 mg/dL (70-99) 193 mg/dL (70-99) 105 mg/dL (70-99) Microbiology 02/22/19 Blood Culture - Preliminary, Resulted NO GROWTH AFTER 1 DAY Medications Current Medications Methylprednisolone Sodium Succinate (SOLU-Medrol 125MG VIAL) 125 mg 1X ONCE IV Last administered on 02/22/19at 19:37; Start 02/22/19 at 20:00; Stop 02/22/19 at 20:01; Status DC Albuterol/ Ipratropium (Duoneb) 3 ml 1X ONCE NEB Last administered on 02/22/19at 20:53; Start 02/22/19 at 20:00; Stop 02/22/19 at 20:01; Status DC Iohexol (Omnipaque 350 Mg/ml) 100 ml 1X ONCE IV Last administered on 02/22/19a t 21:50; Start 02/22/19 at 21:45; Stop 02/22/19 at 21:46; Status DC Iohexol (Omnipaque 350 Mg/ml) 100 ml 1X ONCE IV ; Start 02/22/19 at 21:45; Stop 02/22/19 at 21:46; Status DC Info (CONTRAST GIVEN -- Rx MONITORING) 1 each PRN DAILY PRN MC SEE COMMENTS; Start 02/22/19 at 21:45; Stop 02/24/19 at 21:44 Iohexol (Omnipaque 350 Mg/ml) 100 ml STK-MED ONCE .ROUTE ; Start 02/22/19 at 21:35; Stop 02/22/19 at 21:35; Status DC Albuterol/ Ipratropium (Duoneb) 3 ml RTQID NEB Last administered on 02/23/19at 20:11; Start 02/23/19 at 08:00; Stop 02/24/19 at 07:59; Status DC Albuterol Sulfate (Ventolin Neb Soln) 2.5 mg PRN Q4HRS PRN NEB SHORTNESS OF BREATH Last administered on 02/23/19at 03:38; Start 02/23/19 at 03:00 Hydralazine HCl (Apresoline Inj) 10 mg PRN Q4HRS PRN IVP ELEVATED BP, SEE COMMENTS Last administered on 02/23/19at 03:33; Start 02/23/19 at 03:00 Benzonatate (Tessalon Perle) 100 mg PRN TID PRN PO COUGH Last administered on 02/23/19 03:32; Start 02/23/19 at 03:00 Acetaminophen (Tylenol) 325 mg PRN Q4HRS PRN PO MILD PAIN 1-3; Start 02/23/19 at 03:00 Aspirin (Children'S Aspirin) 162 mg DAILYWBKFT PO Last administered on 02/24/19 08:49; Start 02/23/19 at 08:00 Carvedilol (Coreg) 12.5 mg BIDWMEALS PO Last administered on 02/24/19 08:52; Start 02/23/19 at 08:00 Diphenhydramine HCl (Benadryl) 25 mg PRN Q6HRS PRN PO ALLERGIES; Start 02/23/19 at 03:00 Vitamin B Complex/ Vitamin C (Catie-Renee) 1 tab DAILY PO Last administered on 02/24/19 08:49; Start 02/23/19 at 09:00 Furosemide (Lasix) 80 mg DAILY PO Last administered on 02/24/19 08:49; Start 02/23/19 at 09:00 Hydralazine HCl (Apresoline) 10 mg BID PO Last administered on 02/24/19 08:51; Start 02/23/19 at 09:00 Acetaminophen/ Hydrocodone Bitart (Lortab 7.5/325) 1 tab PRN Q6HRS PRN PO MODERATE TO SEVERE PAIN Last administered on 02/24/19 09:01; Start 02/23/19 at 03:00 Sevelamer Carbonate (Renvela) 2,400 mg TIDWMEALS PO Last administered on 02/23/19 17:38; Start 02/23/19 at 08:00 Triamcinolone Acetonide (Kenalog 0.1%) 1 lewis BID TP Last administered on 02/24/19 08:57; Start 02/23/19 at 09:00 Isosorbide Dinitrate (Isordil) 20 mg BID PO Last administered on 02/24/19 08:52; Start 02/23/19 at 09:00 Losartan Potassium (Cozaar) 100 mg HS PO Last administered on 02/23/19 20:56; Start 02/23/19 at 21:00 Non-Formulary Medication (Umeclidinium Brm/Vilanterol Tr (Anoro Ellipta 62.5-25 Mcg Inh)) 1 each DAILY IH ; Start 02/23/19 at 09:00; Status UNV Budesonide (Pulmicort) 0.5 mg RTBID NEB Last administered on 02/24/19at 08:25; Start 02/23/19 at 08:00 Albuterol Sulfate (Ventolin Neb Soln) 2.5 mg RTQID NEB Last administered on 02/24/19at 08:26; Start 02/23/19 at 08:00 Heparin Sodium (Porcine) (Heparin Sodium) 5,000 unit Q8HRS SQ Last administered on 02/24/19at 05:59; Start 02/23/19 at 14:00 Sodium Chloride 1,000 ml @ 1,000 mls/hr Q1H PRN IV hypotension; Start 02/23/19 at 13:07; Stop 02/23/19 at 19:06; Status DC Diphenhydramine HCl (Benadryl) 25 mg 1X PRN PRN IV ITCHING; Start 02/23/19 at 13:15; Stop 02/24/19 at 13:14 Diphenhydramine HCl (Benadryl) 25 mg 1X PRN PRN IV ITCHING; Start 02/23/19 at 13:15; Stop 02/24/19 at 13:14 Sodium Chloride 1,000 ml @ 400 mls/hr Q2H30M PRN IV PATENCY; Start 02/23/19 at 13:07; Stop 02/24/19 at 01:06; Status DC Info (PHARMACY MONITORING -- do not chart) 1 each PRN DAILY PRN MC SEE COMMENTS; Start 02/23/19 at 13:15; Status UNV Info (PHARMACY MONITORING -- do not chart) 1 each PRN DAILY PRN MC SEE COMMENTS; Start 02/23/19 at 13:15 Active Scripts Active Triamcinolone Acetonide 0.1% Cream (Triamcinolone Acetonide) 15 Gm Cream..g. 1 Lewis TP BID 14 Days Anoro Ellipta 62.5-25 Mcg Inh (Umeclidinium Brm/Vilanterol Tr) 1 Each Disk.w.dev 1 Each IH DAILY 30 Days Proair Hfa (Albuterol Sulfate) 8.5 Gm Hfa.aer.ad 1 Puff INH PRN Q6HRS PRN 30 Days Reported Hydrocodone-Apap 7.5-325 (Hydrocodone Bit/Acetaminophen) 1 Tab Tablet 1 Tab PO PRN Q6HRS PRN Children's Aspirin (Aspirin) 81 Mg Tab.chew 162 Mg PO DAILY Losartan Potassium 100 Mg Tablet 100 Mg PO HS Hydralazine Hcl 10 Mg Tablet 10 Mg PO BID Isosorbide Dinitrate 20 Mg Tablet 20 Mg PO BID Benadryl (Diphenhydramine Hcl) 25 Mg Capsule 25 Mg PO PRN PRN Carvedilol (Carvedilol) 12.5 Mg Tablet 12.5 Mg PO BIDWMEALS Tylenol (Acetaminophen) 325 Mg Tablet 1 Tab PO PRN Q4HRS PRN Renal Vitamin Tablet (Folic Acid/Vit Bcomp,C) 0.8 Mg Tablet 0.8 Mg PO DAILY Renvela (Sevelamer Carbonate) 800 Mg Tablet 3 Tab PO TID Furosemide 80 Mg Tablet 1 Tab PO DAILY Vitals/I & O Vital Sign - Last 24 Hours 02/23/19 02/23/19 02/23/19 02/23/19 11:00 11:50 11:53 17:38 Temp 98.4 98.4 Pulse 80 80 Resp 14 B/P (MAP) 147/68 (94) 147/68 Pulse Ox 99 99 O2 Delivery Room Air Room Air Room Air 02/23/19 02/23/19 02/23/19 02/23/19 19:42 20:00 20:12 20:56 Temp 99.0 99.0 Pulse 86 86 Resp 18 B/P (MAP) 156/78 (104) 156/78 Pulse Ox 97 96 O2 Delivery Room Air Room Air Room Air 02/23/19 02/23/19 02/23/19 02/24/19 20:56 20:56 23:27 03:17 Temp 98.2 98.3 98.2 98.3 Pulse 86 86 83 78 Resp 18 20 B/P (MAP) 156/78 156/78 156/78 (104) 145/79 (101) Pulse Ox 96 98 O2 Delivery Room Air Room Air 02/24/19 02/24/19 02/24/19 02/24/19 07:30 08:27 08:51 08:52 Temp 98.4 98.4 Pulse 107 107 107 Resp 20 B/P (MAP) 155/83 (107) 155/83 155/83 Pulse Ox 95 98 O2 Delivery Room Air Room Air 02/24/19 02/24/19 08:52 09:01 Pulse 107 Resp 19 B/P (MAP) 155/83 Pulse Ox 98 O2 Delivery Room Air Intake and Output 02/23/19 02/23/19 02/24/19 14:59 22:59 06:59 Intake Total 540 ml 120 ml 220 ml Output Total 0 ml Balance 540 ml 120 ml 220 ml MARICEL LUCAS MD Feb 24, 2019 10:14
--- NOTE | 2019-02-24 10:45 | PDOC ---
PULMONARY PROGRESS NOTES Subjective she had extra hd yesterday, sob cough better. Vitals Vital Signs Date Time Temp Pulse Resp B/P (MAP) Pulse Ox O2 Delivery O2 Flow Rate FiO2 02/24/19 09:01 19 98 Room Air 02/24/19 08:52 107 155/83 02/24/19 07:30 98.4 98.4 ROS: No Nausea General: Alert, No acute distress Lungs: Crackles Cardiovascular: S1, S2 Abdomen: Soft, Non-tender Neuro Exam: Alert Extremities: No Edema Skin: Warm Labs Laboratory Tests Test 02/22/19 19:30 02/23/19 05:10 02/23/19 07:33 02/23/19 11:56 White Blood Count 2.6 x10^3/uL (4.0-11.0) 3.9 x10^3/uL (4.0-11.0) Red Blood Count 3.50 x10^6/uL (3.50-5.40) 3.29 x10^6/uL (3.50-5.40) Hemoglobin 11.8 g/dL (12.0-15.5) 11.3 g/dL (12.0-15.5) Hematocrit 35.5 % (36.0-47.0) 33.8 % (36.0-47.0) Mean Corpuscular Volume 102 fL (79-100) 103 fL (79-100) Mean Corpuscular Hemoglobin 34 pg (25-35) 35 pg (25-35) Mean Corpuscular Hemoglobin Concent 33 g/dL (31-37) 34 g/dL (31-37) Red Cell Distribution Width 13.4 % (11.5-14.5) 13.5 % (11.5-14.5) Platelet Count 111 x10^3/uL (140-400) 98 x10^3/uL (140-400) Neutrophils (%) (Auto) 59 % (31-73) 89 % (31-73) Lymphocytes (%) (Auto) 23 % (24-48) 8 % (24-48) Monocytes (%) (Auto) 12 % (0-9) 3 % (0-9) Eosinophils (%) (Auto) 5 % (0-3) 0 % (0-3) Basophils (%) (Auto) 1 % (0-3) 0 % (0-3) Neutrophils # (Auto) 1.6 x10^3/uL (1.8-7.7) 3.5 x10^3/uL (1.8-7.7) Lymphocytes # (Auto) 0.6 x10^3/uL (1.0-4.8) 0.3 x10^3/uL (1.0-4.8) Monocytes # (Auto) 0.3 x10^3/uL (0.0-1.1) 0.1 x10^3/uL (0.0-1.1) Eosinophils # (Auto) 0.1 x10^3/uL (0.0-0.7) 0.0 x10^3/uL (0.0-0.7) Basophils # (Auto) 0.0 x10^3/uL (0.0-0.2) 0.0 x10^3/uL (0.0-0.2) D-Dimer (Daly) 0.99 ug/mlFEU (0.00-0.50) Sodium Level 142 mmol/L (136-145) 135 mmol/L (136-145) Potassium Level 3.4 mmol/L (3.5-5.1) 3.9 mmol/L (3.5-5.1) Chloride Level 105 mmol/L (98-107) 100 mmol/L (98-107) Carbon Dioxide Level 28 mmol/L (21-32) 21 mmol/L (21-32) Anion Gap 9 (6-14) 14 (6-14) Blood Urea Nitrogen 12 mg/dL (7-20) 21 mg/dL (7-20) Creatinine 3.4 mg/dL (0.6-1.0) 4.8 mg/dL (0.6-1.0) Estimated GFR (Cockcroft-Gault) 16.9 11.4 BUN/Creatinine Ratio 4 (6-20) 4 (6-20) Glucose Level 101 mg/dL (70-99) 362 mg/dL (70-99) Lactic Acid Level 1.0 mmol/L (0.4-2.0) Calcium Level 8.5 mg/dL (8.5-10.1) 8.7 mg/dL (8.5-10.1) Total Bilirubin 0.3 mg/dL (0.2-1.0) 0.4 mg/dL (0.2-1.0) Aspartate Amino Transf (AST/SGOT) 26 U/L (15-37) 25 U/L (15-37) Alanine Aminotransferase (ALT/SGPT) 22 U/L (14-59) 25 U/L (14-59) Alkaline Phosphatase 253 U/L (46-116) 240 U/L (46-116) Troponin I Quantitative < 0.017 ng/mL (0.000-0.055) RT-Mpq-L-Type Natriuretic Peptide > 16777 pg/mL (0-124) Total Protein 6.6 g/dL (6.4-8.2) 6.3 g/dL (6.4-8.2) Albumin 2.8 g/dL (3.4-5.0) 2.6 g/dL (3.4-5.0) Albumin/Globulin Ratio 0.7 (1.0-1.7) 0.7 (1.0-1.7) Segmented Neutrophils % 88 % (35-66) Band Neutrophils % 1 % (0-9) Lymphocytes % 9 % (24-48) Monocytes % 2 % (0-10) Platelet Estimate Decreased (ADEQUATE) Large Platelets Few Ovalocytes Few Glucose (Fingerstick) 267 mg/dL (70-99) 206 mg/dL (70-99) Test 02/23/19 20:38 02/24/19 07:38 Glucose (Fingerstick) 193 mg/dL (70-99) 105 mg/dL (70-99) Laboratory Tests Test 02/23/19 11:56 02/23/19 20:38 02/24/19 07:38 Glucose (Fingerstick) 206 mg/dL (70-99) 193 mg/dL (70-99) 105 mg/dL (70-99) Medications Active Scripts Medications Dose Route/Sig Max Daily Dose Days Date Category Triamcinolone Acetonide 0.1% Cream (Triamcinolone Acetonide) 15 Gm Cream..g. 1 Lewis TP BID 14 10/27/18 Rx Hydrocodone-Apap 7.5-325 (Hydrocodone Bit/Acetaminophen) 1 Tab Tablet 1 Tab PO PRN Q6HRS PRN 10/26/18 Reported Children's Aspirin (Aspirin) 81 Mg Tab.chew 162 Mg PO DAILY 10/26/18 Reported Losartan Potassium 100 Mg Tablet 100 Mg PO HS 10/26/18 Reported Hydralazine Hcl 10 Mg Tablet 10 Mg PO BID 10/26/18 Reported Isosorbide Dinitrate 20 Mg Tablet 20 Mg PO BID 10/26/18 Reported Benadryl (Diphenhydramine Hcl) 25 Mg Capsule 25 Mg PO PRN PRN 10/26/18 Reported Carvedilol (Carvedilol) 12.5 Mg Tablet 12.5 Mg PO BIDWMEALS 10/26/18 Reported Tylenol (Acetaminophen) 325 Mg Tablet 1 Tab PO PRN Q4HRS PRN 10/26/18 Reported Renal Vitamin Tablet (Folic Acid/Vit Bcomp,C) 0.8 Mg Tablet 0.8 Mg PO DAILY 08/30/18 Reported Anoro Ellipta 62.5-25 Mcg Inh (Umeclidinium Brm/Vilanterol Tr) 1 Each Disk.w.dev 1 Each IH DAILY 30 07/17/18 Rx Proair Hfa (Albuterol Sulfate) 8.5 Gm Hfa.aer.ad 1 Puff INH PRN Q6HRS PRN 30 07/17/18 Rx Renvela (Sevelamer Carbonate) 800 Mg Tablet 3 Tab PO TID 06/27/14 Reported Furosemide 80 Mg Tablet 1 Tab PO DAILY 06/27/14 Reported Impression . IMPRESSION: 1. Dyspnea secondary to acute diastolic/systolic congestive heart failure, acute exacerbation of asthma/chronic obstructive pulmonary disease, no pulmonary embolism. 2. Abnormal chest x-ray and CT of the chest. 3. Acute exacerbation of asthma/chronic obstructive pulmonary disease. 4. Acute diastolic/systolic congestive heart failure. 5. End-stage renal disease, on hemodialysis. 6. Hypertension. 7. Diabetes mellitus. Plan . PLAN AND RECOMMENDATIONS: 1. Titrate FiO2 to keep O2 saturation 92%. 2. Bronchodilator. 3. Inhaled corticosteroid. 4. Would need aggressive hemodialysis for CHF. She also has right pleural effusion. will do cxr tomorrow after hd, to eval her pleural effusion, Her CT done in October also did show pleural effusion. She may require thoracentesis. 5. Continue not smoking. 6. Pulmonary function test as outpatient. 7. I do recommend Cardiology consultation if not done. 8. She has splenomegaly. Defer workup to primary. 9. She has a small lung nodule. She would require a repeat CT of the chest in 1 year. She has history of 45-jkpe-gvry smoking. discussed w pt DESMOND HENRY MD Feb 24, 2019 10:45
[2019-02-24 11:13] VITALS: BP 135/72
[2019-02-24 15:34] VITALS: BP 154/80
--- NOTE | 2019-02-24 18:13 | PDOC2 ---
CONSULT Date of Consult Date of Consult DATE: 02/24/19 TIME: 18:08 Reason for Consult Reason for Consult: Shortness of breath, heart failure Referring Physician Referring Physician: Dr. Sellers Identification/Chief Complaint Chief Complaint Shortness of breath Source Source: Chart review, Patient History of Present Illness Reason for Visit: The patient is a 58-year-old female who presented to the emergency room with one week of increasing shortness of breath that was resistant to treatment. She has a history of asthma as well as end-stage renal disease on hemodialysis and a cardiomyopathy with an ejection fraction of 25-30% on an echo on 10/26/18. The echo also showed elevated pulmonary artery pressures at 77 mmHg. She also has a history of coronary disease with probable previous bypass. She has been treated overnight and is feeling mildly better today. The renal service is evaluating her for dialysis. Past Medical History Cardiovascular: AFIB, CAD, HTN, Hyperlipidemia Pulmonary: No pertinent hx CENTRAL NERVOUS SYSTEM: Periperal neuropathy GI: No pertinent hx Heme/Onc: No pertinent hx Hepatobiliary: No pertinent hx Psych: No pertinent hx Musculoskeletal: Osteoarthritis Rheumatologic: No pertinent hx Infectious disease: No pertinent hx Renal/: Chronic renal failure Endocrine: Diabetes Past Surgical History Past Surgical History: CABG, Tubal Ligation, Other (hemodialysis shunts) Family History Family History: Diabetes, Hypertension Social History Social History: Parent No ALCOHOL: none Drugs: None Lives: with Family Current Problem List Problem List Problems Medical Problems: (1) Acute asthma exacerbation Status: Acute (2) Dyspnea Status: Acute (3) End stage chronic kidney disease Status: Acute Current Medications Current Medications Current Medications Methylprednisolone Sodium Succinate (SOLU-Medrol 125MG VIAL) 125 mg 1X ONCE IV Last administered on 02/22/19at 19:37; Start 02/22/19 at 20:00; Stop 02/22/19 at 20:01; Status DC Albuterol/ Ipratropium (Duoneb) 3 ml 1X ONCE NEB Last administered on 04/24/18at 20:53; Start 02/22/19 at 20:00; Stop 02/22/19 at 20:01; Status DC Iohexol (Omnipaque 350 Mg/ml) 100 ml 1X ONCE IV Last administered on 02/22/19at 21:50; Start 02/22/19 at 21:45; Stop 02/22/19 at 21:46; Status DC Iohexol (Omnipaque 350 Mg/ml) 100 ml 1X ONCE IV ; Start 02/22/19 at 21:45; Stop 02/22/19 at 21:46; Status DC Info (CONTRAST GIVEN -- Rx MONITORING) 1 each PRN DAILY PRN MC SEE COMMENTS; Start 02/22/19 at 21:45; Stop 02/24/19 at 21:44 Iohexol (Omnipaque 350 Mg/ml) 100 ml STK-MED ONCE .ROUTE ; Start 02/22/19 at 21:35; Stop 02/22/19 at 21:35; Status DC Albuterol/ Ipratropium (Duoneb) 3 ml RTQID NEB Last administered on 02/23/19at 20:11; Start 02/23/19 at 08:00; Stop 02/24/19 at 07:59; Status DC Albuterol Sulfate (Ventolin Neb Soln) 2.5 mg PRN Q4HRS PRN NEB SHORTNESS OF BREATH Last administered on 02/23/19at 03:38; Start 02/23/19 at 03:00 Hydralazine HCl (Apresoline Inj) 10 mg PRN Q4HRS PRN IVP ELEVATED BP, SEE COMMENTS Last administered on 02/23/19at 03:33; Start 02/23/19 at 03:00 Benzonatate (Tessalon Perle) 100 mg PRN TID PRN PO COUGH Last administered on 02/23/19at 03:32; Start 02/23/19 at 03:00 Acetaminophen (Tylenol) 325 mg PRN Q4HRS PRN PO MILD PAIN 1-3; Start 02/23/19 at 03:00 Aspirin (Children'S Aspirin) 162 mg DAILYWBKFT PO Last administered on 02/24/19at 08:49; Start 02/23/19 at 08:00 Carvedilol (Coreg) 12.5 mg BIDWMEALS PO Last administered on 02/24/19at 17:26; Start 02/23/19 at 08:00 Diphenhydramine HCl (Benadryl) 25 mg PRN Q6HRS PRN PO ALLERGIES; Start 02/23/19 at 03:00 Vitamin B Complex/ Vitamin C (Catie-Renee) 1 tab DAILY PO Last administered on 02/24/19 08:49; Start 02/23/19 at 09:00 Furosemide (Lasix) 80 mg DAILY PO Last administered on 02/24/19 08:49; Start 02/23/19 at 09:00 Hydralazine HCl (Apresoline) 10 mg BID PO Last administered on 02/24/19 08:51; Start 02/23/19 at 09:00 Acetaminophen/ Hydrocodone Bitart (Lortab 7.5/325) 1 tab PRN Q6HRS PRN PO MODERATE TO SEVERE PAIN Last administered on 02/24/19 09:01; Start 02/23/19 at 03:00 Sevelamer Carbonate (Renvela) 2,400 mg TIDWMEALS PO Last administered on 02/24/19 17:26; Start 02/23/19 at 08:00 Triamcinolone Acetonide (Kenalog 0.1%) 1 lewis BID TP Last administered on 02/24/19 08:57; Start 02/23/19 at 09:00 Isosorbide Dinitrate (Isordil) 20 mg BID PO Last administered on 02/24/19 08:52; Start 02/23/19 at 09:00 Losartan Potassium (Cozaar) 100 mg HS PO Last administered on 02/23/19 20:56; Start 02/23/19 at 21:00 Non-Formulary Medication (Umeclidinium Brm/Vilanterol Tr (Anoro Ellipta 62.5-25 Mcg Inh)) 1 each DAILY IH ; Start 02/23/19 at 09:00; Status UNV Budesonide (Pulmicort) 0.5 mg RTBID NEB Last administered on 02/24/19 08:25; Start 02/23/19 at 08:00 Albuterol Sulfate (Ventolin Neb Soln) 2.5 mg RTQID NEB Last administered on 02/24/19 15:49; Start 02/23/19 at 08:00 Heparin Sodium (Porcine) (Heparin Sodium) 5,000 unit Q8HRS SQ Last administered on 02/24/19 14:03; Start 02/23/19 at 14:00 Sodium Chloride 1,000 ml @ 1,000 mls/hr Q1H PRN IV hypotension; Start 02/23/19 at 13:07; Stop 02/23/19 at 19:06; Status DC Diphenhydramine HCl (Benadryl) 25 mg 1X PRN PRN IV ITCHING; Start 02/23/19 at 13:15; Stop 02/24/19 at 13:14; Status DC Diphenhydramine HCl (Benadryl) 25 mg 1X PRN PRN IV ITCHING; Start 02/23/19 at 13:15; Stop 02/24/19 at 13:14; Status DC Sodium Chloride 1,000 ml @ 400 mls/hr Q2H30M PRN IV PATENCY; Start 02/23/19 at 13:07; Stop 02/24/19 at 01:06; Status DC Info (PHARMACY MONITORING -- do not chart) 1 each PRN DAILY PRN MC SEE COMMENTS; Start 02/23/19 at 13:15; Status UNV Info (PHARMACY MONITORING -- do not chart) 1 each PRN DAILY PRN MC SEE COMMENTS; Start 02/23/19 at 13:15 Active Scripts Active Triamcinolone Acetonide 0.1% Cream (Triamcinolone Acetonide) 15 Gm Cream..g. 1 Lewis TP BID 14 Days Anoro Ellipta 62.5-25 Mcg Inh (Umeclidinium Brm/Vilanterol Tr) 1 Each Disk.w.dev 1 Each IH DAILY 30 Days Proair Hfa (Albuterol Sulfate) 8.5 Gm Hfa.aer.ad 1 Puff INH PRN Q6HRS PRN 30 Days Reported Hydrocodone-Apap 7.5-325 (Hydrocodone Bit/Acetaminophen) 1 Tab Tablet 1 Tab PO PRN Q6HRS PRN Children's Aspirin (Aspirin) 81 Mg Tab.chew 162 Mg PO DAILY Losartan Potassium 100 Mg Tablet 100 Mg PO HS Hydralazine Hcl 10 Mg Tablet 10 Mg PO BID Isosorbide Dinitrate 20 Mg Tablet 20 Mg PO BID Benadryl (Diphenhydramine Hcl) 25 Mg Capsule 25 Mg PO PRN PRN Carvedilol (Carvedilol) 12.5 Mg Tablet 12.5 Mg PO BIDWMEALS Tylenol (Acetaminophen) 325 Mg Tablet 1 Tab PO PRN Q4HRS PRN Renal Vitamin Tablet (Folic Acid/Vit Bcomp,C) 0.8 Mg Tablet 0.8 Mg PO DAILY Renvela (Sevelamer Carbonate) 800 Mg Tablet 3 Tab PO TID Furosemide 80 Mg Tablet 1 Tab PO DAILY Allergies Allergies: Coded Allergies: azithromycin (Verified Adverse Reaction, Intermediate, Anxiety, HALLUCINATIONS, 11/02/18) ROS General: YES: Fatigue Respiratory: YES: Shortness of breath, SOB with excertion Physical Exam General: Other (mild to moderate distress) Lungs: Other (decreased breath sounds) Heart: Regular rate Abdomen: Normal bowel sounds Vitals VITALS Vital Signs Date Time Temp Pulse Resp B/P (MAP) Pulse Ox O2 Delivery O2 Flow Rate FiO2 02/24/19 17:26 104 154/80 02/24/19 15:49 96 Room Air 02/24/19 15:34 98.2 18 98.2 Labs Labs Laboratory Tests Test 02/22/19 19:30 02/23/19 05:10 02/23/19 07:33 02/23/19 11:56 White Blood Count 2.6 x10^3/uL (4.0-11.0) 3.9 x10^3/uL (4.0-11.0) Red Blood Count 3.50 x10^6/uL (3.50-5.40) 3.29 x10^6/uL (3.50-5.40) Hemoglobin 11.8 g/dL (12.0-15.5) 11.3 g/dL (12.0-15.5) Hematocrit 35.5 % (36.0-47.0) 33.8 % (36.0-47.0) Mean Corpuscular Volume 102 fL (79-100) 103 fL (79-100) Mean Corpuscular Hemoglobin 34 pg (25-35) 35 pg (25-35) Mean Corpuscular Hemoglobin Concent 33 g/dL (31-37) 34 g/dL (31-37) Red Cell Distribution Width 13.4 % (11.5-14.5) 13.5 % (11.5-14.5) Platelet Count 111 x10^3/uL (140-400) 98 x10^3/uL (140-400) Neutrophils (%) (Auto) 59 % (31-73) 89 % (31-73) Lymphocytes (%) (Auto) 23 % (24-48) 8 % (24-48) Monocytes (%) (Auto) 12 % (0-9) 3 % (0-9) Eosinophils (%) (Auto) 5 % (0-3) 0 % (0-3) Basophils (%) (Auto) 1 % (0-3) 0 % (0-3) Neutrophils # (Auto) 1.6 x10^3/uL (1.8-7.7) 3.5 x10^3/uL (1.8-7.7) Lymphocytes # (Auto) 0.6 x10^3/uL (1.0-4.8) 0.3 x10^3/uL (1.0-4.8) Monocytes # (Auto) 0.3 x10^3/uL (0.0-1.1) 0.1 x10^3/uL (0.0-1.1) Eosinophils # (Auto) 0.1 x10^3/uL (0.0-0.7) 0.0 x10^3/uL (0.0-0.7) Basophils # (Auto) 0.0 x10^3/uL (0.0-0.2) 0.0 x10^3/uL (0.0-0.2) D-Dimer (Daly) 0.99 ug/mlFEU (0.00-0.50) Sodium Level 142 mmol/L (136-145) 135 mmol/L (136-145) Potassium Level 3.4 mmol/L (3.5-5.1) 3.9 mmol/L (3.5-5.1) Chloride Level 105 mmol/L (98-107) 100 mmol/L (98-107) Carbon Dioxide Level 28 mmol/L (21-32) 21 mmol/L (21-32) Anion Gap 9 (6-14) 14 (6-14) Blood Urea Nitrogen 12 mg/dL (7-20) 21 mg/dL (7-20) Creatinine 3.4 mg/dL (0.6-1.0) 4.8 mg/dL (0.6-1.0) Estimated GFR (Cockcroft-Gault) 16.9 11.4 BUN/Creatinine Ratio 4 (6-20) 4 (6-20) Glucose Level 101 mg/dL (70-99) 362 mg/dL (70-99) Lactic Acid Level 1.0 mmol/L (0.4-2.0) Calcium Level 8.5 mg/dL (8.5-10.1) 8.7 mg/dL (8.5-10.1) Total Bilirubin 0.3 mg/dL (0.2-1.0) 0.4 mg/dL (0.2-1.0) Aspartate Amino Transf (AST/SGOT) 26 U/L (15-37) 25 U/L (15-37) Alanine Aminotransferase (ALT/SGPT) 22 U/L (14-59) 25 U/L (14-59) Alkaline Phosphatase 253 U/L (46-116) 240 U/L (46-116) Troponin I Quantitative < 0.017 ng/mL (0.000-0.055) [id number]-Type Natriuretic Peptide > 46959 pg/mL (0-124) Total Protein 6.6 g/dL (6.4-8.2) 6.3 g/dL (6.4-8.2) Albumin 2.8 g/dL (3.4-5.0) 2.6 g/dL (3.4-5.0) Albumin/Globulin Ratio 0.7 (1.0-1.7) 0.7 (1.0-1.7) Segmented Neutrophils % 88 % (35-66) Band Neutrophils % 1 % (0-9) Lymphocytes % 9 % (24-48) Monocytes % 2 % (0-10) Platelet Estimate Decreased (ADEQUATE) Large Platelets Few Ovalocytes Few Glucose (Fingerstick) 267 mg/dL (70-99) 206 mg/dL (70-99) Test 02/23/19 20:38 02/24/19 07:38 02/24/19 11:29 02/24/19 16:40 Glucose (Fingerstick) 193 mg/dL (70-99) 105 mg/dL (70-99) 138 mg/dL (70-99) 136 mg/dL (70-99) Laboratory Tests Test 02/23/19 20:38 02/24/19 07:38 02/24/19 11:29 02/24/19 16:40 Glucose (Fingerstick) 193 mg/dL (70-99) 105 mg/dL (70-99) 138 mg/dL (70-99) 136 mg/dL (70-99) Images Images CT chest scan shows no PE. Assessment/Plan Assessment/Plan 1. Respiratory failure. Multi-factorial including asthma, renal failure and systolic heart failure. Improving on present medications. Fluid status as per the renal service with hemodialysis. 2. Acute systolic heart failure. Ejection fraction of 25-30%. Continue baseline medications. Fluid monitoring as per dialysis. 3. End-stage renal disease. Hemodialysis as per the renal service. 4. Hypertension. Controlled. We'll monitor. 5. Hyperlipidemia. We'll recheck lab. 6. Coronary artery disease with history of bypass surgery. No chest pain. Continue baseline medications. Echo as above. Thank you for allowing us to participate in the care of your patient. LOREN VICENTE MD Feb 24, 2019 18:13
[2019-02-24] MEDS ORDERED: DOCUSATE SODIUM 100 MG CAPSULE. PO PRN (18:30)
[2019-02-24 19:56] VITALS: BP 164/84
[2019-02-24] MEDS: LOSARTAN POTASSIUM 50 MG TABLET. PO SCH (21:01)
[2019-02-24 23:30] VITALS: BP 141/72
[2019-02-25 03:21] VITALS: BP 145/81
[2019-02-25 04:15] LABS: BASO % 1 % (0-3); EOS # 0.2 x10^3/uL (0.0-0.7); EOS % 6 % (0-3); HEMATOCRIT 33.9 % (36.0-47.0); HEMOGLOBIN 11.1 g/dL (12.0-15.5); LYMPH # 0.7 x10^3/uL (1.0-4.8); LYMPH % 25 % (24-48); MEAN CORPUSCULAR HEMOGLOBIN 34 pg (25-35); MEAN CORPUSCULAR HGB CONC 33 g/dL (31-37); MEAN CORPUSCULAR VOLUME 103 fL (79-100); MONO # 0.4 x10^3/uL (0.0-1.1); MONO % 13 % (0-9); NEUT # 1.7 x10^3/uL (1.8-7.7); NEUT % 56 % (31-73); PLATELET COUNT 106 x10^3/uL (140-400); RED CELL DISTRIBUTION WIDTH 13.4 % (11.5-14.5); WHITE BLOOD COUNT 2.9 x10^3/uL (4.0-11.0)
[2019-02-25 04:29] LABS: ALBUMIN 2.5 g/dL (3.4-5.0); ALBUMIN/GLOBULIN RATIO 0.8 (1.0-1.7); CALCIUM 8.9 mg/dL (8.5-10.1); CREATININE 5.9 mg/dL (0.6-1.0); GFR 8.9; POTASSIUM 3.7 mmol/L (3.5-5.1); TOTAL BILIRUBIN 0.3 mg/dL (0.2-1.0); TOTAL PROTEIN 5.7 g/dL (6.4-8.2)
[2019-02-25] MEDS: HEPARIN for SUB-Q USE 5,000 UNIT/ML VIAL. SQ SCH ×3 (05:48→20:53)
--- NOTE | 2019-02-25 06:17 | NUR ---
pt ran 2 sec svt at 0236, checked pt, pt was awake and said she feels ok.
[2019-02-25 07:00] VITALS: BP 157/83
[2019-02-25] MEDS: ALBUTEROL SULFATE 2.5 MG/3 ML NEBU. NEB SCH ×5 (07:46→21:47)
[2019-02-25] MEDS: BUDESONIDE 0.5 MG/2 ML NEBU. NEB SCH ×3 (07:46→21:47)
[2019-02-25] MEDS: FOLIC/VIT B COMP W-C (RENAL) TABLET. PO SCH (08:29)
[2019-02-25] MEDS: SEVELAMER CARBONATE 800 MG TABLET. PO SCH ×3 (08:29→16:55)
[2019-02-25] MEDS: hydrALAZINE 10 MG TABLET PO SCH ×2 (08:29→20:49)
[2019-02-25] MEDS: FUROSEMIDE 80 MG TABLET. PO SCH (08:30)
[2019-02-25] MEDS: CARVEDILOL 12.5 MG TABLET. PO SCH ×2 (08:31→16:55)
[2019-02-25] MEDS: ASPIRIN CHEWABLE 81 MG TABLET. PO SCH (08:31)
[2019-02-25] MEDS: ISOSORBIDE DINITRATE 10 MG TABLET. PO SCH ×2 (08:31→20:48)
[2019-02-25] MEDS: TRIAMCINOLONE ACETONIDE 0.1% TOPICAL CREAM 15GM TUBE. TP SCH ×2 (08:31→20:47)
--- NOTE | 2019-02-25 08:53 | PDOC ---
PROGRESS NOTES History of Present Illness History of Present Illness VTE Prophylaxis Ordered VTE Prophylaxis Devices: No VTE Pharmacological Prophylaxi: Yes Assessment/Plan Assessment/Plan Impression: Dyspnea no pulmonary embolus identified within the main, lobar or segmental pulmonary arteries. ACUTE ON CHRONIC COMBINED CHF echocardiogram in October of thisyear. Ejection fraction was 20-25%. the Ejection Fraction is 25-30%. severe tricuspid regurgitation. severe pulmonary hypertension.PA pressure was estimated at 77 mmHg. morbid obesity Acute asthma exacerbation acute exac of copd End stage chronic kidney disease Splenomegaly LABILE HTN ADMITTED TELE BED PULM CONSULT NEPHROLOGY CONSULT CARDIOLOGY CONSULT DVT PROPHYLAXIS, SQ HEPARIN abd sono GI CONSULT EXTRA DIALYSIS 02/24 NEEDED PT/OT 38 min pt exam, chart review, > 50% of time spent with exam, chart review, pt care coordination Vitals Vitals Vital Signs Date Time Temp Pulse Resp B/P (MAP) Pulse Ox O2 Delivery O2 Flow Rate FiO2 02/25/19 08:31 80 157/80 02/25/19 08:00 Room Air 02/25/19 07:47 98 02/25/19 07:00 97.8 18 97.8 Physical Exam General: Alert, Oriented X3, Cooperative, No acute distress, Other (mild to moderate distress) Heart: Regular rate Lungs: Crackles Abdomen: Normal bowel sounds, Soft Extremities: No cyanosis Labs LABS Note [facility] Accession Number: [id number] TESTS RESULT FLAG UNITS REF RANGE LAB Clinician Provided Cytology Information No. of containers..01 Other (Miscellaneous) Source: 01 RUL BAL DIAGNOSIS: 02 RUL BAL NEGATIVE FOR MALIGNANT CELLS. FOCALLY REACTIVE BRONCHIAL EPITHELIAL CELLS, PULMONARY MACROPHAGES, AND INFLAMMATORY CELLS PRESENT. THE CASE IS ALSO EXAMINED BY DR. BALLESTEROS, CYTOPATHOLOGIST, WHO CONCURS WITH THE DIAGNOSIS. Signed out by: 02 Nathaniel Durham MD, Pathologist NPI- [id number] Performed by: 01 Mundo Chen, Audio Production Manager ([facility]) Gross description: 01 8ML, RED, CLOUDY /LCS FLAG LEGEND: L-Low Normal,H-High Normal,LL-Alert Low,HH-Alert High <-Panic Low,>-Panic High,A-Abnormal,AA-Critical Abnormal Exam: CT of chest with contrast INDICATION: Shortness of breath TECHNIQUE: Sequential axial images through the chest obtained following the administration of 100 mL of Omni 350 IV contrast. Sagittal and coronal reformatted images were reconstructed from the axial data and reviewed. 3-D reformatted images were reconstructed from the axial data and reviewed. Comparisons: Chest x-ray same day FINDINGS: Visualized portions of the thyroid are unremarkable. No enlarged mediastinal lymph nodes are identified. Heart is enlarged. No pericardial effusion. There is reflux of contrast into the IVC and hepatic veins. Moderate trivessel coronary artery calcifications are noted. Thoracic aorta has a normal course and caliber. Pulmonary artery is enlarged measuring 3.7 cm in diameter at the main pulmonary artery. There is a venous stent noted in the right upper extremity. No pulmonary embolus identified within the main, lobar or segmental pulmonary arteries. Airways are patent. Mild bronchial wall thickening noted in the lower lobes particularly in the right lower lobe. No consolidation or pneumothorax. There is a moderate right-sided pleural effusion with adjacent atelectasis. Fluid is seen tracking within the right major fissure. Additionally, there is fluid in the medial pleural space at the upper mediastinum. 4 mm nodule right upper lobe series 3 image 45 Spleen is enlarged measuring at least 14 cm in length. Sternotomy wires are noted. No suspicious osseous lesions or acute fractures. IMPRESSION: 1. No pulmonary embolus identified within the main, lobar or segmental pulmonary arteries. 2. Cardiomegaly with reflux of contrast the IVC and hepatic veins, likely related to some degree of heart failure. 3. Moderate right-sided pleural effusion with adjacent atelectasis. 4. Pulmonary artery is enlarged. Correlate for pulmonary arterial hypertension. 5. A 4 mm nodule in the right upper lobe. In a low-risk patient no further follow-up imaging is recommended. In a high-risk patient and optional one-year follow-up CT can BE performed. 6. Splenomegaly Exposure: One or more of the following in the visualized dose reduction techniques were utilized for this examination: 1. Automated exposure control 2. Adjustment of the MA and/or KV according to patient size 3. Use of iterative of reconstructive technique Electronically signed by: Mercedez Turner MD (02/22/2019 10:17 PM) [facility] Laboratory Tests Test 02/24/19 11:29 02/24/19 16:40 02/24/19 20:24 02/25/19 03:55 Glucose (Fingerstick) 138 mg/dL (70-99) 136 mg/dL (70-99) 155 mg/dL (70-99) White Blood Count 2.9 x10^3/uL (4.0-11.0) Red Blood Count 3.30 x10^6/uL (3.50-5.40) Hemoglobin 11.1 g/dL (12.0-15.5) Hematocrit 33.9 % (36.0-47.0) Mean Corpuscular Volume 103 fL (79-100) Mean Corpuscular Hemoglobin 34 pg (25-35) Mean Corpuscular Hemoglobin Concent 33 g/dL (31-37) Red Cell Distribution Width 13.4 % (11.5-14.5) Platelet Count 106 x10^3/uL (140-400) Neutrophils (%) (Auto) 56 % (31-73) Lymphocytes (%) (Auto) 25 % (24-48) Monocytes (%) (Auto) 13 % (0-9) Eosinophils (%) (Auto) 6 % (0-3) Basophils (%) (Auto) 1 % (0-3) Neutrophils # (Auto) 1.7 x10^3/uL (1.8-7.7) Lymphocytes # (Auto) 0.7 x10^3/uL (1.0-4.8) Monocytes # (Auto) 0.4 x10^3/uL (0.0-1.1) Eosinophils # (Auto) 0.2 x10^3/uL (0.0-0.7) Basophils # (Auto) 0.0 x10^3/uL (0.0-0.2) Sodium Level 136 mmol/L (136-145) Potassium Level 3.7 mmol/L (3.5-5.1) Chloride Level 100 mmol/L (98-107) Carbon Dioxide Level 28 mmol/L (21-32) Anion Gap 8 (6-14) Blood Urea Nitrogen 22 mg/dL (7-20) Creatinine 5.9 mg/dL (0.6-1.0) Estimated GFR (Cockcroft-Gault) 8.9 BUN/Creatinine Ratio 4 (6-20) Glucose Level 100 mg/dL (70-99) Calcium Level 8.9 mg/dL (8.5-10.1) Total Bilirubin 0.3 mg/dL (0.2-1.0) Aspartate Amino Transf (AST/SGOT) 23 U/L (15-37) Alanine Aminotransferase (ALT/SGPT) 24 U/L (14-59) Alkaline Phosphatase 194 U/L (46-116) Total Protein 5.7 g/dL (6.4-8.2) Albumin 2.5 g/dL (3.4-5.0) Albumin/Globulin Ratio 0.8 (1.0-1.7) Test 02/25/19 07:56 Glucose (Fingerstick) 93 mg/dL (70-99) Assessment and Plan Assessmemt and Plan Problems Medical Problems: (1) Acute asthma exacerbation Status: Acute (2) Dyspnea Status: Acute (3) End stage chronic kidney disease Status: Acute Comment Review of Relevant I have reviewed the following items alivia (where applicable) has been applied. Labs Laboratory Tests Test 02/23/19 11:56 02/23/19 20:38 02/24/19 07:38 02/24/19 11:29 Glucose (Fingerstick) 206 mg/dL (70-99) 193 mg/dL (70-99) 105 mg/dL (70-99) 138 mg/dL (70-99) Test 02/24/19 16:40 02/24/19 20:24 02/25/19 03:55 02/25/19 07:56 Glucose (Fingerstick) 136 mg/dL (70-99) 155 mg/dL (70-99) 93 mg/dL (70-99) White Blood Count 2.9 x10^3/uL (4.0-11.0) Red Blood Count 3.30 x10^6/uL (3.50-5.40) Hemoglobin 11.1 g/dL (12.0-15.5) Hematocrit 33.9 % (36.0-47.0) Mean Corpuscular Volume 103 fL (79-100) Mean Corpuscular Hemoglobin 34 pg (25-35) Mean Corpuscular Hemoglobin Concent 33 g/dL (31-37) Red Cell Distribution Width 13.4 % (11.5-14.5) Platelet Count 106 x10^3/uL (140-400) Neutrophils (%) (Auto) 56 % (31-73) Lymphocytes (%) (Auto) 25 % (24-48) Monocytes (%) (Auto) 13 % (0-9) Eosinophils (%) (Auto) 6 % (0-3) Basophils (%) (Auto) 1 % (0-3) Neutrophils # (Auto) 1.7 x10^3/uL (1.8-7.7) Lymphocytes # (Auto) 0.7 x10^3/uL (1.0-4.8) Monocytes # (Auto) 0.4 x10^3/uL (0.0-1.1) Eosinophils # (Auto) 0.2 x10^3/uL (0.0-0.7) Basophils # (Auto) 0.0 x10^3/uL (0.0-0.2) Sodium Level 136 mmol/L (136-145) Potassium Level 3.7 mmol/L (3.5-5.1) Chloride Level 100 mmol/L (98-107) Carbon Dioxide Level 28 mmol/L (21-32) Anion Gap 8 (6-14) Blood Urea Nitrogen 22 mg/dL (7-20) Creatinine 5.9 mg/dL (0.6-1.0) Estimated GFR (Cockcroft-Gault) 8.9 BUN/Creatinine Ratio 4 (6-20) Glucose Level 100 mg/dL (70-99) Calcium Level 8.9 mg/dL (8.5-10.1) Total Bilirubin 0.3 mg/dL (0.2-1.0) Aspartate Amino Transf (AST/SGOT) 23 U/L (15-37) Alanine Aminotransferase (ALT/SGPT) 24 U/L (14-59) Alkaline Phosphatase 194 U/L (46-116) Total Protein 5.7 g/dL (6.4-8.2) Albumin 2.5 g/dL (3.4-5.0) Albumin/Globulin Ratio 0.8 (1.0-1.7) Laboratory Tests Test 02/24/19 11:29 02/24/19 16:40 02/24/19 20:24 02/25/19 03:55 Glucose (Fingerstick) 138 mg/dL (70-99) 136 mg/dL (70-99) 155 mg/dL (70-99) White Blood Count 2.9 x10^3/uL (4.0-11.0) Red Blood Count 3.30 x10^6/uL (3.50-5.40) Hemoglobin 11.1 g/dL (12.0-15.5) Hematocrit 33.9 % (36.0-47.0) Mean Corpuscular Volume 103 fL (79-100) Mean Corpuscular Hemoglobin 34 pg (25-35) Mean Corpuscular Hemoglobin Concent 33 g/dL (31-37) Red Cell Distribution Width 13.4 % (11.5-14.5) Platelet Count 106 x10^3/uL (140-400) Neutrophils (%) (Auto) 56 % (31-73) Lymphocytes (%) (Auto) 25 % (24-48) Monocytes (%) (Auto) 13 % (0-9) Eosinophils (%) (Auto) 6 % (0-3) Basophils (%) (Auto) 1 % (0-3) Neutrophils # (Auto) 1.7 x10^3/uL (1.8-7.7) Lymphocytes # (Auto) 0.7 x10^3/uL (1.0-4.8) Monocytes # (Auto) 0.4 x10^3/uL (0.0-1.1) Eosinophils # (Auto) 0.2 x10^3/uL (0.0-0.7) Basophils # (Auto) 0.0 x10^3/uL (0.0-0.2) Sodium Level 136 mmol/L (136-145) Potassium Level 3.7 mmol/L (3.5-5.1) Chloride Level 100 mmol/L (98-107) Carbon Dioxide Level 28 mmol/L (21-32) Anion Gap 8 (6-14) Blood Urea Nitrogen 22 mg/dL (7-20) Creatinine 5.9 mg/dL (0.6-1.0) Estimated GFR (Cockcroft-Gault) 8.9 BUN/Creatinine Ratio 4 (6-20) Glucose Level 100 mg/dL (70-99) Calcium Level 8.9 mg/dL (8.5-10.1) Total Bilirubin 0.3 mg/dL (0.2-1.0) Aspartate Amino Transf (AST/SGOT) 23 U/L (15-37) Alanine Aminotransferase (ALT/SGPT) 24 U/L (14-59) Alkaline Phosphatase 194 U/L (46-116) Total Protein 5.7 g/dL (6.4-8.2) Albumin 2.5 g/dL (3.4-5.0) Albumin/Globulin Ratio 0.8 (1.0-1.7) Test 02/25/19 07:56 Glucose (Fingerstick) 93 mg/dL (70-99) Microbiology 02/22/19 Blood Culture - Preliminary, Resulted NO GROWTH AFTER 2 DAYS Medications Current Medications Methylprednisolone Sodium Succinate (SOLU-Medrol 125MG VIAL) 125 mg 1X ONCE IV Last administered on 02/22/19at 19:37; Start 02/22/19 at 20:00; Stop 02/22/19 at 20:01; Status DC Albuterol/ Ipratropium (Duoneb) 3 ml 1X ONCE NEB Last administered on 1 04/24/18at 20:53; Start 02/22/19 at 20:00; Stop 02/22/19 at 20:01; Status DC Iohexol (Omnipaque 350 Mg/ml) 100 ml 1X ONCE IV Last administered on 02/22/19at 21:50; Start 02/22/19 at 21:45; Stop 02/22/19 at 21:46; Status DC Iohexol (Omnipaque 350 Mg/ml) 100 ml 1X ONCE IV ; Start 02/22/19 at 21:45; Stop 02/22/19 at 21:46; Status DC Info (CONTRAST GIVEN -- Rx MONITORING) 1 each PRN DAILY PRN MC SEE COMMENTS; Start 02/22/19 at 21:45; Stop 02/24/19 at 21:44; Status DC Iohexol (Omnipaque 350 Mg/ml) 100 ml STK-MED ONCE .ROUTE ; Start 02/22/19 at 21:35; Stop 02/22/19 at 21:35; Status DC Albuterol/ Ipratropium (Duoneb) 3 ml RTQID NEB Last administered on 02/23/19at 20:11; Start 02/23/19 at 08:00; Stop 02/24/19 at 07:59; Status DC Albuterol Sulfate (Ventolin Neb Soln) 2.5 mg PRN Q4HRS PRN NEB SHORTNESS OF BREATH Last administered on 02/23/19at 03:38; Start 02/23/19 at 03:00 Hydralazine HCl (Apresoline Inj) 10 mg PRN Q4HRS PRN IVP ELEVATED BP, SEE COMMENTS Last administered on 02/23/19at 03:33; Start 02/23/19 at 03:00 Benzonatate (Tessalon Perle) 100 mg PRN TID PRN PO COUGH Last administered on 02/23/19at 03:32; Start 02/23/19 at 03:00 Acetaminophen (Tylenol) 325 mg PRN Q4HRS PRN PO MILD PAIN 1-3; Start 02/23/19 at 03:00 Aspirin (Children'S Aspirin) 162 mg DAILYWBKFT PO Last administered on 02/25/19at 08:31; Start 02/23/19 at 08:00 Carvedilol (Coreg) 12.5 mg BIDWMEALS PO Last administered on 02/25/19at 08:31; Start 02/23/19 at 08:00 Diphenhydramine HCl (Benadryl) 25 mg PRN Q6HRS PRN PO ALLERGIES; Start 02/23/19 at 03:00 Vitamin B Complex/ Vitamin C (Catie-Renee) 1 tab DAILY PO Last administered on 02/25/19at 08:29; Start 02/23/19 at 09:00 Furosemide (Lasix) 80 mg DAILY PO Last administered on 02/24/19at 08:49; Start 02/23/19 at 09:00 Hydralazine HCl (Apresoline) 10 mg BID PO Last administered on 02/25/19 08:29; Start 02/23/19 at 09:00 Acetaminophen/ Hydrocodone Bitart (Lortab 7.5/325) 1 tab PRN Q6HRS PRN PO MODERATE TO SEVERE PAIN Last administered on 02/24/19 09:01; Start 02/23/19 at 03:00 Sevelamer Carbonate (Renvela) 2,400 mg TIDWMEALS PO Last administered on 02/25/19 08:29; Start 02/23/19 at 08:00 Triamcinolone Acetonide (Kenalog 0.1%) 1 lewis BID TP Last administered on 02/25/19 08:31; Start 02/23/19 at 09:00 Isosorbide Dinitrate (Isordil) 20 mg BID PO Last administered on 02/25/19 08:31; Start 02/23/19 at 09:00 Losartan Potassium (Cozaar) 100 mg HS PO Last administered on 02/24/19 21:01; Start 02/23/19 at 21:00 Non-Formulary Medication (Umeclidinium Brm/Vilanterol Tr (Anoro Ellipta 62.5-25 Mcg Inh)) 1 each DAILY IH ; Start 02/23/19 at 09:00; Status UNV Budesonide (Pulmicort) 0.5 mg RTBID NEB Last administered on 02/25/19at 07:46; Start 02/23/19 at 08:00 Albuterol Sulfate (Ventolin Neb Soln) 2.5 mg RTQID NEB Last administered on 02/25/19at 07:46; Start 02/23/19 at 08:00 Heparin Sodium (Porcine) (Heparin Sodium) 5,000 unit Q8HRS SQ Last administered on 02/25/19at 05:48; Start 02/23/19 at 14:00 Sodium Chloride 1,000 ml @ 1,000 mls/hr Q1H PRN IV hypotension; Start 02/23/19 at 13:07; Stop 02/23/19 at 19:06; Status DC Diphenhydramine HCl (Benadryl) 25 mg 1X PRN PRN IV ITCHING; Start 02/23/19 at 13:15; Stop 02/24/19 at 13:14; Status DC Diphenhydramine HCl (Benadryl) 25 mg 1X PRN PRN IV ITCHING; Start 02/23/19 at 13:15; Stop 02/24/19 at 13:14; Status DC Sodium Chloride 1,000 ml @ 400 mls/hr Q2H30M PRN IV PATENCY; Start 02/23/19 at 13:07; Stop 02/24/19 at 01:06; Status DC Info (PHARMACY MONITORING -- do not chart) 1 each PRN DAILY PRN MC SEE COMMENT S; Start 02/23/19 at 13:15; Status UNV Info (PHARMACY MONITORING -- do not chart) 1 each PRN DAILY PRN MC SEE COMMENTS; Start 02/23/19 at 13:15 Docusate Sodium (Colace) 100 mg PRN BID PRN PO CONSTIPATION Last administered on 02/24/19at 18:27; Start 02/24/19 at 18:30 Active Scripts Active Triamcinolone Acetonide 0.1% Cream (Triamcinolone Acetonide) 15 Gm Cream..g. 1 Lewis TP BID 14 Days Anoro Ellipta 62.5-25 Mcg Inh (Umeclidinium Brm/Vilanterol Tr) 1 Each Disk.w.dev 1 Each IH DAILY 30 Days Proair Hfa (Albuterol Sulfate) 8.5 Gm Hfa.aer.ad 1 Puff INH PRN Q6HRS PRN 30 Days Reported Hydrocodone-Apap 7.5-325 (Hydrocodone Bit/Acetaminophen) 1 Tab Tablet 1 Tab PO PRN Q6HRS PRN Children's Aspirin (Aspirin) 81 Mg Tab.chew 162 Mg PO DAILY Losartan Potassium 100 Mg Tablet 100 Mg PO HS Hydralazine Hcl 10 Mg Tablet 10 Mg PO BID Isosorbide Dinitrate 20 Mg Tablet 20 Mg PO BID Benadryl (Diphenhydramine Hcl) 25 Mg Capsule 25 Mg PO PRN PRN Carvedilol (Carvedilol) 12.5 Mg Tablet 12.5 Mg PO BIDWMEALS Tylenol (Acetaminophen) 325 Mg Tablet 1 Tab PO PRN Q4HRS PRN Renal Vitamin Tablet (Folic Acid/Vit Bcomp,C) 0.8 Mg Tablet 0.8 Mg PO DAILY Renvela (Sevelamer Carbonate) 800 Mg Tablet 3 Tab PO TID Furosemide 80 Mg Tablet 1 Tab PO DAILY Vitals/I & O Vital Sign - Last 24 Hours 02/24/19 02/24/19 02/24/19 02/24/19 09:01 10:05 11:13 12:01 Temp 98.7 98.7 Pulse 96 Resp B/P (MAP) 135/72 (93) Pulse Ox 98 97 97 97 O2 Delivery Room Air Room Air Room Air Room Air 02/24/19 02/24/19 02/24/19 02/24/19 15:34 15:49 17:26 19:56 Temp 98.2 98.1 98.2 98.1 Pulse 104 104 85 Resp 18 B/P (MAP) 154/80 (104) 154/80 164/84 (110) Pulse Ox 97 96 97 O2 Delivery Room Air Room Air Room Air 02/24/19 02/24/19 02/24/19 02/24/19 20:00 21:00 21:00 21:01 Pulse 85 85 85 B/P (MAP) 164/84 164/84 164/84 O2 Delivery Room Air 02/24/19 02/24/19 02/25/19 02/25/19 21:14 23:30 03:21 07:00 Temp 98.2 98.6 97.8 98.2 98.6 97.8 Pulse 97 78 80 Resp B/P (MAP) 141/72 (95) 145/81 (102) 157/83 (107) Pulse Ox 98 98 96 100 O2 Delivery Room Air Room Air Room Air Room Air 02/25/19 02/25/19 02/25/19 02/25/19 07:47 08:00 08:29 08:31 Pulse 80 80 B/P (MAP) 157/83 157/83 Pulse Ox 98 O2 Delivery Room Air Room Air 02/25/19 08:31 Pulse 80 B/P (MAP) 157/80 Intake and Output 02/24/19 02/24/19 02/25/19 14:59 22:59 06:59 Intake Total 700 ml 480 ml 330 ml Balance 700 ml 480 ml 330 ml MARICEL LUCAS MD Feb 25, 2019 08:53
--- NOTE | 2019-02-25 09:33 | PDOC ---
PULMONARY PROGRESS NOTES Subjective PAT LESS SOA SINCE ADMISSION Vitals Vital Signs Date Time Temp Pulse Resp B/P (MAP) Pulse Ox O2 Delivery O2 Flow Rate FiO2 02/25/19 08:31 80 157/80 02/25/19 08:00 Room Air 02/25/19 07:47 98 02/25/19 07:00 97.8 18 97.8 ROS: No Nausea, No Chest Pain, No Abdominal Pain, No Increase Cough General: Alert, No acute distress Lungs: Clear Cardiovascular: S1, S2 Abdomen: Soft, Non-tender Neuro Exam: Alert Extremities: No Edema Skin: Warm Labs Laboratory Tests Test 02/23/19 11:56 02/23/19 20:38 02/24/19 07:38 02/24/19 11:29 Glucose (Fingerstick) 206 mg/dL (70-99) 193 mg/dL (70-99) 105 mg/dL (70-99) 138 mg/dL (70-99) Test 02/24/19 16:40 02/24/19 20:24 02/25/19 03:55 02/25/19 07:56 Glucose (Fingerstick) 136 mg/dL (70-99) 155 mg/dL (70-99) 93 mg/dL (70-99) White Blood Count 2.9 x10^3/uL (4.0-11.0) Red Blood Count 3.30 x10^6/uL (3.50-5.40) Hemoglobin 11.1 g/dL (12.0-15.5) Hematocrit 33.9 % (36.0-47.0) Mean Corpuscular Volume 103 fL (79-100) Mean Corpuscular Hemoglobin 34 pg (25-35) Mean Corpuscular Hemoglobin Concent 33 g/dL (31-37) Red Cell Distribution Width 13.4 % (11.5-14.5) Platelet Count 106 x10^3/uL (140-400) Neutrophils (%) (Auto) 56 % (31-73) Lymphocytes (%) (Auto) 25 % (24-48) Monocytes (%) (Auto) 13 % (0-9) Eosinophils (%) (Auto) 6 % (0-3) Basophils (%) (Auto) 1 % (0-3) Neutrophils # (Auto) 1.7 x10^3/uL (1.8-7.7) Lymphocytes # (Auto) 0.7 x10^3/uL (1.0-4.8) Monocytes # (Auto) 0.4 x10^3/uL (0.0-1.1) Eosinophils # (Auto) 0.2 x10^3/uL (0.0-0.7) Basophils # (Auto) 0.0 x10^3/uL (0.0-0.2) Sodium Level 136 mmol/L (136-145) Potassium Level 3.7 mmol/L (3.5-5.1) Chloride Level 100 mmol/L (98-107) Carbon Dioxide Level 28 mmol/L (21-32) Anion Gap 8 (6-14) Blood Urea Nitrogen 22 mg/dL (7-20) Creatinine 5.9 mg/dL (0.6-1.0) Estimated GFR (Cockcroft-Gault) 8.9 BUN/Creatinine Ratio 4 (6-20) Glucose Level 100 mg/dL (70-99) Calcium Level 8.9 mg/dL (8.5-10.1) Total Bilirubin 0.3 mg/dL (0.2-1.0) Aspartate Amino Transf (AST/SGOT) 23 U/L (15-37) Alanine Aminotransferase (ALT/SGPT) 24 U/L (14-59) Alkaline Phosphatase 194 U/L (46-116) Total Protein 5.7 g/dL (6.4-8.2) Albumin 2.5 g/dL (3.4-5.0) Albumin/Globulin Ratio 0.8 (1.0-1.7) Laboratory Tests Test 02/24/19 11:29 02/24/19 16:40 02/24/19 20:24 02/25/19 03:55 Glucose (Fingerstick) 138 mg/dL (70-99) 136 mg/dL (70-99) 155 mg/dL (70-99) White Blood Count 2.9 x10^3/uL (4.0-11.0) Red Blood Count 3.30 x10^6/uL (3.50-5.40) Hemoglobin 11.1 g/dL (12.0-15.5) Hematocrit 33.9 % (36.0-47.0) Mean Corpuscular Volume 103 fL (79-100) Mean Corpuscular Hemoglobin 34 pg (25-35) Mean Corpuscular Hemoglobin Concent 33 g/dL (31-37) Red Cell Distribution Width 13.4 % (11.5-14.5) Platelet Count 106 x10^3/uL (140-400) Neutrophils (%) (Auto) 56 % (31-73) Lymphocytes (%) (Auto) 25 % (24-48) Monocytes (%) (Auto) 13 % (0-9) Eosinophils (%) (Auto) 6 % (0-3) Basophils (%) (Auto) 1 % (0-3) Neutrophils # (Auto) 1.7 x10^3/uL (1.8-7.7) Lymphocytes # (Auto) 0.7 x10^3/uL (1.0-4.8) Monocytes # (Auto) 0.4 x10^3/uL (0.0-1.1) Eosinophils # (Auto) 0.2 x10^3/uL (0.0-0.7) Basophils # (Auto) 0.0 x10^3/uL (0.0-0.2) Sodium Level 136 mmol/L (136-145) Potassium Level 3.7 mmol/L (3.5-5.1) Chloride Level 100 mmol/L (98-107) Carbon Dioxide Level 28 mmol/L (21-32) Anion Gap 8 (6-14) Blood Urea Nitrogen 22 mg/dL (7-20) Creatinine 5.9 mg/dL (0.6-1.0) Estimated GFR (Cockcroft-Gault) 8.9 BUN/Creatinine Ratio 4 (6-20) Glucose Level 100 mg/dL (70-99) Calcium Level 8.9 mg/dL (8.5-10.1) Total Bilirubin 0.3 mg/dL (0.2-1.0) Aspartate Amino Transf (AST/SGOT) 23 U/L (15-37) Alanine Aminotransferase (ALT/SGPT) 24 U/L (14-59) Alkaline Phosphatase 194 U/L (46-116) Total Protein 5.7 g/dL (6.4-8.2) Albumin 2.5 g/dL (3.4-5.0) Albumin/Globulin Ratio 0.8 (1.0-1.7) Test 02/25/19 07:56 Glucose (Fingerstick) 93 mg/dL (70-99) Medications Active Scripts Medications Dose Route/Sig Max Daily Dose Days Date Category Triamcinolone Acetonide 0.1% Cream (Triamcinolone Acetonide) 15 Gm Cream..g. 1 Lewis TP BID 14 10/27/18 Rx Hydrocodone-Apap 7.5-325 (Hydrocodone Bit/Acetaminophen) 1 Tab Tablet 1 Tab PO PRN Q6HRS PRN 10/26/18 Reported Children's Aspirin (Aspirin) 81 Mg Tab.chew 162 Mg PO DAILY 10/26/18 Reported Losartan Potassium 100 Mg Tablet 100 Mg PO HS 10/26/18 Reported Hydralazine Hcl 10 Mg Tablet 10 Mg PO BID 10/26/18 Reported Isosorbide Dinitrate 20 Mg Tablet 20 Mg PO BID 10/26/18 Reported Benadryl (Diphenhydramine Hcl) 25 Mg Capsule 25 Mg PO PRN PRN 10/26/18 Reported Carvedilol (Carvedilol) 12.5 Mg Tablet 12.5 Mg PO BIDWMEALS 10/26/18 Reported Tylenol (Acetaminophen) 325 Mg Tablet 1 Tab PO PRN Q4HRS PRN 10/26/18 Reported Renal Vitamin Tablet (Folic Acid/Vit Bcomp,C) 0.8 Mg Tablet 0.8 Mg PO DAILY 08/30/18 Reported Anoro Ellipta 62.5-25 Mcg Inh (Umeclidinium Brm/Vilanterol Tr) 1 Each Disk.w.dev 1 Each IH DAILY 30 07/17/18 Rx Proair Hfa (Albuterol Sulfate) 8.5 Gm Hfa.aer.ad 1 Puff INH PRN Q6HRS PRN 30 07/17/18 Rx Renvela (Sevelamer Carbonate) 800 Mg Tablet 3 Tab PO TID 06/27/14 Reported Furosemide 80 Mg Tablet 1 Tab PO DAILY 06/27/14 Reported Impression . IMPRESSION: 1. Dyspnea secondary to acute diastolic/systolic congestive heart failure, acute exacerbation of asthma/chronic obstructive pulmonary disease, no pulmonary embolism. 2. Abnormal chest x-ray and CT of the chest/PULMONARY NODULE 3. Acute exacerbation of asthma/chronic obstructive pulmonary disease. 4. Acute diastolic/systolic congestive heart failure. 5. End-stage renal disease, on hemodialysis. 6. Hypertension. 7. Diabetes mellitus. 8. EFFUSION Plan . CLINICALLY BETTER LESS SOA ON EXAM GOOD BREATH SOUNDS WILL CHECK CXR AND RE EVALUATE THE NEED FOR THORACENTEISIS REPEAT CT IN 6-12 MONTHS DALIA SCHMID MD Feb 25, 2019 09:33
--- NOTE | 2019-02-25 11:40 | CARD ---
MR#: [id number] Date of Study: 02/25/2019 Ordering Physician: MARICEL LUCAS, Referring Physician: Shahrzad CHARLTON: Arianna Gore APPROVED REPORT EXAM: Two-dimensional and M-mode echocardiogram with Doppler and color Doppler. Other Information Quality : GoodHR: 75bpm Technically limited study due to body habitus. INDICATION Congenital Heart Disease 2D DIMENSIONS RVDd3.3 (2.9-3.5cm)Left Atrium(2D)4.9 (1.6-4.0cm) IVSd0.6 (0.7-1.1cm)Aortic Root(2D)1.8 (2.0-3.7cm) LVDd5.7 (3.9-5.9cm)LVOT Diameter1.5 (1.8-2.4cm) PWd0.9 (0.7-1.1cm)LVDs3.6 (2.5-4.0cm) FS (%) 37.1 %SV107.5 ml LVEF(%)66.3 (>50%) Aortic Valve AoV Peak Minesh.188.6cm/sAoV VTI35.3cm AO Peak GR.14.2mmHgLVOT Peak Minesh.131.8cm/s AO Mean GR.8mmHgAVA (VMAX)1.27cm2 Mitral Valve MV E Xmafteby719.9cm/sMV E Peak Gr.13mmHg MV DECEL LKLL135spHZ A Rrcbdpzo81.6cm/s MV E Mean Gr.5mmHgE/A Ratio2.2 Pulmonary Valve PV Peak Nwhvnpyw015.5cm/s Tricuspid Valve TR P. Crjvgyva198gt/sRAP XKOEJZQE13doHa TR Peak Gr.50icQcSRTW12xvGs LEFT VENTRICLE The left ventricle is normal size. There is thinning of the interventricular septum. The systolic fun ction is moderately to severely impaired. The Ejection Fraction is 35-40% The anterior wall, septum a nd apex are severely hypokinetic. Transmitral Doppler flow pattern is Grade III-reversible restrictiv e diastolic dysfunction. There is a probable apical thrombus seen. 1.3 cm x 0.9 cm. RIGHT VENTRICLE The right ventricle is moderate to severely dilated. The right ventricular systolic function is gustavo l. ATRIA The left atrium is moderately dilated. The right atrium is mildly to moderately dilated. The interatr ial septum is intact with no evidence for an atrial septal defect or patent foramen ovale as noted on 2-D or Doppler imaging. AORTIC VALVE The aortic valve is mildly thickened and not well visualized. Doppler and Color Flow revealed no sign ificant aortic regurgitation. There is no significant aortic valvular stenosis. MITRAL VALVE The mitral valve is calcified and displays decreased opening. There is no evidence of mitral valve pr olapse. There is mild mitral valve stenosis. Doppler and Color-flow revealed mild mitral regurgitatio n. TRICUSPID VALVE The tricuspid valve leaflets are thickened with malcoaptation. Doppler and Color Flow revealed severe tricuspid regurgitation with an estimated PAP of 62 mmHg. There is flow reversal noted in the hepati c veins. There is no tricuspid valve stenosis. PULMONIC VALVE The pulmonic valve is not well visualized. Doppler and Color Flow revealed tracetrace to mild pulmoni c valvular regurgitation. There is no pulmonic valvular stenosis. GREAT VESSELS The aortic root is normal in size. The ascending aorta is normal in size. IVC Doppler evaluation reve als systolic flow reversal (suggestive of severe TR). PERICARDIAL EFFUSION There is a small to moderate pleural effusion There is no evidence of significant pericardial effusio n. Critical Notification Critical Value: Yes <Conclusion> The systolic function is moderately to severely impaired. The Ejection Fraction is 35-40% The anterior wall, septum and apex are severely hypokinetic. Transmitral Doppler flow pattern is Grade III-reversible restrictive diastolic dysfunction. There is a probable apical thrombus seen. 1.3 cm x 0.9 cm. The right ventricle is moderate to severely dilated. There is mild mitral valve stenosis. Doppler and Color Flow revealed severe tricuspid regurgitation with an estimated PAP of 62 mmHg. Ther e is flow reversal noted in the hepatic veins. There is a small to moderate pleural effusion Signed by : Emile La, Electronically Approved : 02/25/2019 11:40:01
[2019-02-25 11:59] VITALS: BP 170/91
--- NOTE | 2019-02-25 13:02 | PDOC2 ---
GI CONSULT Reason For Consult: Splenomegaly HPI: HPI: 58 y/o female admitted a few days ago w/ dyspnea - h/o CHF and COPD. Splenomegaly noted on chest CT and we are asked to see for this reason. Denies reflux/heartburn, dysphagia, n/v, abd pain, hematochezia, melena, change in appetite, or weight loss. Alternating bowel habits - stable. Might have had previous EGD (?bronchoscopy). No colonoscopy. No GB, liver, pancreas, or PUD history. Takes ASA. Has seen a carpenter apprentice in the past who recommended a bone marrow biopsy which she declined. Hep B and C negative in 2018. PMH: PMH: A Fib, CAD, CHF, asthma, HTN, HLD, peripheral neuropathy, ESRD on HD, DM, pso riasis, intermittent porphyria, CABG, tubal ligation FH: Family History: No pertinent hx (denies GI cancers) Social History: Smoke: Quit ALCOHOL: none Drugs: None ROS: GEN: Denies fevers, chills, sweats HEENT: Denies blurred vision, sore throat CV: Denies chest pain RESP: Denies shortness of air, cough GI: Per HPI : Denies hematuria, dysuria ENDO: Denies weight changes NEURO: Denies confusion, dizziness MSK: Denies weakness, joint pain/swelling SKIN: Denies jaundice, pruritus Vitals: Vitals: Vital Signs Date Time Temp Pulse Resp B/P (MAP) Pulse Ox O2 Delivery O2 Flow Rate FiO2 02/25/19 11:59 98.4 76 16 170/91 (117) 98 Room Air 98.4 Labs: Labs: Laboratory Tests Test 02/24/19 16:40 02/24/19 20:24 02/25/19 03:55 02/25/19 07:56 Glucose (Fingerstick) 136 mg/dL (70-99) 155 mg/dL (70-99) 93 mg/dL (70-99) White Blood Count 2.9 x10^3/uL (4.0-11.0) Red Blood Count 3.30 x10^6/uL (3.50-5.40) Hemoglobin 11.1 g/dL (12.0-15.5) Hematocrit 33.9 % (36.0-47.0) Mean Corpuscular Volume 103 fL (79-100) Mean Corpuscular Hemoglobin 34 pg (25-35) Mean Corpuscular Hemoglobin Concent 33 g/dL (31-37) Red Cell Distribution Width 13.4 % (11.5-14.5) Platelet Count 106 x10^3/uL (140-400) Neutrophils (%) (Auto) 56 % (31-73) Lymphocytes (%) (Auto) 25 % (24-48) Monocytes (%) (Auto) 13 % (0-9) Eosinophils (%) (Auto) 6 % (0-3) Basophils (%) (Auto) 1 % (0-3) Neutrophils # (Auto) 1.7 x10^3/uL (1.8-7.7) Lymphocytes # (Auto) 0.7 x10^3/uL (1.0-4.8) Monocytes # (Auto) 0.4 x10^3/uL (0.0-1.1) Eosinophils # (Auto) 0.2 x10^3/uL (0.0-0.7) Basophils # (Auto) 0.0 x10^3/uL (0.0-0.2) Sodium Level 136 mmol/L (136-145) Potassium Level 3.7 mmol/L (3.5-5.1) Chloride Level 100 mmol/L (98-107) Carbon Dioxide Level 28 mmol/L (21-32) Anion Gap 8 (6-14) Blood Urea Nitrogen 22 mg/dL (7-20) Creatinine 5.9 mg/dL (0.6-1.0) Estimated GFR (Cockcroft-Gault) 8.9 BUN/Creatinine Ratio 4 (6-20) Glucose Level 100 mg/dL (70-99) Calcium Level 8.9 mg/dL (8.5-10.1) Total Bilirubin 0.3 mg/dL (0.2-1.0) Aspartate Amino Transf (AST/SGOT) 23 U/L (15-37) Alanine Aminotransferase (ALT/SGPT) 24 U/L (14-59) Alkaline Phosphatase 194 U/L (46-116) Total Protein 5.7 g/dL (6.4-8.2) Albumin 2.5 g/dL (3.4-5.0) Albumin/Globulin Ratio 0.8 (1.0-1.7) Test 02/25/19 11:57 Glucose (Fingerstick) 103 mg/dL (70-99) BLOOD CULTURE Preliminary NO GROWTH AFTER 2 DAYS Allergies: Coded Allergies: azithromycin (Verified Adverse Reaction, Intermediate, Anxiety, HALLUCINATIONS, 11/02/18) Medications: Current Medications Medications (Trade) Dose Ordered Sig/Rosie Route PRN Reason Start Time Stop Time Status Last Admin Dose Admin Docusate Sodium (Colace) 100 mg PRN BID PRN PO CONSTIPATION 02/24/19 18:30 02/24/19 18:27 Imaging: Imaging: CXR 02/22 IMPRESSION: Small right sided pleural effusion with adjacent airspace disease, likely atelectasis. Chest CTA 02/22 IMPRESSION: 1. No pulmonary embolus identified within the main, lobar or segmental pulmonary arteries. 2. Cardiomegaly with reflux of contrast the IVC and hepatic veins, likelyrelated to some degree of heart failure. 3. Moderate right-sided pleural effusion with adjacent atelectasis. 4. Pulmonary artery is enlarged. Correlate for pulmonary arterial hypertension. 5. A 4 mm nodule in the right upper lobe. In a low-risk patient no further follow-up imaging is recommended. In a high-risk patient and optional one-year follow-up CT can BE performed. 6. Splenomegaly. Echocardiogram <Conclusion> The systolic function is moderately to severely impaired. The Ejection Fraction is 35-40% The anterior wall, septum and apex are severely hypokinetic. Transmitral Doppler flow pattern is Grade III-reversible restrictive diastolic dysfunction. There is a probable apical thrombus seen. 1.3 cm x 0.9 cm. The right ventricle is moderate to severely dilated. There is mild mitral valve stenosis. Doppler and Color Flow revealed severe tricuspid regurgitation with an estimated PAP of 62 mmHg. There is flow reversal noted in the hepatic veins. There is a small to moderate pleural effusion PE: GEN: NAD HEENT: Atraumatic, PERRL LUNGS: CTAB HEART: RRR ABD: NABS, S/ND/NT EXTREMITY: No edema SKIN: No rashes, no jaundice NEURO/PSYCH: A & O 3 A/P: A/P: Dyspnea - better, h/o CHF and COPD Leukopenia, macrocytic anemia, thrombocytopenia Splenomegaly - noted on chest imaging CRC screen - none -- Will review w/ Dr. Smith. SONIA BUTTS Feb 25, 2019 13:02
--- NOTE | 2019-02-25 14:08 | PDOC ---
SUBJECTIVE ROS stable on HD OBJECTIVE Vital Signs Vital Signs Date Time Temp Pulse Resp B/P (MAP) Pulse Ox O2 Delivery O2 Flow Rate FiO2 02/25/19 11:59 98.4 76 16 170/91 (117) 98 Room Air 98.4 I & 0 Intake and Output 02/25/19 07:00 Intake Total 1510 ml Balance 1510 ml Intake Oral 1510 ml # Voids 3 PHYSICAL EXAM Physical Exam General: Alert, No acute distress Lungs: Crackles Cardiovascular: S1, S2 Abdomen: Soft, Non-tender Neuro Exam: Alert Extremities: No Edema Skin: Warm DIAGNOSIS/ASSESSMENT Assessment & Plan ESRD - On HD MWF Seen on HD, tolerating well, continue as ordered, Dw Dn Respiratory failure. Multi-factorial including asthma and systolic heart failure. Echo shows pulmonary hypertension Acute systolic heart failure.ejection fraction of 35-40%. Hypertension Coronary artery disease with history of bypass surgery COMMENT/RELEVANT DATA Meds Current Medications Medications (Trade) Dose Ordered Sig/Rosie Start Time Stop Time Status Last Admin Dose Admin Acetaminophen (Tylenol) 325 mg PRN Q4HRS PRN 02/23/19 03:00 Acetaminophen/ Hydrocodone Bitart (Lortab 7.5/325) 1 tab PRN Q6HRS PRN 02/23/19 03:00 02/24/19 09:01 1 TAB Albuterol Sulfate (Ventolin Neb Soln) 2.5 mg RTQID 02/23/19 08:00 02/25/19 11:58 2.5 MG Albuterol/ Ipratropium (Duoneb) 3 ml RTQID 02/23/19 08:00 02/24/19 07:59 DC 02/23/19 20:11 3 ML Aspirin (Children'S Aspirin) 162 mg DAILYWBKFT 02/23/19 08:00 02/25/19 08:31 162 MG Benzonatate (Tessalon Perle) 100 mg PRN TID PRN 02/23/19 03:00 02/23/19 03:32 100 MG Budesonide (Pulmicort) 0.5 mg RTBID 02/23/19 08:00 02/25/19 07:46 0.5 MG Carvedilol (Coreg) 12.5 mg BIDWMEALS 02/23/19 08:00 02/25/19 08:31 12.5 MG Diphenhydramine HCl (Benadryl) 25 mg 1X PRN PRN 02/23/19 13:15 02/24/19 13:14 DC Docusate Sodium (Colace) 100 mg PRN BID PRN 02/24/19 18:30 02/24/19 18:27 100 MG Furosemide (Lasix) 80 mg DAILY 02/23/19 09:00 02/24/19 08:49 80 MG Heparin Sodium (Porcine) (Heparin Sodium) 5,000 unit Q8HRS 02/23/19 14:00 02/25/19 13:47 5,000 UNIT Hydralazine HCl (Apresoline Inj) 10 mg PRN Q4HRS PRN 02/23/19 03:00 02/23/19 03:33 10 MG Hydralazine HCl (Apresoline) 10 mg BID 02/23/19 09:00 02/25/19 08:29 10 MG Info (CONTRAST GIVEN -- Rx MONITORING) 1 each PRN DAILY PRN 02/22/19 21:45 02/24/19 21:44 DC Info (PHARMACY MONITORING -- do not chart) 1 each PRN DAILY PRN 02/23/19 13:15 Iohexol (Omnipaque 350 Mg/ml) 100 ml STK-MED ONCE 02/22/19 21:35 02/22/19 21:35 DC Isosorbide Dinitrate (Isordil) 20 mg BID 02/23/19 09:00 02/25/19 08:31 20 MG Losartan Potassium (Cozaar) 100 mg HS 02/23/19 21:00 02/24/19 21:01 100 MG Methylprednisolone Sodium Succinate (SOLU-Medrol 125MG VIAL) 125 mg 1X ONCE 02/22/19 20:00 02/22/19 20:01 DC 02/22/19 19:37 125 MG Non-Formulary Medication (Umeclidinium Brm/Vilanterol Tr (Anoro Ellipta 62.5-25 Mcg Inh)) 1 each DAILY 02/23/19 09:00 UNV Sevelamer Carbonate (Renvela) 2,400 mg TIDWMEALS 02/23/19 08:00 02/25/19 12:31 2,400 MG Sodium Chloride 1,000 ml @ 400 mls/hr Q2H30M PRN 02/23/19 13:07 02/24/19 01:06 DC Triamcinolone Acetonide (Kenalog 0.1%) 1 kayla BID 02/23/19 09:00 02/25/19 08:31 1 KAYLA Vitamin B Complex/ Vitamin C (Catie-Renee) 1 tab DAILY 02/23/19 09:00 02/25/19 08:29 1 TAB Lab Laboratory Tests Test 02/24/19 16:40 02/24/19 20:24 02/25/19 03:55 02/25/19 07:56 Glucose (Fingerstick) 136 mg/dL (70-99) 155 mg/dL (70-99) 93 mg/dL (70-99) White Blood Count 2.9 x10^3/uL (4.0-11.0) Red Blood Count 3.30 x10^6/uL (3.50-5.40) Hemoglobin 11.1 g/dL (12.0-15.5) Hematocrit 33.9 % (36.0-47.0) Mean Corpuscular Volume 103 fL (79-100) Mean Corpuscular Hemoglobin 34 pg (25-35) Mean Corpuscular Hemoglobin Concent 33 g/dL (31-37) Red Cell Distribution Width 13.4 % (11.5-14.5) Platelet Count 106 x10^3/uL (140-400) Neutrophils (%) (Auto) 56 % (31-73) Lymphocytes (%) (Auto) 25 % (24-48) Monocytes (%) (Auto) 13 % (0-9) Eosinophils (%) (Auto) 6 % (0-3) Basophils (%) (Auto) 1 % (0-3) Neutrophils # (Auto) 1.7 x10^3/uL (1.8-7.7) Lymphocytes # (Auto) 0.7 x10^3/uL (1.0-4.8) Monocytes # (Auto) 0.4 x10^3/uL (0.0-1.1) Eosinophils # (Auto) 0.2 x10^3/uL (0.0-0.7) Basophils # (Auto) 0.0 x10^3/uL (0.0-0.2) Sodium Level 136 mmol/L (136-145) Potassium Level 3.7 mmol/L (3.5-5.1) Chloride Level 100 mmol/L (98-107) Carbon Dioxide Level 28 mmol/L (21-32) Anion Gap 8 (6-14) Blood Urea Nitrogen 22 mg/dL (7-20) Creatinine 5.9 mg/dL (0.6-1.0) Estimated GFR (Cockcroft-Gault) 8.9 BUN/Creatinine Ratio 4 (6-20) Glucose Level 100 mg/dL (70-99) Calcium Level 8.9 mg/dL (8.5-10.1) Total Bilirubin 0.3 mg/dL (0.2-1.0) Aspartate Amino Transf (AST/SGOT) 23 U/L (15-37) Alanine Aminotransferase (ALT/SGPT) 24 U/L (14-59) Alkaline Phosphatase 194 U/L (46-116) Total Protein 5.7 g/dL (6.4-8.2) Albumin 2.5 g/dL (3.4-5.0) Albumin/Globulin Ratio 0.8 (1.0-1.7) Test 02/25/19 11:57 Glucose (Fingerstick) 103 mg/dL (70-99) Results All relevant outside records, renal labs, imaging studies, telemetry/EKG's were reviewed. DIAMOND FANG MD Feb 25, 2019 14:08
[2019-02-25 15:09] VITALS: BP 148/87
[2019-02-25] MEDS ORDERED: IV NORMAL SALINE 1000ML BAG 1,000 ML IV PRN (15:55)
[2019-02-25] MEDS ORDERED: DIALYSIS PATIENT. MC PRN (16:00)
[2019-02-25] MEDS ORDERED: diphenhydrAMINE 50 MG/ML VIAL IV PRN ×2 (16:00)
--- NOTE | 2019-02-25 16:02 | NUR ---
SW following pt for dc planning. Chart reviewed and discussed with RN. Pt lives at home with her son and goes to [facility] on MWF at 1415. Pt uses the [employer] [facility] for transportation. Pt denies any SW needs at this time. SW will continue to follow.
--- NOTE | 2019-02-25 18:02 | PDOC ---
PROGRESS NOTES Subjective Subjective Patient seen and examined She is feeling mildly better today. Objective Objective Vital Signs Date Time Temp Pulse Resp B/P (MAP) Pulse Ox O2 Delivery O2 Flow Rate FiO2 02/25/19 15:09 98.4 80 20 148/87 (107) 95 Room Air 98.4 Intake and Output 02/25/19 07:00 Intake Total 1510 ml Balance 1510 ml Intake Oral 1510 ml # Voids 3 Physical Exam Abdomen: Normal bowel sounds Heart: Regular rate General: mild distress Lungs: Other (decreased breath sounds) Assessment Assessment Problems Medical Problems: (1) Acute asthma exacerbation Status: Acute (2) Dyspnea Status: Acute (3) End stage chronic kidney disease Status: Acute 1. Respiratory failure. Multi-factorial including asthma, renal failure and systolic heart failure. Echo shows pulmonary hypertension with a pulmonary artery pressure of 62 mmHg. Clinically improving on present medications. Fluid status as per the renal service with hemodialysis. 2. Acute systolic heart failure. Updated ejection fraction of 35-40%. Continue baseline medications. Fluid monitoring as per dialysis. 3. End-stage renal disease. Hemodialysis as per the renal service. 4. Hypertension. Controlled. We'll monitor. 5. Hyperlipidemia. We'll recheck lab. 6. Coronary artery disease with history of bypass surgery. No chest pain. Continue baseline medications. Echo as above. 7. Probable apical thrombus on echocardiogram. Possible thoracentesis tomorrow. Hematology evaluation has been requested. Patient is an uncertain candidate for anticoagulation. Comment Review of Relevant I have reviewed the following items alivia (where applicable) has been applied. Labs Laboratory Tests Test 02/23/19 20:38 02/24/19 07:38 02/24/19 11:29 02/24/19 16:40 Glucose (Fingerstick) 193 mg/dL (70-99) 105 mg/dL (70-99) 138 mg/dL (70-99) 136 mg/dL (70-99) Test 02/24/19 20:24 02/25/19 03:55 02/25/19 07:56 02/25/19 11:57 Glucose (Fingerstick) 155 mg/dL (70-99) 93 mg/dL (70-99) 103 mg/dL (70-99) White Blood Count 2.9 x10^3/uL (4.0-11.0) Red Blood Count 3.30 x10^6/uL (3.50-5.40) Hemoglobin 11.1 g/dL (12.0-15.5) Hematocrit 33.9 % (36.0-47.0) Mean Corpuscular Volume 103 fL (79-100) Mean Corpuscular Hemoglobin 34 pg (25-35) Mean Corpuscular Hemoglobin Concent 33 g/dL (31-37) Red Cell Distribution Width 13.4 % (11.5-14.5) Platelet Count 106 x10^3/uL (140-400) Neutrophils (%) (Auto) 56 % (31-73) Lymphocytes (%) (Auto) 25 % (24-48) Monocytes (%) (Auto) 13 % (0-9) Eosinophils (%) (Auto) 6 % (0-3) Basophils (%) (Auto) 1 % (0-3) Neutrophils # (Auto) 1.7 x10^3/uL (1.8-7.7) Lymphocytes # (Auto) 0.7 x10^3/uL (1.0-4.8) Monocytes # (Auto) 0.4 x10^3/uL (0.0-1.1) Eosinophils # (Auto) 0.2 x10^3/uL (0.0-0.7) Basophils # (Auto) 0.0 x10^3/uL (0.0-0.2) Sodium Level 136 mmol/L (136-145) Potassium Level 3.7 mmol/L (3.5-5.1) Chloride Level 100 mmol/L (98-107) Carbon Dioxide Level 28 mmol/L (21-32) Anion Gap 8 (6-14) Blood Urea Nitrogen 22 mg/dL (7-20) Creatinine 5.9 mg/dL (0.6-1.0) Estimated GFR (Cockcroft-Gault) 8.9 BUN/Creatinine Ratio 4 (6-20) Glucose Level 100 mg/dL (70-99) Calcium Level 8.9 mg/dL (8.5-10.1) Total Bilirubin 0.3 mg/dL (0.2-1.0) Aspartate Amino Transf (AST/SGOT) 23 U/L (15-37) Alanine Aminotransferase (ALT/SGPT) 24 U/L (14-59) Alkaline Phosphatase 194 U/L (46-116) Total Protein 5.7 g/dL (6.4-8.2) Albumin 2.5 g/dL (3.4-5.0) Albumin/Globulin Ratio 0.8 (1.0-1.7) Laboratory Tests Test 02/24/19 20:24 02/25/19 03:55 02/25/19 07:56 02/25/19 11:57 Glucose (Fingerstick) 155 mg/dL (70-99) 93 mg/dL (70-99) 103 mg/dL (70-99) White Blood Count 2.9 x10^3/uL (4.0-11.0) Red Blood Count 3.30 x10^6/uL (3.50-5.40) Hemoglobin 11.1 g/dL (12.0-15.5) Hematocrit 33.9 % (36.0-47.0) Mean Corpuscular Volume 103 fL (79-100) Mean Corpuscular Hemoglobin 34 pg (25-35) Mean Corpuscular Hemoglobin Concent 33 g/dL (31-37) Red Cell Distribution Width 13.4 % (11.5-14.5) Platelet Count 106 x10^3/uL (140-400) Neutrophils (%) (Auto) 56 % (31-73) Lymphocytes (%) (Auto) 25 % (24-48) Monocytes (%) (Auto) 13 % (0-9) Eosinophils (%) (Auto) 6 % (0-3) Basophils (%) (Auto) 1 % (0-3) Neutrophils # (Auto) 1.7 x10^3/uL (1.8-7.7) Lymphocytes # (Auto) 0.7 x10^3/uL (1.0-4.8) Monocytes # (Auto) 0.4 x10^3/uL (0.0-1.1) Eosinophils # (Auto) 0.2 x10^3/uL (0.0-0.7) Basophils # (Auto) 0.0 x10^3/uL (0.0-0.2) Sodium Level 136 mmol/L (136-145) Potassium Level 3.7 mmol/L (3.5-5.1) Chloride Level 100 mmol/L (98-107) Carbon Dioxide Level 28 mmol/L (21-32) Anion Gap 8 (6-14) Blood Urea Nitrogen 22 mg/dL (7-20) Creatinine 5.9 mg/dL (0.6-1.0) Estimated GFR (Cockcroft-Gault) 8.9 BUN/Creatinine Ratio 4 (6-20) Glucose Level 100 mg/dL (70-99) Calcium Level 8.9 mg/dL (8.5-10.1) Total Bilirubin 0.3 mg/dL (0.2-1.0) Aspartate Amino Transf (AST/SGOT) 23 U/L (15-37) Alanine Aminotransferase (ALT/SGPT) 24 U/L (14-59) Alkaline Phosphatase 194 U/L (46-116) Total Protein 5.7 g/dL (6.4-8.2) Albumin 2.5 g/dL (3.4-5.0) Albumin/Globulin Ratio 0.8 (1.0-1.7) Microbiology 02/22/19 Blood Culture - Preliminary, Resulted NO GROWTH AFTER 2 DAYS Medications Current Medications Methylprednisolone Sodium Succinate (SOLU-Medrol 125MG VIAL) 125 mg 1X ONCE IV Last administered on 02/22/19at 19:37; Start 02/22/19 at 20:00; Stop 02/22/19 at 20:01; Status DC Albuterol/ Ipratropium (Duoneb) 3 ml 1X ONCE NEB Last administered on 02/22/19at 20:53; Start 02/22/19 at 20:00; Stop 02/22/19 at 20:01; Status DC Iohexol (Omnipaque 350 Mg/ml) 100 ml 1X ONCE IV Last administered on 02/22/19at 21:50; Start 02/22/19 at 21:45; Stop 02/22/19 at 21:46; Status DC Iohexol (Omnipaque 350 Mg/ml) 100 ml 1X ONCE IV ; Start 02/22/19 at 21:45; Stop 02/22/19 at 21:46; Status DC Info (CONTRAST GIVEN -- Rx MONITORING) 1 each PRN DAILY PRN MC SEE COMMENTS; Start 02/22/19 at 21:45; Stop 02/24/19 at 21:44; Status DC Iohexol (Omnipaque 350 Mg/ml) 100 ml STK-MED ONCE .ROUTE ; Start 02/22/19 at 21:35; Stop 02/22/19 at 21:35; Status DC Albuterol/ Ipratropium (Duoneb) 3 ml RTQID NEB Last administered on 02/23/19at 20:11; Start 02/23/19 at 08:00; Stop 02/24/19 at 07:59; Status DC Albuterol Sulfate (Ventolin Neb Soln) 2.5 mg PRN Q4HRS PRN NEB SHORTNESS OF BREATH Last administered on 02/23/19 03:38; Start 02/23/19 at 03:00 Hydralazine HCl (Apresoline Inj) 10 mg PRN Q4HRS PRN IVP ELEVATED BP, SEE COMMENTS Last administered on 02/23/19 03:33; Start 02/23/19 at 03:00 Benzonatate (Tessalon Perle) 100 mg PRN TID PRN PO COUGH Last administered on 02/23/19 03:32; Start 02/23/19 at 03:00 Acetaminophen (Tylenol) 325 mg PRN Q4HRS PRN PO MILD PAIN 1-3; Start 02/23/19 at 03:00 Aspirin (Children'S Aspirin) 162 mg DAILYWBKFT PO Last administered on 02/25/19 08:31; Start 02/23/19 at 08:00 Carvedilol (Coreg) 12.5 mg BIDWMEALS PO Last administered on 02/25/19 08:31; Start 02/23/19 at 08:00 Diphenhydramine HCl (Benadryl) 25 mg PRN Q6HRS PRN PO ALLERGIES; Start 02/23/19 at 03:00 Vitamin B Complex/ Vitamin C (Catie-Renee) 1 tab DAILY PO Last administered on 02/25/19 08:29; Start 02/23/19 at 09:00 Furosemide (Lasix) 80 mg DAILY PO Last administered on 02/24/19at 08:49; Start 02/23/19 at 09:00 Hydralazine HCl (Apresoline) 10 mg BID PO Last administered on 02/25/19 08:29; Start 02/23/19 at 09:00 Acetaminophen/ Hydrocodone Bitart (Lortab 7.5/325) 1 tab PRN Q6HRS PRN PO MODERATE TO SEVERE PAIN Last administered on 02/24/19 09:01; Start 02/23/19 at 03:00 Sevelamer Carbonate (Renvela) 2,400 mg TIDWMEALS PO Last administered on 02/25/19at 12:31; Start 02/23/19 at 08:00 Triamcinolone Acetonide (Kenalog 0.1%) 1 lewis BID TP Last administered on 02/25/19 08:31; Start 02/23/19 at 09:00 Isosorbide Dinitrate (Isordil) 20 mg BID PO Last administered on 02/25/19at 08: 31; Start 02/23/19 at 09:00 Losartan Potassium (Cozaar) 100 mg HS PO Last administered on 02/24/19 21:01; Start 02/23/19 at 21:00 Non-Formulary Medication (Umeclidinium Brm/Vilanterol Tr (Anoro Ellipta 62.5-25 Mcg Inh)) 1 each DAILY IH ; Start 02/23/19 at 09:00; Status UNV Budesonide (Pulmicort) 0.5 mg RTBID NEB Last administered on 02/25/19at 07:46; Start 02/23/19 at 08:00 Albuterol Sulfate (Ventolin Neb Soln) 2.5 mg RTQID NEB Last administered on 02/25/19at 11:58; Start 02/23/19 at 08:00 Heparin Sodium (Porcine) (Heparin Sodium) 5,000 unit Q8HRS SQ Last administered on 02/25/19at 13:47; Start 02/23/19 at 14:00 Sodium Chloride 1,000 ml @ 1,000 mls/hr Q1H PRN IV hypotension; Start 02/23/19 at 13:07; Stop 02/23/19 at 19:06; Status DC Diphenhydramine HCl (Benadryl) 25 mg 1X PRN PRN IV ITCHING; Start 02/23/19 at 13:15; Stop 02/24/19 at 13:14; Status DC Diphenhydramine HCl (Benadryl) 25 mg 1X PRN PRN IV ITCHING; Start 02/23/19 at 13:15; Stop 02/24/19 at 13:14; Status DC Sodium Chloride 1,000 ml @ 400 mls/hr Q2H30M PRN IV PATENCY; Start 02/23/19 at 13:07; Stop 02/24/19 at 01:06; Status DC Info (PHARMACY MONITORING -- do not chart) 1 each PRN DAILY PRN MC SEE COMMENTS; Start 02/23/19 at 13:15; Status UNV Info (PHARMACY MONITORING -- do not chart) 1 each PRN DAILY PRN MC SEE COMMENTS; Start 02/23/19 at 13:15 Docusate Sodium (Colace) 100 mg PRN BID PRN PO CONSTIPATION Last administered on 02/24/19at 18:27; Start 02/24/19 at 18:30 Sodium Chloride 1,000 ml @ 1,000 mls/hr Q1H PRN IV hypotension; Start 02/25/19 at 15:55; Stop 02/25/19 at 21:54 Diphenhydramine HCl (Benadryl) 25 mg 1X PRN PRN IV ITCHING; Start 02/25/19 at 16:00; Stop 02/26/19 at 15:59 Diphenhydramine HCl (Benadryl) 25 mg 1X PRN PRN IV ITCHING; Start 02/25/19 at 16:00; Stop 02/26/19 at 15:59 Info (PHARMACY MONITORING -- do not chart) 1 each PRN DAILY PRN MC SEE COMMENTS; Start 02/25/19 at 16:00; Status UNV Active Scripts Active Triamcinolone Acetonide 0.1% Cream (Triamcinolone Acetonide) 15 Gm Cream..g. 1 Lewis TP BID 14 Days Anoro Ellipta 62.5-25 Mcg Inh (Umeclidinium Brm/Vilanterol Tr) 1 Each Disk.w.dev 1 Each IH DAILY 30 Days Proair Hfa (Albuterol Sulfate) 8.5 Gm Hfa.aer.ad 1 Puff INH PRN Q6HRS PRN 30 Days Reported Hydrocodone-Apap 7.5-325 (Hydrocodone Bit/Acetaminophen) 1 Tab Tablet 1 Tab PO PRN Q6HRS PRN Children's Aspirin (Aspirin) 81 Mg Tab.chew 162 Mg PO DAILY Losartan Potassium 100 Mg Tablet 100 Mg PO HS Hydralazine Hcl 10 Mg Tablet 10 Mg PO BID Isosorbide Dinitrate 20 Mg Tablet 20 Mg PO BID Benadryl (Diphenhydramine Hcl) 25 Mg Capsule 25 Mg PO PRN PRN Carvedilol (Carvedilol) 12.5 Mg Tablet 12.5 Mg PO BIDWMEALS Tylenol (Acetaminophen) 325 Mg Tablet 1 Tab PO PRN Q4HRS PRN Renal Vitamin Tablet (Folic Acid/Vit Bcomp,C) 0.8 Mg Tablet 0.8 Mg PO DAILY Renvela (Sevelamer Carbonate) 800 Mg Tablet 3 Tab PO TID Furosemide 80 Mg Tablet 1 Tab PO DAILY Vitals/I & O Vital Sign - Last 24 Hours 02/24/19 02/24/19 02/24/19 02/24/19 19:56 20:00 21:00 21:00 Temp 98.1 98.1 Pulse 85 85 85 Resp 18 B/P (MAP) 164/84 (110) 164/84 164/84 Pulse Ox 97 O2 Delivery Room Air Room Air 02/24/19 02/24/19 02/24/19 02/25/19 21:01 21:14 23:30 03:21 Temp 98.2 98.6 98.2 98.6 Pulse 85 97 78 Resp 20 18 B/P (MAP) 164/84 141/72 (95) 145/81 (102) Pulse Ox 98 98 96 O2 Delivery Room Air Room Air Room Air 02/25/19 02/25/19 02/25/19 02/25/19 07:00 07:47 08:00 08:29 Temp 97.8 97.8 Pulse 80 80 Resp 18 B/P (MAP) 157/83 (107) 157/83 Pulse Ox 100 98 O2 Delivery Room Air Room Air Room Air 02/25/19 02/25/19 02/25/19 02/25/19 08:31 08:31 11:58 11:59 Temp 98.4 98.4 Pulse 80 80 76 Resp 16 B/P (MAP) 157/83 157/80 170/91 (117) Pulse Ox 98 98 O2 Delivery Room Air Room Air 02/25/19 15:09 Temp 98.4 98.4 Pulse 80 Resp 20 B/P (MAP) 148/87 (107) Pulse Ox 95 O2 Delivery Room Air Intake and Output 02/24/19 02/24/19 02/25/19 15:00 23:00 07:00 Intake Total 700 ml 480 ml 330 ml Balance 700 ml 480 ml 330 ml LOREN VICENTE MD Feb 25, 2019 18:02
[2019-02-25 19:30] VITALS: BP 169/89
[2019-02-25] MEDS: LOSARTAN POTASSIUM 50 MG TABLET. PO SCH (20:48)
[2019-02-25 23:07] LABS: RHEUMATOID FACTOR 14.6 IU/mL (0.0-13.9)
[2019-02-25 23:30] VITALS: BP 138/66
--- NOTE | 2019-02-26 01:33 | RAD ---
Indication: Effusion. TECHNIQUE:Portable AP chest X-ray COMPARISON: 02/22/[address] FINDINGS: Heart is normal in size. Small right pleural effusion. Otherwise, lungs are clear. No pneumothorax. Visualized bony thorax within normal limits. Right subclavian stent noted. IMPRESSION: Small right pleural effusion. Electronically signed by: Jordan Malcolm DO (02/26/2019 1:30 AM) [id number]
[2019-02-26 03:30] VITALS: BP 135/67
[2019-02-26] MEDS: HEPARIN for SUB-Q USE 5,000 UNIT/ML VIAL. SQ SCH (05:44)
[2019-02-26 07:15] VITALS: BP 157/84
[2019-02-26] MEDS: SEVELAMER CARBONATE 800 MG TABLET. PO SCH ×2 (08:00→12:22)
[2019-02-26] MEDS: BUDESONIDE 0.5 MG/2 ML NEBU. NEB SCH (08:22)
[2019-02-26] MEDS: ALBUTEROL SULFATE 2.5 MG/3 ML NEBU. NEB SCH ×2 (08:22→12:03)
--- NOTE | 2019-02-26 08:55 | PDOC ---
PULMONARY PROGRESS NOTES Subjective NOT MORE SOA Vitals Vital Signs Date Time Temp Pulse Resp B/P (MAP) Pulse Ox O2 Delivery O2 Flow Rate FiO2 02/26/19 08:27 98 Room Air 02/26/19 07:15 99.6 79 20 157/84 (108) 99.6 ROS: No Nausea, No Chest Pain, No Abdominal Pain, No Increase Cough General: Alert, No acute distress Lungs: Clear Cardiovascular: S1, S2 Abdomen: Soft, Non-tender Neuro Exam: Alert Extremities: No Edema Skin: Warm Labs Laboratory Tests Test 02/24/19 11:29 02/24/19 16:40 02/24/19 20:24 02/25/19 03:55 Glucose (Fingerstick) 138 mg/dL (70-99) 136 mg/dL (70-99) 155 mg/dL (70-99) White Blood Count 2.9 x10^3/uL (4.0-11.0) Red Blood Count 3.30 x10^6/uL (3.50-5.40) Hemoglobin 11.1 g/dL (12.0-15.5) Hematocrit 33.9 % (36.0-47.0) Mean Corpuscular Volume 103 fL (79-100) Mean Corpuscular Hemoglobin 34 pg (25-35) Mean Corpuscular Hemoglobin Concent 33 g/dL (31-37) Red Cell Distribution Width 13.4 % (11.5-14.5) Platelet Count 106 x10^3/uL (140-400) Neutrophils (%) (Auto) 56 % (31-73) Lymphocytes (%) (Auto) 25 % (24-48) Monocytes (%) (Auto) 13 % (0-9) Eosinophils (%) (Auto) 6 % (0-3) Basophils (%) (Auto) 1 % (0-3) Neutrophils # (Auto) 1.7 x10^3/uL (1.8-7.7) Lymphocytes # (Auto) 0.7 x10^3/uL (1.0-4.8) Monocytes # (Auto) 0.4 x10^3/uL (0.0-1.1) Eosinophils # (Auto) 0.2 x10^3/uL (0.0-0.7) Basophils # (Auto) 0.0 x10^3/uL (0.0-0.2) Sodium Level 136 mmol/L (136-145) Potassium Level 3.7 mmol/L (3.5-5.1) Chloride Level 100 mmol/L (98-107) Carbon Dioxide Level 28 mmol/L (21-32) Anion Gap 8 (6-14) Blood Urea Nitrogen 22 mg/dL (7-20) Creatinine 5.9 mg/dL (0.6-1.0) Estimated GFR (Cockcroft-Gault) 8.9 BUN/Creatinine Ratio 4 (6-20) Glucose Level 100 mg/dL (70-99) Calcium Level 8.9 mg/dL (8.5-10.1) Total Bilirubin 0.3 mg/dL (0.2-1.0) Aspartate Amino Transf (AST/SGOT) 23 U/L (15-37) Alanine Aminotransferase (ALT/SGPT) 24 U/L (14-59) Alkaline Phosphatase 194 U/L (46-116) Total Protein 5.7 g/dL (6.4-8.2) Albumin 2.5 g/dL (3.4-5.0) Albumin/Globulin Ratio 0.8 (1.0-1.7) Vitamin B12 Level 334 pg/mL (247-911) Rheumatoid Factor 14.6 IU/mL (0.0-13.9) HIV (1&2) Antibody Screen Nonreactive (Nonreactive) Test 02/25/19 07:56 02/25/19 11:57 02/25/19 20:50 02/26/19 07:35 Glucose (Fingerstick) 93 mg/dL (70-99) 103 mg/dL (70-99) 77 mg/dL (70-99) 103 mg/dL (70-99) Laboratory Tests Test 02/25/19 11:57 02/25/19 20:50 02/26/19 07:35 Glucose (Fingerstick) 103 mg/dL (70-99) 77 mg/dL (70-99) 103 mg/dL (70-99) Medications Active Scripts Medications Dose Route/Sig Max Daily Dose Days Date Category Triamcinolone Acetonide 0.1% Cream (Triamcinolone Acetonide) 15 Gm Cream..g. 1 Lewis TP BID 14 10/27/18 Rx Hydrocodone-Apap 7.5-325 (Hydrocodone Bit/Acetaminophen) 1 Tab Tablet 1 Tab PO PRN Q6HRS PRN 10/26/18 Reported Children's Aspirin (Aspirin) 81 Mg Tab.chew 162 Mg PO DAILY 10/26/18 Reported Losartan Potassium 100 Mg Tablet 100 Mg PO HS 10/26/18 Reported Hydralazine Hcl 10 Mg Tablet 10 Mg PO BID 10/26/18 Reported Isosorbide Dinitrate 20 Mg Tablet 20 Mg PO BID 10/26/18 Reported Benadryl (Diphenhydramine Hcl) 25 Mg Capsule 25 Mg PO PRN PRN 10/26/18 Reported Carvedilol (Carvedilol) 12.5 Mg Tablet 12.5 Mg PO BIDWMEALS 10/26/18 Reported Tylenol (Acetaminophen) 325 Mg Tablet 1 Tab PO PRN Q4HRS PRN 10/26/18 Reported Renal Vitamin Tablet (Folic Acid/Vit Bcomp,C) 0.8 Mg Tablet 0.8 Mg PO DAILY 08/30/18 Reported Anoro Ellipta 62.5-25 Mcg Inh (Umeclidinium Brm/Vilanterol Tr) 1 Each Disk.w.dev 1 Each IH DAILY 30 07/17/18 Rx Proair Hfa (Albuterol Sulfate) 8.5 Gm Hfa.aer.ad 1 Puff INH PRN Q6HRS PRN 30 07/17/18 Rx Renvela (Sevelamer Carbonate) 800 Mg Tablet 3 Tab PO TID 06/27/14 Reported Furosemide 80 Mg Tablet 1 Tab PO DAILY 06/27/14 Reported Impression . IMPRESSION: 1. Dyspnea secondary to acute diastolic/systolic congestive heart failure, acute exacerbation of asthma/chronic obstructive pulmonary disease, no pulmonary embolism. 2. Abnormal chest x-ray and CT of the chest/PULMONARY NODULE 3. Acute exacerbation of asthma/chronic obstructive pulmonary disease. 4. Acute diastolic/systolic congestive heart failure. 5. End-stage renal disease, on hemodialysis. 6. Hypertension. 7. Diabetes mellitus. 8. EFFUSION SMALL 9. PORPHYRIA CUTANEA TARDA Plan . FOLLOW UP WITH ME IN OFFICE IN 6 MONTHS CLINICALLY BETTER LESS SOA ON EXAM GOOD BREATH SOUNDS NO NEED FOR THORACENTEISIS REPEAT CT IN 6-12 MONTHS DALIA SCHMID MD Feb 26, 2019 08:55
[2019-02-26] MEDS: TRIAMCINOLONE ACETONIDE 0.1% TOPICAL CREAM 15GM TUBE. TP SCH ×2 (09:00→09:05)
[2019-02-26] MEDS: ISOSORBIDE DINITRATE 10 MG TABLET. PO SCH (09:03)
[2019-02-26] MEDS: hydrALAZINE 10 MG TABLET PO SCH (09:04)
[2019-02-26] MEDS: FOLIC/VIT B COMP W-C (RENAL) TABLET. PO SCH (09:04)
[2019-02-26] MEDS: CARVEDILOL 12.5 MG TABLET. PO SCH (09:04)
[2019-02-26] MEDS: ASPIRIN CHEWABLE 81 MG TABLET. PO SCH (09:05)
[2019-02-26] MEDS: FUROSEMIDE 80 MG TABLET. PO SCH (09:05)
--- NOTE | 2019-02-26 09:49 | PDOC2 ---
CONSULT Date of Consult Date of Consult DATE: 02/26/19 TIME: 09:35 Reason for consultation: Pancytopenia Consult: Hematology oncology, Dr. Adriana King History of present illness: She is a 58-year-old female with pancytopenia, anemia, leukopenia, thrombocytopenia, chronic, worsening over time, associated with mild splenomegaly on CT, suspect worsened due to possible underlying myeloma?, she had a very elevated lambda light chains in August 2017 at 1763 but refused bone marrow biopsy at that time, also has been diagnosed with porphyria cutanea tarda, HCV testing was negative in 2018 and she has not been placed on Plaquenil, tells me no one is following the skin porphyria, has a small effusion, and concern for an apical thrombus as well. Past medical history: Asthma End-stage renal disease Heart failure Anemia S/P IV iron and DAVE Porphyria cutanea tarda Respiratory failure Hypertension Osteoarthritis Hyperlipidemia Coronary artery disease Apical thrombus on echo Pulmonary hypertension A. fib Neuropathy Diabetes mellitus Psoriasis with possible psoriatic arthritis MGUS Past surgical history: Hernia CABG Tubal ligation Hemodialysis shunts Allergies: Azithromycin Medications: See attached list Social history: Prior tobacco, quit approximately 6 years ago No alcohol Reported marijuana Family history: HTN and diabetes Review of systems: Diffuse rash, essentially anuric, dyspnea improved, otherwise denies current 10 point review of systems Physical exam: Vitals reviewed Gen.: elderly AA female in no acute distress, walking in room HEENT: mucous membranes moist, head normocephalic atraumatic Neck: Supple, ROM nl Lymph nodes: No palpable axilla LAD though R>L submand adenopathy Lungs: Breathing comfortably on NCO2 Abdomen: Soft, nontender, sl distended Extremities: No cyanosis, some sl LE edema Skin: diffuse skin rash w/o open wounds visible Neuro: Alert and oriented 3 Psych: irritable mood and unconcerned affect Lab reviewed: White count 2.9, hemoglobin 11.1, platelets 106, MCV of 103 Creatinine 5.9 D-dimer 0.99 HIV-negative Rheumatoid factor 14.6 B12 334 Alkaline phosphatase 240 15 February blood culture negative Hep C virus was negative in 2018 Rads reviewed: CTPA showed no PE, e/o cardiomegaly, evidence of heart failure, right effusion, enlarged pulmonary artery, 4 mm right upper lobe pulmonary nodule, splenomegaly to 14 cm Echocardiogram showed concern for 1.3 cm apical thrombus Case discussed with: Patient, pulmonary, records reviewed in [facility] and [facility], including labs and radiology, please see note for summary details. Assessment and Plan: She is a 58-year-old female who saw me last year with elevated lambda chains, she refused bone marrow biopsy at the time, she has been on dialysis for she tells me about 6 years, has received IV iron and erythropoietin stimulating agent for anemia, has pancytopenia, and she tells me she had a diagnosis of porphyria Cutanea tarda but is not on any treatment with Plaquenil for her rash. Porphyria cutanea tarda: Could consider Plaquenil with her other physicians as an outpatient though would be hesitant with pancytopenia, recent RF + as well, h/o psoriasis? Pancytopenia: She declines bone marrow biopsy again for me, she does know that she very likely could have myeloma, I could not treat it with chemotherapy unless diagnosed with bone marrow biopsy, and bone marrow biopsy is necessary for diagnosis and treatment, she also declined skeletal survey at this time Apical thrombus: She will think about anticoagulation, defer to cardiology at this time, to discuss with her further, could consider heparin drip followed by Coumadin with her end-stage renal disease versus antiplatelet therapy, defer to cardiology at this point in time as she declines AC at this time w/ me, but happy to help as needed Pulmonary nodule: She'll have follow-up CT with pulm as needed Small right effusion: Deferred to others She will allow me to check some labs in the morning with morning labs, will check light chains, SPEP, Igs and coags fibrinogen and methylmalonic acid Thank you kindly for this consultation, and please don't hesitate to call with further questions. Past Medical History Cardiovascular: AFIB, CAD, HTN, Hyperlipidemia Pulmonary: No pertinent hx CENTRAL NERVOUS SYSTEM: Periperal neuropathy GI: No pertinent hx Heme/Onc: No pertinent hx Hepatobiliary: No pertinent hx Psych: No pertinent hx Musculoskeletal: Osteoarthritis Rheumatologic: No pertinent hx Infectious disease: No pertinent hx Renal/: Chronic renal failure Endocrine: Diabetes Past Surgical History Past Surgical History: CABG, Tubal Ligation, Other (hemodialysis shunts) Family History Family History: Diabetes, Hypertension Social History Social History: Parent Quit ALCOHOL: none Drugs: None Lives: with Family Current Problem List Problem List Problems Medical Problems: (1) Acute asthma exacerbation Status: Acute (2) Dyspnea Status: Acute (3) End stage chronic kidney disease Status: Acute Current Medications Current Medications Current Medications Methylprednisolone Sodium Succinate (SOLU-Medrol 125MG VIAL) 125 mg 1X ONCE IV Last administered on 02/22/19at 19:37; Start 02/22/19 at 20:00; Stop 02/22/19 at 20:01; Status DC Albuterol/ Ipratropium (Duoneb) 3 ml 1X ONCE NEB Last administered on 02/22/19at 20:53; Start 02/22/19 at 20:00; Stop 02/22/19 at 20:01; Status DC Iohexol (Omnipaque 350 Mg/ml) 100 ml 1X ONCE IV Last administered on 02/22/19at 21:50; Start 02/22/19 at 21:45; Stop 02/22/19 at 21:46; Status DC Iohexol (Omnipaque 350 Mg/ml) 100 ml 1X ONCE IV ; Start 02/22/19 at 21:45; Stop 02/22/19 at 21:46; Status DC Info (CONTRAST GIVEN -- Rx MONITORING) 1 each PRN DAILY PRN MC SEE COMMENTS; Start 02/22/19 at 21:45; Stop 02/24/19 at 21:44; Status DC Iohexol (Omnipaque 350 Mg/ml) 100 ml STK-MED ONCE .ROUTE ; Start 02/22/19 at 21:35; Stop 02/22/19 at 21:35; Status DC Albuterol/ Ipratropium (Duoneb) 3 ml RTQID NEB Last administered on 02/23/19at 20:11; Start 02/23/19 at 08:00; Stop 02/24/19 at 07:59; Status DC Albuterol Sulfate (Ventolin Neb Soln) 2.5 mg PRN Q4HRS PRN NEB SHORTNESS OF BREATH Last administered on 02/23/19at 03:38; Start 02/23/19 at 03:00 Hydralazine HCl (Apresoline Inj) 10 mg PRN Q4HRS PRN IVP ELEVATED BP, SEE COMMENTS Last administered on 02/23/19at 03:33; Start 02/23/19 at 03:00 Benzonatate (Tessalon Perle) 100 mg PRN TID PRN PO COUGH Last administered on 02/23/19 03:32; Start 02/23/19 at 03:00 Acetaminophen (Tylenol) 325 mg PRN Q4HRS PRN PO MILD PAIN 1-3; Start 02/23/19 at 03:00 Aspirin (Children'S Aspirin) 162 mg DAILYWBKFT PO Last administered on 02/26/19 09:05; Start 02/23/19 at 08:00 Carvedilol (Coreg) 12.5 mg BIDWMEALS PO Last administered on 02/26/19 09:04; Start 02/23/19 at 08:00 Diphenhydramine HCl (Benadryl) 25 mg PRN Q6HRS PRN PO ALLERGIES; Start 02/23/19 at 03:00 Vitamin B Complex/ Vitamin C (Catie-Renee) 1 tab DAILY PO Last administered on 02/26/19 09:04; Start 02/23/19 at 09:00 Furosemide (Lasix) 80 mg DAILY PO Last administered on 02/26/19 09:05; Start 02/23/19 at 09:00 Hydralazine HCl (Apresoline) 10 mg BID PO Last administered on 02/26/19 09 :04; Start 02/23/19 at 09:00 Acetaminophen/ Hydrocodone Bitart (Lortab 7.5/325) 1 tab PRN Q6HRS PRN PO MODERATE TO SEVERE PAIN Last administered on 02/24/19 09:01; Start 02/23/19 at 03:00 Sevelamer Carbonate (Renvela) 2,400 mg TIDWMEALS PO Last administered on 02/25/19 12:31; Start 02/23/19 at 08:00 Triamcinolone Acetonide (Kenalog 0.1%) 1 lewis BID TP Last administered on 02/25/19 20:47; Start 02/23/19 at 09:00 Isosorbide Dinitrate (Isordil) 20 mg BID PO Last administered on 02/26/19 09:03; Start 02/23/19 at 09:00 Losartan Potassium (Cozaar) 100 mg HS PO Last administered on 02/25/19 20:48; Start 02/23/19 at 21:00 Non-Formulary Medication (Umeclidinium Brm/Vilanterol Tr (Anoro Ellipta 62.5-25 Mcg Inh)) 1 each DAILY IH ; Start 02/23/19 at 09:00; Status UNV Budesonide (Pulmicort) 0.5 mg RTBID NEB Last administered on 02/26/19at 08:22; Start 02/23/19 at 08:00 Albuterol Sulfate (Ventolin Neb Soln) 2.5 mg RTQID NEB Last administered on 02/26/19at 08:22; Start 02/23/19 at 08:00 Heparin Sodium (Porcine) (Heparin Sodium) 5,000 unit Q8HRS SQ Last administered on 02/26/19at 05:44; Start 02/23/19 at 14:00 Sodium Chloride 1,000 ml @ 1,000 mls/hr Q1H PRN IV hypotension; Start 02/23/19 at 13:07; Stop 02/23/19 at 19:06; Status DC Diphenhydramine HCl (Benadryl) 25 mg 1X PRN PRN IV ITCHING; Start 02/23/19 at 13:15; Stop 02/24/19 at 13:14; Status DC Diphenhydramine HCl (Benadryl) 25 mg 1X PRN PRN IV ITCHING; Start 02/23/19 at 13:15; Stop 02/24/19 at 13:14; Status DC Sodium Chloride 1,000 ml @ 400 mls/hr Q2H30M PRN IV PATENCY; Start 02/23/19 at 13:07; Stop 02/24/19 at 01:06; Status DC Info (PHARMACY MONITORING -- do not chart) 1 each PRN DAILY PRN MC SEE COMMENTS; Start 02/23/19 at 13:15; Status UNV Info (PHARMACY MONITORING -- do not chart) 1 each PRN DAILY PRN MC SEE COMMENTS; Start 02/23/19 at 13:15 Docusate Sodium (Colace) 100 mg PRN BID PRN PO CONSTIPATION Last administered on 02/24/19at 18:27; Start 02/24/19 at 18:30 Sodium Chloride 1,000 ml @ 1,000 mls/hr Q1H PRN IV hypotension; Start 02/25/19 at 15:55; Stop 02/25/19 at 21:54; Status DC Diphenhydramine HCl (Benadryl) 25 mg 1X PRN PRN IV ITCHING; Start 02/25/19 at 16:00; Stop 02/26/19 at 15:59 Diphenhydramine HCl (Benadryl) 25 mg 1X PRN PRN IV ITCHING; Start 02/25/19 at 16:00; Stop 02/26/19 at 15:59 Info (PHARMACY MONITORING -- do not chart) 1 each PRN DAILY PRN MC SEE COMMENTS; Start 02/25/19 at 16:00; Status UNV Active Scripts Active Triamcinolone Acetonide 0.1% Cream (Triamcinolone Acetonide) 15 Gm Cream..g. 1 Lewis TP BID 14 Days Anoro Ellipta 62.5-25 Mcg Inh (Umeclidinium Brm/Vilanterol Tr) 1 Each Disk.w.dev 1 Each IH DAILY 30 Days Proair Hfa (Albuterol Sulfate) 8.5 Gm Hfa.aer.ad 1 Puff INH PRN Q6HRS PRN 30 Days Reported Hydrocodone-Apap 7.5-325 (Hydrocodone Bit/Acetaminophen) 1 Tab Tablet 1 Tab PO PRN Q6HRS PRN Children's Aspirin (Aspirin) 81 Mg Tab.chew 162 Mg PO DAILY Losartan Potassium 100 Mg Tablet 100 Mg PO HS Hydralazine Hcl 10 Mg Tablet 10 Mg PO BID Isosorbide Dinitrate 20 Mg Tablet 20 Mg PO BID Benadryl (Diphenhydramine Hcl) 25 Mg Capsule 25 Mg PO PRN PRN Carvedilol (Carvedilol) 12.5 Mg Tablet 12.5 Mg PO BIDWMEALS Tylenol (Acetaminophen) 325 Mg Tablet 1 Tab PO PRN Q4HRS PRN Renal Vitamin Tablet (Folic Acid/Vit Bcomp,C) 0.8 Mg Tablet 0.8 Mg PO DAILY Renvela (Sevelamer Carbonate) 800 Mg Tablet 3 Tab PO TID Furosemide 80 Mg Tablet 1 Tab PO DAILY Allergies Allergies: Coded Allergies: azithromycin (Verified Adverse Reaction, Intermediate, Anxiety, HALLUCINATIONS, 11/02/18) Vitals VITALS Vital Signs Date Time Temp Pulse Resp B/P (MAP) Pulse Ox O2 Delivery O2 Flow Rate FiO2 02/26/19 09:04 79 157/84 02/26/19 08:27 98 Room Air 02/26/19 07:15 99.6 20 99.6 Labs Labs Laboratory Tests Test 02/24/19 11:29 02/24/19 16:40 02/24/19 20:24 02/25/19 03:55 Glucose (Fingerstick) 138 mg/dL (70-99) 136 mg/dL (70-99) 155 mg/dL (70-99) White Blood Count 2.9 x10^3/uL (4.0-11.0) Red Blood Count 3.30 x10^6/uL (3.50-5.40) Hemoglobin 11.1 g/dL (12.0-15.5) Hematocrit 33.9 % (36.0-47.0) Mean Corpuscular Volume 103 fL (79-100) Mean Corpuscular Hemoglobin 34 pg (25-35) Mean Corpuscular Hemoglobin Concent 33 g/dL (31-37) Red Cell Distribution Width 13.4 % (11.5-14.5) Platelet Count 106 x10^3/uL (140-400) Neutrophils (%) (Auto) 56 % (31-73) Lymphocytes (%) (Auto) 25 % (24-48) Monocytes (%) (Auto) 13 % (0-9) Eosinophils (%) (Auto) 6 % (0-3) Basophils (%) (Auto) 1 % (0-3) Neutrophils # (Auto) 1.7 x10^3/uL (1.8-7.7) Lymphocytes # (Auto) 0.7 x10^3/uL (1.0-4.8) Monocytes # (Auto) 0.4 x10^3/uL (0.0-1.1) Eosinophils # (Auto) 0.2 x10^3/uL (0.0-0.7) Basophils # (Auto) 0.0 x10^3/uL (0.0-0.2) Sodium Level 136 mmol/L (136-145) Potassium Level 3.7 mmol/L (3.5-5.1) Chloride Level 100 mmol/L (98-107) Carbon Dioxide Level 28 mmol/L (21-32) Anion Gap 8 (6-14) Blood Urea Nitrogen 22 mg/dL (7-20) Creatinine 5.9 mg/dL (0.6-1.0) Estimated GFR (Cockcroft-Gault) 8.9 BUN/Creatinine Ratio 4 (6-20) Glucose Level 100 mg/dL (70-99) Calcium Level 8.9 mg/dL (8.5-10.1) Total Bilirubin 0.3 mg/dL (0.2-1.0) Aspartate Amino Transf (AST/SGOT) 23 U/L (15-37) Alanine Aminotransferase (ALT/SGPT) 24 U/L (14-59) Alkaline Phosphatase 194 U/L (46-116) Total Protein 5.7 g/dL (6.4-8.2) Albumin 2.5 g/dL (3.4-5.0) Albumin/Globulin Ratio 0.8 (1.0-1.7) Vitamin B12 Level 334 pg/mL (247-911) Rheumatoid Factor 14.6 IU/mL (0.0-13.9) HIV (1&2) Antibody Screen Nonreactive (Nonreactive) Test 02/25/19 07:56 02/25/19 11:57 02/25/19 20:50 02/26/19 07:35 Glucose (Fingerstick) 93 mg/dL (70-99) 103 mg/dL (70-99) 77 mg/dL (70-99) 103 mg/dL (70-99) Laboratory Tests Test 02/25/19 11:57 02/25/19 20:50 02/26/19 07:35 Glucose (Fingerstick) 103 mg/dL (70-99) 77 mg/dL (70-99) 103 mg/dL (70-99) ADRIANA KING MD Feb 26, 2019 09:49
--- NOTE | 2019-02-26 10:26 | PDOC ---
PROGRESS NOTES History of Present Illness History of Present Illness VTE Prophylaxis Ordered VTE Prophylaxis Devices: No VTE Pharmacological Prophylaxi: Yes DISCHARGE DX Assessment/Plan Impression: Dyspnea no pulmonary embolus identified within the main, lobar or segmental pulmonary arteries. ACUTE ON CHRONIC COMBINED CHF echocardiogram in October of thisyear. Ejection fraction was 20-25%. the Ejection Fraction is 25-30%. severe tricuspid regurgitation. severe pulmonary hypertension.PA pressure was estimated at 77 mmHg. morbid obesity Acute asthma exacerbation acute exac of copd End stage chronic kidney disease Splenomegaly LABILE HTN underlying myeloma?, ADMITTED TELE BED PULM CONSULT NEPHROLOGY CONSULT CARDIOLOGY CONSULT DVT PROPHYLAXIS, SQ HEPARIN abd sono GI CONSULT EXTRA DIALYSIS 02/24 NEEDED PT/OT SEE DR MENJIVAR 2 WEEKS 34 min pt exam, chart review D/C PLANNING , > 50% of time spent with exam, chart review, pt care coordination Vitals Vitals Vital Signs Date Time Temp Pulse Resp B/P (MAP) Pulse Ox O2 Delivery O2 Flow Rate FiO2 02/26/19 09:04 79 157/84 02/26/19 08:27 98 Room Air 02/26/19 07:15 99.6 20 99.6 Physical Exam General: mild distress Heart: Regular rate Lungs: Clear Abdomen: Normal bowel sounds Extremities: No cyanosis Labs LABS Laboratory Tests Test 02/25/19 11:57 02/25/19 20:50 02/26/19 07:35 Glucose (Fingerstick) 103 mg/dL (70-99) 77 mg/dL (70-99) 103 mg/dL (70-99) Assessment and Plan Assessmemt and Plan Problems Medical Problems: (1) Acute asthma exacerbation Status: Acute (2) Dyspnea Status: Acute (3) End stage chronic kidney disease Status: Acute Comment Review of Relevant I have reviewed the following items alivia (where applicable) has been applied. Labs Laboratory Tests Test 02/24/19 11:29 02/24/19 16:40 02/24/19 20:24 02/25/19 03:55 Glucose (Fingerstick) 138 mg/dL (70-99) 136 mg/dL (70-99) 155 mg/dL (70-99) White Blood Count 2.9 x10^3/uL (4.0-11.0) Red Blood Count 3.30 x10^6/uL (3.50-5.40) Hemoglobin 11.1 g/dL (12.0-15.5) Hematocrit 33.9 % (36.0-47.0) Mean Corpuscular Volume 103 fL (79-100) Mean Corpuscular Hemoglobin 34 pg (25-35) Mean Corpuscular Hemoglobin Concent 33 g/dL (31-37) Red Cell Distribution Width 13.4 % (11.5-14.5) Platelet Count 106 x10^3/uL (140-400) Neutrophils (%) (Auto) 56 % (31-73) Lymphocytes (%) (Auto) 25 % (24-48) Monocytes (%) (Auto) 13 % (0-9) Eosinophils (%) (Auto) 6 % (0-3) Basophils (%) (Auto) 1 % (0-3) Neutrophils # (Auto) 1.7 x10^3/uL (1.8-7.7) Lymphocytes # (Auto) 0.7 x10^3/uL (1.0-4.8) Monocytes # (Auto) 0.4 x10^3/uL (0.0-1.1) Eosinophils # (Auto) 0.2 x10^3/uL (0.0-0.7) Basophils # (Auto) 0.0 x10^3/uL (0.0-0.2) Sodium Level 136 mmol/L (136-145) Potassium Level 3.7 mmol/L (3.5-5.1) Chloride Level 100 mmol/L (98-107) Carbon Dioxide Level 28 mmol/L (21-32) Anion Gap 8 (6-14) Blood Urea Nitrogen 22 mg/dL (7-20) Creatinine 5.9 mg/dL (0.6-1.0) Estimated GFR (Cockcroft-Gault) 8.9 BUN/Creatinine Ratio 4 (6-20) Glucose Level 100 mg/dL (70-99) Calcium Level 8.9 mg/dL (8.5-10.1) Total Bilirubin 0.3 mg/dL (0.2-1.0) Aspartate Amino Transf (AST/SGOT) 23 U/L (15-37) Alanine Aminotransferase (ALT/SGPT) 24 U/L (14-59) Alkaline Phosphatase 194 U/L (46-116) Total Protein 5.7 g/dL (6.4-8.2) Albumin 2.5 g/dL (3.4-5.0) Albumin/Globulin Ratio 0.8 (1.0-1.7) Vitamin B12 Level 334 pg/mL (247-911) Rheumatoid Factor 14.6 IU/mL (0.0-13.9) HIV (1&2) Antibody Screen Nonreactive (Nonreactive) Test 02/25/19 07:56 02/25/19 11:57 02/25/19 20:50 02/26/19 07:35 Glucose (Fingerstick) 93 mg/dL (70-99) 103 mg/dL (70-99) 77 mg/dL (70-99) 103 mg/dL (70-99) Laboratory Tests Test 02/25/19 11:57 02/25/19 20:50 02/26/19 07:35 Glucose (Fingerstick) 103 mg/dL (70-99) 77 mg/dL (70-99) 103 mg/dL (70-99) Microbiology 02/22/19 Blood Culture - Preliminary, Resulted NO GROWTH AFTER 3 DAYS Medications Current Medications Methylprednisolone Sodium Succinate (SOLU-Medrol 125MG VIAL) 125 mg 1X ONCE IV Last administered on 02/22/19at 19:37; Start 02/22/19 at 20:00; Stop 02/22/19 at 20:01; Status DC Albuterol/ Ipratropium (Duoneb) 3 ml 1X ONCE NEB Last administered on 02/22/19at 20:53; Start 02/22/19 at 20:00; Stop 02/22/19 at 20:01; Status DC Iohexol (Omnipaque 350 Mg/ml) 100 ml 1X ONCE IV Last administered on 02/22/19at 21:50; Start 02/22/19 at 21:45; Stop 02/22/19 at 21:46; Status DC Iohexol (Omnipaque 350 Mg/ml) 100 ml 1X ONCE IV ; Start 02/22/19 at 21:45; Stop 02/22/19 at 21:46; Status DC Info (CONTRAST GIVEN -- Rx MONITORING) 1 each PRN DAILY PRN MC SEE COMMENTS; Start 02/22/19 at 21:45; Stop 02/24/19 at 21:44; Status DC Iohexol (Omnipaque 350 Mg/ml) 100 ml STK-MED ONCE .ROUTE ; Start 02/22/19 at 21:35; Stop 02/22/19 at 21:35; Status DC Albuterol/ Ipratropium (Duoneb) 3 ml RTQID NEB Last administered on 02/23/19at 20:11; Start 02/23/19 at 08:00; Stop 02/24/19 at 07:59; Status DC Albuterol Sulfate (Ventolin Neb Soln) 2.5 mg PRN Q4HRS PRN NEB SHORTNESS OF BREATH Last administered on 02/23/19 03:38; Start 02/23/19 at 03:00 Hydralazine HCl (Apresoline Inj) 10 mg PRN Q4HRS PRN IVP ELEVATED BP, SEE COMMENTS Last administered on 02/23/19 03:33; Start 02/23/19 at 03:00 Benzonatate (Tessalon Perle) 100 mg PRN TID PRN PO COUGH Last administered on 02/23/19 03:32; Start 02/23/19 at 03:00 Acetaminophen (Tylenol) 325 mg PRN Q4HRS PRN PO MILD PAIN 1-3; Start 02/23/19 at 03:00 Aspirin (Children'S Aspirin) 162 mg DAILYWBKFT PO Last administered on 02/26/19at 09:05; Start 02/23/19 at 08:00 Carvedilol (Coreg) 12.5 mg BIDWMEALS PO Last administered on 02/26/19 09:04; Start 02/23/19 at 08:00 Diphenhydramine HCl (Benadryl) 25 mg PRN Q6HRS PRN PO ALLERGIES; Start 02/23/19 at 03:00 Vitamin B Complex/ Vitamin C (Catie-Renee) 1 tab DAILY PO Last administered on 02/26/19 09:04; Start 02/23/19 at 09:00 Furosemide (Lasix) 80 mg DAILY PO Last administered on 02/26/19 09:05; Start 02/23/19 at 09:00 Hydralazine HCl (Apresoline) 10 mg BID PO Last administered on 02/26/19 09:04; Start 02/23/19 at 09:00 Acetaminophen/ Hydrocodone Bitart (Lortab 7.5/325) 1 tab PRN Q6HRS PRN PO MODERATE TO SEVERE PAIN Last administered on 02/24/19 09:01; Start 02/23/19 at 03:00 Sevelamer Carbonate (Renvela) 2,400 mg TIDWMEALS PO Last administered on 02/25/19at 12:31; Start 02/23/19 at 08:00 Triamcinolone Acetonide (Kenalog 0.1%) 1 lewis BID TP Last administered on 02/25/19at 20:47; Start 02/23/19 at 09:00 Isosorbide Dinitrate (Isordil) 20 mg BID PO Last administered on 02/26/19 09:03; Start 02/23/19 at 09:00 Losartan Potassium (Cozaar) 100 mg HS PO Last administered on 02/25/19at 20:48; Start 02/23/19 at 21:00 Non-Formulary Medication (Umeclidinium Brm/Vilanterol Tr (Anoro Ellipta 62.5-25 Mcg Inh)) 1 each DAILY IH ; Start 02/23/19 at 09:00; Status UNV Budesonide (Pulmicort) 0.5 mg RTBID NEB Last administered on 02/26/19at 08:22; Start 02/23/19 at 08:00 Albuterol Sulfate (Ventolin Neb Soln) 2.5 mg RTQID NEB Last administered on 02/26/19at 08:22; Start 02/23/19 at 08:00 Heparin Sodium (Porcine) (Heparin Sodium) 5,000 unit Q8HRS SQ Last administered on 02/26/19at 05:44; Start 02/23/19 at 14:00 Sodium Chloride 1,000 ml @ 1,000 mls/hr Q1H PRN IV hypotension; Start 02/23/19 at 13:07; Stop 02/23/19 at 19:06; Status DC Diphenhydramine HCl (Benadryl) 25 mg 1X PRN PRN IV ITCHING; Start 02/23/19 at 13:15; Stop 02/24/19 at 13:14; Status DC Diphenhydramine HCl (Benadryl) 25 mg 1X PRN PRN IV ITCHING; Start 02/23/19 at 13:15; Stop 02/24/19 at 13:14; Status DC Sodium Chloride 1,000 ml @ 400 mls/hr Q2H30M PRN IV PATENCY; Start 02/23/19 at 13:07; Stop 02/24/19 at 01:06; Status DC Info (PHARMACY MONITORING -- do not chart) 1 each PRN DAILY PRN MC SEE COMMENTS; Start 02/23/19 at 13:15; Status UNV Info (PHARMACY MONITORING -- do not chart) 1 each PRN DAILY PRN MC SEE COMMENTS; Start 02/23/19 at 13:15 Docusate Sodium (Colace) 100 mg PRN BID PRN PO CONSTIPATION Last administered on 02/24/19at 18:27; Start 02/24/19 at 18:30 Sodium Chloride 1,000 ml @ 1,000 mls/hr Q1H PRN IV hypotension; Start 02/25/19 at 15:55; Stop 02/25/19 at 21:54; Status DC Diphenhydramine HCl (Benadryl) 25 mg 1X PRN PRN IV ITCHING; Start 02/25/19 at 16:00; Stop 02/26/19 at 15:59 Diphenhydramine HCl (Benadryl) 25 mg 1X PRN PRN IV ITCHING; Start 02/25/19 at 16:00; Stop 02/26/19 at 15:59 Info (PHARMACY MONITORING -- do not chart) 1 each PRN DAILY PRN MC SEE COMMENTS; Start 02/25/19 at 16:00; Status UNV Active Scripts Active Triamcinolone Acetonide 0.1% Cream (Triamcinolone Acetonide) 15 Gm Cream..g. 1 Lewis TP BID 14 Days Anoro Ellipta 62.5-25 Mcg Inh (Umeclidinium Brm/Vilanterol Tr) 1 Each Disk.w.dev 1 Each IH DAILY 30 Days Proair Hfa (Albuterol Sulfate) 8.5 Gm Hfa.aer.ad 1 Puff INH PRN Q6HRS PRN 30 Days Reported Hydrocodone-Apap 7.5-325 (Hydrocodone Bit/Acetaminophen) 1 Tab Tablet 1 Tab PO PRN Q6HRS PRN Children's Aspirin (Aspirin) 81 Mg Tab.chew 162 Mg PO DAILY Losartan Potassium 100 Mg Tablet 100 Mg PO HS Hydralazine Hcl 10 Mg Tablet 10 Mg PO BID Isosorbide Dinitrate 20 Mg Tablet 20 Mg PO BID Benadryl (Diphenhydramine Hcl) 25 Mg Capsule 25 Mg PO PRN PRN Carvedilol (Carvedilol) 12.5 Mg Tablet 12.5 Mg PO BIDWMEALS Tylenol (Acetaminophen) 325 Mg Tablet 1 Tab PO PRN Q4HRS PRN Renal Vitamin Tablet (Folic Acid/Vit Bcomp,C) 0.8 Mg Tablet 0.8 Mg PO DAILY Renvela (Sevelamer Carbonate) 800 Mg Tablet 3 Tab PO TID Furosemide 80 Mg Tablet 1 Tab PO DAILY Vitals/I & O Vital Sign - Last 24 Hours 02/25/19 02/25/19 02/25/19 02/25/19 11:58 11:59 15:09 19:30 Temp 98.4 98.4 98.2 98.4 98.4 98.2 Pulse 76 80 82 Resp 16 20 16 B/P (MAP) 170/91 (117) 148/87 (107) 169/89 (115) Pulse Ox 98 98 95 98 O2 Delivery Room Air Room Air Room Air Room Air 02/25/19 02/25/19 02/25/19 02/25/19 20:00 20:48 20:48 20:49 Pulse 82 82 82 B/P (MAP) 169/82 169/88 169/89 O2 Delivery Room Air 02/25/19 02/25/19 02/26/19 02/26/19 21:49 23:30 03:30 07:15 Temp 98.7 98.8 99.6 98.7 98.8 99.6 Pulse 82 81 79 Resp 16 16 20 B/P (MAP) 138/66 (90) 135/67 (89) 157/84 (108) Pulse Ox 96 96 97 96 O2 Delivery Room Air Room Air Room Air Room Air 02/26/19 02/26/19 02/26/19 02/26/19 08:00 08:26 08:27 09:03 Pulse 79 B/P (MAP) 157/84 Pulse Ox 98 98 O2 Delivery Room Air Room Air Room Air 02/26/19 02/26/19 09:04 09:04 Pulse 79 79 B/P (MAP) 157/84 157/84 Intake and Output 02/25/19 02/25/19 02/26/19 15:00 23:00 07:00 Intake Total 280 ml 900 ml Balance 280 ml 900 ml MARICEL LUCAS MD Feb 26, 2019 10:26
[2019-02-26 10:59] VITALS: BP 65/84
--- NOTE | 2019-02-26 11:10 | PDOC ---
SUBJECTIVE ROS No complaints this am OBJECTIVE Vital Signs Vital Signs Date Time Temp Pulse Resp B/P (MAP) Pulse Ox O2 Delivery O2 Flow Rate FiO2 02/26/19 10:59 98.7 74 18 65/84 (78) 97 Room Air 98.7 I & 0 Intake and Output 02/26/19 07:00 Intake Total 1180 ml Balance 1180 ml Intake Oral 1180 ml PHYSICAL EXAM Physical Exam General: Alert, No acute distress, On the phone Lungs: Decrased at bases Cardiovascular: S1, S2 Abdomen: Soft, Non-tender Neuro Exam: Alert Extremities: No Edema Skin: Warm DIAGNOSIS/ASSESSMENT Assessment & Plan ESRD - On HD MWF , for 6 years No indication for hd today Respiratory failure. Multi-factorial including asthma and systolic heart failure. Echo shows pulmonary hypertension Acute systolic heart failure.ejection fraction of 35-40%. 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 Pancytopenia: She declines bone marrow biopsy , Oncology following Apical thrombus: S defer to cardiology COMMENT/RELEVANT DATA Meds Current Medications Medications (Trade) Dose Ordered Sig/Rosie Start Time Stop Time Status Last Admin Dose Admin Acetaminophen (Tylenol) 325 mg PRN Q4HRS PRN 02/23/19 03:00 Acetaminophen/ Hydrocodone Bitart (Lortab 7.5/325) 1 tab PRN Q6HRS PRN 02/23/19 03:00 02/24/19 09:01 1 TAB Albuterol Sulfate (Ventolin Neb Soln) 2.5 mg RTQID 02/23/19 08:00 02/26/19 08:22 2.5 MG Albuterol/ Ipratropium (Duoneb) 3 ml RTQID 02/23/19 08:00 02/24/19 07:59 DC 02/23/19 20:11 3 ML Aspirin (Children'S Aspirin) 162 mg DAILYWBKFT 02/23/19 08:00 02/26/19 09:05 162 MG Benzonatate (Tessalon Perle) 100 mg PRN TID PRN 02/23/19 03:00 02/23/19 03:32 100 MG Budesonide (Pulmicort) 0.5 mg RTBID 02/23/19 08:00 02/26/19 08:22 0.5 MG Carvedilol (Coreg) 12.5 mg BIDWMEALS 02/23/19 08:00 02/26/19 09:04 12.5 MG Diphenhydramine HCl (Benadryl) 25 mg 1X PRN PRN 02/25/19 16:00 02/26/19 15:59 Docusate Sodium (Colace) 100 mg PRN BID PRN 02/24/19 18:30 02/24/19 18:27 100 MG Furosemide (Lasix) 80 mg DAILY 02/23/19 09:00 02/26/19 09:05 80 MG Heparin Sodium (Porcine) (Heparin Sodium) 5,000 unit Q8HRS 02/23/19 14:00 02/26/19 05:44 5,000 UNIT Hydralazine HCl (Apresoline Inj) 10 mg PRN Q4HRS PRN 02/23/19 03:00 02/23/19 03:33 10 MG Hydralazine HCl (Apresoline) 10 mg BID 02/23/19 09:00 02/26/19 09:04 10 MG Info (CONTRAST GIVEN -- Rx MONITORING) 1 each PRN DAILY PRN 02/22/19 21:45 02/24/19 21:44 DC Info (PHARMACY MONITORING -- do not chart) 1 each PRN DAILY PRN 02/25/19 16:00 UNV Iohexol (Omnipaque 350 Mg/ml) 100 ml STK-MED ONCE 02/22/19 21:35 02/22/19 21:35 DC Isosorbide Dinitrate (Isordil) 20 mg BID 02/23/19 09:00 02/26/19 09:03 20 MG Losartan Potassium (Cozaar) 100 mg HS 02/23/19 21:00 02/25/19 20:48 100 MG Methylprednisolone Sodium Succinate (SOLU-Medrol 125MG VIAL) 125 mg 1X ONCE 02/22/19 20:00 02/22/19 20:01 DC 02/22/19 19:37 125 MG Non-Formulary Medication (Umeclidinium Brm/Vilanterol Tr (Anoro Ellipta 62.5-25 Mcg Inh)) 1 each DAILY 02/23/19 09:00 UNV Sevelamer Carbonate (Renvela) 2,400 mg TIDWMEALS 02/23/19 08:00 02/25/19 12:31 2,400 MG Sodium Chloride 1,000 ml @ 1,000 mls/hr Q1H PRN 02/25/19 15:55 02/25/19 21:54 DC Triamcinolone Acetonide (Kenalog 0.1%) 1 kayla BID 02/23/19 09:00 02/25/19 20:47 1 KAYLA Vitamin B Complex/ Vitamin C (Catie-Renee) 1 tab DAILY 02/23/19 09:00 02/26/19 09:04 1 TAB Lab Laboratory Tests Test 02/25/19 11:57 02/25/19 20:50 02/26/19 07:35 Glucose (Fingerstick) 103 mg/dL (70-99) 77 mg/dL (70-99) 103 mg/dL (70-99) Results All relevant outside records, renal labs, imaging studies, telemetry/EKG's were reviewed. DIAMOND FANG MD Feb 26, 2019 11:10
--- NOTE | 2019-02-26 11:10 | PDOC ---
Subjective: Subjective: Feels fine, doesn't want bone marrow biopsy, might sign herself out because she's sick of being here. Objective: Vital Signs: Vital Signs Date Time Temp Pulse Resp B/P (MAP) Pulse Ox O2 Delivery O2 Flow Rate FiO2 02/26/19 10:59 98.7 74 18 65/84 (78) 97 Room Air 98.7 Labs: Laboratory Tests Test 02/25/19 11:57 02/25/19 20:50 02/26/19 07:35 Glucose (Fingerstick) 103 mg/dL 77 mg/dL 103 mg/dL Imaging: CT A/P 02/25 report pending PE: GEN: NAD - talking on phone LUNGS: room air NEURO/PSYCH: A & O 3 A/P: Splenomegaly, pancytopenia -- Many labs pending, declines bone marrow biopsy, ?leaving SONIA CRAWFORD Feb 26, 2019 11:10
--- NOTE | 2019-02-26 11:35 | PDOC3 ---
Discharge Summary Date of Admission: Feb 22, 2019 Date of Discharge: Feb 26, 2019 Follow-Up: 3-5 days Admitting Diagnosis comment: DISCHARGE DX Assessment/Plan Impression: Dyspnea no pulmonary embolus identified within the main, lobar or segmental pulmonary arteries. ACUTE ON CHRONIC COMBINED CHF echocardiogram in October of thisyear. Ejection fraction was 20-25%. the Ejection Fraction is 25-30%. severe tricuspid regurgitation. severe pulmonary hypertension.PA pressure was estimated at 77 mmHg. morbid obesity Acute asthma exacerbation acute exac of copd End stage chronic kidney disease Splenomegaly LABILE HTN underlying myeloma?, ADMITTED TELE BED PULM CONSULT NEPHROLOGY CONSULT CARDIOLOGY CONSULT DVT PROPHYLAXIS, SQ HEPARIN abd sono GI CONSULT EXTRA DIALYSIS 02/24 NEEDED PT/OT SEE DR MENJIVAR 2 WEEKS 34 min pt exam, chart review D/C PLANNING , > 50% of time spent with exam, chart review, pt care coordination FINAL DIAGNOSIS Problems Medical Problems: (1) Acute asthma exacerbation Status: Acute (2) Dyspnea Status: Acute (3) End stage chronic kidney disease Status: Acute Brief Hospital Course Ms. Terrell is a 58 old [sex] who presented with [ACUTE CHF ] CONDITION AT DISCHARGE: Improved Discharge Medications Current Medications Methylprednisolone Sodium Succinate (SOLU-Medrol 125MG VIAL) 125 mg 1X ONCE IV Last administered on 02/22/19at 19:37; Start 02/22/19 at 20:00; Stop 02/22/19 at 20:01; Status DC Albuterol/ Ipratropium (Duoneb) 3 ml 1X ONCE NEB Last administered on 02/22/19at 20:53; Start 02/22/19 at 20:00; Stop 02/22/19 at 20:01; Status DC Iohexol (Omnipaque 350 Mg/ml) 100 ml 1X ONCE IV Last administered on 02/22/19at 21:50; Start 02/22/19 at 21:45; Stop 02/22/19 at 21:46; Status DC Iohexol (Omnipaque 350 Mg/ml) 100 ml 1X ONCE IV ; Start 02/22/19 at 21:45; Stop 02/22/19 at 21:46; Status DC Info (CONTRAST GIVEN -- Rx MONITORING) 1 each PRN DAILY PRN MC SEE COMMENTS; Start 02/22/19 at 21:45; Stop 02/24/19 at 21:44; Status DC Iohexol (Omnipaque 350 Mg/ml) 100 ml STK-MED ONCE .ROUTE ; Start 02/22/19 at 21:35; Stop 02/22/19 at 21:35; Status DC Albuterol/ Ipratropium (Duoneb) 3 ml RTQID NEB Last administered on 02/23/19at 20:11; Start 02/23/19 at 08:00; Stop 02/24/19 at 07:59; Status DC Albuterol Sulfate (Ventolin Neb Soln) 2.5 mg PRN Q4HRS PRN NEB SHORTNESS OF BREATH Last administered on 02/23/19 03:38; Start 02/23/19 at 03:00 Hydralazine HCl (Apresoline Inj) 10 mg PRN Q4HRS PRN IVP ELEVATED BP, SEE COMMENTS Last administered on 02/23/19at 03:33; Start 02/23/19 at 03:00 Benzonatate (Tessalon Perle) 100 mg PRN TID PRN PO COUGH Last administered on 02/23/19 03:32; Start 02/23/19 at 03:00 Acetaminophen (Tylenol) 325 mg PRN Q4HRS PRN PO MILD PAIN 1-3; Start 02/23/19 at 03:00 Aspirin (Children'S Aspirin) 162 mg DAILYWBKFT PO Last administered on 02/26/19at 09:05; Start 02/23/19 at 08:00 Carvedilol (Coreg) 12.5 mg BIDWMEALS PO Last administered on 02/26/19 09:04; Start 02/23/19 at 08:00 Diphenhydramine HCl (Benadryl) 25 mg PRN Q6HRS PRN PO ALLERGIES; Start at 03:00 Vitamin B Complex/ Vitamin C (Catie-Renee) 1 tab DAILY PO Last administered on 02/26/19 09:04; Start 02/23/19 at 09:00 Furosemide (Lasix) 80 mg DAILY PO Last administered on 02/26/19 09:05; Start 02/23/19 at 09:00 Hydralazine HCl (Apresoline) 10 mg BID PO Last administered on 02/26/19 09:04; Start 02/23/19 at 09:00 Acetaminophen/ Hydrocodone Bitart (Lortab 7.5/325) 1 tab PRN Q6HRS PRN PO MODERATE TO SEVERE PAIN Last administered on 02/24/19 09:01; Start 02/23/19 at 03:00 Sevelamer Carbonate (Renvela) 2,400 mg TIDWMEALS PO Last administered on 02/25/19 12:31; Start 02/23/19 at 08:00 Triamcinolone Acetonide (Kenalog 0.1%) 1 lewis BID TP Last administered on 02/25/19 20:47; Start 02/23/19 at 09:00 Isosorbide Dinitrate (Isordil) 20 mg BID PO Last administered on 02/26/19 09:03; Start 02/23/19 at 09:00 Losartan Potassium (Cozaar) 100 mg HS PO Last administered on 02/25/19 20:48; Start 02/23/19 at 21:00 Non-Formulary Medication (Umeclidinium Brm/Vilanterol Tr (Anoro Ellipta 62.5-25 Mcg Inh)) 1 each DAILY IH ; Start 02/23/19 at 09:00; Status UNV Budesonide (Pulmicort) 0.5 mg RTBID NEB Last administered on 02/26/19 08:22; Start 02/23/19 at 08:00 Albuterol Sulfate (Ventolin Neb Soln) 2.5 mg RTQID NEB Last administered on 02/26/19 08:22; Start 02/23/19 at 08:00 Heparin Sodium (Porcine) (Heparin Sodium) 5,000 unit Q8HRS SQ Last administered on 02/26/19at 05:44; Start 02/23/19 at 14:00 Sodium Chloride 1,000 ml @ 1,000 mls/hr Q1H PRN IV hypotension; Start 02/23/19 at 13:07; Stop 02/23/19 at 19:06; Status DC Diphenhydramine HCl (Benadryl) 25 mg 1X PRN PRN IV ITCHING; Start 02/23/19 at 13:15; Stop 02/24/19 at 13:14; Status DC Diphenhydramine HCl (Benadryl) 25 mg 1X PRN PRN IV ITCHING; Start 02/23/19 at 13:15; Stop 02/24/19 at 13:14; Status DC Sodium Chloride 1,000 ml @ 400 mls/hr Q2H30M PRN IV PATENCY; Start 02/23/19 at 13:07; Stop 02/24/19 at 01:06; Status DC Info (PHARMACY MONITORING -- do not chart) 1 each PRN DAILY PRN MC SEE COMMENTS; Start 02/23/19 at 13:15; Status UNV Info (PHARMACY MONITORING -- do not chart) 1 each PRN DAILY PRN MC SEE COMMENTS; Start 02/23/19 at 13:15 Docusate Sodium (Colace) 100 mg PRN BID PRN PO CONSTIPATION Last administered on 02/24/19at 18:27; Start 02/24/19 at 18:30 Sodium Chloride 1,000 ml @ 1,000 mls/hr Q1H PRN IV hypotension; Start 02/25/19 at 15:55; Stop 02/25/19 at 21:54; Status DC Diphenhydramine HCl (Benadryl) 25 mg 1X PRN PRN IV ITCHING; Start 02/25/19 at 16:00; Stop 02/26/19 at 15:59 Diphenhydramine HCl (Benadryl) 25 mg 1X PRN PRN IV ITCHING; Start 02/25/19 at 16:00; Stop 02/26/19 at 15:59 Info (PHARMACY MONITORING -- do not chart) 1 each PRN DAILY PRN MC SEE COMMENTS; Start 02/25/19 at 16:00; Status UNV Active Scripts Active Triamcinolone Acetonide 0.1% Cream (Triamcinolone Acetonide) 15 Gm Cream..g. 1 Lewis TP BID 14 Days Anoro Ellipta 62.5-25 Mcg Inh (Umeclidinium Brm/Vilanterol Tr) 1 Each Disk.w.dev 1 Each IH DAILY 30 Days Proair Hfa (Albuterol Sulfate) 8.5 Gm Hfa.aer.ad 1 Puff INH PRN Q6HRS PRN 30 Days Reported Hydrocodone-Apap 7.5-325 (Hydrocodone Bit/Acetaminophen) 1 Tab Tablet 1 Tab PO PRN Q6HRS PRN Children's Aspirin (Aspirin) 81 Mg Tab.chew 162 Mg PO DAILY Losartan Potassium 100 Mg Tablet 100 Mg PO HS Hydralazine Hcl 10 Mg Tablet 10 Mg PO BID Isosorbide Dinitrate 20 Mg Tablet 20 Mg PO BID Benadryl (Diphenhydramine Hcl) 25 Mg Capsule 25 Mg PO PRN PRN Carvedilol (Carvedilol) 12.5 Mg Tablet 12.5 Mg PO BIDWMEALS Tylenol (Acetaminophen) 325 Mg Tablet 1 Tab PO PRN Q4HRS PRN Renal Vitamin Tablet (Folic Acid/Vit Bcomp,C) 0.8 Mg Tablet 0.8 Mg PO DAILY Renvela (Sevelamer Carbonate) 800 Mg Tablet 3 Tab PO TID Furosemide 80 Mg Tablet 1 Tab PO DAILY Vital Signs Vital Signs Date Time Temp Pulse Resp B/P (MAP) Pulse Ox O2 Delivery O2 Flow Rate FiO2 02/26/19 10:59 98.7 74 18 65/84 (78) 97 Room Air 98.7 Labs Laboratory Tests Test 02/24/19 16:40 02/24/19 20:24 02/25/19 03:55 02/25/19 07:56 Glucose (Fingerstick) 136 mg/dL (70-99) 155 mg/dL (70-99) 93 mg/dL (70-99) White Blood Count 2.9 x10^3/uL (4.0-11.0) Red Blood Count 3.30 x10^6/uL (3.50-5.40) Hemoglobin 11.1 g/dL (12.0-15.5) Hematocrit 33.9 % (36.0-47.0) Mean Corpuscular Volume 103 fL (79-100) Mean Corpuscular Hemoglobin 34 pg (25-35) Mean Corpuscular Hemoglobin Concent 33 g/dL (31-37) Red Cell Distribution Width 13.4 % (11.5-14.5) Platelet Count 106 x10^3/uL (140-400) Neutrophils (%) (Auto) 56 % (31-73) Lymphocytes (%) (Auto) 25 % (24-48) Monocytes (%) (Auto) 13 % (0-9) Eosinophils (%) (Auto) 6 % (0-3) Basophils (%) (Auto) 1 % (0-3) Neutrophils # (Auto) 1.7 x10^3/uL (1.8-7.7) Lymphocytes # (Auto) 0.7 x10^3/uL (1.0-4.8) Monocytes # (Auto) 0.4 x10^3/uL (0.0-1.1) Eosinophils # (Auto) 0.2 x10^3/uL (0.0-0.7) Basophils # (Auto) 0.0 x10^3/uL (0.0-0.2) Sodium Level 136 mmol/L (136-145) Potassium Level 3.7 mmol/L (3.5-5.1) Chloride Level 100 mmol/L (98-107) Carbon Dioxide Level 28 mmol/L (21-32) Anion Gap 8 (6-14) Blood Urea Nitrogen 22 mg/dL (7-20) Creatinine 5.9 mg/dL (0.6-1.0) Estimated GFR (Cockcroft-Gault) 8.9 BUN/Creatinine Ratio 4 (6-20) Glucose Level 100 mg/dL (70-99) Calcium Level 8.9 mg/dL (8.5-10.1) Total Bilirubin 0.3 mg/dL (0.2-1.0) Aspartate Amino Transf (AST/SGOT) 23 U/L (15-37) Alanine Aminotransferase (ALT/SGPT) 24 U/L (14-59) Alkaline Phosphatase 194 U/L (46-116) Total Protein 5.7 g/dL (6.4-8.2) Albumin 2.5 g/dL (3.4-5.0) Albumin/Globulin Ratio 0.8 (1.0-1.7) Vitamin B12 Level 334 pg/mL (247-911) Rheumatoid Factor 14.6 IU/mL (0.0-13.9) HIV (1&2) Antibody Screen Nonreactive (Nonreactive) Test 02/25/19 11:57 02/25/19 20:50 02/26/19 07:35 Glucose (Fingerstick) 103 mg/dL (70-99) 77 mg/dL (70-99) 103 mg/dL (70-99) Laboratory Tests Test 02/25/19 11:57 02/25/19 20:50 02/26/19 07:35 Glucose (Fingerstick) 103 mg/dL (70-99) 77 mg/dL (70-99) 103 mg/dL (70-99) Allergies Allergies Coded Allergies Type Severity Reaction Last Updated Verified azithromycin Adverse Reaction Intermediate Anxiety, HALLUCINATIONS 11/02/18 Yes Disposition/Orders: D/C to Home MARICEL LUCAS MD Feb 26, 2019 11:35
[2019-02-26] MEDS ORDERED: BENZ-8 PO (11:37)
[2019-02-26] MEDS ORDERED: DOCU-153 PO (11:37)
[2019-02-26] MEDS ORDERED: BUDE0.5A NEB (11:37)
--- NOTE | 2019-02-26 11:39 | DISCH ---
DISCHARGE INSTRUCTIONS Condition on Discharge Condition on Discharge: Stable Activity After Discharge Activity Instructions for Disc: Resume previous activity Lifting Instructions after Dis: No heavy lifting, No pulling or pushing Driving Instructions after Dis: Do not drive today Weight Bearing Status after Di: As tolerated Diet after Discharge Diet after Discharge: Renal Dialysis Diet Texture: Regular Liquid Texture: Thin Liquid Checks after Discharge Checks after discharge: Check blood press - daily, Check your Temp as needed, Weigh Yourself Daily Contacting the DR. after DC Call your doctor for: If your condition worsens Treatment/Equipment after DC Adaptive Equipment Issued: MARICEL Adorno MD Feb 26, 2019 11:39
--- NOTE | 2019-02-26 12:48 | NUR ---
SW following pt. SW updated HD clinic regarding discharge. Per RN, Pt might leave AMA prior being seen by Cardiology but has dc order with self care. DC train planner will fax clinicals to clinic.
--- NOTE | 2019-02-26 14:40 | NUR ---
Patient discharged to home via wheelchair accompanied by son.
--- NOTE | 2019-02-26 15:20 | RAD ---
EXAM: CT ABDOMEN/PELVIS WITHOUT CONTRAST. HISTORY: Splenomegaly. TECHNIQUE: Computed tomography of the abdomen and pelvis was performed without intravenous contrast. COMPARISON: 02/22/2019. FINDINGS: Lung windows through the visualized portions of the bases reveal a small to moderate right pleural effusion with associated atelectasis of the right lower lobe. The heart is at least mildly enlarged. Median sternotomy changes are noted. Bone windows reveal no suspicious lesions. The inferior vena cava and hepatic veins are distended consistent with tricuspid regurgitation or right ventricular failure. There is body wall and lower extremity edema. There is no significant ascites. The spleen is mildly enlarged at 13.7 cm. The liver is also enlarged spanning 22 cm. There are scattered hepatic and splenic granulomas. No suspicious lesions are identified without contrast. The pancreas and adrenal glands are unremarkable. There is some vicarious excretion of contrast within the gallbladder. Some contrast remains within the renal collecting system suggesting a component of contrast nephropathy. The kidneys are moderately atrophic bilaterally with extensive renal arterial atherosclerotic calcifications. There are changes of pelvic floor relaxation. The appendix is not inflamed. There is no small bowel obstruction. IMPRESSION: 1. Moderate hepatomegaly and mild splenomegaly. 2. Findings consistent with right ventricular failure or tricuspid regurgitation. Body wall edema. Moderate right pleural effusion. 3. Moderate renal atrophy. Findings suggesting a component of contrast nephropathy. Ongoing management is recommended. 4. Pelvic floor relaxation. *One or more of the following individualized dose reduction techniques were utilized for this examination: 1. Automated exposure control. 2. Adjustment of the mA and/or kV according to patient size. 3. Use of iterative reconstruction technique. Electronically signed by: Eulalio Foley MD (02/26/2019 3:17 PM) [place]
[2019-02-26 17:31] VITALS: BP 165/84
--- NOTE | 2019-02-26 17:34 | PDOC ---
CARDIO Progress Notes Date and Time Date of Service 02/26/2019 Time of Evaluation 1400 Subjective Subjective: No Chest Pain, No shortness of breath, No Palpitations Vitals Vitals Vital Signs Date Time Temp Pulse Resp B/P (MAP) Pulse Ox O2 Delivery O2 Flow Rate FiO2 02/26/19 12:05 98 Room Air 02/26/19 10:59 98.7 74 18 65/84 (78) 98.7 Weight Weight [ ] Input and Output Intake and Output Intake and Output 02/26/19 07:00 Intake Total 1180 ml Balance 1180 ml Intake Oral 1180 ml Laboratory Labs Laboratory Tests Test 02/25/19 20:50 02/26/19 07:35 02/26/19 11:17 Glucose (Fingerstick) 77 mg/dL (70-99) 103 mg/dL (70-99) 124 mg/dL (70-99) Microbiology Micro Microbiology 02/22/19 Blood Culture - Preliminary, Resulted NO GROWTH AFTER 3 DAYS Physical Exam HEENT: Neck Supple W Full Motion Chest: Symmetric LUNGS: Clear to Auscultation Heart: S1S2, RRR (SR) Abdomen: Soft N/T Extremities: No Calf Tenderness Neurology: alert, oriented, follow commands Assessment Assessment 1. Respiratory failure. Multi-factorial including asthma, renal failure and systolic heart failure and pulmonary HTN. Compensated 2. Acute systolic heart failure. Updated ejection fraction of 35-40%. Compensated 3. ESRD 4. HTN; controlled, noted x1 with false low reading 5. HLP 6. CAD: past CABG. 7. Probable apical thrombus on echocardiogram. 8. Panctyopenia: W/U ongoing per hemonc Recommendations 1. Start on eliquis. 1 mo coupon card provided. 2. Will refer for outpt cardiac MRI for further delineation of her apical thrombuis 3. Continue with secondary prevention measures. 4. Follow up in office 5. Fluid off loading per HD. MIRTHA SIMON VICE PRESIDENT [employer] Feb 26, 2019 17:34
[2019-02-27 20:07] LABS: ANA INTERP Positive (.)
== END 2019-02-26 14:30 | disposition home or self-care (01) | DRG 291 ==
LOC: ER 18:50 → 6 SOUTH 21:30
PROVIDERS: ADMIT Family Medicine; ATTEND Family Medicine
PROC: 5A1D70Z Performance of Urinary Filtration, Intermittent, Less than 6 Hours Per Day (ICD-10-PCS; principal; 2019-02-23)
PROC: 5A1D70Z Performance of Urinary Filtration, Intermittent, Less than 6 Hours Per Day (ICD-10-PCS; 2019-02-25)
DX: I13.2 Hypertensive heart and chronic kidney disease with heart failure and with stage 5 chronic kidney disease, or end stage renal disease (principal); I50.43 Acute on chronic combined systolic (congestive) and diastolic (congestive) heart failure; N18.6 End stage renal disease; J96.90 Respiratory failure, unspecified, unspecified whether with hypoxia or hypercapnia; J44.1 Chronic obstructive pulmonary disease with (acute) exacerbation; J45.901 Unspecified asthma with (acute) exacerbation; N25.81 Secondary hyperparathyroidism of renal origin; D61.818 Other pancytopenia; E80.1 Porphyria cutanea tarda; I42.0 Dilated cardiomyopathy; M19.90 Unspecified osteoarthritis, unspecified site; E78.00 Pure hypercholesterolemia, unspecified; I25.10 Atherosclerotic heart disease of native coronary artery without angina pectoris; E11.22 Type 2 diabetes mellitus with diabetic chronic kidney disease; E78.5 Hyperlipidemia, unspecified; I48.91 Unspecified atrial fibrillation; E11.42 Type 2 diabetes mellitus with diabetic polyneuropathy; I07.1 Rheumatic tricuspid insufficiency; I27.20 Pulmonary hypertension, unspecified; D73.1 Hypersplenism; L40.9 Psoriasis, unspecified; D63.1 Anemia in chronic kidney disease; E66.01 Morbid (severe) obesity due to excess calories; Z68.31 Body mass index [BMI] 31.0-31.9, adult; Z95.1 Presence of aortocoronary bypass graft; Z98.51 Tubal ligation status; Z99.2 Dependence on renal dialysis; Z88.1 Allergy status to other antibiotic agents; Z83.3 Family history of diabetes mellitus; Z82.49 Family history of ischemic heart disease and other diseases of the circulatory system; Z87.891 Personal history of nicotine dependence; Z79.82 Long term (current) use of aspirin
CPT/HCPCS: 36415; 71045; 71275; 74176; 80053; 82607; 82962; 83605; 83880; 84484; 85007; 85025; 85379; 86038; 86431; 86703; 87040; 93306; 94640; 94760; 96374; J0360; J1644; J2930; J7613; J7620; J7626; Q9967; 99285-25; G0378

== ENCOUNTER 2019-05-02 18:13 | Emergency (ER) | payer MEDICARE ==
[~2019-05-02] VITALS: Ht 157.5 cm; Wt 81.7 kg
[~2019-05-02 18:13] MED LIST changes: +BENZ-8 PO; +BUDE0.5A NEB; +DOCU-153 PO
[2019-05-02 19:48] VITALS: BP 158/77
[2019-05-02 20:06] LABS: BASO % 1 % (0-3); EOS # 0.2 x10^3/uL (0.0-0.7); EOS % 6 % (0-3); HEMATOCRIT 35.1 % (36.0-47.0); HEMOGLOBIN 11.5 g/dL (12.0-15.5); LYMPH # 0.6 x10^3/uL (1.0-4.8); LYMPH % 21 % (24-48); MEAN CORPUSCULAR HEMOGLOBIN 35 pg (25-35); MEAN CORPUSCULAR HGB CONC 33 g/dL (31-37); MEAN CORPUSCULAR VOLUME 106 fL (79-100); MONO # 0.5 x10^3/uL (0.0-1.1); MONO % 16 % (0-9); NEUT # 1.7 x10^3/uL (1.8-7.7); NEUT % 58 % (31-73); PLATELET COUNT 127 x10^3/uL (140-400); RED BLOOD COUNT 3.32 x10^6/uL (3.50-5.40); RED CELL DISTRIBUTION WIDTH 15.4 % (11.5-14.5)
--- NOTE | 2019-05-02 20:10 | PHYS DOC ---
Past Medical History Past Medical History: Arthritis, CHF, Diabetes-Type II, High Cholesterol, Hypertension, Renal Failure Additional Past Medical Histor: TRIPLE BYPASS (MAINOR ABBOTT APRN) Past Surgical History: Coronary Bypass Surgery, Tubal ligation Additional Past Surgical Histo: FISTULA, HERNIA, HEART BYPASS (MAINOR ABBOTT APRN) Alcohol Use: Occasionally Drug Use: Marijuana (MAINOR ABBOTT APRN) Attending Signature I have participated in the care of this patient and I have reviewed and agree with all pertinent clinical information above including history, exam, and recommendations. (WILIAM GARCIA MD) Adult General Chief Complaint Chief Complaint: OTHER COMPLAINTS HPI HPI Patient is a 58 year old female who presents with dizziness, ear ringing, the patient also states she's had some blood that was dried on lip this morning when she woke up. Patient states that dizziness started yesterday but went away. The patient states the ear ringing started 3 days ago. She is on Eliquis. Also dialysis patient. Denies any other symptoms. The patient had dialysis yesterday. (MAINOR ABBOTT APRN) Review of Systems Review of Systems Constitutional: Denies fever or chills [] Eyes: Denies change in visual acuity, redness, or eye pain [] HENT: Denies nasal congestion or sore throat [] Respiratory: Denies cough or shortness of breath [] Cardiovascular: No additional information not addressed in HPI [] GI: Denies abdominal pain, nausea, vomiting, bloody stools or diarrhea [] : Denies dysuria or hematuria [] Musculoskeletal: Denies back pain or joint pain [] Integument: Denies rash or skin lesions [] Neurologic: Reports dizziness yesterday and ear ringing. Denies headache, focal weakness or sensory changes [] Endocrine: Denies polyuria or polydipsia [] Complete systems were reviewed and found to be within normal limits, except as documented in this note. (MAINOR ABBOTT APRN) Allergies Allergies Allergies Coded Allergies Type Severity Reaction Last Updated Verified azithromycin Adverse Reaction Intermediate Anxiety, HALLUCINATIONS 11/02/18 Yes (WILIAM GARCIA MD) Physical Exam Physical Exam Constitutional: Well developed, well nourished, no acute distress, non-toxic appearance. [] HENT: Normocephalic, atraumatic, bilateral external ears normal, oropharynx moist, no oral exudates, nose normal. [] Eyes: PERRLA, EOMI, conjunctiva normal, no discharge. [] Neck: Normal range of motion, no tenderness, supple, no stridor. [] Cardiovascular:Heart rate regular rhythm, no murmur [] Lungs & Thorax: Bilateral breath sounds clear to auscultation [] Abdomen: Bowel sounds normal, soft, no tenderness, no masses, no pulsatile masses. [] Skin: Warm, dry, no erythema, no rash. [] Neurologic: Alert and oriented X 3, normal motor function, normal sensory function, no focal deficits noted. [] Psychologic: Affect normal, judgement normal, mood normal. [] (MAINOR ABBOTT APRN) Current Patient Data Vital Signs Vital Signs Date Time Temp Pulse Resp B/P (MAP) Pulse Ox O2 Delivery O2 Flow Rate FiO2 05/02/19 19:48 81 18 158/77 (104) 98 Room Air 05/02/19 19:05 99.1 99.1 (WILIAM GARCIA MD) Lab Values Laboratory Tests Test 05/02/19 19:55 White Blood Count 3.0 x10^3/uL (4.0-11.0) L Red Blood Count 3.32 x10^6/uL (3.50-5.40) L Hemoglobin 11.5 g/dL (12.0-15.5) L Hematocrit 35.1 % (36.0-47.0) L Mean Corpuscular Volume 106 fL (79-100) H Mean Corpuscular Hemoglobin 35 pg (25-35) Mean Corpuscular Hemoglobin Concent 33 g/dL (31-37) Red Cell Distribution Width 15.4 % (11.5-14.5) H Platelet Count 127 x10^3/uL (140-400) L Neutrophils (%) (Auto) 58 % (31-73) Lymphocytes (%) (Auto) 21 % (24-48) L Monocytes (%) (Auto) 16 % (0-9) H Eosinophils (%) (Auto) 6 % (0-3) H Basophils (%) (Auto) 1 % (0-3) Neutrophils # (Auto) 1.7 x10^3/uL (1.8-7.7) L Lymphocytes # (Auto) 0.6 x10^3/uL (1.0-4.8) L Monocytes # (Auto) 0.5 x10^3/uL (0.0-1.1) Eosinophils # (Auto) 0.2 x10^3/uL (0.0-0.7) Basophils # (Auto) 0.0 x10^3/uL (0.0-0.2) Sodium Level 142 mmol/L (136-145) Potassium Level 4.3 mmol/L (3.5-5.1) Chloride Level 106 mmol/L (98-107) Carbon Dioxide Level 22 mmol/L (21-32) Anion Gap 14 (6-14) Blood Urea Nitrogen 28 mg/dL (7-20) H Creatinine 7.5 mg/dL (0.6-1.0) H Estimated GFR (Cockcroft-Gault) 6.8 BUN/Creatinine Ratio 4 (6-20) L Glucose Level 130 mg/dL (70-99) H Calcium Level 8.8 mg/dL (8.5-10.1) Total Bilirubin 0.2 mg/dL (0.2-1.0) Aspartate Amino Transferase (AST) 21 U/L (15-37) Alanine Aminotransferase (ALT) 19 U/L (14-59) Alkaline Phosphatase 256 U/L (46-116) H Total Protein 5.6 g/dL (6.4-8.2) L Albumin 2.9 g/dL (3.4-5.0) L Albumin/Globulin Ratio 1.1 (1.0-1.7) Laboratory Tests 05/02/19 19:55 Laboratory Tests 05/02/19 19:55 (WILIAM GARCIA MD) Lab Values Laboratory Tests Test 05/02/19 19:55 White Blood Count 3.0 x10^3/uL (4.0-11.0) L Red Blood Count 3.32 x10^6/uL (3.50-5.40) L Hemoglobin 11.5 g/dL (12.0-15.5) L Hematocrit 35.1 % (36.0-47.0) L Mean Corpuscular Volume 106 fL (79-100) H Mean Corpuscular Hemoglobin 35 pg (25-35) Mean Corpuscular Hemoglobin Concent 33 g/dL (31-37) Red Cell Distribution Width 15.4 % (11.5-14.5) H Platelet Count 127 x10^3/uL (140-400) L Neutrophils (%) (Auto) 58 % (31-73) Lymphocytes (%) (Auto) 21 % (24-48) L Monocytes (%) (Auto) 16 % (0-9) H Eosinophils (%) (Auto) 6 % (0-3) H Basophils (%) (Auto) 1 % (0-3) Neutrophils # (Auto) 1.7 x10^3/uL (1.8-7.7) L Lymphocytes # (Auto) 0.6 x10^3/uL (1.0-4.8) L Monocytes # (Auto) 0.5 x10^3/uL (0.0-1.1) Eosinophils # (Auto) 0.2 x10^3/uL (0.0-0.7) Basophils # (Auto) 0.0 x10^3/uL (0.0-0.2) Sodium Level 142 mmol/L (136-145) Potassium Level 4.3 mmol/L (3.5-5.1) Chloride Level 106 mmol/L (98-107) Carbon Dioxide Level 22 mmol/L (21-32) Anion Gap 14 (6-14) Blood Urea Nitrogen 28 mg/dL (7-20) H Creatinine 7.5 mg/dL (0.6-1.0) H Estimated GFR (Cockcroft-Gault) 6.8 BUN/Creatinine Ratio 4 (6-20) L Glucose Level 130 mg/dL (70-99) H Calcium Level 8.8 mg/dL (8.5-10.1) Total Bilirubin 0.2 mg/dL (0.2-1.0) Aspartate Amino Transferase (AST) 21 U/L (15-37) Alanine Aminotransferase (ALT) 19 U/L (14-59) Alkaline Phosphatase 256 U/L (46-116) H Total Protein 5.6 g/dL (6.4-8.2) L Albumin 2.9 g/dL (3.4-5.0) L Albumin/Globulin Ratio 1.1 (1.0-1.7) Laboratory Tests 05/02/19 19:55 Laboratory Tests 05/02/19 19:55 (MAINOR ABBOTT APRN) EKG EKG [] (MAINOR ABBOTT APRN) Radiology/Procedures Radiology/Procedures [][facility] [address] [place] [address] IMAGING REPORT Signed PATIENT: ERIC ZAIDI ACCOUNT: [id number] : 1960 LOCATION: ER AGE: 58 SEX: F EXAM STATUS: REG ER ORD. PHYSICIAN: MAINOR ABBOTT APRN REASON: dizziness PROCEDURE: CT HEAD WO CONTRAST Exam: CT head INDICATION: Dizziness TECHNIQUE: Sequential axial images through the head were obtained without the administration of IV contrast. Comparisons: None FINDINGS: No focal parenchymal lesion or hemorrhage is identified. There is no midline shift or sulcal effacement. Patchy hypodensities noted within the periventricular white matter, particularly in the left frontal lobe. No acute vascular territory infarction is identified. Harris-white distinction is preserved. The ventricular system is within normal limits without compression hydrocephalus. The basal cisterns are well maintained. The visualized portions of the paranasal sinuses and mastoid air cells are well-pneumatized. No acute fractures. IMPRESSION: Small vessel ischemic change which is technically age indeterminate without prior imaging. Exposure: One or more of the following in the visualized dose reduction techniques were utilized for this examination: 1. Automated exposure control 2. Adjustment of the MA and/or KV according to patient size Use of iterative of reconstructive technique Electronically signed by: Mercedez Bolivar MD (05/02/2019 8:25 PM) [facility] DICTATED and SIGNED BY: MERCEDEZ BOLIVAR MD DATE: 05/02/192024 (MAINOR ABBOTT APRN) Course & Med Decision Making Course & Med Decision Making Pertinent Labs and Imaging studies reviewed. (See chart for details) Will get labs and CT head. Labs are at baseline. CT scan is unremarkable for acute changes. If small vessel changes is acute it has been over 24 hours and dizziness has disappeared. Will have go to ENT to see if ringing ear is from hearing loss. (MAINOR ABBOTT APRN) Dragon Disclaimer Dragon Disclaimer This electronic medical record was generated, in whole or in part, using a voice recognition dictation system. (MAINOR ABBOTT APRN) Departure Departure Impression: Primary Impression: Ringing in ear Additional Impression: Hematemesis Disposition: HOME, SELF-CARE Condition: STABLE Referrals: NO PCP (PCP) Additional Instructions: Thank you for visiting [facility]. We appreciate you trusting us with your care. If any additional problems come up don't hesitate to return to visit us. Please follow up with your primary care provider so they can plan additional care if needed and know about the problem that you had. If symptoms worsen come back to the Emergency Department. Any concerning symptoms that start such as chest pain, shortness of air, weakness or numbness on one side of the body, running high fevers or any other concerning symptoms return to the ER. Please see an ENT for a hearing test. Problem Qualifiers Primary Impression: Ringing in ear Laterality: unspecified laterality Qualified Codes: H93.19 - Tinnitus, unspecified ear Additional Impression: Hematemesis Nausea presence: without nausea Qualified Codes: K92.0 - Hematemesis MAINOR ABBOTT APRN May 02, 2019 20:10 WILIAM GARCIA MD May 03, 2019 00:53
[2019-05-02 20:16] LABS: CALCIUM 8.8 mg/dL (8.5-10.1); CREATININE 7.5 mg/dL (0.6-1.0); GFR 6.8; POTASSIUM 4.3 mmol/L (3.5-5.1)
[2019-05-02 20:22] LABS: ALBUMIN 2.9 g/dL (3.4-5.0); ALBUMIN/GLOBULIN RATIO 1.1 (1.0-1.7); TOTAL BILIRUBIN 0.2 mg/dL (0.2-1.0); TOTAL PROTEIN 5.6 g/dL (6.4-8.2)
--- NOTE | 2019-05-02 20:28 | RAD ---
Exam: CT head INDICATION: Dizziness TECHNIQUE: Sequential axial images through the head were obtained without the administration of IV contrast. Comparisons: None FINDINGS: No focal parenchymal lesion or hemorrhage is identified. There is no midline shift or sulcal effacement. Patchy hypodensities noted within the periventricular white matter, particularly in the left frontal lobe. No acute vascular territory infarction is identified. Harris-white distinction is preserved. The ventricular system is within normal limits without compression hydrocephalus. The basal cisterns are well maintained. The visualized portions of the paranasal sinuses and mastoid air cells are well-pneumatized. No acute fractures. IMPRESSION: Small vessel ischemic change which is technically age indeterminate without prior imaging. Exposure: One or more of the following in the visualized dose reduction techniques were utilized for this examination: 1. Automated exposure control 2. Adjustment of the MA and/or KV according to patient size Use of iterative of reconstructive technique Electronically signed by: Mercedez Turner MD (05/02/2019 8:25 PM) [facility]
[2019-05-04] MEDS ORDERED: HYDR25TA PO (03:29)
[2019-05-04] MEDS ORDERED: APIX5TAB PO (03:29)
[2019-05-04] MEDS ORDERED: MAGN400T44 PO (03:29)
[2019-05-04] MEDS ORDERED: DIPH25CA58 PO (03:29)
[2019-05-04] MEDS ORDERED: HYDR-2765 PO (03:29)
== END 2019-05-02 21:50 | disposition home or self-care (01) ==
LOC: ER 18:13
DX: H93.19 Tinnitus, unspecified ear (principal); K92.0 Hematemesis; M19.90 Unspecified osteoarthritis, unspecified site; I50.9 Heart failure, unspecified; E11.9 Type 2 diabetes mellitus without complications; E78.00 Pure hypercholesterolemia, unspecified; I10 Essential (primary) hypertension; N19 Unspecified kidney failure; F12.90 Cannabis use, unspecified, uncomplicated; Z98.51 Tubal ligation status; Z98.890 Other specified postprocedural states; Z88.1 Allergy status to other antibiotic agents
CPT/HCPCS: 36415; 70450; 80053; 85025; 99285